=== PATIENT | male | born 1960 | race Caucasian/White ===

== ENCOUNTER 2016-03-15 11:20 | Emergency (ER) | payer SELFPAY ==
[2016-03-15 11:55] VITALS: RESP 18
[2016-03-15] MEDS ORDERED: ORPHENADRINE 30 MG/ML 2 ML VIAL IM STA (12:04)
[2016-03-15] MEDS ORDERED: KETOROLAC 60 MG/2 ML VIAL IM STA (12:04)
--- NOTE | 2016-03-15 12:06 | ED ---
Back Pain HPI - General Chief Complaint: Back Pain/Injury Stated Complaint: back pain Time Seen by Provider: 03/15/16 11:57 Source: patient, RN notes reviewed Limitations: no limitations - History of Present Illness Initial Comments: 55-year-old male presents to the emergency Department chief complaint of right- sided back pain. Patient had this pain for a few months now. Patient states the rash on the right side and down his right leg. Patient states that he goes to stand up or bending causes increased pain. Patient states the chiropractor who did not seem to help much. Patient states he should Nar[place] he tried Aleve and he said the lesion seems to help him the most. 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 Patient states he hasn't had any other symptoms of this. Patient denies any nausea or vomiting. Patient admits to history kidney stones but states that this feels different. Patient states she was concerned due to the pain. Called his doctor and they were unable to determine today so is here. Patient denies any recent fever, chills, shortness of breath, chest pain, abdominal pain, nausea vomiting, numbness or tingling, dysuria or hematuria, constipation or diarrhea, headaches or visual changes, or any other current symptoms. - Related Data Home Medications Medication Instructions Recorded Confirmed Naproxen Sodium [Aleve] 440 mg PO Q6H PRN 03/15/16 03/15/16 amLODIPine BESYLATE [Norvasc] 10 mg PO BID 03/15/16 03/15/16 Previous Rx's Medication Instructions Recorded Ibuprofen [Motrin] 600 mg PO Q6HR PRN #20 tab 03/15/16 Orphenadrine [Norflex] 100 mg PO Q12H #10 tablet.er 03/15/16 predniSONE 50 mg PO DAILY #5 tab 03/15/16 Allergies Allergy/AdvReac Type Severity Reaction Status Date / Time No Known Allergies Allergy Verified 03/15/16 12:14 Review of Systems ROS Statement: Those systems with pertinent positive or pertinent negative responses have been documented in the HPI. ROS Other: All systems not noted in ROS Statement are negative. Past Medical History Past Medical History: Hypertension History of Any Multi-Drug Resistant Organisms: None Reported Past Surgical History: No Surgical Hx Reported Past Anesthesia/Blood Transfusion Reactions: No Reported Reaction Additional Past Anesthesia/Blood Transfusion Reaction / Comment(s): Pt has never had a blood transfusion. Past Psychological History: No Psychological Hx Reported Smoking Status: Current every day smoker Past Alcohol Use History: Daily Past Drug Use History: None Reported - Past Family History Mother Additional Family Medical History / Comment(s): Cardiac Father Additional Family Medical History / Comment(s): Cardiac General Exam - General Exam Comments Initial Comments: General: The patient is awake and alert, in no distress, and does not appear acutely ill. Eye: Pupils are equal, round and reactive to light, extra-ocular movements are intact; there is normal conjunctiva bilaterally. No signs of icterus. Ears, nose, mouth and throat: There are moist mucous membranes and no oral lesions. Neck: The neck is supple, there is no tenderness. Cardiovascular: There is a regular rate and rhythm. No murmur, rub or gallop is appreciated. Respiratory: Lungs are clear to auscultation, respirations are non-labored, breath sounds are equal. No wheezes, stridor, rales, or rhonchi. Gastrointestinal: Soft, non-distended, non-tender abdomen without masses or organomegaly noted. There is no rebound or guarding present. No CVA tenderness. Bowel sounds are unremarkable. Back: There is no tenderness to palpation in the midline. Tenderness over the right paraspinal region There is no obvious deformity. No rashes noted. Positive straight leg raise on the right Musculoskeletal: Normal ROM, no tenderness, There is no pedal edema. There is no calf tenderness or swelling. Sensation intact. Pulses equal bilaterally 2+. Neurological: CN II-XII intact, There are no obvious motor or sensory deficits. Coordination appears grossly intact. Speech is normal. Skin: Skin is warm and dry and no rashes or lesions are noted. Psychiatric: Cooperative, appropriate mood & affect, normal judgment. Limitations: no limitations Course Vital Signs 03/15/16 11:51 Temperature 98.5 F Pulse Rate 85 Respiratory 18 Rate Blood Pressure 173/92 O2 Sat by Pulse 97 Oximetry Medical Decision Making - Medical Decision Making 55-year-old male presents to emergency room chief complaint of low back pain. This patient x-rays reviewed as well as a urine. Urine is clear. We did send for culture. This Is a 22 process. This time we discussed patient's mostly several lumbar strain. We will put him anti-inflammatory steroids and muscle relaxers. We discussed her driving on the muscle relaxers. We discussed follow -up will given information for Dr. Camarillo's office and return parameters. Patient stated that he understood and all his questions have been answered. This time the patient will be discharged home. - Lab Data Lab Results 03/15/16 Range/Units 12:32 Urine Color Yellow Urine Appearance Clear (Clear) Urine pH 6.5 (5.0-8.0) Ur Specific [place] 1.014 (1.001-1.035) Urine Protein Negative (Negative) Urine Glucose (UA) Negative (Negative) Urine Ketones Negative (Negative) Urine Blood Negative (Negative) Urine Nitrate Negative (Negative) Urine Bilirubin Negative (Negative) Urine Urobilinogen <2.0 (<2.0) mg/dL Ur Leukocyte Esterase Negative (Negative) - Radiology Data Radiology results: report reviewed, image reviewed Disposition Clinical Impression: Lumbar strain Disposition: HOME SELF-CARE Condition: Stable Instructions: Low Back Strain (ED), Lower Back Exercises (ED) Additional Instructions: Please use medication as discussed. Please follow up with family doctor if symptoms have not improved over the next two days. Please return to the emergency room if your symptoms increase or worsen or for any other concerns. Prescriptions: Ibuprofen [Motrin] 600 mg PO Q6HR PRN #20 tab PRN Reason: Pain Orphenadrine [Norflex] 100 mg PO Q12H #10 tablet.er predniSONE 50 mg PO DAILY #5 tab Referrals: Ben Pulido MD [Primary Care Provider] - 1-2 days Heather Brannon DO [Doctor of Osteopathic Medicine] - 1-2 days Time of Disposition: 13:16
[2016-03-15 12:55] LABS: Appearance,Urine Clear (Clear); Bilirubin,Urine Negative (Negative); Glucose,Urine (UA) Negative (Negative); Ketones,Urine Negative (Negative); Leukocyte Esterase,Urine Negative (Negative); Nitrite,Urine Negative (Negative); PH, Urine 6.5 (5.0-8.0); Protein,Urine Negative (Negative); Specific Gravity,Urine 1.014 (1.001-1.035); UA Billing (MACRO vs. MICRO) CHEM; Urobilinogen,Urine <2.0 mg/dL (<2.0)
--- NOTE | 2016-03-15 12:57 | XR ---
EXAMINATION TYPE: XR lumbar spine 2 or 3V DATE OF EXAM: 03/15/2016 12:50 PM CLINICAL HISTORY: pain TECHNIQUE: Three views of the lumbar spine are submitted. COMPARISON: None. FINDINGS: There are 5 lumbar type vertebral bodies identified. The lumbar spine shows satisfactory alignment w ithout evidence of acute fracture or dislocation. Vertebral body heights are within normal limits. Disc spaces are within normal limits. The overlying soft tissue appears unremarkable. IMPRESSION: No acute fracture or dislocation is seen in the lumbar spine. ICD 10 NO FRACTURE, INITIAL EVALUATION
[2016-03-15 13:29] VITALS: BP 140/91; PULSE 80; TEMP 98.4
== END 2016-03-15 13:44 | disposition home or self-care (01) ==
LOC: EC 11:20
DX: S39.012A Strain of muscle, fascia and tendon of lower back, initial encounter (principal); X58.XXXA Exposure to other specified factors, initial encounter; I10 Essential (primary) hypertension; Z79.899 Other long term (current) drug therapy; Z87.442 Personal history of urinary calculi; F17.200 Nicotine dependence, unspecified, uncomplicated
CPT/HCPCS: 81003; 72100; 99283; 96372; J2360; J1885

== ENCOUNTER 2016-03-25 15:26 | Observation (INO) | payer OTHER ==
[2016-03-25] MEDS ORDERED: SODIUM CHLORIDE 0.9% 1,000 ML IV STA (15:56)
[2016-03-25] MEDS ORDERED: RX INFO: IV CONTRAST WAS GIVEN 1 EACH MISC MISCELLANE PRN (15:56)
[2016-03-25] MEDS ORDERED: ONDANSETRON 4 MG/2 ML VIAL IVP STA (15:56)
[2016-03-25] MEDS ORDERED: HYDROmorphone 1 MG/ML 1 ML SYRINGE IVP STA (15:56)
[2016-03-25] MEDS ORDERED: PANTOPRAZOLE 40 MG/10 ML VIAL IVP STA (15:56)
[2016-03-25 16:43] LABS: Basophils # (A) 0.1 k/uL (0-0.2); Basophils % (A) 0 %; CH 31.5; CHCM 34.3; Eosinophils # (A) 0.2 k/uL (0-0.7); Eosinophils % (A) 2 %; HCT 50.5 % (39.0-53.0); HDW 2.42; HGB 16.9 gm/dL (13.0-17.5); Luc # (Auto) 0.23; Luc % (Auto) 1; Lymphocytes # (A) 3.4 k/uL (1.0-4.8); Lymphocytes % (A) 21 %; MCH 30.9 pg (25.0-35.0); MCHC 33.5 g/dL (31.0-37.0); MCV 92.2 fL (80.0-100.0); Mean Platelet Volume 6.8; Monocytes # (A) 0.8 k/uL (0-1.0); Monocytes % (A) 5 %; Neutrophils # (A) 11.5 k/uL (1.3-7.7); Neutrophils % (A) 71 %; RBC 5.48 m/uL (4.30-5.90); RDW 13.1 % (11.5-15.5); WBC 16.2 k/uL (3.8-10.6); WBC (Perox) 16.64
--- NOTE | 2016-03-25 16:44 | ED ---
General Adult HPI - General Chief complaint: Abdominal Pain Stated complaint: Sent By PCP-Internal Bleeding Time Seen by Provider: 03/25/16 15:45 Source: patient, RN notes reviewed Mode of arrival: ambulatory Limitations: no limitations - History of Present Illness Initial comments: Patient 55-year-old male who presents emergency room today with chief complaint of rectal bleeding. Patient does admit that he's been expressing some right flank pain over the last 2 weeks. He states he was seen here in the emergency room. He states pain has increased and now located lower abdomen. He states yesterday had a bright red bowel movement. Patient does admit to a second one that earlier this morning. Patient states he did see his PCP recommended coming here to the emergency room for further evaluation. Patient denies any other complaints or associated symptoms. Patient denies any history of rectal bleeding. Denies previous colonoscopy. Patient denies any recent fever, chills , shortness of breath, chest pain, numbness or tingling, dysuria or hematuria, constipation or diarrhea, headaches or visual changes, or any other complaints. - Related Data Home Medications Medication Instructions Recorded Confirmed amLODIPine BESYLATE [Norvasc] 10 mg PO BID 03/15/16 03/25/16 Previous Rx's Medication Instructions Recorded Ibuprofen [Motrin] 600 mg PO Q6HR PRN #20 tab 03/15/16 Orphenadrine [Norflex] 100 mg PO Q12H #10 tablet.er 03/15/16 Allergies Allergy/AdvReac Type Severity Reaction Status Date / Time No Known Allergies Allergy Verified 03/25/16 16:08 Review of Systems ROS Statement: Those systems with pertinent positive or pertinent negative responses have been documented in the HPI. ROS Other: All systems not noted in ROS Statement are negative. Past Medical History Past Medical History: Hypertension History of Any Multi-Drug Resistant Organisms: None Reported Past Surgical History: No Surgical Hx Reported, Heart Catheterization Past Anesthesia/Blood Transfusion Reactions: No Reported Reaction Additional Past Anesthesia/Blood Transfusion Reaction / Comment(s): Pt has never had a blood transfusion. Past Psychological History: No Psychological Hx Reported Smoking Status: Current every day smoker Past Alcohol Use History: Daily Past Drug Use History: None Reported - Past Family History Mother Additional Family Medical History / Comment(s): Cardiac Father Additional Family Medical History / Comment(s): Cardiac General Exam - General Exam Comments Initial Comments: General: The patient is awake and alert, in no distress, and does not appear acutely ill. Eye: Pupils are equal, round and reactive to light, extra-ocular movements are intact. No nystagmus. There is normal conjunctiva bilaterally. No signs of icterus. Ears, nose, mouth and throat: There are moist mucous membranes and no oral lesions. Neck: The neck is supple, there is no tenderness or JVD. Cardiovascular: There is a regular rate and rhythm. No murmur, rub or gallop is appreciated. Respiratory: Lungs are clear to auscultation, respirations are non-labored, breath sounds are equal. No wheezes, stridor, rales, or rhonchi. Gastrointestinal: Normal appearance. Normal bowel sounds. Abdomen soft on palpation. Patient does have tenderness across the lower abdomen. There is right lower quadrant. No rebound tenderness. No guarding. Musculoskeletal: Normal ROM, no tenderness. Strength 5/5. Sensation intact. Pulses equal bilaterally 2+. Neurological: A&O x 3. CN II-XII intact, There are no obvious motor or sensory deficits. Coordination appears grossly intact. Speech is normal. Skin: Skin is warm and dry and no rashes or lesions are noted. Psychiatric: Cooperative, appropriate mood & affect, normal judgment. : Normal rectal tone. No bright red blood per rectum. Limitations: no limitations Course Vital Signs 03/25/16 03/25/16 03/25/16 15:33 17:48 17:56 Temperature 97.7 F 97 F L 98.4 F Pulse Rate 87 76 73 Respiratory 18 18 14 Rate Blood Pressure 146/89 131/76 139/82 O2 Sat by Pulse 98 98 93 L Oximetry 03/25/16 18:52 Temperature 98.0 F Pulse Rate 79 Respiratory 15 Rate Blood Pressure 142/83 O2 Sat by Pulse 94 L Oximetry Medical Decision Making - Medical Decision Making Patient's labs reviewed does show 16,000 white count. Guaiac positive. Patient 's CAT scan reveals a diverticulitis. Case discussed with the physician Dr. Espinosa who discussed with Dr. Buenrostro who will admit the patient with consult to GI. - Lab Data Result diagrams: 03/25/16 16:25 03/25/16 16:25 Lab Results 03/25/16 03/25/16 03/25/16 Range/Units 16:25 16:25 16:25 WBC 16.2 H (3.8-10.6) k/uL RBC 5.48 (4.30-5.90) m/uL Hgb 16.9 (13.0-17.5) gm/dL Hct 50.5 (39.0-53.0) % MCV 92.2 (80.0-100.0) fL MCH 30.9 (25.0-35.0) pg MCHC 33.5 (31.0-37.0) g/dL RDW 13.1 (11.5-15.5) % Plt Count 252 (150-450) k/uL Neutrophils % 71 % Lymphocytes % 21 % Monocytes % 5 % Eosinophils % 2 % Basophils % 0 % Neutrophils # 11.5 H (1.3-7.7) k/uL Lymphocytes # 3.4 (1.0-4.8) k/uL Monocytes # 0.8 (0-1.0) k/uL Eosinophils # 0.2 (0-0.7) k/uL Basophils # 0.1 (0-0.2) k/uL PT (9.0-12.0) sec INR (<1.1) APTT (22.0-30.0) sec Sodium 139 (137-145) mmol/L Potassium 4.5 (3.5-5.1) mmol/L Chloride 104 (98-107) mmol/L Carbon Dioxide 24 (22-30) mmol/L Anion Gap 11 mmol/L BUN 17 (9-20) mg/dL Creatinine 0.93 (0.66-1.25) mg/dL Est GFR (MDRD) Af Amer >60 (>60 ml/min/1.73 sqM) Est GFR (MDRD) Non-Af >60 (>60 ml/min/1.73 sqM) Glucose 94 (74-99) mg/dL Calcium 9.7 (8.4-10.2) mg/dL Total Bilirubin 0.7 (0.2-1.3) mg/dL AST 19 (17-59) U/L ALT 39 (21-72) U/L Alkaline Phosphatase 106 (38-126) U/L Total Protein 7.7 (6.3-8.2) g/dL Albumin 4.4 (3.5-5.0) g/dL Urine Color Urine Appearance (Clear) Urine pH (5.0-8.0) Ur Specific [place] (1.001-1.035) Urine Protein (Negative) Urine Glucose (UA) (Negative) Urine Ketones (Negative) Urine Blood (Negative) Urine Nitrate (Negative) Urine Bilirubin (Negative) Urine Urobilinogen (<2.0) mg/dL Ur Leukocyte Esterase (Negative) Stool Occult Blood Positive (Negative) 03/25/16 03/25/16 Range/Units 16:25 16:45 WBC (3.8-10.6) k/uL RBC (4.30-5.90) m/uL Hgb (13.0-17.5) gm/dL Hct (39.0-53.0) % MCV (80.0-100.0) fL MCH (25.0-35.0) pg MCHC (31.0-37.0) g/dL RDW (11.5-15.5) % Plt Count (150-450) k/uL Neutrophils % % Lymphocytes % % Monocytes % % Eosinophils % % Basophils % % Neutrophils # (1.3-7.7) k/uL Lymphocytes # (1.0-4.8) k/uL Monocytes # (0-1.0) k/uL Eosinophils # (0-0.7) k/uL Basophils # (0-0.2) k/uL PT 11.0 (9.0-12.0) sec INR 1.1 (<1.1) APTT 22.5 (22.0-30.0) sec Sodium (137-145) mmol/L Potassium (3.5-5.1) mmol/L Chloride (98-107) mmol/L Carbon Dioxide (22-30) mmol/L Anion Gap mmol/L BUN (9-20) mg/dL Creatinine (0.66-1.25) mg/dL Est GFR (MDRD) Af Amer (>60 ml/min/1.73 sqM) Est GFR (MDRD) Non-Af (>60 ml/min/1.73 sqM) Glucose (74-99) mg/dL Calcium (8.4-10.2) mg/dL Total Bilirubin (0.2-1.3) mg/dL AST (17-59) U/L ALT (21-72) U/L Alkaline Phosphatase (38-126) U/L Total Protein (6.3-8.2) g/dL Albumin (3.5-5.0) g/dL Urine Color Yellow Urine Appearance Clear (Clear) Urine pH 5.0 (5.0-8.0) Ur Specific [place] 1.023 (1.001-1.035) Urine Protein Trace H (Negative) Urine Glucose (UA) Negative (Negative) Urine Ketones Negative (Negative) Urine Blood Negative (Negative) Urine Nitrate Negative (Negative) Urine Bilirubin Negative (Negative) Urine Urobilinogen <2.0 (<2.0) mg/dL Ur Leukocyte Esterase Negative (Negative) Stool Occult Blood (Negative) Disposition Clinical Impression: Acute diverticulitis Disposition: ADMITTED IP TO THIS [facility] Condition: Good Time of Disposition: 18:59
[2016-03-25 16:48] LABS: ALT 39 U/L (21-72); AST 19 U/L (17-59); Alkaline Phosphatase 106 U/L (38-126); Anion Gap 11 mmol/L; Blood Urea Nitrogen 17 mg/dL (9-20); Calcium 9.7 mg/dL (8.4-10.2); Carbon Dioxide 24 mmol/L (22-30); Chloride 104 mmol/L (98-107); Glucose 94 mg/dL (74-99); Non-African American GFR(MDRD) >60 (>60 ml/min/1.73 sqM); Potassium 4.5 mmol/L (3.5-5.1); Sodium 139 mmol/L (137-145); Total Bilirubin 0.7 mg/dL (0.2-1.3); Total Protein 7.7 g/dL (6.3-8.2)
--- NOTE | 2016-03-25 16:58 | XR ---
EXAMINATION TYPE: XR KUB DATE OF EXAM ORDERED: 03/25/2016 4:49 PM HISTORY: Abdominal pain. COMPARISON: None. FINDINGS: The abdominal gas pattern is normal. There is no evidence of obstruction or free air. No u nusual calcifications are seen. IMPRESSION: NO ACUTE INTRA-ABDOMINAL ABNORMALITY.
[2016-03-25 17:03] LABS: INR 1.1 (<1.1); Partial Thromboplastin Time 22.5 sec (22.0-30.0)
[2016-03-25 17:12] LABS: Appearance,Urine Clear (Clear); Bilirubin,Urine Negative (Negative); Glucose,Urine (UA) Negative (Negative); Ketones,Urine Negative (Negative); Leukocyte Esterase,Urine Negative (Negative); Nitrite,Urine Negative (Negative); Protein,Urine Trace (Negative); Specific Gravity,Urine 1.023 (1.001-1.035); UA Billing (MACRO vs. MICRO) CHEM; Urobilinogen,Urine <2.0 mg/dL (<2.0)
--- NOTE | 2016-03-25 18:25 | CT ---
EXAMINATION TYPE: CT abdomen pelvis w con DATE OF EXAM: 03/25/2016 5:44 PM COMPARISON: NONE HISTORY: abdominal pain and blood in stool CT DLP: 1230.3 mGycm. Automated exposure control for dose reduction was used. TECHNIQUE: Helical acquisition of images was performed from the lung bases through the pelvis. CONTRAST: Performed without Oral Contrast and with IV Contrast, patient injected with 100 mL of Omnip aque 300. FINDINGS: LUNG BASES: No significant abnormality is appreciated. LIVER/GB: No significant abnormality is appreciated. PANCREAS: No significant abnormality is seen. SPLEEN: No significant abnormality is seen. ADRENALS: No significant abnormality is seen. KIDNEYS: No significant abnormality is seen. RETROPERITONEAL ADENOPATHY: None visualized REPRODUCTIVE ORGANS: No significant abnormality is seen URINARY BLADDER: No significant abnormality is seen. PELVIC ADENOPATHY: None visualized. OSSEOUS STRUCTURES: No significant abnormality is seen. BOWEL: The oral contrast opacifies the ascending colon and the proximal and mid transverse colon. There is very subtle reticulation of the pericolonic adipose in the left mid descending colon, sugge sting mild diverticulitis. There are no abnormal fluid or gas collections. No bowel obstruction. There is non-distension of the cecum with the oral contrast - this appears to be due to stool rather than pathology. In any case, eventual follow-up colonoscopy is recommended unless obtained recently. IMPRESSION: 1. SUBTLE DESCENDING COLON FINDING LIKELY REPRESENTING MINIMAL DIVERTICULITIS, DISCUSSED. 2. NONSPECIFIC CECUM FINDING, LIKELY BENIGN.
[2016-03-25] MEDS ORDERED: metroNIDAZOLE-NS PMX 500 MG in SALINE 1 100ML.BAG IVPB STA (18:56)
[2016-03-25] MEDS ORDERED: LEVOFLOXACIN 500MG-D5W PMX 500 MG in DEXTROSE/WATER 1 100ML.BAG IVPB STA (18:56)
[2016-03-25] MEDS ORDERED: HYDROmorphone 1 MG/ML 1 ML SYRINGE IV PRN (18:59)
[2016-03-25] MEDS ORDERED: ONDANSETRON 4 MG/2 ML VIAL IVP PRN (18:59)
[2016-03-25] MEDS ORDERED: NALOXONE 0.4 MG/ML 1 ML VIAL IV PRN (18:59)
[2016-03-25] MEDS: SODIUM CHLORIDE 0.9% 1,000 ML IV SCH (22:29)
[2016-03-26] MEDS: metroNIDAZOLE-NS PMX 500 MG in SALINE 1 100ML.BAG IVPB SCH ×3 (00:42→16:48)
[2016-03-26] MEDS: LORazepam 2 MG/ML SYRINGE IV PRN ×2 (00:54→14:18)
[2016-03-26] MEDS: SODIUM CHLORIDE 0.9% 1,000 ML IV SCH ×2 (06:06→16:48)
--- NOTE | 2016-03-26 07:34 | P.PN ---
Progress Note - Text Patient seen and evaluated. Please see dictated report. Abdominal pain is improved this morning. No previous colonoscopy. Recommend nothing by mouth status. Continue with IV fluid hydration.
[2016-03-26 09:32] LABS: Basophils % (A) 0 %; CH 31.2; CHCM 33.3; Eosinophils # (A) 0.1 k/uL (0-0.7); Eosinophils % (A) 1 %; HCT 44.5 % (39.0-53.0); HDW 2.41; HGB 14.5 gm/dL (13.0-17.5); Luc # (Auto) 0.16; Luc % (Auto) 1; Lymphocytes # (A) 2.5 k/uL (1.0-4.8); Lymphocytes % (A) 22 %; MCH 30.7 pg (25.0-35.0); MCHC 32.6 g/dL (31.0-37.0); Mean Platelet Volume 6.9; Monocytes # (A) 0.7 k/uL (0-1.0); Monocytes % (A) 6 %; Neutrophils # (A) 7.9 k/uL (1.3-7.7); Neutrophils % (A) 69 %; RBC 4.74 m/uL (4.30-5.90); RDW 13.1 % (11.5-15.5); WBC 11.4 k/uL (3.8-10.6)
[2016-03-26 09:55] LABS: ALT 38 U/L (21-72); AST 14 U/L (17-59); Alkaline Phosphatase 80 U/L (38-126); Anion Gap 8 mmol/L; Blood Urea Nitrogen 14 mg/dL (9-20); Calcium 8.8 mg/dL (8.4-10.2); Carbon Dioxide 25 mmol/L (22-30); Chloride 108 mmol/L (98-107); Glucose 88 mg/dL (74-99); Non-African American GFR(MDRD) >60 (>60 ml/min/1.73 sqM); Potassium 4.7 mmol/L (3.5-5.1); Sodium 141 mmol/L (137-145); Total Bilirubin 0.7 mg/dL (0.2-1.3); Total Protein 5.9 g/dL (6.3-8.2)
[2016-03-26] MEDS: PANTOPRAZOLE 40 MG/10 ML VIAL IV SCH (10:28)
[2016-03-26] MEDS: IPRATROPIUM-ALBUTEROL 3 ML NEB INHALATION SCH ×3 (12:22→20:56)
[2016-03-26] MEDS: amLODIPine 10 MG TAB PO SCH ×2 (12:26→20:09)
[2016-03-26] MEDS: NICOTINE 21MG/24HR PATCH TRANSDERM SCH (12:27)
--- NOTE | 2016-03-26 13:43 | HP ---
DATE OF ADMISSION: 03/25/2016 PRESENTING COMPLAINT: Abdominal pain. HISTORY OF PRESENTING COMPLAINT: This is a 55-year-old patient of Dr. Pulido. Patient has chronic low back pain, hypertension, presents with increasing abdominal pain for the last 3 or 4 days, cramping sensation and developed blood clots. Patient's and mother at the bedside. Abdomen is somewhat bloated. No nausea or vomiting. Denies any fever. REVIEW OF SYSTEMS: CONSTITUTIONAL: Tired. HEENT: None. RESPIRATORY: Occasional wheezing. CARDIOVASCULAR: None. GASTROINTESTINAL: As above. GENITOURINARY: None. MUSCULOSKELETAL: Chronic low back pain. DERMATOLOGICAL: None. HEMATOLOGIC: None. LYMPHATICS: None. PSYCHIATRY: None. NEUROLOGICAL: None. PAST MEDICAL HISTORY: Hypertension, low back pain. PAST SURGICAL HISTORY: Cardiac catheterization showing normal coronaries. SOCIAL HISTORY: The patient is a residential real estate assistant, smokes a pack and a half for 40 years. Drinks about 10 beers a week. . FAMILY HISTORY: Reviewed, noncontributory to the presentation. HOME MEDICATIONS: 1. Norvasc 10 mg b.i.d. 2. Norflex 100 mg p.o. q.12. 3. Motrin 600 mg q.6 p.r.n. ALLERGIES: None. On examination, temperature 98.6, pulse 77, respiration 20, blood pressure 126/79, pulse ox 88% on room air. GENERAL APPEARANCE: Well built, BMI of 30.7, lying in bed, tired appearing. EYES: Pupils equal. Conjunctivae normal. HEENT: External appearance of nose and ears normal. Oral cavity normal. NECK: JVD not raised. Mass not palpable. RESPIRATORY: Effort normal. LUNGS: Diminished breath sounds. CARDIOVASCULAR: First and second sounds normal. No edema. ABDOMEN: Distended. Lower abdominal tenderness. No guarding or rigidity. Liver and spleen not palpable. Bowel sounds present. LYMPHATIC: No lymph nodes palpable in neck or axillae. PSYCHIATRY: Alert and oriented x3. Mood and affect normal. NEUROLOGICAL: Pupils equal. Cranial nerves grossly intact. Power and sensation grossly intact. INVESTIGATIONS: White count 6.2, hemoglobin 16.9. Potassium 4.5. CT scan of the abdomen and pelvis some suggestion of diverticulitis. ASSESSMENT: 1. Acute diverticulitis versus acute colitis. 2. Essential hypertension. 3. Acute gastrointestinal bleed from above. 4. Chronic low back pain, probably osteoarthritis. 5. Clinically patient does seem to have emphysema. 6. Chronic nicotine dependence. Patient is a smoker. PLAN: Patient is being made n.p.o., put on Levaquin and Flagyl. Will get a lumbosacral spine x-ray to assess for arthritis. Patient also will be put on breathing treatments and given a nicotine patch. Care was discussed in detail with the patient and family at the bedside. ( ) were answered.
--- NOTE | 2016-03-26 14:08 | XR ---
EXAMINATION TYPE: XR lumbar spine 2 or 3V DATE OF EXAM: 03/26/2016 1:58 PM CLINICAL HISTORY: Low back pain into both legs for 2 months TECHNIQUE: Frontal and lateral images of the lumbar spine are obtained. COMPARISON: CT abdomen and pelvis from yesterday. FINDINGS: There are 5 lumbar type vertebral bodies identified. The lumbar spine shows dextroconvex scoliotic curvature centered at L3 level without evidence of acute fracture or dislocation. There is moderate to advanced disc space narrowing with vacuum disc phenomenon at L5-S1 level otherwise verte bral body heights and disk space heights are within normal limits. The overlying soft tissue appear s unremarkable. IMPRESSION: Degenerative disc space narrowing lumbosacral junction redemonstrated.
[2016-03-26] MEDS: ACETAMINOPHEN TAB 325 MG TAB PO PRN (14:36)
--- NOTE | 2016-03-26 20:32 | P.PN ---
Subjective Principal diagnosis: Diverticulitis Patient seen and evaluated this evening. His abdominal pain moderately improved. He reports hunger. Objective - Vital Signs Vital signs: Vital Signs Temp 97.2 F L 03/26/16 15:00 Pulse 77 03/26/16 15:00 Resp 20 03/26/16 15:00 BP 116/85 03/26/16 15:00 Pulse Ox 92 L 03/26/16 15:00 Intake & Output 03/26/16 03/26/16 03/27/16 06:59 18:59 06:59 Intake Total 1000 Output Total 1000 Balance 0 Intake: IV 100 Levofloxacin 500Mg-D5w 100 Pmx 500 mg In Dextrose/ Water 1 100ml.bag @ 100 mls/hr IVPB ONCE STA Rx#: [id number] Intake, IV Titration 900 Amount Sodium Chloride 0.9% 1, 800 000 ml @ 100 mls/hr IV . Q10H DESTINY Rx#:[id number] metroNIDAZOLE-NS PMX 500 100 mg In Saline 1 100ml.bag @ 100 mls/hr IVPB Q8HR DESTINY Rx#:[id number] Output: Urine 1000 Other: Voiding Method Toilet Toilet Toilet # Voids 1 2 # Bowel Movements 0 0 - Exam GENERAL: Well developed and in no acute distress. Pleasant. HEENT: No sclera icterus. Extraocular movements grossly intact. Moist buccal mucosa. Head is atraumatic, normocephalic. Hears conversational speech. No nasal drainage. NECK: Supple without lymphadenopathy. No JV distention. CHEST: Non-labored respirations and equal bilateral excursions. CARDIOVASCULAR: Regular rate and rhythm. Palpable 2+ radial pulses. ABDOMEN: Soft, minimal tenderness bilateral lower abdomen. No peritoneal signs. MUSCULOSKELETAL: No clubbing, cyanosis or edema. NEUROLOGIC: No focal or lateralizing signs. PSYCH: Appropriate affect. Alert and oriented to person, place and time. - Labs CBC & Chem 7: 03/26/16 08:42 03/26/16 08:42 Labs: Abnormal Lab Results - Last 24 Hours (Table) 03/26/16 03/26/16 Range/Units 08:42 08:42 WBC 11.4 H (3.8-10.6) k/uL Neutrophils # 7.9 H (1.3-7.7) k/uL Chloride 108 H (98-107) mmol/L AST 14 L (17-59) U/L Total Protein 5.9 L (6.3-8.2) g/dL Albumin 3.3 L (3.5-5.0) g/dL Assessment and Plan (1) Acute diverticulitis Status: Acute (2) Obesity (BMI 30.0-34.9) Status: Chronic (3) Bilateral lower abdominal discomfort Status: Acute (4) Tobacco abuse Status: Chronic Plan: 1. His abdominal pain has improved. May start clear liquid diet. 2. Continue antibiotics. We'll need home antibiotics for at least 5 days. 3. Follow-up in the office as outpatient. 4. May advance diet in the morning.
[2016-03-26] MEDS ORDERED: LEVOFLOXACIN 500MG-D5W PMX 500 MG in DEXTROSE/WATER 1 100ML.BAG IVPB SCH (21:00)
[2016-03-26 23:07] VITALS: RESP 18
[2016-03-27] MEDS: metroNIDAZOLE-NS PMX 500 MG in SALINE 1 100ML.BAG IVPB SCH ×2 (00:08→08:34)
[2016-03-27] MEDS: SODIUM CHLORIDE 0.9% 1,000 ML IV SCH ×2 (04:20→11:09)
--- NOTE | 2016-03-27 07:49 | XR ---
EXAMINATION TYPE: XR chest 2V DATE OF EXAM: 03/27/2016 6:58 AM COMPARISON: Chest x-ray October 08, 2014. HISTORY: COPD per order. TECHNIQUE: Frontal and lateral views of the chest are obtained. FINDINGS: There is chronic emphysematous change with patchy right basilar opacity may reflect develo ping atelectasis and/or infiltrate on frontal view less well appreciated on lateral view. Left lung i s clear. No pleural effusion or pneumothorax is seen bilaterally. The cardiac silhouette size is upp er limits of normal. The osseous structures are intact. IMPRESSION: Chronic emphysematous change with perhaps developing right basilar atelectasis and/or in filtrate. Consider progress study.
[2016-03-27 07:54] VITALS: BP 136/83; PULSE 83; TEMP 98.3
--- NOTE | 2016-03-27 08:26 | P.GSCN ---
History of Present Illness Consult date: 03/26/16 Reason for Consult: Diverticulitis. Requesting physician: Brad Buenrostro History of present illness: The patient is a 55-year-old gentleman who reports acute onset bilateral lower abdominal pain. He denies any previous episodes. He denies any previous history of colonoscopy. He denies any family history of colitis or colon cancer. He had a CT of the abdomen and pelvis demonstrating diverticulitis changes. Additionally he presented with elevated white blood cell count. As a result of his diverticulitis, Gen. surgery is consulted. Review of Systems CONSTITUTIONAL: Denies any fever or chills. Denies recent weight loss. HEENT: Denies any trouble with vision, hearing or nosebleeds. No difficulty swallowing. LYMPHATIC: The patient denies any lumps and bumps around the neck. ENDOCRINE: Denies any thyroid disorders. Denies any blood sugar glucose intolerance. RESPIRATORY: Denies pneumonia. Denies any troubles with breathing or dyspnea on exertion. CARDIOVASCULAR: Denies any chest pain. Has history of heart catheterization. GASTROINTESTINAL: Has heart burn, constipation. No bright red blood per rectum. GENITOURINARY: Denies any blood in urine or increased urinary frequency. MUSCULOSKELETAL: Has back pain, stiffness, joint arthritis. NEUROLOGIC: Denies any numbness or tingling along the distal extremities. No seizure disorders or headaches. PSYCHIATRIC: Denies depression or suidical ideation. HEMATOLOGIC: Denies any abnormal bleeding or bruising. BREASTS: Denies any breast lumps, pain or nipple discharge. Past Medical History Past Medical History: Hypertension History of Any Multi-Drug Resistant Organisms: None Reported Past Surgical History: Heart Catheterization Past Anesthesia/Blood Transfusion Reactions: No Reported Reaction Additional Past Anesthesia/Blood Transfusion Reaction / Comm: Pt has never had a blood transfusion. Past Psychological History: No Psychological Hx Reported Smoking Status: Current every day smoker Past Alcohol Use History: Daily Past Drug Use History: None Reported - Past Family History Mother Additional Family Medical History / Comment(s): Cardiac Father Additional Family Medical History / Comment(s): Cardiac Medications and Allergies Home Medications Medication Instructions Recorded Confirmed Type amLODIPine BESYLATE [Norvasc] 10 mg PO BID 03/15/16 03/25/16 History Allergies Allergy/AdvReac Type Severity Reaction Status Date / Time No Known Allergies Allergy Verified 02/16/17 16:08 Surgical - Exam Vital Signs Temp Pulse Resp BP Pulse Ox 97.7 F 87 18 146/89 98 03/25/16 15:33 03/25/16 15:33 03/25/16 15:33 03/25/16 15:33 03/25/16 15:33 GENERAL: Well developed and in no acute distress. Pleasant. HEENT: No sclera icterus. Extraocular movements grossly intact. Moist buccal mucosa. Head is atraumatic, normocephalic. Hears conversational speech. No nasal drainage. NECK: Supple without lymphadenopathy. No JV distention. CHEST: Non-labored respirations and equal bilateral excursions. CARDIOVASCULAR: Regular rate and rhythm. Palpable 2+ radial pulses. ABDOMEN: Soft, tender along bilateral lower abdomen. Mild distention. No peritonitis. MUSCULOSKELETAL: No clubbing, cyanosis or edema. NEUROLOGIC: No focal or lateralizing signs. Cranial nerves II-12 grossly intact. PSYCH: Appropriate affect. Alert and oriented to person, place and time. Results - Labs 03/26/16 08:42 03/26/16 08:42 - Imaging CT scan - abdomen: report reviewed, image reviewed CT scan - pelvis: report reviewed, image reviewed (No colonic perforation free air or obstruction) Assessment and Plan (1) Acute diverticulitis Status: Acute (2) Bilateral lower abdominal discomfort Status: Acute (3) Obesity (BMI 30.0-34.9) Status: Chronic (4) Tobacco abuse Status: Chronic (5) Lumbar strain Status: Acute Plan: 1. As he has abdominal pain, recommend nothing by mouth status. 2. I reviewed him need for colonoscopy in 6 to 8 weeks after his present abdominal pain is resolved. 3. Recommend dietitian consult for diverticulitis diet. 4. I also reviewed with him the risks of perforation with history of diverticulitis, which is low at this time. Fortunately, his current attack is improving. 5. No need for surgical intervention at this time. 6. Will reevaluate this evening. Thank you for this kind consultation.
[2016-03-27] MEDS: amLODIPine 10 MG TAB PO SCH (08:34)
[2016-03-27] MEDS: NICOTINE 21MG/24HR PATCH TRANSDERM SCH ×2 (08:34→08:42)
[2016-03-27] MEDS: PANTOPRAZOLE 40 MG/10 ML VIAL IV SCH (08:34)
[2016-03-27] MEDS: ACETAMINOPHEN TAB 325 MG TAB PO PRN (08:37)
[2016-03-27] MEDS: IPRATROPIUM-ALBUTEROL 3 ML NEB INHALATION SCH ×2 (08:56→11:58)
--- NOTE | 2016-03-27 11:35 | P.PN ---
Subjective Principal diagnosis: Diverticulitis Abdominal pain is resolved. He reports hunger. He is ambulating and urinating. Objective - Vital Signs Vital signs: Vital Signs Temp 98.3 F 03/27/16 07:00 Pulse 83 03/27/16 07:00 Resp 18 03/27/16 07:00 BP 136/83 03/27/16 07:00 Pulse Ox 90 L 03/27/16 07:00 Intake & Output 03/26/16 03/27/16 03/27/16 18:59 06:59 18:59 Output Total 1400 Balance -1400 Output: Urine 1400 Other: Voiding Method Toilet Toilet # Voids 2 2 # Bowel Movements 0 - Exam GENERAL: Well developed and in no acute distress. Pleasant. HEENT: No sclera icterus. Extraocular movements grossly intact. Moist buccal mucosa. Head is atraumatic, normocephalic. Hears conversational speech. No nasal drainage. NECK: Supple without lymphadenopathy. No JV distention. CHEST: Non-labored respirations and equal bilateral excursions. CARDIOVASCULAR: Regular rate and rhythm. Palpable 2+ radial pulses. ABDOMEN: Soft, nontender. Nondistended. MUSCULOSKELETAL: No clubbing, cyanosis or edema. NEUROLOGIC: No focal or lateralizing signs. PSYCH: Appropriate affect. Alert and oriented to person, place and time. - Labs CBC & Chem 7: 03/26/16 08:42 03/26/16 08:42 Assessment and Plan (1) Acute diverticulitis Status: Acute (2) Bilateral lower abdominal discomfort Status: Acute (3) Obesity (BMI 30.0-34.9) Status: Chronic (4) Tobacco abuse Status: Chronic (5) Lumbar strain Status: Acute Plan: 1. Start soft diet. 2. May discharge home with antibiotics after tolerating diet. 3. Follow-up in the office for colonoscopy as outpatient.
[2016-03-27 11:45] VITALS: BMI 30.7
--- NOTE | 2016-03-29 23:48 | DS ---
DATE OF ADMISSION: 03/25/2016 DATE OF DISCHARGE: 03/27/2016 FINAL DIAGNOSES: 1. Acute colitis or acute diverticulitis, present on admission. 2. Essential hypertension. 3. Chronic low back pain, probably osteoarthritis. 4. Emphysema. 5. Chronic nicotine dependence. Patient is a smoker. HOSPITAL COURSE: This patient presented with abdominal pain, some blood. CT scan suggested some diverticulitis. The patient may have colitis. Responded well to antibiotics. Doing better at the time of discharge. Patient was seen by Dr. Edwards. Very keen to go home. I did ask him to stay an extra day, but ( ) Dr. Edwards. On examination, abdomen soft. Minimal tenderness. Bowel sounds are present. Patient was afebrile. White count was coming down nicely. DISCHARGE MEDICATIONS: 1. Motrin 600 mg q.6 p.r.n. 2. Norflex 100 mg p.o. q.12. 3. Norvasc 10 mg b.i.d. 4. Cipro 500 mg p.o. b.i.d. for 14 days. 5. Nicotine 20 mg patch. 6. Flagyl 500 mg p.o. q.8 for 7 days. Follow up with Dr. Edwards on 03/30/16. Follow up with Dr. Pulido in one week. Diet soft, bland patient. Patient to have a repeat CBC, BMP done in 3 days.
== END 2016-03-27 15:12 | disposition home or self-care (01) ==
LOC: EC 15:26 → 4MS4W 18:49
PROVIDERS: ADMIT Hospitalist; ATTEND Hospitalist
DX: K57.92 Diverticulitis of intestine, part unspecified, without perforation or abscess without bleeding (principal); E66.9 Obesity, unspecified; Z68.30 Body mass index [BMI] 30.0-30.9, adult; F17.200 Nicotine dependence, unspecified, uncomplicated; G89.29 Other chronic pain; I10 Essential (primary) hypertension; J43.9 Emphysema, unspecified; S39.012A Strain of muscle, fascia and tendon of lower back, initial encounter; Z79.899 Other long term (current) drug therapy
CPT/HCPCS: 51798; 36415; 80053 ×2; 85025 ×2; 85610; 85730; 82272; 81003; 71020; 72100; 74000; 74177; 99285; 96375; 96361; G0378 ×3; J2060; J2405; J1956 ×2; J1170 ×2; Q9967; C9113 ×3; 96366; 96367; 96376

== ENCOUNTER 2021-07-24 03:21 | Emergency (ER) | payer OTHER ==
[2021-07-24 03:26] VITALS: TEMP 98.4
[2021-07-24 04:33] LABS: Basophils # (A) 0.2 k/uL (0-0.2); Basophils % (A) 1 %; Eosinophils # (A) 0.3 k/uL (0-0.7); Eosinophils % (A) 2 %; HGB 15.4 gm/dL (13.0-17.5); Lymphocytes # (A) 2.4 k/uL (1.0-4.8); Lymphocytes % (A) 18 %; MCH 29.4 pg (25.0-35.0); MCHC 30.9 g/dL (31.0-37.0); MCV 95.2 fL (80.0-100.0); Mean Platelet Volume 8.4; Monocytes # (A) 0.7 k/uL (0-1.0); Monocytes % (A) 5 %; Neutrophils # (A) 9.8 k/uL (1.3-7.7); Neutrophils % (A) 73 %; Platelet Count 217 k/uL (150-450); RBC 5.26 m/uL (4.30-5.90); RDW 13.2 % (11.5-15.5); WBC 13.5 k/uL (3.8-10.6)
[2021-07-24 04:44] LABS: Lactic Acid, Venous 1.7 mmol/L (0.7-2.0)
[2021-07-24 04:45] LABS: ALT 42 U/L (4-49); AST 26 U/L (17-59); African American GFR (CKD) >90 (>60 ml/min/1.73 sqM); Alkaline Phosphatase 114 U/L (38-126); Amylase 36 U/L (30-110); Anion Gap 7 mmol/L; Blood Urea Nitrogen 13 mg/dL (9-20); Calcium 8.8 mg/dL (8.4-10.2); Carbon Dioxide 27 mmol/L (22-30); Chloride 104 mmol/L (98-107); Glucose 160 mg/dL (74-99); Lipase 73 U/L (23-300); Non-African American GFR(CKD) >90 (>60 ml/min/1.73 sqM); Potassium 4.2 mmol/L (3.5-5.1); Sodium 138 mmol/L (137-145); Total Bilirubin 0.5 mg/dL (0.2-1.3); Total Protein 6.8 g/dL (6.3-8.2)
[2021-07-24 04:47] LABS: Appearance,Urine Clear (Clear); Bilirubin,Urine Negative (Negative); Blood,Urine Moderate (Negative); Color,Urine Yellow; Glucose,Urine (UA) Negative (Negative); Ketones,Urine Negative (Negative); Leukocyte Esterase,Urine Negative (Negative); Mucus,Urine Few /hpf; Nitrite,Urine Negative (Negative); PH, Urine 5.5 (5.0-8.0); Protein,Urine Negative (Negative); RBC,Urine 41 /hpf (0-5); Specific Gravity,Urine 1.018 (1.001-1.035); Squamous Epithelial Cell,Urine <1 /hpf (0-4); Urobilinogen,Urine <2.0 mg/dL (<2.0); WBC,Urine <1 /hpf (0-5)
[2021-07-24] MEDS ORDERED: HYDROmorphone 0.5 MG/0.5 ML SYRINGE IVP STA (05:36)
[2021-07-24] MEDS ORDERED: ONDANSETRON 4 MG/2 ML VIAL IVP STA (05:36)
--- NOTE | 2021-07-24 06:09 | CT ---
EXAM: CT Abdomen and Pelvis Without Intravenous Contrast CLINICAL HISTORY: L flank pain TECHNIQUE: Axial computed tomography images of the abdomen and pelvis without intravenous contrast. CTDI is 24.3 mGy and DLP is 1365 mGy-cm. This CT exam was performed using one or more of the following dose reduction techniques: automated exposure control, adjustment of the mA and/or kV according to patient size, and/or use of iterative reconstruction technique. COMPARISON: 03/25/2016. FINDINGS: Lung bases: Unremarkable. No mass. No consolidation. ABDOMEN: Liver: Hepatomegaly with steatosis, measuring up to 18.6 cm in greatest craniocaudad dimension, interval worsening. Gallbladder and bile ducts: Unremarkable. No calcified stones. No ductal dilation. Pancreas: Unremarkable. No ductal dilation. Spleen: Unremarkable. No splenomegaly. Adrenals: Unremarkable. No mass. Kidneys and ureters: A 3-4 mm stone is seen in the proximal left ureter resulting in mild left-sided hydronephrosis. Stomach and bowel: Colonic diverticulosis. No obstruction. PELVIS: Appendix: No findings to suggest acute appendicitis. Bladder: Unremarkable. No stones. Reproductive: Prostatomegaly, measuring up to 5.5 cm in greatest transverse dimension, interval worsening. ABDOMEN and PELVIS: Intraperitoneal space: Unremarkable. No free air. No significant fluid collection. Bones/joints: Moderate narrowing of the L5-S1 intervertebral disc space. No acute fracture. No dislocation. Soft tissues: Small fat-containing left inguinal hernia. Small fat- containing umbilical hernia. Vasculature: Mild vascular calcifications involving the intra- abdominal aorta. No abdominal aortic aneurysm. Lymph nodes: Mild bilateral groin lymphadenopathy, of unknown significance. IMPRESSION: 1. A 3-4 mm stone in the proximal left ureter resulting in mild left- sided hydronephrosis. 2. Hepatomegaly with steatosis, interval worsening. 3. Prostatomegaly, interval worsening. Correlate with PSA. 4. Colonic diverticulosis.
[2021-07-24] MEDS ORDERED: TAMSULOSIN 0.4 MG CAP.ER.24H PO STA (06:20)
--- NOTE | 2021-07-24 06:39 | ED ---
Abdominal Pain HPI - General Chief Complaint: Abdominal Pain Stated Complaint: SOB, abd pain Time Seen by Provider: 07/24/21 03:56 Source: patient, family Mode of arrival: wheelchair Limitations: no limitations - History of Present Illness Initial Comments: This patient is a 60-year-old man who complains of left flank pain that is been going on for number of hours now. The patient states that he was at rest when it began and he did not have any trauma that started. The pain is been aching. He has not noticed worsening or relieving factors. MD Complaint: flank pain -: hour(s) Location: L flank Radiation: none Migration to: no migration Severity: moderate Quality: aching Consistency: constant Improves With: nothing Worsens With: nothing - Related Data Home Medications Medication Instructions Recorded Confirmed amLODIPine BESYLATE [Norvasc] 10 mg PO BID 03/15/16 01/15/17 HYDROcodone/APAP 7.5-325MG [[place] 1 tab PO BID 01/15/17 01/15/17 7.5-325] Previous Rx's Medication Instructions Recorded Amoxicillin/Potassium Clav 1 tab PO Q12HR #20 tab 01/18/17 [Augmentin 875-125 Tablet] Lactobacillus Acidoph & Bulgar 1 packet PO TID #30 packet 01/18/17 [Lactinex] Nicotine 21Mg/24Hr Patch [Habitrol] 1 patch TRANSDERM DAILY #28 patch 01/18/17 HYDROcodone/APAP 5-325MG [[place] 1 tab PO Q4HR PRN 3 Days #18 tab 07/24/21 5-325] Tamsulosin [Flomax] 0.4 mg PO DAILY #14 cap 07/24/21 Allergies Allergy/AdvReac Type Severity Reaction Status Date / Time No Known Allergies Allergy Verified 07/24/21 03:22 Review of Systems ROS Statement: Those systems with pertinent positive or pertinent negative responses have been documented in the HPI. ROS Other: All systems not noted in ROS Statement are negative. Constitutional: Denies: fever, chills Respiratory: Denies: cough, dyspnea Cardiovascular: Denies: chest pain, palpitations, edema Gastrointestinal: Reports: abdominal pain. Denies: vomiting, diarrhea, c onstipation, melena, hematochezia Genitourinary: Denies: dysuria, frequency, hematuria, testicular pain Musculoskeletal: Denies: back pain Skin: Denies: rash Neurological: Denies: headache, weakness, numbness Past Medical History Past Medical History: Hypertension Additional Past Medical History / Comment(s): diverticulitis History of Any Multi-Drug Resistant Organisms: None Reported Past Surgical History: Heart Catheterization Past Anesthesia/Blood Transfusion Reactions: No Reported Reaction Additional Past Anesthesia/Blood Transfusion Reaction / Comment(s): Pt has never had a blood transfusion. Past Psychological History: No Psychological Hx Reported Smoking Status: Current every day smoker Past Alcohol Use History: Occasional Past Drug Use History: None Reported - Past Family History Mother Additional Family Medical History / Comment(s): Cardiac Father Additional Family Medical History / Comment(s): Cardiac General Exam Limitations: no limitations General appearance: alert, in no apparent distress Head exam: Present: atraumatic, normocephalic Eye exam: Present: normal appearance. Absent: scleral icterus, conjunctival injection Neck exam: Present: normal inspection Respiratory exam: Present: normal lung sounds bilaterally. Absent: respiratory distress, wheezes, rales, rhonchi, stridor Cardiovascular Exam: Present: regular rate, normal rhythm, normal heart sounds. Absent: systolic murmur, diastolic murmur, rubs, gallop GI/Abdominal exam: Present: soft. Absent: distended, tenderness, guarding, rebound, rigid, mass, pulsatile mass, hernia Extremities exam: Present: normal inspection, normal capillary refill. Absent: pedal edema, calf tenderness Back exam: Present: normal inspection, CVA tenderness (L). Absent: CVA tenderness (R) Neurological exam: Present: alert Skin exam: Present: warm, dry, intact, normal color. Absent: rash Course Vital Signs 07/24/21 07/24/21 03:22 07:04 Temperature 98.4 F Pulse Rate 85 78 Respiratory 16 18 Rate Blood Pressure 157/95 140/83 O2 Sat by Pulse 95 97 Oximetry Medical Decision Making - Lab Data Result diagrams: 07/24/21 03:57 07/24/21 03:57 Lab Results 07/24/21 07/24/21 07/24/21 Range/Units 03:57 03:57 03:57 WBC 13.5 H (3.8-10.6) k/uL RBC 5.26 (4.30-5.90) m/uL Hgb 15.4 (13.0-17.5) gm/dL Hct 50.0 (39.0-53.0) % MCV 95.2 (80.0-100.0) fL MCH 29.4 (25.0-35.0) pg MCHC 30.9 L (31.0-37.0) g/dL RDW 13.2 (11.5-15.5) % Plt Count 217 (150-450) k/uL MPV 8.4 Neutrophils % 73 % Lymphocytes % 18 % Monocytes % 5 % Eosinophils % 2 % Basophils % 1 % Neutrophils # 9.8 H (1.3-7.7) k/uL Lymphocytes # 2.4 (1.0-4.8) k/uL Monocytes # 0.7 (0-1.0) k/uL Eosinophils # 0.3 (0-0.7) k/uL Basophils # 0.2 (0-0.2) k/uL Sodium 138 (137-145) mmol/L Potassium 4.2 (3.5-5.1) mmol/L Chloride 104 (98-107) mmol/L Carbon Dioxide 27 (22-30) mmol/L Anion Gap 7 mmol/L BUN 13 (9-20) mg/dL Creatinine 0.89 (0.66-1.25) mg/dL Est GFR (CKD-EPI)AfAm >90 (>60 ml/min/1.73 sqM) Est GFR (CKD-EPI)NonAf >90 (>60 ml/min/1.73 sqM) Glucose 160 H (74-99) mg/dL Plasma Lactic Acid [place] 1.7 (0.7-2.0) mmol/L Calcium 8.8 (8.4-10.2) mg/dL Total Bilirubin 0.5 (0.2-1.3) mg/dL AST 26 (17-59) U/L ALT 42 (4-49) U/L Alkaline Phosphatase 114 (38-126) U/L Ammonia 21 (<30) umol/L Total Protein 6.8 (6.3-8.2) g/dL Albumin 4.0 (3.5-5.0) g/dL Amylase 36 (30-110) U/L Lipase 73 (23-300) U/L Urine Color Urine Appearance (Clear) Urine pH (5.0-8.0) Ur Specific [place] (1.001-1.035) Urine Protein (Negative) Urine Glucose (UA) (Negative) Urine Ketones (Negative) Urine Blood (Negative) Urine Nitrite (Negative) Urine Bilirubin (Negative) Urine Urobilinogen (<2.0) mg/dL Ur Leukocyte Esterase (Negative) Urine RBC (0-5) /hpf Urine WBC (0-5) /hpf Ur Squamous Epith Cells (0-4) /hpf Urine Mucus (None) /hpf 07/24/21 Range/Units 04:06 WBC (3.8-10.6) k/uL RBC (4.30-5.90) m/uL Hgb (13.0-17.5) gm/dL Hct (39.0-53.0) % MCV (80.0-100.0) fL MCH (25.0-35.0) pg MCHC (31.0-37.0) g/dL RDW (11.5-15.5) % Plt Count (150-450) k/uL MPV Neutrophils % % Lymphocytes % % Monocytes % % Eosinophils % % Basophils % % Neutrophils # (1.3-7.7) k/uL Lymphocytes # (1.0-4.8) k/uL Monocytes # (0-1.0) k/uL Eosinophils # (0-0.7) k/uL Basophils # (0-0.2) k/uL Sodium (137-145) mmol/L Potassium (3.5-5.1) mmol/L Chloride (98-107) mmol/L Carbon Dioxide (22-30) mmol/L Anion Gap mmol/L BUN (9-20) mg/dL Creatinine (0.66-1.25) mg/dL Est GFR (CKD-EPI)AfAm (>60 ml/min/1.73 sqM) Est GFR (CKD-EPI)NonAf (>60 ml/min/1.73 sqM) Glucose (74-99) mg/dL Plasma Lactic Acid [place] (0.7-2.0) mmol/L Calcium (8.4-10.2) mg/dL Total Bilirubin (0.2-1.3) mg/dL AST (17-59) U/L ALT (4-49) U/L Alkaline Phosphatase (38-126) U/L Ammonia (<30) umol/L Total Protein (6.3-8.2) g/dL Albumin (3.5-5.0) g/dL Amylase (30-110) U/L Lipase (23-300) U/L Urine Color Yellow Urine Appearance Clear (Clear) Urine pH 5.5 (5.0-8.0) Ur Specific [place] 1.018 (1.001-1.035) Urine Protein Negative (Negative) Urine Glucose (UA) Negative (Negative) Urine Ketones Negative (Negative) Urine Blood Moderate H (Negative) Urine Nitrite Negative (Negative) Urine Bilirubin Negative (Negative) Urine Urobilinogen <2.0 (<2.0) mg/dL Ur Leukocyte Esterase Negative (Negative) Urine RBC 41 H (0-5) /hpf Urine WBC <1 (0-5) /hpf Ur Squamous Epith Cells <1 (0-4) /hpf Urine Mucus Few H (None) /hpf Disposition Clinical Impression: Kidney stone on left side Disposition: HOME SELF-CARE Condition: Good Instructions (If sedation given, give patient instructions): Kidney Stones (ED) Prescriptions: Tamsulosin [Flomax] 0.4 mg PO DAILY #14 cap HYDROcodone/APAP 5-325MG [[place] 5-325] 1 tab PO Q4HR PRN 3 Days #18 tab PRN Reason: Pain Is patient prescribed a controlled substance at d/c from ED?: No Referrals: Rashard Gama MD [STAFF PHYSICIAN] - 1-2 days Bailee Daniel MD [Primary Care Provider] - 1-2 days Char Anaya MD [STAFF PHYSICIAN] - 1-2 days
[2021-07-24 07:05] VITALS: BP 140/83; PULSE 78; RESP 18
== END 2021-07-24 07:04 | disposition home or self-care (01) ==
LOC: EC 03:21
DX: N13.2 Hydronephrosis with renal and ureteral calculous obstruction (principal); F17.200 Nicotine dependence, unspecified, uncomplicated
CPT/HCPCS: 36415; 80053; 82140; 82150; 83605; 83690; 85025; 81001; 74176; 99284; 96374; 96375; J2405; J1170

== ENCOUNTER 2023-02-08 16:20 | Emergency (ER) | payer BC ==
--- NOTE | 2023-02-08 16:36 | ED ---
General Adult HPI - General Source: patient, RN notes reviewed Mode of arrival: ambulatory Limitations: no limitations <Olga Obregon - Last Filed: 02/08/23 16:35> <Zacarias Kiser - Last Filed: 02/08/23 21:51> - General Chief complaint: GI Bleed Stated complaint: Abd pain, Low Oxygen- sent from [facility] Time Seen by Provider: 02/08/23 16:35 - History of Present Illness Initial comments: 62-year-old male presents the emergency department with a chief complaint of shortness of breath and rectal bleeding. Denies anticoagulant use. (Olga Obregon) Dictation was produced using [employer] dictation software. please excuse any grammatical, word or spelling errors. Chief Complaint: 62-year-old male with past medical history of diverticulitis and hypertension presents to the ER for abdominal pain, shortness of breath and GI bleed History of Present Illness: 62-year-old male presents with effort mention symptoms. is at the bedside aiding in history of present illness. Patient for the last several months has been dealing with chronic abdominal pain, GI bleed shortness of breath. Patient states that today his belly was more distended. He did not have any upper or lower endoscopy. He did speak with his primary care doctor and told that he should probably come to the ER to be evaluated. He has been having bloody stools for the last several weeks. He has no history of hemorrhoids. Denies any rectal pain. Does complain of diffuse abdominal pain and abdominal distention. The ROS documented in this emergency department record has been reviewed and confirmed by me. Those systems with pertinent positive or negative responses h ave been documented in the HPI. All other systems are other negative and/or noncontributory. (Zacarias iKser) - Related Data Home Medications Medication Instructions Recorded Confirmed amLODIPine BESYLATE [Norvasc] 10 mg PO BID 03/15/16 01/15/17 Allergies Allergy/AdvReac Type Severity Reaction Status Date / Time No Known Allergies Allergy Verified 02/08/23 21:46 Review of Systems ROS Other: All systems not noted in ROS Statement are negative. <Olga Obergon - Last Filed: 02/08/23 16:35> ROS Other: All systems not noted in ROS Statement are negative. <Zacarias Kiser - Last Filed: 02/08/23 21:51> ROS Statement: Those systems with pertinent positive or pertinent negative responses have been documented in the HPI. Past Medical History Past Medical History: Hypertension Additional Past Medical History / Comment(s): diverticulitis History of Any Multi-Drug Resistant Organisms: None Reported Past Surgical History: Heart Catheterization Past Anesthesia/Blood Transfusion Reactions: No Reported Reaction Additional Past Anesthesia/Blood Transfusion Reaction / Comment(s): Pt has never had a blood transfusion. Past Psychological History: No Psychological Hx Reported Smoking Status: Current every day smoker Past Alcohol Use History: Occasional Past Drug Use History: None Reported - Past Family History Mother Additional Family Medical History / Comment(s): Cardiac Father Additional Family Medical History / Comment(s): Cardiac <Olga Obregon - Last Filed: 02/08/23 16:35> General Exam Limitations: no limitations <Olga Obregon - Last Filed: 02/08/23 16:35> <Zacarias Kiser - Last Filed: 02/08/23 21:51> - General Exam Comments Initial Comments: PHYSICAL EXAM: General Impression: Alert and oriented x3, not in acute distress HEENT: Normocephalic atraumatic, extra-ocular movements intact, pupils equal and reactive to light bilaterally, mucous membranes moist. Cardiovascular: Heart regular rate and rhythm Chest: Able to complete full sentences, no retractions, no tachypnea Abdomen: abdomen soft, nontender, minimal palpatory tenderness, no organomegaly Musculoskeletal: Pulses present and equal in all extremities, no peripheral edema Motor: no focal deficits noted Neurological: CN II-XII grossly intact, no focal motor or sensory deficits noted Skin: Intact with no visualized rashes Psych: Normal affect and mood Rectal exam: Bright blood per rectum, no hemorrhoid (Zacarias Kiser) Course Vital Signs 02/08/23 02/08/23 02/08/23 16:31 19:58 21:08 Temperature 98.9 F Pulse Rate 80 82 72 Respiratory 18 18 18 Rate Blood Pressure 169/102 151/102 140/92 O2 Sat by Pulse 92 L 93 L 90 L Oximetry 02/08/23 21:11 Temperature Pulse Rate Respiratory Rate Blood Pressure O2 Sat by Pulse 95 Oximetry Medical Decision Making - Lab Data Result diagrams: 02/08/23 16:46 02/08/23 16:46 <Noam Kisersse D - Last Filed: 02/08/23 21:51> - Medical Decision Making Was pt. sent in by a medical professional or institution (, [facility], [facility], urgent care, hospital, or [facility]...) When possible be specific @ -No Did you speak to anyone other than the patient for history (EMS, parent, family, police, friend...)? What history was obtained from this source @ -No Did you review nursing and triage notes (agree or disagree)? Why? @ -I reviewed and agree with nursing and triage notes Were old charts reviewed (outside hosp., previous admission, EMS record, old EKG, old radiological studies, urgent care reports/EKG's, [facility] records)? Report findings @ -No old charts were reviewed Differential Diagnosis (chest pain, altered mental status, abdominal pain women, abdominal pain men, vaginal bleeding, musculoskeletal, weakness, fever, dyspnea , syncope, headache, dizziness, GI bleed, back pain, seizure, CVA, palpatations, mental health)? @ -Differential Abdominal Pain Men: Appendicitis, cholecystitis, diverticulosis, ischemic bowel, pancreatitis, hepatitis, UTI, gastroenteritis, AAA, incarcerated hernia, bowel obstruction, constipation, inflammatory bowel, hepatitis, peptic ulcer disease, splenic infarction, perforated viscus, testicular torsion, this is not meant to be an all-inclusive list EKG interpreted by me (3pts min.). @ -None done X-rays interpreted by me (1pt min.). @ -Chest x-ray shows no acute processes CT interpreted by me (1pt min.). @ -Computed tomography scan of the abdomen and pelvis shows no acute processes. U/S interpreted by me (1pt. min.). @ -None done What testing was considered but not performed or refused? (CT, X-rays, U/S, labs)? Why? @ -None What meds were considered but not given or refused? Why? @ -None Did you discuss the management of the patient with other professionals (professionals i.e. , [facility], [facility], lab, RT, psych nurse, social media content manager, industrial designer, teacher, senior major gifts officer, director case management)? Give summary @ -No Was smoking cessation discussed for >3mins.? @ -No Was critical care preformed (if so, how long)? @ -No Were there social determinants of health that impacted care today? How? (Homelessness, low income, unemployed, alcoholism, drug addiction, transportation, low edu. Level, literacy, decrease access to med. care, fpc, rehab)? @ -No Was there de-escalation of care discussed even if they declined (Discuss DNR or withdrawal of care, Hospice)? DNR status @ -No What co-morbidities impacted this encounter? (DM, HTN, Smoking, COPD, CAD, Cancer, CVA, ARF, Chemo, Hep., AIDS, mental health diagnosis, sleep apnea, morbid obesity)? @ -None Was patient admitted / discharged? Hospital course, mention meds given and route, prescriptions, significant lab abnormalities, going to OR and other pert inent info. @ -62-year-old male with multiple complaints. His complaints include shortness of breath, bright red blood per rectum and abdominal pain. Vital signs upon arrival are within acceptable limits. Patient's well. The bedside he is eating chips with no accommodations. Laboratory evaluation is unremarkable. D-dimer is negative. BNP is negative. Troponins negative. So occult blood is negative. Viral testing is negative. Computed tomography scan of the head and pelvis shows no acute processes. Chest x-rays negative. Patient and at the bedside are adamant that patient needs to have upper and lower endoscopy emergently. Discussed with them that this is not so he is not high risk and had extensive workup with no acute findings. Patient is agreeable for discharge. He is given outpatient referral to GI. Undiagnosed new problem with uncertain prognosis? @ -No Drug Therapy requiring intensive monitoring for toxicity (Heparin, Nitro, Insulin, Cardizem)? @ -No Were any procedures done? @ -No Diagnosis/symptom? Acute, or Chronic, or Acute on Chronic? Uncomplicated (without systemic symptoms) or Complicated (systemic symptoms)? @ -Abdominal pain, bright blood per rectum, dyspnea Side effects of treatment? @ -No Exacerbation, Progression, or Severe Exacerbation? @ -No Poses a threat to life or bodily function? How? (Chest pain, [place], VA, pneumonia, PE, COPD, DKA, ARF, appy, cholecystitis, CVA, Diverticulitis, Homicidal, Suicidal, threat to staff... and all critical care pts) @ -No (Zacarias Kiser) - Lab Data Lab Results 02/08/23 02/08/23 02/08/23 Range/Units 16:46 16:46 16:46 WBC 14.9 H (3.8-10.6) k/uL RBC 5.45 (4.30-5.90) m/uL Hgb 17.0 (13.0-17.5) gm/dL Hct 50.2 (39.0-53.0) % MCV 92.1 (80.0-100.0) fL MCH 31.2 (25.0-35.0) pg MCHC 33.9 (31.0-37.0) g/dL RDW 13.9 (11.5-15.5) % Plt Count 186 (150-450) k/uL MPV 8.6 Neutrophils % 72 % Lymphocytes % 18 % Monocytes % 5 % Eosinophils % 2 % Basophils % 1 % Neutrophils # 10.7 H (1.3-7.7) k/uL Lymphocytes # 2.8 (1.0-4.8) k/uL Monocytes # 0.8 (0-1.0) k/uL Eosinophils # 0.4 (0-0.7) k/uL Basophils # 0.1 (0-0.2) k/uL PT 12.6 H (10.0-12.5) sec INR 1.2 H (<1.2) APTT 25.5 (22.0-30.0) sec D-Dimer (<0.60) mg/L FEU Sodium 141 (137-145) mmol/L Potassium 4.4 (3.5-5.1) mmol/L Chloride 104 (98-107) mmol/L Carbon Dioxide 27 (22-30) mmol/L Anion Gap 10 mmol/L BUN 13 (9-20) mg/dL Creatinine 0.73 (0.66-1.25) mg/dL Est GFR (CKD-EPI)AfAm >90 (>60 ml/min/1.73 sqM) Est GFR (CKD-EPI)NonAf >90 (>60 ml/min/1.73 sqM) Glucose 112 H (74-99) mg/dL Plasma Lactic Acid Heriberto (0.7-2.0) mmol/L Calcium 9.4 (8.4-10.2) mg/dL Total Bilirubin 0.5 (0.2-1.3) mg/dL AST 29 (17-59) U/L ALT 33 (4-49) U/L Alkaline Phosphatase 101 (38-126) U/L Troponin I (0.000-0.034) ng/mL NT-Pro-B Natriuret Pep pg/mL Total Protein 7.1 (6.3-8.2) g/dL Albumin 4.1 (3.5-5.0) g/dL Stool Occult Blood (Negative) Influenza Type A (PCR) (Not Detectd) Influenza Type B (PCR) (Not Detectd) RSV (PCR) (Not Detectd) SARS-CoV-2 (PCR) (Not Detectd) Blood Type Blood Type Confirm Blood Type Recheck Bld Type Recheck Status Antibody Screen Spec Expiration Date 02/08/23 02/08/23 02/08/23 Range/Units 16:46 16:46 19:55 WBC (3.8-10.6) k/uL RBC (4.30-5.90) m/uL Hgb (13.0-17.5) gm/dL Hct (39.0-53.0) % MCV (80.0-100.0) fL MCH (25.0-35.0) pg MCHC (31.0-37.0) g/dL RDW (11.5-15.5) % Plt Count (150-450) k/uL MPV Neutrophils % % Lymphocytes % % Monocytes % % Eosinophils % % Basophils % % Neutrophils # (1.3-7.7) k/uL Lymphocytes # (1.0-4.8) k/uL Monocytes # (0-1.0) k/uL Eosinophils # (0-0.7) k/uL Basophils # (0-0.2) k/uL PT (10.0-12.5) sec INR (<1.2) APTT (22.0-30.0) sec D-Dimer (<0.60) mg/L FEU Sodium (137-145) mmol/L Potassium (3.5-5.1) mmol/L Chloride (98-107) mmol/L Carbon Dioxide (22-30) mmol/L Anion Gap mmol/L BUN (9-20) mg/dL Creatinine (0.66-1.25) mg/dL Est GFR (CKD-EPI)AfAm (>60 ml/min/1.73 sqM) Est GFR (CKD-EPI)NonAf (>60 ml/min/1.73 sqM) Glucose (74-99) mg/dL Plasma Lactic Acid Heriberto 1.4 (0.7-2.0) mmol/L Calcium (8.4-10.2) mg/dL Total Bilirubin (0.2-1.3) mg/dL AST (17-59) U/L ALT (4-49) U/L Alkaline Phosphatase (38-126) U/L Troponin I (0.000-0.034) ng/mL NT-Pro-B Natriuret Pep pg/mL Total Protein (6.3-8.2) g/dL Albumin (3.5-5.0) g/dL Stool Occult Blood (Negative) Influenza Type A (PCR) Not Detected (Not Detectd) Influenza Type B (PCR) Not Detected (Not Detectd) RSV (PCR) Not Detected (Not Detectd) SARS-CoV-2 (PCR) Not Detected (Not Detectd) Blood Type A Positive Blood Type Confirm Blood Type Recheck No Previous Record Bld Type Recheck Status CABO Indicated Antibody Screen NEGATIVE Spec Expiration Date 02/11/2023235402/08/23 02/08/23 02/08/23 Range/Units 20:01 20:07 20:14 WBC (3.8-10.6) k/uL RBC (4.30-5.90) m/uL Hgb (13.0-17.5) gm/dL Hct (39.0-53.0) % MCV (80.0-100.0) fL MCH (25.0-35.0) pg MCHC (31.0-37.0) g/dL RDW (11.5-15.5) % Plt Count (150-450) k/uL MPV Neutrophils % % Lymphocytes % % Monocytes % % Eosinophils % % Basophils % % Neutrophils # (1.3-7.7) k/uL Lymphocytes # (1.0-4.8) k/uL Monocytes # (0-1.0) k/uL Eosinophils # (0-0.7) k/uL Basophils # (0-0.2) k/uL PT (10.0-12.5) sec INR (<1.2) APTT (22.0-30.0) sec D-Dimer (<0.60) mg/L FEU Sodium (137-145) mmol/L Potassium (3.5-5.1) mmol/L Chloride (98-107) mmol/L Carbon Dioxide (22-30) mmol/L Anion Gap mmol/L BUN (9-20) mg/dL Creatinine (0.66-1.25) mg/dL Est GFR (CKD-EPI)AfAm (>60 ml/min/1.73 sqM) Est GFR (CKD-EPI)NonAf (>60 ml/min/1.73 sqM) Glucose (74-99) mg/dL Plasma Lactic Acid Heriberto (0.7-2.0) mmol/L Calcium (8.4-10.2) mg/dL Total Bilirubin (0.2-1.3) mg/dL AST (17-59) U/L ALT (4-49) U/L Alkaline Phosphatase (38-126) U/L Troponin I <0.012 (0.000-0.034) ng/mL NT-Pro-B Natriuret Pep pg/mL Total Protein (6.3-8.2) g/dL Albumin (3.5-5.0) g/dL Stool Occult Blood Negative (Negative) Influenza Type A (PCR) (Not Detectd) Influenza Type B (PCR) (Not Detectd) RSV (PCR) (Not Detectd) SARS-CoV-2 (PCR) (Not Detectd) Blood Type Blood Type Confirm A Positive Blood Type Recheck Bld Type Recheck Status Antibody Screen Spec Expiration Date 02/08/23 02/08/23 Range/Units 20:14 20:14 WBC (3.8-10.6) k/uL RBC (4.30-5.90) m/uL Hgb (13.0-17.5) gm/dL Hct (39.0-53.0) % MCV (80.0-100.0) fL MCH (25.0-35.0) pg MCHC (31.0-37.0) g/dL RDW (11.5-15.5) % Plt Count (150-450) k/uL MPV Neutrophils % % Lymphocytes % % Monocytes % % Eosinophils % % Basophils % % Neutrophils # (1.3-7.7) k/uL Lymphocytes # (1.0-4.8) k/uL Monocytes # (0-1.0) k/uL Eosinophils # (0-0.7) k/uL Basophils # (0-0.2) k/uL PT (10.0-12.5) sec INR (<1.2) APTT (22.0-30.0) sec D-Dimer 0.43 (<0.60) mg/L FEU Sodium (137-145) mmol/L Potassium (3.5-5.1) mmol/L Chloride (98-107) mmol/L Carbon Dioxide (22-30) mmol/L Anion Gap mmol/L BUN (9-20) mg/dL Creatinine (0.66-1.25) mg/dL Est GFR (CKD-EPI)AfAm (>60 ml/min/1.73 sqM) Est GFR (CKD-EPI)NonAf (>60 ml/min/1.73 sqM) Glucose (74-99) mg/dL Plasma Lactic Acid Heriberto (0.7-2.0) mmol/L Calcium (8.4-10.2) mg/dL Total Bilirubin (0.2-1.3) mg/dL AST (17-59) U/L ALT (4-49) U/L Alkaline Phosphatase (38-126) U/L Troponin I (0.000-0.034) ng/mL NT-Pro-B Natriuret Pep 93 pg/mL Total Protein (6.3-8.2) g/dL Albumin (3.5-5.0) g/dL Stool Occult Blood (Negative) Influenza Type A (PCR) (Not Detectd) Influenza Type B (PCR) (Not Detectd) RSV (PCR) (Not Detectd) SARS-CoV-2 (PCR) (Not Detectd) Blood Type Blood Type Confirm Blood Type Recheck Bld Type Recheck Status Antibody Screen Spec Expiration Date Disposition <Olga Obregon - Last Filed: 02/08/23 16:35> Is patient prescribed a controlled substance at d/c from ED?: No Time of Disposition: 21:48 <Zacarias Kiser - Last Filed: 02/08/23 21:51> Clinical Impression: Bright red blood per rectum Disposition: HOME SELF-CARE Condition: Fair Instructions (If sedation given, give patient instructions): Gastrointestinal Bleeding (ED) Referrals: Bailee Daniel MD [Primary Care Provider] - 1-2 days Char Anaya MD [STAFF PHYSICIAN] - 1-2 days
[2023-02-08 16:45] VITALS: RESP 18; TEMP 98.9
[2023-02-08 17:09] LABS: Basophils # (A) 0.1 k/uL (0-0.2); Basophils % (A) 1 %; Eosinophils # (A) 0.4 k/uL (0-0.7); Eosinophils % (A) 2 %; HCT 50.2 % (39.0-53.0); Lymphocytes # (A) 2.8 k/uL (1.0-4.8); Lymphocytes % (A) 18 %; MCH 31.2 pg (25.0-35.0); MCHC 33.9 g/dL (31.0-37.0); MCV 92.1 fL (80.0-100.0); Mean Platelet Volume 8.6; Monocytes # (A) 0.8 k/uL (0-1.0); Monocytes % (A) 5 %; Neutrophils # (A) 10.7 k/uL (1.3-7.7); Neutrophils % (A) 72 %; Platelet Count 186 k/uL (150-450); RBC 5.45 m/uL (4.30-5.90); RDW 13.9 % (11.5-15.5); WBC 14.9 k/uL (3.8-10.6)
[2023-02-08 17:27] LABS: INR 1.2 (<1.2); Partial Thromboplastin Time 25.5 sec (22.0-30.0); Prothrombin Time 12.6 sec (10.0-12.5)
[2023-02-08 17:49] LABS: ALT 33 U/L (4-49); AST 29 U/L (17-59); African American GFR (CKD) >90 (>60 ml/min/1.73 sqM); Albumin 4.1 g/dL (3.5-5.0); Alkaline Phosphatase 101 U/L (38-126); Anion Gap 10 mmol/L; Blood Urea Nitrogen 13 mg/dL (9-20); Calcium 9.4 mg/dL (8.4-10.2); Carbon Dioxide 27 mmol/L (22-30); Chloride 104 mmol/L (98-107); Glucose 112 mg/dL (74-99); Non-African American GFR(CKD) >90 (>60 ml/min/1.73 sqM); Potassium 4.4 mmol/L (3.5-5.1); Sodium 141 mmol/L (137-145); Total Bilirubin 0.5 mg/dL (0.2-1.3); Total Protein 7.1 g/dL (6.3-8.2)
--- NOTE | 2023-02-08 20:09 | XR ---
EXAMINATION TYPE: XR chest 2V DATE OF EXAM: 02/08/2023 COMPARISON: 03/27/2016 INDICATION: Short of breath TECHNIQUE: Frontal and lateral views of the chest are obtained. FINDINGS: The heart size is normal. The pulmonary vasculature is normal. Nipple shadow or summation density may be present at the left base. Follow-up can be performed when t he patient is stable.. IMPRESSION: 1. No acute pulmonary process. 2. Possible nodule versus summation density at the left base. Nipple shadow could be considered. Foll ow-up recommended.
--- NOTE | 2023-02-08 20:35 | CT ---
EXAMINATION TYPE: CT abdomen pelvis w con CT DLP: 1981.8 mGycm, Automated exposure control for dose reduction was used. DATE OF EXAM: 02/08/2023 7:29 PM COMPARISON: 07/24/2021. CLINICAL INDICATION:Male, 62 years old with history of abdominal pain; Hx of diverticulitis. Abdomina l burning and discomfort. Recent weight gain of 20lbs. Pt states he is not able to eat much and think s it is water weight. PCP suspects a GI bleed. Dark stools. TECHNIQUE: Axial CT abdomen pelvis w con;Sagittal and coronal reformats were created on a separate w orkstation. Contrast used:100 ml mL of Isovue 300 with IV Contrast, (none if empty) Oral contrast used: without Oral Contrast (none if empty) FINDINGS: LOWER CHEST: Unremarkable ABDOMEN LIVER: Diffuse low-attenuation. GALLBLADDER AND BILE DUCTS: Nondistended gallbladder. PANCREAS: Unremarkable. SPLEEN: Unremarkable. ADRENAL GLANDS: Unremarkable. KIDNEYS AND URETERS: No evidence of hydronephrosis or renal calculus. The ureters are unremarkable. PELVIS BLADDER: Unremarkable REPRODUCTIVE: Prostate is enlarged in size measuring 5.2 cm in transverse dimension. ABDOMEN & PELVIS STOMACH AND BOWEL: No evidence of bowel obstruction. The appendix is normal. Scattered colonic divert icula. No evidence for gastrointestinal hemorrhage on this non-GI bleed protocol exam.. PERITONEUM/RETROPERITONEUM: No evidence of pneumoperitoneum or free fluid. VASCULATURE: Mild atherosclerotic calcifications are present throughout the abdominal aorta and its b ranches. No evidence of aortic aneurysm. MUSCULOSKELETAL: No acute osseous abnormalities LYMPH NODES: No gross evidence for lymphadenopathy. SOFT TISSUE/ABDOMINAL WALL: Fatty changes to left inguinal canal. IMPRESSION: 1. No evidence for acute abdominal process. 2. Colonic diverticulosis. 3. Hepatic steatosis. 4. Prostatomegaly, correlate serum PSA.
[2023-02-08 22:08] VITALS: BP 140/90; PULSE 79
[2023-02-09 02:52] LABS: % Iron Saturation 15.26 (15.00-50.00)
== END 2023-02-08 21:56 | disposition home or self-care (01) ==
LOC: EC 16:20
DX: K62.5 Hemorrhage of anus and rectum (principal); K57.30 Diverticulosis of large intestine without perforation or abscess without bleeding; K76.0 Fatty (change of) liver, not elsewhere classified; I10 Essential (primary) hypertension; F17.200 Nicotine dependence, unspecified, uncomplicated; Z79.899 Other long term (current) drug therapy; Z20.822 Contact with and (suspected) exposure to COVID-19
CPT/HCPCS: 36415; 86900; 86901; 85379; 83880; 80053; 83540; 83550; 83605; 84484; 85025; 85610; 85730; 86850; 82272; 87636; 71046; 74177; 99285; Q9967

== ENCOUNTER 2023-08-01 15:32 | Emergency (ER) | payer BC ==
[2023-08-01 15:42] VITALS: RESP 18
--- NOTE | 2023-08-01 16:00 | ED ---
Wound/Laceration HPI - General Chief Complaint: Wound/Laceration Stated Complaint: arm lac Time Seen by Provider: 08/01/23 15:59 Source: patient, EMS, RN notes reviewed Mode of arrival: EMS Limitations: no limitations - History of Present Illness Initial Comments: 62-year-old male presented to the ER via EMS with a chief complaint of a laceration. Patient states he was working with a circular saw and accidentally lost control of it and it accidentally sliced his left forearm. He states he immediately wrapped it with a shirt and duct tape to control the bleeding. He denies any paresthesias of the left upper extremity. Denies any limited range of motion. Tetanus status unknown. Patient reports he received fentanyl by EMS for pain control. Denies any other injuries or complaints. - Related Data Home Medications Medication Instructions Recorded Confirmed amLODIPine BESYLATE [Norvasc] 10 mg PO BID 03/15/16 02/08/23 Allergies Allergy/AdvReac Type Severity Reaction Status Date / Time No Known Allergies Allergy Verified 08/01/23 15:42 Review of Systems ROS Statement: Those systems with pertinent positive or pertinent negative responses have been documented in the HPI. ROS Other: All systems not noted in ROS Statement are negative. Past Medical History Past Medical History: Hypertension Additional Past Medical History / Comment(s): diverticulitis History of Any Multi-Drug Resistant Organisms: None Reported Past Surgical History: Heart Catheterization Past Anesthesia/Blood Transfusion Reactions: No Reported Reaction Additional Past Anesthesia/Blood Transfusion Reaction / Comment(s): Pt has never had a blood transfusion. Past Psychological History: No Psychological Hx Reported Smoking Status: Current every day smoker Past Alcohol Use History: Occasional Past Drug Use History: None Reported - Past Family History Mother Additional Family Medical History / Comment(s): Cardiac Father Additional Family Medical History / Comment(s): Cardiac General Exam Limitations: no limitations General appearance: alert, in no apparent distress Respiratory exam: Present: normal lung sounds bilaterally. Absent: respiratory distress, wheezes, rales, rhonchi, stridor Cardiovascular Exam: Present: regular rate, normal rhythm, normal heart sounds. Absent: systolic murmur, diastolic murmur, rubs, gallop, clicks Extremities exam: Present: normal inspection, full ROM, normal capillary refill, other (6 cm horizontal laceration to left forearm. Moderate active bleeding. Deep structures intact. 2+ left radial pulse. Sensation intact. Patient has full active range of motion of elbow, wrist and digits.). Absent: tenderness, pedal edema, joint swelling, calf tenderness Skin exam: Present: warm, dry, intact, normal color. Absent: rash Course Vital Signs 08/01/23 15:38 Temperature 98.2 F Pulse Rate 87 Respiratory 18 Rate Blood Pressure 131/74 O2 Sat by Pulse 94 L Oximetry Procedures - Laceration Laceration #1 Consent Obtained: verbal consent Indication: laceration Site: upper extremity Size (cm): 6 Description: linear Depth: simple, single layer Anesthetic Used: lidocaine 1% Anesthesia Technique: local infiltration Amount (mls): 8 Pre-repair: wound explored, irrigated extensively, deep structures intact Type of Sutures: nylon Size of Sutures: 4-0 Number of Sutures: 8 Technique: simple, interrupted Patient Tolerated Procedure: well, no complications Medical Decision Making - Medical Decision Making Was pt. sent in by a medical professional or institution (, PA, [employer], urgent care, hospital, or [facility]...) When possible be specific @ -No Did you speak to anyone other than the patient for history (EMS, parent, family, police, friend...)? What history was obtained from this source @ -No Did you review nursing and triage notes (agree or disagree)? Why? @ -I reviewed and agree with nursing and triage notes Were old charts reviewed (outside hosp., previous admission, EMS record, old EKG, old radiological studies, urgent care reports/EKG's, [facility] records)? Report findings @ -No old charts were reviewed Differential Diagnosis (chest pain, altered mental status, abdominal pain women, abdominal pain men, vaginal bleeding, weakness, fever, dyspnea, syncope, headache, dizziness, GI bleed, back pain, seizure, CVA, palpatations, mental health, musculoskeletal)? @ -Laceration, abrasion, contusion, avulsion, foreign body this list is not meant to be all-inclusive EKG interpreted by me (3pts min.). @ -None X-rays interpreted by me (1pt min.). @ -Left forearm x-ray interpreted me negative for acute radiopaque foreign body or osseous process. CT interpreted by me (1pt min.). @ -None done U/S interpreted by me (1pt. min.). @ -None done What testing was considered but not performed or refused? (CT, X-rays, U/S, labs)? Why? @ -None What meds were considered but not given or refused? Why? @ -None Did you discuss the management of the patient with other professionals (professionals i.e. , PA, [employer], lab, RT, psych nurse, social work manager, operation shift supervisor, teacher, electronic intelligence officer, correctional casework specialist)? Give summary @ -No Was smoking cessation discussed for >3mins.? @ -No Was critical care preformed (if so, how long)? @ -No Were there social determinants of health that impacted care today? How? (Homelessness, low income, unemployed, alcoholism, drug addiction, transportation, low edu. Level, literacy, decrease access to med. care, detention, rehab)? @ -No Was there de-escalation of care discussed even if they declined (Discuss DNR or withdrawal of care, Hospice)? DNR status @ -No What co-morbidities impacted this encounter? (DM, HTN, Smoking, COPD, CAD, Cancer, CVA, ARF, Chemo, Hep., AIDS, mental health diagnosis, sleep apnea, morbid obesity)? @ -None Was patient admitted / discharged? Hospital course, mention meds given and route, prescriptions, significant lab abnormalities, going to OR and other pertinent info. @ -Discharge. 62-year-old male presented to the ER via EMS with a chief complaint of a laceration. History and physical exam completed. Vitals stable. There is a 6 cm actively bleeding laceration to left forearm. Deep structures intact. Patient has full active range of motion of wrist and digits. Left upper extremity neurovascular intact. X-ray obtained to rule out foreign body. Tetanus updated. Left forearm x-ray negative for acute radiopaque foreign body or osseous process. Patient received IV Dilaudid for pain control in the ER. Laceration closed using 8 simple interrupted sutures. Bleeding controlled post procedure. I advised suture removal in 7 to 10 days. Patient stable for discharge at this time. Suture care and return parameters discussed. Patient discharged stable condition with follow-up to PCP. Patient verbal expressed understanding and agreement with care plan. Case discussed with ED attending, Dr. Freeman. Undiagnosed new problem with uncertain prognosis? @ -No Drug Therapy requiring intensive monitoring for toxicity (Heparin, Nitro, Insulin, Cardizem)? @ -No Were any procedures done? @ -Yes Diagnosis/symptom? @ -Laceration Acute, or Chronic, or Acute on Chronic? @ -Acute Uncomplicated (without systemic symptoms) or Complicated (systemic symptoms)? @ -Uncomplicated Side effects of treatment? @ -No Exacerbation, Progression, or Severe Exacerbation? @ -No Poses a threat to life or bodily function? How? (Chest pain, [place], [place], pneumonia, PE, COPD, DKA, ARF, appy, cholecystitis, CVA, Diverticulitis, Homicidal, Suicidal, threat to staff... and all critical care pts) @ -No - Radiology Data Radiology results: report reviewed, image reviewed Disposition Clinical Impression: Laceration Disposition: HOME SELF-CARE Condition: Stable Instructions (If sedation given, give patient instructions): Care For Your Stitches (DC), Laceration (DC) Additional Instructions: Have suture removed in 7 to 10 days. Keep area clean and dry you may wash with warm soapy water. Return to the ER for any new or worsening concerns. Is patient prescribed a controlled substance at d/c from ED?: No Referrals: Bailee Daniel MD [Primary Care Provider] - 1-2 days Time of Disposition: 17:38
[2023-08-01] MEDS: HYDROmorphone 0.5 MG/0.5 ML SYRINGE IVP STA (16:05)
[2023-08-01] MEDS: LIDOCAINE 1% INJ 10MG/ML (20 ML MDV) SQ ONE (16:09)
[2023-08-01] MEDS: DIPH,PERTUS(ACELL)TETVAC-LF 0.5 ML VIAL IM ONE (16:09)
--- NOTE | 2023-08-01 16:52 | XR ---
EXAMINATION TYPE: XR forearm LT DATE OF EXAM: 08/01/2023 4:33 PM CLINICAL INDICATION:Male, 62 years old with history of wound; [facility] COMPARISON: None TECHNIQUE: XR forearm LT; forearm was examined in AP and lateral projections. FINDINGS: No acute osseous pathology, soft tissue swelling or joint dislocations are seen. No radiop aque foreign body. No subcutaneous lucencies to suggest gas. IMPRESSION: 1. No evidence of acute fracture. 2. No radiopaque foreign body.
[2023-08-01 18:11] VITALS: BP 158/76; PULSE 86; TEMP 98.1
== END 2023-08-01 18:11 | disposition home or self-care (01) ==
LOC: EC 15:32
DX: S41.112A Laceration without foreign body of left upper arm, initial encounter (principal); F17.200 Nicotine dependence, unspecified, uncomplicated; W31.2XXA Contact with powered woodworking and forming machines, initial encounter
CPT/HCPCS: 73090; 90715; 99283; 90471; 96374; 12002; J2001; J1170

== ENCOUNTER 2023-08-08 09:18 | Emergency (ER) | payer BC ==
[2023-08-08 09:27] VITALS: RESP 22; TEMP 97.8
--- NOTE | 2023-08-08 09:43 | ED ---
General Adult HPI - General Chief complaint: Recheck/Abnormal Lab/Rx Stated complaint: L Arm Infection Time Seen by Provider: 08/08/23 09:21 Source: patient, RN notes reviewed Mode of arrival: ambulatory Limitations: no limitations - History of Present Illness Initial comments: 62-year-old male presents emergency department complaint of left arm and right finger infection. Patient states he had sutures placed several days ago after laceration from gear grinder. Patient states that he noticed some drainage he states he has been keeping them covered. Patient denies any fevers or chills. Patient denies any paresthesias. Patient states that he has had no fever, chills no other associated symptoms his tetanus is up-to-date. - Related Data Home Medications Medication Instructions Recorded Confirmed amLODIPine BESYLATE [Norvasc] 10 mg PO BID 03/15/16 02/08/23 Previous Rx's Medication Instructions Recorded Cephalexin [Keflex] 500 mg PO Q6HR #40 cap 08/08/23 Allergies Allergy/AdvReac Type Severity Reaction Status Date / Time No Known Allergies Allergy Verified 08/08/23 09:27 Review of Systems ROS Statement: Those systems with pertinent positive or pertinent negative responses have been documented in the HPI. ROS Other: All systems not noted in ROS Statement are negative. Past Medical History Past Medical History: Hypertension Additional Past Medical History / Comment(s): diverticulitis History of Any Multi-Drug Resistant Organisms: None Reported Past Surgical History: Heart Catheterization Past Anesthesia/Blood Transfusion Reactions: No Reported Reaction Additional Past Anesthesia/Blood Transfusion Reaction / Comment(s): Pt has never had a blood transfusion. Past Psychological History: No Psychological Hx Reported Smoking Status: Current every day smoker Past Alcohol Use History: Occasional Past Drug Use History: None Reported - Past Family History Mother Additional Family Medical History / Comment(s): Cardiac Father Additional Family Medical History / Comment(s): Cardiac General Exam Limitations: no limitations General appearance: alert, in no apparent distress Head exam: Present: atraumatic, normocephalic, normal inspection Respiratory exam: Present: normal lung sounds bilaterally. Absent: respiratory distress, wheezes, rales, rhonchi, stridor Cardiovascular Exam: Present: regular rate, normal rhythm, normal heart sounds. Absent: systolic murmur, diastolic murmur, rubs, gallop, clicks Extremities exam: Present: other (Left forearm sutures in place, there is surrounding erythema, there is some purulent drainage noted, right hand finger there is an open wound with some drainage noted) Course Vital Signs 08/08/23 09:24 Temperature 97.8 F Pulse Rate 85 Respiratory 22 Rate Blood Pressure 156/101 O2 Sat by Pulse 94 L Oximetry Medical Decision Making - Medical Decision Making Was pt. sent in by a medical professional or institution (, [facility], ENDS [employer], urgent care, hospital, or group home...) When possible be specific @ -No Did you speak to anyone other than the patient for history (EMS, parent, family, police, friend...)? What history was obtained from this source @ -No Did you review nursing and triage notes (agree or disagree)? Why? @ -I reviewed and agree with nursing and triage notes Were old charts reviewed (outside hosp., previous admission, EMS record, old EKG, old radiological studies, urgent care reports/EKG's, group home records)? Report findings @ -Reviewed sutures procedure Differential Diagnosis (chest pain, altered mental status, abdominal pain women, abdominal pain men, vaginal bleeding, weakness, fever, dyspnea, syncope, headache, dizziness, GI bleed, back pain, seizure, CVA, palpatations, mental health, musculoskeletal)? @ -Wound infection, cellulitis EKG interpreted by me (3pts min.). @ -None X-rays interpreted by me (1pt min.). @ -None done CT interpreted by me (1pt min.). @ -None done U/S interpreted by me (1pt. min.). @ -None done What testing was considered but not performed or refused? (CT, X-rays, U/S, labs)? Why? @ -None What meds were considered but not given or refused? Why? @ -None Did you discuss the management of the patient with other professionals (professionals i.e. ISIDORO Ferraro, ENDS DOWN CHECKER, lab, RT, psych nurse, social work manager, numerologist, teacher, light armored vehicle officer, rifle case repairer)? Give summary @ -No Was smoking cessation discussed for >3mins.? @ -No Was critical care preformed (if so, how long)? @ -No Were there social determinants of health that impacted care today? How? (Homelessness, low income, unemployed, alcoholism, drug addiction, tr ansportation, low edu. Level, literacy, decrease access to med. care, snf, rehab)? @ -No Was there de-escalation of care discussed even if they declined (Discuss DNR or withdrawal of care, Hospice)? DNR status @ -No What co-morbidities impacted this encounter? (DM, HTN, Smoking, COPD, CAD, Cancer, CVA, ARF, Chemo, Hep., AIDS, mental health diagnosis, sleep apnea, morbid obesity)? @ -None Was patient admitted / discharged? Hospital course, mention meds given and route, prescriptions, significant lab abnormalities, going to OR and other pertinent info. @ -Discharge patient does have some erythema, drainage from wounds was placed on Keflex after receiving Ancef in the emergency department. Patient is discharged in stable condition. Undiagnosed new problem with uncertain prognosis? @ -No Drug Therapy requiring intensive monitoring for toxicity (Heparin, Nitro, Insulin, Cardizem)? @ -No Were any procedures done? @ -No Diagnosis/symptom? @ -Wound infection, cellulitis Acute, or Chronic, or Acute on Chronic? @ -Acute Uncomplicated (without systemic symptoms) or Complicated (systemic symptoms)? @ -Uncomplicated Side effects of treatment? @ -No Exacerbation, Progression, or Severe Exacerbation? @ -No Poses a threat to life or bodily function? How? (Chest pain, [place], [place], pneumonia, PE, COPD, DKA, ARF, appy, cholecystitis, CVA, Diverticulitis, Homicidal, Suicidal, threat to staff... and all critical care pts) @ -No Disposition Clinical Impression: Wound infection, Cellulitis Disposition: HOME SELF-CARE Condition: Stable Instructions (If sedation given, give patient instructions): Wound Infection (ED) Additional Instructions: Please return to the Emergency Department if symptoms worsen or any other concerns. Prescriptions: Cephalexin [Keflex] 500 mg PO Q6HR #40 cap Is patient prescribed a controlled substance at d/c from ED?: No Referrals: Bailee Daniel MD [Primary Care Provider] - 1-2 days Time of Disposition: 09:42
[2023-08-08 10:15] VITALS: BP 142/92; PULSE 86
[2023-08-08] MEDS: ceFAZolin 1,000 MG VIAL (IM USE) IM STA (10:16)
== END 2023-08-08 10:29 | disposition home or self-care (01) ==
LOC: EC 09:18
DX: L08.9 Local infection of the skin and subcutaneous tissue, unspecified (principal); L03.114 Cellulitis of left upper limb; L03.011 Cellulitis of right finger; F17.200 Nicotine dependence, unspecified, uncomplicated
CPT/HCPCS: 99284; 96372; J0690

== ENCOUNTER → 2024-04-25 | Outpatient (CLI) | payer BC ==
--- NOTE | 2024-04-25 20:46 | CT ---
EXAMINATION TYPE: CT abdomen pelvis w con DATE OF EXAM: 04/25/2024 5:11 PM COMPARISON: Previous CT abdomen/pelvis study 02/08/2023. CLINICAL INDICATION: Male, 63 years old with history of R10.9 UNSPECIFIED ABDOMINAL PAIN; Abdominal p ain and distention at mid abdomen x years. TECHNIQUE: Axial CT abdomen pelvis w con;Sagittal and coronal reformats were created on a separate w orkstation. Contrast used:100ml mL of Isovue 300 with IV Contrast, Oral contrast used: with Oral Contrast CT DLP: 2105.1 mGycm, Automated exposure control for dose reduction was used. FINDINGS: LOWER CHEST: Unremarkable ABDOMEN LIVER: Diffusely hypoattenuating parenchyma. GALLBLADDER AND BILE DUCTS: Unremarkable. PANCREAS: Unremarkable. SPLEEN: Unremarkable. ADRENAL GLANDS: Stable nodularity of the bilateral adrenal glands. KIDNEYS AND URETERS: No evidence of hydronephrosis or renal calculus. The ureters are unremarkable. PELVIS BLADDER: No evidence for wall thickening or mass given limitations of exam. REPRODUCTIVE: Unremarkable. ABDOMEN & PELVIS STOMACH AND BOWEL: Stomach and duodenum are unremarkable. Scattered diverticula are noted throughout the colon. No evidence of bowel obstruction. PERITONEUM/RETROPERITONEUM: No evidence of pneumoperitoneum or free fluid. VASCULATURE: No evidence of aortic aneurysm. MUSCULOSKELETAL: No acute osseous abnormalities LYMPH NODES: No gross evidence for lymphadenopathy. SOFT TISSUE/ABDOMINAL WALL: Unremarkable IMPRESSION: 1. No acute abnormality in the abdomen/pelvis or CT findings to explain reported symptoms. 2. Colonic diverticulosis. 3. Hepatic steatosis. [facility], , 04/25/2024 8:44 PM
== END | disposition home or self-care (01) ==
LOC: RADCTMAIN 14:06
PROVIDERS: ATTEND Internal Medicine
DX: K57.30 Diverticulosis of large intestine without perforation or abscess without bleeding (principal); K76.0 Fatty (change of) liver, not elsewhere classified
CPT/HCPCS: 74177; Q9967

== ENCOUNTER 2024-05-08 10:48 | Inpatient (IN) | payer BC ==
[2024-05-08 12:19] LABS: ALT 28 U/L (4-49); AST 23 U/L (17-59); African American GFR (CKD) >90 (>60 ml/min/1.73 sqM); Albumin 4.3 g/dL (3.5-5.0); Alkaline Phosphatase 107 U/L (38-126); Anion Gap 9 mmol/L; Blood Urea Nitrogen 13 mg/dL (9-20); Calcium 9.3 mg/dL (8.4-10.2); Carbon Dioxide 29 mmol/L (22-30); Chloride 100 mmol/L (98-107); Glucose 114 mg/dL (74-99); Non-African American GFR(CKD) >90 (>60 ml/min/1.73 sqM); Potassium 4.6 mmol/L (3.5-5.1); Sodium 138 mmol/L (137-145); Total Bilirubin 0.9 mg/dL (0.2-1.3); Total Protein 7.4 g/dL (6.3-8.2)
[2024-05-08 12:32] LABS: INR 1.3 (<1.2); Partial Thromboplastin Time 24.4 sec (22.0-30.0); Prothrombin Time 13.5 sec (10.0-12.5)
[2024-05-08 12:47] LABS: Basophils # (A) 0.1 k/uL (0-0.2); Basophils % (A) 1 %; Eosinophils # (A) 0.1 k/uL (0-0.7); Eosinophils % (A) 1 %; Hypochromasia Slight; Lymphocytes # (A) 1.3 k/uL (1.0-4.8); Lymphocytes % (A) 11 %; MCH 30.4 pg (25.0-35.0); MCHC 32.5 g/dL (31.0-37.0); MCV 93.5 fL (80.0-100.0); Mean Platelet Volume 8.7; Monocytes # (A) 0.6 k/uL (0-1.0); Monocytes % (A) 6 %; Neutrophils # (A) 9.3 k/uL (1.3-7.7); Neutrophils % (A) 82 %; Platelet Count 138 k/uL (150-450); RBC 6.47 m/uL (4.30-5.90); RDW 14.1 % (11.5-15.5); WBC 11.5 k/uL (3.8-10.6)
[2024-05-08 12:50] LABS: HCT 60.5 % (39.0-53.0); HGB 19.7 gm/dL (13.0-17.5)
--- NOTE | 2024-05-08 13:47 | CT ---
EXAMINATION TYPE: CT abdomen pelvis w con DATE OF EXAM: 05/08/2024 COMPARISON: 04/25/2024 CLINICAL INDICATION: Male, 63 years old with history of abd pain; [facility], ABDOMINAL PAIN, POSS BLEEDING ULCER TECHNIQUE: Performed without Oral Contrast and with IV Contrast, patient injected with 100ml mL of Isovue 300. CT DLP: 1978.[address] CTDI: mGy Automated exposure control for dose reduction was used. The lung bases are clear. The gallbladder is normal without distention, wall thickening, pericholecystic fluid or gallstones. T here is no biliary ductal dilatation. There is no focal mass or organomegaly involving the liver, pancreas, spleen or adrenal glands. There is no solid renal mass or hydronephrosis and there is homogeneous contrast enhancement of the r enal parenchyma. The caliber the abdominal aorta is normal is no retroperitoneal adenopathy or hemorr gwendolyn. The bowel loops are normal in caliber and there is no evidence of dilatation or obstruction. No infla mmatory changes are identified in the bowel wall or mesentery. Mild diverticulosis but no CT evidence of acute diverticulitis. There is no free intraperitoneal air or fluid. No pelvic mass, free fluid, abscess or adenopathy. The osseous structures and soft tissues are intact. IMPRESSION: No significant abnormality seen. No acute changes within the abdomen or pelvis. No significant interv al change. [facility], , 05/08/2024 1:44 PM
--- NOTE | 2024-05-08 14:06 | ED ---
General Adult HPI - General Chief complaint: GI Bleed Stated complaint: abd pain Time Seen by Provider: 05/08/24 11:00 Source: patient, RN notes reviewed Mode of arrival: ambulatory Limitations: no limitations - History of Present Illness Initial comments: 63-year-old male presents emergency department with chief complaint of epigastric discomfort. He states has been having intermittent issues states occasionally has some dark tarry stools. Patient states that he has been told that he is having either hernia or peptic ulcer disease. Patient was sent in by his surgeon Dr. franco. Patient denies any dysuria or hematuria. Patient states that the pain causes him to be short breath at times. He denies any headache or dizziness denies any history of anemia. Denies any blood thinners. - Related Data Home Medications Medication Instructions Recorded Confirmed amLODIPine BESYLATE [Norvasc] 10 mg PO BID 03/15/16 05/08/24 Budesonide/Formoterol Fumarate 2 puff INHALATION RT-BID 05/08/24 05/08/24 [Symbicort 160-4.5 Mcg Inhaler] Meloxicam [Mobic] 15 mg PO DAILY 05/08/24 05/08/24 Allergies Allergy/AdvReac Type Severity Reaction Status Date / Time No Known Allergies Allergy Verified 05/08/24 12:31 Review of Systems ROS Statement: Those systems with pertinent positive or pertinent negative responses have been documented in the HPI. ROS Other: All systems not noted in ROS Statement are negative. Past Medical History Past Medical History: Hypertension Additional Past Medical History / Comment(s): diverticulitis History of Any Multi-Drug Resistant Organisms: None Reported Past Surgical History: Heart Catheterization Past Anesthesia/Blood Transfusion Reactions: No Reported Reaction Additional Past Anesthesia/Blood Transfusion Reaction / Comment(s): Pt has never had a blood transfusion. Past Psychological History: No Psychological Hx Reported Smoking Status: Current every day smoker Past Alcohol Use History: Occasional Past Drug Use History: None Reported - Past Family History Mother Additional Family Medical History / Comment(s): Cardiac Father Additional Family Medical History / Comment(s): Cardiac General Exam Limitations: no limitations General appearance: alert, in no apparent distress Head exam: Present: atraumatic, normocephalic, normal inspection Eye exam: Present: normal appearance, PERRL, EOMI. Absent: scleral icterus, conjunctival injection, periorbital swelling ENT exam: Present: normal exam, normal oropharynx, mucous membranes moist Neck exam: Present: normal inspection, full ROM. Absent: tenderness, meningismus, lymphadenopathy Respiratory exam: Present: normal lung sounds bilaterally. Absent: respiratory distress, wheezes, rales, rhonchi, stridor Cardiovascular Exam: Present: regular rate, normal rhythm, normal heart sounds. Absent: systolic murmur, diastolic murmur, rubs, gallop, clicks GI/Abdominal exam: Present: soft, tenderness, normal bowel sounds. Absent: distended, guarding, rebound, rigid Course Vital Signs 05/08/24 05/08/24 05/08/24 10:53 12:00 14:00 Temperature 97.5 F L Pulse Rate 90 76 75 Respiratory 20 18 18 Rate Blood Pressure 154/92 136/85 142/85 O2 Sat by Pulse 90 L 91 L 93 L Oximetry EKG Findings - EKG Comments: EKG Findings:: EKG performed at 11: 27 sinus rhythm with a rate of 79 AK 159 QRS 84 QT/QTc 392/427 - EKG Results: EKG: interpreted by TINO Medical Decision Making - Medical Decision Making Was pt. sent in by a medical professional or institution (, PA, INKER, urgent care, hospital, or long-term...) When possible be specific @ -Surgeon Did you speak to anyone other than the patient for history (EMS, parent, family, police, friend...)? What history was obtained from this source @ -No Did you review nursing and triage notes (agree or disagree)? Why? @ -I reviewed and agree with nursing and triage notes Were old charts reviewed (outside hosp., previous admission, EMS record, old EKG, old radiological studies, urgent care reports/EKG's, long-term records)? Report findings @ -No old charts were reviewed Differential Diagnosis (chest pain, altered mental status, abdominal pain women, abdominal pain men, vaginal bleeding, weakness, fever, dyspnea, syncope, headache, dizziness, GI bleed, back pain, seizure, CVA, palpatations, mental health, musculoskeletal)? @ -Differential Abdominal Pain Men: Appendicitis, cholecystitis, diverticulosis, ischemic bowel, pancreatitis, hepatitis, UTI, gastroenteritis, AAA, incarcerated hernia, bowel obstruction, constipation, inflammatory bowel, hepatitis, peptic ulcer disease, splenic infarction, perforated viscus, testicular torsion, this is not meant to be an all-inclusive list EKG interpreted by me (3pts min.). @ -As above X-rays interpreted by me (1pt min.). @ -None done CT interpreted by me (1pt min.). @ -CT showing no acute intra-abdominal process U/S interpreted by me (1pt. min.). @ -None done What testing was considered but not performed or refused? (CT, X-rays, U/S, labs)? Why? @ -None What meds were considered but not given or refused? Why? @ -None Did you discuss the management of the patient with other professionals (professionals i.e. DrKleber, PA, INKER, lab, RT, psych nurse, licensed social worker, habilitation specialist, teacher, [employer] officer, oil field caser)? Give summary @ -[EMH for admission with consult to surgery Was smoking cessation discussed for >3mins.? @ -No Was critical care preformed (if so, how long)? @ -No Were there social determinants of health that impacted care today? How? (Homelessness, low income, unemployed, alcoholism, drug addiction, transportation, low edu. Level, literacy, decrease access to med. care, intermediate, rehab)? @ -No Was there de-escalation of care discussed even if they declined (Discuss DNR or withdrawal of care, Hospice)? DNR status @ -No What co-morbidities impacted this encounter? (DM, HTN, Smoking, COPD, CAD, Cancer, CVA, ARF, Chemo, Hep., AIDS, mental health diagnosis, sleep apnea, morbid obesity)? @ -None Was patient admitted / discharged? Hospital course, mention meds given and route, prescriptions, significant lab abnormalities, going to OR and other pertinent info. @ -[Mated patient sent in for admission for EGD patient's been having ongoing epigastric pain and melanotic stools hemoglobin is elevated at this time. Patient has no acute process patient discharged in stable condition. Undiagnosed new problem with uncertain prognosis? @ -No Drug Therapy requiring intensive monitoring for toxicity (Heparin, Nitro, Insulin, Cardizem)? @ -No Were any procedures done? @ -No Diagnosis/symptom? @ -Epigastric pain, melanotic stools Acute, or Chronic, or Acute on Chronic? @ -Acute Uncomplicated (without systemic symptoms) or Complicated (systemic symptoms)? @ -Complicated Side effects of treatment? @ -No Exacerbation, Progression, or Severe Exacerbation? @ -No Poses a threat to life or bodily function? How? (Chest pain, [place], [place], pneumonia, PE, COPD, DKA, ARF, appy, cholecystitis, CVA, Diverticulitis, Homicidal, Suicidal, threat to staff... and all critical care pts) @ -No - Lab Data Result diagrams: 05/08/24 11:59 05/08/24 11:59 Lab Results 05/08/24 05/08/24 05/08/24 Range/Units 11:55 11:59 11:59 WBC 11.5 H (3.8-10.6) k/uL RBC 6.47 H (4.30-5.90) m/uL Hgb 19.7 H* (13.0-17.5) gm/dL Hct 60.5 H* (39.0-53.0) % MCV 93.5 (80.0-100.0) fL MCH 30.4 (25.0-35.0) pg MCHC 32.5 (31.0-37.0) g/dL RDW 14.1 (11.5-15.5) % Plt Count 138 L (150-450) k/uL MPV 8.7 Neutrophils % 82 % Lymphocytes % 11 % Monocytes % 6 % Eosinophils % 1 % Basophils % 1 % Neutrophils # 9.3 H (1.3-7.7) k/uL Lymphocytes # 1.3 (1.0-4.8) k/uL Monocytes # 0.6 (0-1.0) k/uL Eosinophils # 0.1 (0-0.7) k/uL Basophils # 0.1 (0-0.2) k/uL Hypochromasia Slight PT 13.5 H (10.0-12.5) sec INR 1.3 H (<1.2) APTT 24.4 (22.0-30.0) sec Sodium (137-145) mmol/L Potassium (3.5-5.1) mmol/L Chloride (98-107) mmol/L Carbon Dioxide (22-30) mmol/L Anion Gap mmol/L BUN (9-20) mg/dL Creatinine (0.66-1.25) mg/dL Est GFR (CKD-EPI)AfAm (>60 ml/min/1.73 sqM) Est GFR (CKD-EPI)NonAf (>60 ml/min/1.73 sqM) Glucose (74-99) mg/dL Plasma Lactic Acid Heriberto (0.7-2.0) mmol/L Calcium (8.4-10.2) mg/dL Total Bilirubin (0.2-1.3) mg/dL AST (17-59) U/L ALT (4-49) U/L Alkaline Phosphatase (38-126) U/L Total Protein (6.3-8.2) g/dL Albumin (3.5-5.0) g/dL Blood Type A Positive Blood Type Recheck A Pos Bld Type Recheck Status No Antibody Screen NEGATIVE Spec Expiration Date 05/11/2024 - 230205/08/24 05/08/24 Range/Units 11:59 11:59 WBC (3.8-10.6) k/uL RBC (4.30-5.90) m/uL Hgb (13.0-17.5) gm/dL Hct (39.0-53.0) % MCV (80.0-100.0) fL MCH (25.0-35.0) pg MCHC (31.0-37.0) g/dL RDW (11.5-15.5) % Plt Count (150-450) k/uL MPV Neutrophils % % Lymphocytes % % Monocytes % % Eosinophils % % Basophils % % Neutrophils # (1.3-7.7) k/uL Lymphocytes # (1.0-4.8) k/uL Monocytes # (0-1.0) k/uL Eosinophils # (0-0.7) k/uL Basophils # (0-0.2) k/uL Hypochromasia PT (10.0-12.5) sec INR (<1.2) APTT (22.0-30.0) sec Sodium 138 (137-145) mmol/L Potassium 4.6 (3.5-5.1) mmol/L Chloride 100 (98-107) mmol/L Carbon Dioxide 29 (22-30) mmol/L Anion Gap 9 mmol/L BUN 13 (9-20) mg/dL Creatinine 0.65 L (0.66-1.25) mg/dL Est GFR (CKD-EPI)AfAm >90 (>60 ml/min/1.73 sqM) Est GFR (CKD-EPI)NonAf >90 (>60 ml/min/1.73 sqM) Glucose 114 H (74-99) mg/dL Plasma Lactic Acid Heriberto 1.4 (0.7-2.0) mmol/L Calcium 9.3 (8.4-10.2) mg/dL Total Bilirubin 0.9 (0.2-1.3) mg/dL AST 23 (17-59) U/L ALT 28 (4-49) U/L Alkaline Phosphatase 107 (38-126) U/L Total Protein 7.4 (6.3-8.2) g/dL Albumin 4.3 (3.5-5.0) g/dL Blood Type Blood Type Recheck Bld Type Recheck Status Antibody Screen Spec Expiration Date Disposition Clinical Impression: Abdominal pain, Melena Disposition: ADMITTED IP TO THIS [facility] Condition: Fair Is patient prescribed a controlled substance at d/c from ED?: No Referrals: Bailee Daniel MD [Primary Care Provider] - 1-2 days Time of Disposition: 14:38
[2024-05-08] MEDS ORDERED: NALOXONE 0.4 MG/ML 1 ML VIAL IV PRN (14:39)
[2024-05-08] MEDS: SODIUM CHLORIDE 0.9% 1,000 ML IV SCH ×2 (14:41→16:28)
[2024-05-08] MEDS: PANTOPRAZOLE 40 MG/10 ML VIAL IVP SCH (14:59)
--- NOTE | 2024-05-08 15:12 | P.HPIM ---
History of Present Illness H&P Date: 05/08/24 History of present illness: 63-year-old male patient with past medical history significant for hypertension, COPD who presented to ER with a complaint of epigastric pain. Patient reported that he has epi gastric pain for a long time, gets worse with eating. Patient denied taking any blood thinners or NSAIDs. Patient also reported having dark tarry stools. Patient had colonoscopy in 2017. Patient reported that he has been told that he was either having hernia or peptic ulcer disease, was sent in by his surgeon For evaluation with EGD. Patient denied any fever, chills, sore throat, productive cough, shortness of breath, chest pain, palpitations, diarrhea, constipation, dysuria urgency frequency weakness or numbness to extremities. Patient is afebrile, heart rate 75, respiratory rate 18, blood pressure 142/85, saturating 93% on 2 L. WBCs 11.5, hemoglobin 19.7, platelet 138. INR 1.3. CMP unremarkable. Assessment and plan: Epigastric pain: Suspect peptic ulcer disease: Presented with epigastric discomfort, dark tarry stools. Was seen by his surgeon Dr. Andrews, was recommended come to the ED. Hemoglobin stable. CT abdomen pelvis negative for acute process. Avoid NSAIDs IV Protonix Monitor H&H, transfuse for hemoglobin less than 7 Monitor vital CLD now, N.p.o. after midnight General Surgery consult Hypertension: COPD: Resume home meds DVT prophylaxis SCD Monitor vital signs and labs Labs and medication were reviewed. Continue same treatment. Further recommendations as per clinical course of the patient PHYSICAL EXAMINATION: GENERAL: The patient is A&O x3, NAD HEENT: EOMI, Sclerae anicteric, Moist Mucous membranes Neck: Supple, Non tender, No JVD PULMONARY: Equal breath souds B/L, No wheezing, No crackles. CARDIOVASCULAR: S1, S2 present. No murmurs, rubs, or gallops. ABDOMEN: Soft, epigastric tender, nondistended, normoactive bowel sounds. No guarding or rebound tenderness. MUSCULOSKELETAL: No edema, No cyanosis. No clubbing. Normal ROM. Intact peripheral pulses. NEUROLOGICAL: CN 2-12 grossly intact. No FND REVIEW OF SYSTEMS: CONSTITUTIONAL: No fever, no malaise, no fatigue. HEENT: No recent visual problems or hearing problems. Denied any sore throat. CARDIOVASCULAR: No chest pain, orthopnea, PND, no palpitations, no syncope. PULMONARY: No shortness of breath, no cough, no hemoptysis. GASTROINTESTINAL: Complains of abdominal pain. No diarrhea or constipation. NEUROLOGICAL: No headaches, no weakness, no numbness. HEMATOLOGICAL: Denies any bleeding or petechiae. GENITOURINARY: Denies any burning micturition, frequency, or urgency. MUSCULOSKELETAL/RHEUMATOLOGICAL: Denies any joint pain, swelling, or any muscle pain. ENDOCRINE: Denies any polyuria or polydipsia. The rest of the 14-point review of systems is negative. Dictation was produced using fanat[employer] software. please excuse any grammatical, word or spelling errors. Past Medical History Past Medical History: Hypertension Additional Past Medical History / Comment(s): diverticulitis History of Any Multi-Drug Resistant Organisms: None Reported Past Surgical History: Heart Catheterization Past Anesthesia/Blood Transfusion Reactions: No Reported Reaction Additional Past Anesthesia/Blood Transfusion Reaction / Comment(s): Pt has never had a blood transfusion. Past Psychological History: No Psychological Hx Reported Smoking Status: Current every day smoker Past Alcohol Use History: Occasional Past Drug Use History: None Reported - Past Family History Mother Additional Family Medical History / Comment(s): Cardiac Father Additional Family Medical History / Comment(s): Cardiac Medications and Allergies Home Medications Medication Instructions Recorded Confirmed Type amLODIPine BESYLATE [Norvasc] 10 mg PO BID 03/15/16 05/08/24 History Budesonide/Formoterol Fumarate 2 puff INHALATION RT-BID 05/08/24 05/08/24 History [Symbicort 160-4.5 Mcg Inhaler] Meloxicam [Mobic] 15 mg PO DAILY 05/08/24 05/08/24 History Allergies Allergy/AdvReac Type Severity Reaction Status Date / Time No Known Allergies Allergy Verified 05/08/24 12:31 Physical Exam Vitals: Vital Signs Temp Pulse Resp BP Pulse Ox 05/08/24 14:00 75 18 142/85 93 L 05/08/24 12:00 76 18 136/85 91 L 05/08/24 10:53 97.5 F L 90 20 154/92 90 L Intake and Output 05/08/24 05/08/24 05/08/24 06:59 14:59 22:59 Other: Weight 113.398 kg Results CBC & Chem 7: 05/08/24 11:59 05/08/24 11:59 Labs: Abnormal Lab Results - Last 24 Hours (Table) 05/08/24 05/08/24 05/08/24 Range/Units 11:59 11:59 11:59 WBC 11.5 H (3.8-10.6) k/uL RBC 6.47 H (4.30-5.90) m/uL Hgb 19.7 H* (13.0-17.5) gm/dL Hct 60.5 H* (39.0-53.0) % Plt Count 138 L (150-450) k/uL Neutrophils # 9.3 H (1.3-7.7) k/uL PT 13.5 H (10.0-12.5) sec INR 1.3 H (<1.2) Creatinine 0.65 L (0.66-1.25) mg/dL Glucose 114 H (74-99) mg/dL
[2024-05-08] MEDS ORDERED: ACETAMINOPHEN TAB 500 MG TAB PO PRN (15:26)
[2024-05-08] MEDS ORDERED: ALBUTEROL NEBULIZED 2.5 MG/3 ML INHALATION PRN (15:31)
[2024-05-08] MEDS: SYMBICORT 160-4.5 MCG INHALER INHALATION SCH (18:16)
--- NOTE | 2024-05-08 18:36 | P.CON ---
Consult Note - . Consult date: 05/08/24 Assessment/Plan:: 63-year-old male presents emergency department with chief complaint of epigastric discomfort. He states has been occasionally having some dark tarry stools. He was seen in my office today for concern for possible hernia. On examination, no hernia was appreciated. He does appear to have a diastasis recti. His symptoms however are concerning for a gastric ulcer. He has associated lightheadedness and shortness of breath. Patient denies any dysuria or hematuria. Denies any blood thinners. Review of Systems ROS Statement: Those systems with pertinent positive or pertinent negative responses have been documented in the HPI. ROS Other: All systems not noted in ROS Statement are negative. Past Medical History Past Medical History: Hypertension Additional Past Medical History / Comment(s): diverticulitis History of Any Multi-Drug Resistant Organisms: None Reported Past Surgical History: Heart Catheterization Past Anesthesia/Blood Transfusion Reactions: No Reported Reaction Additional Past Anesthesia/Blood Transfusion Reaction / Comment(s): Pt has never had a blood transfusion. Past Psychological History: No Psychological Hx Reported Smoking Status: Current every day smoker Past Alcohol Use History: Occasional Past Drug Use History: None Reported - Past Family History Mother Additional Family Medical History / Comment(s): Cardiac Father Additional Family Medical History / Comment(s): Cardiac General Exam Limitations: no limitations General appearance: alert, in no apparent distress Head exam: Present: atraumatic, normocephalic, normal inspection Eye exam: Present: normal appearance, PERRL, EOMI. Absent: scleral icterus, conjunctival injection, periorbital swelling ENT exam: Present: normal exam, normal oropharynx, mucous membranes moist Neck exam: Present: normal inspection, full ROM. Absent: tenderness, meningismus, lymphadenopathy Respiratory exam: Present: normal lung sounds bilaterally. Absent: respiratory distress, wheezes, rales, rhonchi, stridor Cardiovascular Exam: Present: regular rate, normal rhythm, normal heart sounds. Absent: systolic murmur, diastolic murmur, rubs, gallop, clicks GI/Abdominal exam: Present: soft, tenderness, normal bowel sounds. Absent: distended, guarding, rebound, rigid 63 year old male with epigastric pain and melena concerning for bleeding gastric ulcer. -Will plan for EGD tomorrow -NPO/midnight -PPI/Carafate -IV fluids -Pain and Nausea Control -Monitor Hemoglobin Alex Andrews DO [facility] [phone]
[2024-05-08] MEDS: amLODIPine 10 MG TAB PO SCH (20:29)
[2024-05-08 21:08] LABS: HGB 17.1 gm/dL (13.0-17.5); Hypochromasia Moderate; MCH 29.5 pg (25.0-35.0); MCHC 30.7 g/dL (31.0-37.0); Platelet Count 145 k/uL (150-450); RBC 5.81 m/uL (4.30-5.90); WBC 11.9 k/uL (3.8-10.6)
[2024-05-08 21:15] LABS: HCT 55.8 % (39.0-53.0)
[2024-05-09] MEDS: MORPHINE SULFATE 2 MG/ML SYRINGE IVP PRN (01:24)
[2024-05-09] MEDS: SUCRALFATE 1 GM TAB PO SCH (06:19)
--- NOTE | 2024-05-09 09:19 | XR ---
EXAMINATION TYPE: XR chest 2V DATE OF EXAM: 05/09/2024 8:41 AM COMPARISON: Chest radiographs from 02/08/2023 CLINICAL INDICATION: Male, 63 years old with history of shortness of breath; TECHNIQUE: XR chest 2V Frontal and lateral views of the chest. FINDINGS: Lungs/Pleura: Airspace opacities projecting the spine lateral view. There is no evidence of pleural e ffusion, focal consolidation, or pneumothorax. Pulmonary vascularity: Unremarkable. Heart/mediastinum: Cardiomediastinal silhouette is unremarkable. Musculoskeletal: No acute osseous pathology. IMPRESSION: Airspace opacities projecting over the spine correlate for pneumonia. [facility], , 05/09/2024 9:17 AM
[2024-05-09 09:30] LABS: ALT 24 U/L (4-49); AST 18 U/L (17-59); African American GFR (CKD) >90 (>60 ml/min/1.73 sqM); Albumin 3.5 g/dL (3.5-5.0); Alkaline Phosphatase 103 U/L (38-126); Anion Gap 3 mmol/L; Blood Urea Nitrogen 10 mg/dL (9-20); Calcium 8.4 mg/dL (8.4-10.2); Carbon Dioxide 34 mmol/L (22-30); Chloride 101 mmol/L (98-107); Glucose 111 mg/dL (74-99); Lipase 54 U/L (23-300); Non-African American GFR(CKD) >90 (>60 ml/min/1.73 sqM); Potassium 4.6 mmol/L (3.5-5.1); Sodium 138 mmol/L (137-145); Total Bilirubin 0.8 mg/dL (0.2-1.3); Total Protein 6.3 g/dL (6.3-8.2)
[2024-05-09 09:32] LABS: Basophils % (A) 0 %; Eosinophils # (A) 0.1 k/uL (0-0.7); Eosinophils % (A) 1 %; HGB 17.4 gm/dL (13.0-17.5); Hypochromasia Slight; Lymphocytes # (A) 0.9 k/uL (1.0-4.8); Lymphocytes % (A) 8 %; MCH 30.5 pg (25.0-35.0); MCHC 31.3 g/dL (31.0-37.0); MCV 97.6 fL (80.0-100.0); Mean Platelet Volume 8.7; Monocytes # (A) 0.6 k/uL (0-1.0); Monocytes % (A) 5 %; Neutrophils # (A) 9.8 k/uL (1.3-7.7); Neutrophils % (A) 85 %; Platelet Count 131 k/uL (150-450); RBC 5.69 m/uL (4.30-5.90); RDW 14.3 % (11.5-15.5); WBC 11.5 k/uL (3.8-10.6)
[2024-05-09 11:24] LABS: HCT 55.6 % (39.0-53.0)
--- NOTE | 2024-05-09 13:52 | P.PN ---
Subjective Progress Note Date: 05/09/24 Interval History: 63-year-old male patient with past medical history significant for hypertension, COPD who presented to ER with a complaint of epigastric pain. Patient reported that he has epi gastric pain for a long time, gets worse with eating. Patient denied taking any blood thinners or NSAIDs. Patient also reported having dark tarry stools. Patient had colonoscopy in 2017. Patient reported that he has been told that he was either having hernia or peptic ulcer disease, was sent in by his surgeon For evaluation with EGD. Patient denied any fever, chills, sore throat, productive cough, shortness of breath, chest pain, palpitations, diarrhea, constipation, dysuria urgency frequency weakness or numbness to extremities. Patient is afebrile, heart rate 75, respiratory rate 18, blood pressure 142/85, saturating 93% on 2 L. WBCs 11.5, hemoglobin 19.7, platelet 138. INR 1.3. CMP unremarkable. 05/09--patient was seen and examined today. Continues complain of nausea and epigastric pain. Also was hypoxic overnight, snoring loudly, required supplemental oxygen. Continue complain of shortness of breath. Currently on inhaler steroid bronchodilator protocol, pulmonary consulted, stat CT chest ordered. Started on antibiotics Unasyn and doxycycline. Chest x-ray showed airspace opacities concerning for pneumonia. Assessment and plan: Acute hypoxic respiratory failure: Pneumonia: Probable obstructive sleep apnea: COPD: Patient complaining of shortness of breath, hypoxic overnight, requiring supplemental oxygen Chest x-ray showed airspace opacities concerning for pneumonia Antibiotics: Unasyn and doxycycline Inhaler/bronchodilator protocolalbuterol, Symbicort Pulmonary consulted--stat CT chest ordered. Outpatient sleep study. Epigastric pain: Suspect peptic ulcer disease: Presented with epigastric discomfort, dark tarry stools. Was seen by his surgeon Dr. Andrews, was recommended come to the ED. Hemoglobin stable. CT abdomen pelvis negative for acute process. Avoid NSAIDs IV Protonix, Carafate Monitor H&H, transfuse for hemoglobin less than 7 Monitor vital General Surgery consulted--plan for EGD Hypertension: Resume home meds Cardiac catheterization 2014 showed normal coronary arteries. DVT prophylaxis SCD Monitor vital signs and labs Labs and medication were reviewed. Continue same treatment. Further recommendations as per clinical course of the patient PHYSICAL EXAMINATION: GENERAL: The patient is A&O x3, NAD HEENT: EOMI, Sclerae anicteric, Moist Mucous membranes Neck: Supple, Non tender, No JVD PULMONARY: Equal breath souds B/L, No wheezing, No crackles. CARDIOVASCULAR: S1, S2 present. No murmurs, rubs, or gallops. ABDOMEN: Soft, nontender, nondistended, normoactive bowel sounds. No guarding or rebound tenderness. MUSCULOSKELETAL: No edema, No cyanosis. No clubbing. Normal ROM. Intact peripheral pulses. NEUROLOGICAL: CN 2-12 grossly intact. No FND Skin: No Rash REVIEW OF SYSTEMS: CONSTITUTIONAL: No fever or chills. CARDIOVASCULAR: No chest pain, palpitations or syncope. PULMONARY: Complains of shortness of breath. GASTROINTESTINAL: Complaining of nausea, epigastric pain. : No Dysuria, urgency, frequency. Extremities: No edema. NEUROLOGICAL: No headaches, no weakness, or numbness Dictation was produced using [employer]ana dictation software. please excuse any grammatical, word or spelling errors. Objective - Vital Signs Vital signs: Vital Signs Temp 99.3 F 05/09/24 07:00 Pulse 78 05/09/24 07:00 Resp 18 05/09/24 07:00 BP 164/91 05/09/24 07:00 Pulse Ox 89 L 05/09/24 07:00 FiO2 Intake & Output 05/08/24 05/09/24 05/09/24 18:59 06:59 18:59 Output Total 350 Balance -350 Weight 113.398 kg Output: Urine 350 Other: # Voids 1 - Labs CBC & Chem 7: 05/09/24 08:59 05/09/24 08:59 Labs: Abnormal Lab Results - Last 24 Hours (Table) 05/08/24 05/09/24 05/09/24 Range/Units 20:51 08:59 08:59 WBC 11.9 H 11.5 H (3.8-10.6) k/uL Hct 55.8 H 55.6 H (39.0-53.0) % MCHC 30.7 L (31.0-37.0) g/dL Plt Count 145 L 131 L (150-450) k/uL Neutrophils # 9.8 H (1.3-7.7) k/uL Lymphocytes # 0.9 L (1.0-4.8) k/uL Carbon Dioxide 34 H (22-30) mmol/L Creatinine 0.58 L (0.66-1.25) mg/dL Glucose 111 H (74-99) mg/dL
--- NOTE | 2024-05-09 14:01 | P.CNPUL ---
History of Present Illness Consult date: 05/09/24 Reason for consult: dyspnea, hypoxemia History of present illness: 63-year-old male patient was hospitalized for abdominal pain has been going on for the past 6 months. I was involved in the case as the patient was found to be hypoxic and there was a concern of his ability to handle an EGD and based on that a pulmonary consultation was requested. The patient has chronic history of smoking/COPD and he has obvious features of obstructive sleep apnea. The patient used to smoke up to 2 pack of cigarettes a day and currently is down to 1 pack of cigarettes a day. Maintained on Symbicort on outpatient basis. Does not utilize home O2. No home CPAP machine. He has chronic exertional dyspnea. No chest pain. No pleurisy. No hemoptysis. No previous history of DVT or pulmonary embolism. His blood work at the time of admission showed a hemoglobin of 19.7 and the patient has chronic erythrocytosis, seen by hematology in the past. Suspect chronic hypoxemic respiratory failure. Electrolytes all within normal limits. Serum bicarb is at 29 and a sodium levels at 138 with a potassium level of 4.6. LFTs are normal. Amylase and lipase and LFTs are also within normal limits. Normal coagulation profile. Chest x-ray done today shows some limited infiltration of the lung bases more so on the right. Nevertheless, the CAT scan of the abdomen that was done on 05/08/2024 showed no significant abnormalities involving the lung bases and the lung bases are essentially clear. No acute changes within the abdomen. The patient's abdominal pain has been investigated in the past. The patient was given an EGD and colonoscopy through [facility]. The patient was also seen by cardiology and he was told to have a normal echocardiogram and a cardiac stress test. At this point, the patient is on 5 L of oxygen by nasal ca nnula with a pulse ox of 89 to 90%. He is afebrile. Hemodynamically stable. His EKG at the time of admission showed normal sinus rhythm with some nonspecific T wave abnormalities. He is abdominal pain is epigastric. No hematemesis. No melena. No bright blood per rectum. Review of Systems Constitutional: Reports daytime sleepiness, Reports fatigue, Reports weakness, Reports weight gain Eyes: denies as per HPI, denies blurred vision, denies bulging eye, denies decreased vision, denies diplopia, denies discharge, denies dry eye, denies irritation, denies itching, denies pain, denies photophobia, denies loss of peripheral vision, denies loss of vision, denies tunnel vision/blind spots Ears: deny: decreased hearing, ear discharge, earache, tinnitus Ears, nose, mouth and throat: Reports as per HPI Breasts: absent: as per HPI, gynecomastia Cardiovascular: Reports decreased exercise tolerance, Reports dyspnea on exertion Respiratory: Reports cough, Reports dyspnea, Reports snoring, Reports wheezing Gastrointestinal: Reports as per HPI, Reports abdominal pain Genitourinary: Reports as per HPI Musculoskeletal: Reports as per HPI Musculoskeletal: absent: ankle pain, ankle stiffness, ankle swelling, as per HPI, elbow pain, elbow stiffness, elbow swelling, foot pain, foot stiffness, foot swelling, hand pain, hand stiffness, hand swelling, hip pain, hip stiffness, hip swelling, knee pain, knee stiffness, knee swelling, shoulder pain, shoulder stiffness, shoulder swelling, wrist pain, wrist stiffness, wrist swelling Integumentary: Reports as per HPI Neurological: Reports as per HPI Psychiatric: Reports as per HPI, Reports hypersomnia, Reports sleep disturbances Endocrine: Reports as per HPI, Reports fatigue Hematologic/Lymphatic: Reports as per HPI Allergic/Immunologic: Reports as per HPI Past Medical History Past Medical History: COPD, Hypertension Additional Past Medical History / Comment(s): diverticulitis History of Any Multi-Drug Resistant Organisms: None Reported Past Surgical History: Heart Catheterization Past Anesthesia/Blood Transfusion Reactions: No Reported Reaction Additional Past Anesthesia/Blood Transfusion Reaction / Comment(s): Pt has never had a blood transfusion. Past Psychological History: No Psychological Hx Reported Smoking Status: Current every day smoker Past Alcohol Use History: Occasional Past Drug Use History: None Reported - Past Family History Mother Additional Family Medical History / Comment(s): Cardiac Father Additional Family Medical History / Comment(s): Cardiac Medications and Allergies Home Medications Medication Instructions Recorded Confirmed Type amLODIPine BESYLATE [Norvasc] 10 mg PO BID 03/15/16 05/08/24 History Budesonide/Formoterol Fumarate 2 puff INHALATION RT-BID 05/08/24 05/08/24 History [Symbicort 160-4.5 Mcg Inhaler] Meloxicam [Mobic] 15 mg PO DAILY 05/08/24 05/08/24 History Allergies Allergy/AdvReac Type Severity Reaction Status Date / Time No Known Allergies Allergy Verified 05/08/24 12:31 Physical Exam Vitals: Vital Signs Temp Pulse Pulse Resp BP BP Pulse Ox 05/09/24 07:00 99.3 F 78 18 164/91 89 L 05/09/24 02:42 89 L 05/09/24 01:41 97.7 F 78 19 148/81 87 L 05/08/24 20:00 78 19 90 L 05/08/24 19:18 97.9 F 75 19 139/87 84 L 05/08/24 16:44 98.2 F 72 18 144/80 92 L 05/08/24 16:00 73 18 139/78 90 L 05/08/24 14:00 75 18 142/85 93 L Intake and Output 05/08/24 05/09/24 05/09/24 22:59 06:59 14:59 Output Total 350 Balance -350 Output: Urine 350 Other: # Voids 1 Weight 113.398 kg The patient appeared well nourished and normally developed. Vital signs as documented. Patient is currently on 5 L of oxygen by nasal cannula. Pulse ox in the order of 89 to 90%. He is obese with a BMI of 34.9. Head exam is unremarkable. No scleral icterus or corneal arcus noted. Neck is without jugular venous distension, thyromegaly, or carotid bruits. Carotid upstrokes are brisk bilaterally. Lungs are diminished bilaterally along with scattered expiratory wheezes throughout the lung valadez. Cardiac exam reveals the PMI to be normally sized and situated. Rhythm is regular. First and second heart sounds normal. No murmurs, rubs or gallops. Abdominal exam reveals normal bowel sounds, no masses, no organomegaly and no aortic enlargement. Extremities are nonedematous and both femoral and pedal pulses are normal. Examination of the skin revealed no evidence of significant rashes, suspicious appearing nevi or other concerning lesions. Neurologically, the patient is awake and alert and the patient does not have any focal neurological deficit. Cranial nerves are essentially intact. Results - Laboratory Findings CBC and BMP: 05/09/24 08:59 05/09/24 08:59 PT/INR, D-dimer PT 13.5 sec (10.0-12.5) H 05/08/24 11:59 INR 1.3 (<1.2) H 05/08/24 11:59 Abnormal lab findings: Abnormal Labs 05/08/24 05/08/24 05/08/24 11:59 11:59 11:59 WBC 11.5 H RBC 6.47 H Hgb 19.7 H* Hct 60.5 H* MCHC Plt Count 138 L Neutrophils # 9.3 H Lymphocytes # PT 13.5 H INR 1.3 H Carbon Dioxide Creatinine 0.65 L Glucose 114 H 05/08/24 05/09/24 05/09/24 20:51 08:59 08:59 WBC 11.9 H 11.5 H RBC Hgb Hct 55.8 H 55.6 H MCHC 30.7 L Plt Count 145 L 131 L Neutrophils # 9.8 H Lymphocytes # 0.9 L PT INR Carbon Dioxide 34 H Creatinine 0.58 L Glucose 111 H - Diagnostic Findings Chest x-ray: image reviewed Assessment and Plan Plan: Acute on chronic hypoxic respiratory failure, currently on 5 L of O2 nasal cannula. COPD maintained on Symbicort on outpatient basis Acute on chronic dyspnea, under investigation chest x-ray showed with infiltration of the lung bases and the patient was started on IV Unasyn as an empiric antibiotic coverage Chronic abdominal pain/epigastric. CAT scan of the abdomen at the time of admission showed no acute intra-abdominal abnormalities. Chronic erythrocytosis, likely secondary to chronic hypoxemia Obesity with typical features of obstructive sleep apnea. BMI 34.9. The patient is a Mallampati class IV along with chronic snoring, sleep fragmentation and excessive hypersomnia and sleepiness Hypertension Diverticulosis Chronic smoker Plan Albuterol nebulizer treatments 4 times a day [id number], scheduled Titrate oxygen flow to maintain saturation above 90% Obtain a CTA of the chest to investigate his acute on top of chronic hypoxemic respiratory failure and shortness of breath Obtain copies from cardiology regarding his previous cardiac workup Continue Unasyn for now Hold off EGD till respiratory status is further investigated Continue IV Protonix Continue Carafate General surgery is on the case Will continue to follow Time with Patient: Greater than 30
[2024-05-09] MEDS: AMPICILLIN-SULBACTAM 3 GM in SODIUM CHLORIDE 0.9% 100 ML IVPB SCH (14:09)
--- NOTE | 2024-05-09 14:37 | CT ---
EXAMINATION TYPE: CT angio chest DATE OF EXAM: 05/09/2024 COMPARISON: CLINICAL INDICATION: Male, 63 years old with history of SOB; PHH, SOB TECHNIQUE: CTA scan of the thorax is performed with IV Contrast, patient injected with 81ml mL of Isovue 370, pu lmonary embolism protocol. MIP images are created and reviewed. CT DLP: 810.[address] CTDI: mGy Automated exposure control for dose reduction was used. FINDINGS: None of focal partially consolidative opacity in the right lung base consistent with pneumonia. There are moderate emphysematous changes. There is no suspicious lung mass or nodule. There is no pleural effusion or pneumothorax. No mediastinal, hilar or axillary adenopathy. There are no filling defects within the pulmonary arterial circulation to suggest pulmonary embolism. Limited scanning through the upper abdomen reveals a small 4 mm nonobstructing left renal calcificati on. IMPRESSION: 1.No evidence of pulmonary embolism. 2. Right lower lobe infiltrate likely pneumonic. Short-term follow-up to resolution is recommended. 3. 4 mm nonobstructing left renal calcification. [facility], , 05/09/2024 2:35 PM
--- NOTE | 2024-05-09 14:39 | P.PN ---
Subjective Progress Note Date: 05/09/24 SURGICAL PROGRESS NOTE CHIEF COMPLAINT: Epigastric pain HISTORY OF PRESENT ILLNESS: Surgical service following regards to patient's epigastric pain and black stools. Patient reports no further melanotic stools through the night. He has had increasing oxygen maintenance. He is on 5 L satting 89%. He does report being a COPD year with 25% lung function and still smoking a pack a day. He does report having some phlegm. He is short of breath. chest x-ray reported airspace opacities projecting over the spine correlate for pneumonia. Patient seen by pulmonary service and they have ordered a CTA of the chest. Hemoglobin stable at 17.4 PHYSICAL EXAM: VITAL SIGNS: Reviewed. GENERAL: Well-developed in no acute distress. HEENT: No sclera icterus. Extraocular movements grossly intact. Moist buccal mucosa. Head is atraumatic, normocephalic. ABDOMEN: Soft. Rotund abdomen. Tenderness palpation epigastric area. NEUROLOGIC: Alert and oriented. Cranial nerves II through XII grossly intact. ASSESSMENT: 1. Epigastric abdominal pain with melena PLAN: -Patient with shortness of breath and increased oxygen demands with PE concern. Seen by pulmonary service and undergoing PE workup -EGD canceled for today -Will continue to follow and plan for endoscopy if needed Physician Vice President Tax note has been reviewed by physician. Signing provider agrees with the documented findings, assessment, and plan of care. Attestation Patient seen and examined at bedside. Patient with epigastric pain and dark stool. Currently, hemoglobin appears to be stable at 17.4. Initially, plan today for endoscopy, however patient seen by pulmonology service and undergoing PE workup. With increasing oxygen demands and PE concern, we will hold off on endoscopy today and continue to follow and make recommendations based on patient's clinical progress. Cristian Whatley DO Objective - Vital Signs Vital signs: Vital Signs Temp 99.3 F 05/09/24 07:00 Pulse 78 05/09/24 07:00 Resp 18 05/09/24 07:00 BP 164/91 05/09/24 07:00 Pulse Ox 89 L 05/09/24 07:00 FiO2 Intake & Output 05/08/24 05/09/24 05/09/24 18:59 06:59 18:59 Intake Total 900 Output Total 350 Balance -350 900 Weight 113.398 kg Intake: Intake, IV Titration 900 Amount Sodium Chloride 0.9% 1, 900 000 ml @ 75 mls/hr IV . [id number] [facility] Rx#:[id number] Output: Urine 350 Other: # Voids 1 3 # Bowel Movements 0 - Labs CBC & Chem 7: 05/09/24 08:59 05/09/24 08:59 Labs: Abnormal Lab Results - Last 24 Hours (Table) 05/08/24 05/09/24 05/09/24 Range/Units 20:51 08:59 08:59 WBC 11.9 H 11.5 H (3.8-10.6) k/uL Hct 55.8 H 55.6 H (39.0-53.0) % MCHC 30.7 L (31.0-37.0) g/dL Plt Count 145 L 131 L (150-450) k/uL Neutrophils # 9.8 H (1.3-7.7) k/uL Lymphocytes # 0.9 L (1.0-4.8) k/uL Carbon Dioxide 34 H (22-30) mmol/L Creatinine 0.58 L (0.66-1.25) mg/dL Glucose 111 H (74-99) mg/dL
[2024-05-09 15:24] LABS: Influenza A Not Detected (Not Detectd); Influenza B Not Detected (Not Detectd); RSV Not Detected (Not Detectd)
[2024-05-09] MEDS: DOXYCYCLINE 100 MG in SODIUM CHLORIDE 0.9% 100 ML IVPB SCH (15:54)
[2024-05-09] MEDS: ALBUTEROL NEBULIZED 2.5 MG/3 ML INHALATION SCH (16:36)
[2024-05-09 17:09] LABS: ABG Oxygen Saturation 99.2 % (94-97); ABG PO2 172 mmHg (83-108); Allen Test Performed? Yes
[2024-05-09] MEDS: methylPREDNISolone SOD SUCCI 125 MG/2 ML VIAL IV SCH (17:10)
[2024-05-09] MEDS: FUROSEMIDE 10 MG/ML 4 ML VIAL IV STA (17:10)
[2024-05-09 17:13] LABS: ABG PH 7.12 (7.35-7.45)
[2024-05-09 17:14] LABS: ABG PCO2 >98 mmHg (35-45)
[2024-05-09 20:34] LABS: Glucose,Whole Blood 141 mg/dL (70-110)
[2024-05-09] MEDS: IPRATROPIUM-ALBUTEROL 3 ML NEB INHALATION SCH (21:37)
[2024-05-10 05:59] LABS: Glucose,Whole Blood 144 mg/dL (70-110)
[2024-05-10 06:58] LABS: Basophils % (A) 0 %; Eosinophils % (A) 0 %; HGB 17.9 gm/dL (13.0-17.5); Hypochromasia Marked; Lymphocytes # (A) 0.4 k/uL (1.0-4.8); Lymphocytes % (A) 4 %; MCH 29.9 pg (25.0-35.0); MCV 96.3 fL (80.0-100.0); Mean Platelet Volume 8.6; Monocytes # (A) 0.2 k/uL (0-1.0); Monocytes % (A) 2 %; Neutrophils # (A) 9.3 k/uL (1.3-7.7); Neutrophils % (A) 94 %; Platelet Count 141 k/uL (150-450); RBC 5.99 m/uL (4.30-5.90); RDW 13.8 % (11.5-15.5)
[2024-05-10 07:12] LABS: ALT 23 U/L (4-49); AST 19 U/L (17-59); African American GFR (CKD) >90 (>60 ml/min/1.73 sqM); Albumin 3.9 g/dL (3.5-5.0); Alkaline Phosphatase 101 U/L (38-126); Anion Gap 6 mmol/L; Blood Urea Nitrogen 19 mg/dL (9-20); Calcium 9.1 mg/dL (8.4-10.2); Carbon Dioxide 32 mmol/L (22-30); Chloride 100 mmol/L (98-107); Glucose 149 mg/dL (74-99); Non-African American GFR(CKD) >90 (>60 ml/min/1.73 sqM); Potassium 5.1 mmol/L (3.5-5.1); Sodium 138 mmol/L (137-145); Total Bilirubin 0.9 mg/dL (0.2-1.3); Total Protein 6.9 g/dL (6.3-8.2)
[2024-05-10 07:19] LABS: HCT 57.7 % (39.0-53.0)
[2024-05-10 11:21] LABS: Glucose,Whole Blood 140 mg/dL (70-110)
[2024-05-10] MEDS: FUROSEMIDE 10 MG/ML 4 ML VIAL IV STA (11:54)
--- NOTE | 2024-05-10 14:14 | P.PN ---
Subjective Progress Note Date: 05/10/24 SURGICAL PROGRESS NOTE CHIEF COMPLAINT: Epigastric pain HISTORY OF PRESENT ILLNESS: Surgical service following regards to patient's epigastric pain and black stools. Patient reports no bowel movements and no further melanotic stools. EGD canceled yesterday due to respiratory status. CTA was negative for PE but did report possible pneumonia. Patient remains on BiPAP. Denies any abdominal pain. Denies any nausea or vomiting. Reports feeling thirsty. Hemoglobin stable at 17. Patient receiving IV Lasix. PHYSICAL EXAM: VITAL SIGNS: Reviewed. GENERAL: Well-developed in no acute distress. ABDOMEN: Soft. Rotund abdomen. Nontender NEUROLOGIC: Alert and oriented. Cranial nerves II through XII grossly intact. ASSESSMENT: 1. Epigastric abdominal pain with melena resolved PLAN: -Hemoglobin stable. No active bleeding. Recommend outpatient EGD -Continue Carafate and PPI -Shortness of breath and pneumonia managed by pulmonary and medicine service Physician Behavioral Health Care Manager note has been reviewed by physician. Signing provider agrees with the documented findings, assessment, and plan of care. Objective - Vital Signs Vital signs: Vital Signs Temp 98.5 F 05/10/24 11:52 Pulse 76 05/10/24 11:52 Resp 24 05/10/24 11:52 BP 131/63 05/10/24 11:52 Pulse Ox 97 05/10/24 11:52 FiO2 40 05/10/24 11:21 Intake & Output 05/09/24 05/10/24 05/10/24 18:59 06:59 18:59 Intake Total 900 120 Output Total 600 Balance 900 -600 120 Weight 112.9 kg Intake: Intake, IV Titration 900 Amount Sodium Chloride 0.9% 1, 900 000 ml @ 10 mls/hr IV . Q24H [facility] Rx#:[id number] Oral 120 Output: Urine 600 Other: # Voids 3 1 # Bowel Movements 0 - Labs CBC & Chem 7: 05/10/24 06:30 05/10/24 06:30 Labs: Abnormal Lab Results - Last 24 Hours (Table) 05/09/24 05/09/24 05/10/24 Range/Units 17:04 20:32 05:57 RBC (4.30-5.90) m/uL Hgb (13.0-17.5) gm/dL Hct (39.0-53.0) % Plt Count (150-450) k/uL Neutrophils # (1.3-7.7) k/uL Lymphocytes # (1.0-4.8) k/uL ABG pH 7.12 L* (7.35-7.45) ABG pCO2 >98 H* (35-45) mmHg ABG pO2 172 H (83-108) mmHg ABG O2 Saturation 99.2 H (94-97) % Hemoglobin 17.6 H (13.0-17.5) gm/dL Carbon Dioxide (22-30) mmol/L Creatinine (0.66-1.25) mg/dL Glucose (74-99) mg/dL POC Glucose (mg/dL) 141 H 144 H (70-110) mg/dL 05/10/24 05/10/24 05/10/24 Range/Units 06:30 06:30 11:18 RBC 5.99 H (4.30-5.90) m/uL Hgb 17.9 H (13.0-17.5) gm/dL Hct 57.7 H* (39.0-53.0) % Plt Count 141 L (150-450) k/uL Neutrophils # 9.3 H (1.3-7.7) k/uL Lymphocytes # 0.4 L (1.0-4.8) k/uL ABG pH (7.35-7.45) ABG pCO2 (35-45) mmHg ABG pO2 (83-108) mmHg ABG O2 Saturation (94-97) % Hemoglobin (13.0-17.5) gm/dL Carbon Dioxide 32 H (22-30) mmol/L Creatinine 0.57 L (0.66-1.25) mg/dL Glucose 149 H (74-99) mg/dL POC Glucose (mg/dL) 140 H (70-110) mg/dL
[2024-05-10] MEDS: methylPREDNISolone SOD SUCCI 125 MG/2 ML VIAL IV SCH (14:44)
--- NOTE | 2024-05-10 14:46 | P.PN ---
Subjective Interval History: 63-year-old male patient with past medical history significant for hypertension, COPD who presented to ER with a complaint of epigastric pain. Patient reported that he has epi gastric pain for a long time, gets worse with eating. Patient denied taking any blood thinners or NSAIDs. Patient also reported having dark tarry stools. Patient had colonoscopy in 2017. Patient reported that he has been told that he was either having hernia or peptic ulcer disease, was sent in by his surgeon For evaluation with EGD. Patient denied any fever, chills, sore throat, productive cough, shortness of breath, chest pain, palpitations, diarrhea, constipation, dysuria urgency frequency weakness or numbness to extremities. Patient is afebrile, heart rate 75, respiratory rate 18, blood pressure 142/85, saturating 93% on 2 L. WBCs 11.5, hemoglobin 19.7, platelet 138. INR 1.3. CMP unremarkable. 05/09--patient was seen and examined today. Continues complain of nausea and epigastric pain. Also was hypoxic overnight, snoring loudly, required supplemental oxygen. Continue complain of shortness of breath. Currently on inhaler steroid bronchodilator protocol, pulmonary consulted, stat CT chest ordered. Started on antibiotics Unasyn and doxycycline. Chest x-ray showed airspace opacities concerning for pneumonia. 05/10--patient was seen and examined today. Continues complain of shortness of breath, on supplemental oxygen. On inhalers/bronchodilator protocol, Solu- Medrol, CT chest yesterday showed right lower lobe infiltrate, no PE. Patient on Unasyn for pneumonia. General surgery planning for EGD once respiratory status better. Assessment and plan: Acute hypoxic respiratory failure: Pneumonia: Probable obstructive sleep apnea: Acute COPD exacerbation: Chronic erythrocytosis: Morbid obesity: BMI 34.9 Chronic smoker: Patient complaining of shortness of breath, hypoxic overnight, requiring supplemental oxygen Chest x-ray showed airspace opacities concerning for pneumonia CT chest negative for PE, showed right lower lobe infiltrate, 4 mm nonobstructing left renal calcification. Antibiotics: Unasyn Inhaler/bronchodilator protocolalbuterol, Symbicort Pulmonary consulted--recommended to continue inhalers, Solu-Medrol, Unasyn. Outpatient sleep study. Epigastric pain: Suspect peptic ulcer disease: Presented with epigastric discomfort, dark tarry stools. Was seen by his surgeon Dr. Andrews, was recommended come to the ED. Hemoglobin stable. CT abdomen pelvis negative for acute process. Avoid NSAIDs IV Protonix, Carafate Monitor H&H, transfuse for hemoglobin less than 7 Monitor vital General Surgery consulted--plan for EGD once respiratory status better. Hypertension: Resume home meds Cardiac catheterization 2014 showed normal coronary arteries. Repeat echocardiogram. DVT prophylaxis SCD Monitor vital signs and labs Labs and medication were reviewed. Continue same treatment. Further recommendations as per clinical course of the patient PHYSICAL EXAMINATION: GENERAL: The patient is A&O x3, NAD HEENT: EOMI, Sclerae anicteric, Moist Mucous membranes Neck: Supple, Non tender, No JVD PULMONARY: Decreased breath souds B/L, No wheezing, + crackles. CARDIOVASCULAR: S1, S2 present. No murmurs, rubs, or gallops. ABDOMEN: Soft, nontender, nondistended, normoactive bowel sounds. No guarding or rebound tenderness. MUSCULOSKELETAL: Trace edema, No cyanosis. No clubbing. Normal ROM. Intact peripheral pulses. NEUROLOGICAL: CN 2-12 grossly intact. No FND Skin: No Rash REVIEW OF SYSTEMS: CONSTITUTIONAL: No fever or chills. CARDIOVASCULAR: No chest pain, palpitations or syncope. PULMONARY: Complains of shortness of breath. GASTROINTESTINAL: Complaining of nausea, epigastric pain. : No Dysuria, urgency, frequency. Extremities: No edema. NEUROLOGICAL: No headaches, no weakness, or numbness Dictation was produced using [employer] dictation software. please excuse any grammatical, word or spelling errors. Objective - Vital Signs Vital signs: Vital Signs Temp 98.5 F 05/10/24 11:52 Pulse 76 05/10/24 11:52 Resp 24 05/10/24 11:52 BP 131/63 05/10/24 11:52 Pulse Ox 97 05/10/24 11:52 FiO2 40 05/10/24 11:21 Intake & Output 05/09/24 05/10/24 05/10/24 18:59 06:59 18:59 Intake Total 900 120 Output Total 600 Balance 900 -600 120 Weight 112.9 kg Intake: Intake, IV Titration 900 Amount Sodium Chloride 0.9% 1, 900 000 ml @ 10 mls/hr IV . Q24H [facility] Rx#:[id number] Oral 120 Output: Urine 600 Other: # Voids 3 1 # Bowel Movements 0 - Labs CBC & Chem 7: 05/10/24 06:30 05/10/24 06:30 Labs: Abnormal Lab Results - Last 24 Hours (Table) 05/09/24 05/09/24 05/10/24 Range/Units 17:04 20:32 05:57 RBC (4.30-5.90) m/uL Hgb (13.0-17.5) gm/dL Hct (39.0-53.0) % Plt Count (150-450) k/uL Neutrophils # (1.3-7.7) k/uL Lymphocytes # (1.0-4.8) k/uL ABG pH 7.12 L* (7.35-7.45) ABG pCO2 >98 H* (35-45) mmHg ABG pO2 172 H (83-108) mmHg ABG O2 Saturation 99.2 H (94-97) % Hemoglobin 17.6 H (13.0-17.5) gm/dL Carbon Dioxide (22-30) mmol/L Creatinine (0.66-1.25) mg/dL Glucose (74-99) mg/dL POC Glucose (mg/dL) 141 H 144 H (70-110) mg/dL 05/10/24 05/10/24 05/10/24 Range/Units 06:30 06:30 11:18 RBC 5.99 H (4.30-5.90) m/uL Hgb 17.9 H (13.0-17.5) gm/dL Hct 57.7 H* (39.0-53.0) % Plt Count 141 L (150-450) k/uL Neutrophils # 9.3 H (1.3-7.7) k/uL Lymphocytes # 0.4 L (1.0-4.8) k/uL ABG pH (7.35-7.45) ABG pCO2 (35-45) mmHg ABG pO2 (83-108) mmHg ABG O2 Saturation (94-97) % Hemoglobin (13.0-17.5) gm/dL Carbon Dioxide 32 H (22-30) mmol/L Creatinine 0.57 L (0.66-1.25) mg/dL Glucose 149 H (74-99) mg/dL POC Glucose (mg/dL) 140 H (70-110) mg/dL
--- NOTE | 2024-05-10 17:05 | CA ---
Transthoracic Echo Report Name: Jose Herrera Age: 63 Gender: M : 1960 Exam Date: 05/10/2024 11:56 Exam Location: [facility] Ht (in): 71 Wt (lb): 248 Ordering Physician: Cristian Wadsworth MD Attending/Referring Phys: Hand Wrapper Operator Nikki Echavarria RDCS Procedure CPT: Indications: ISIAH, Dyspnea, suspect Pulmonay HTN Cardiac Hx: Technical Quality: Very technically difficult study Contrast 1: Definity Total Dose (mL): 2 Contrast 2: Total Dose (mL): MEASUREMENTS (Male / Female) Normal Values 2D ECHO LV Diastolic Diameter PLAX 5.5 cm 4.2 - 5.9 / 3.9 - 5.3 cm LV Systolic Diameter PLAX 3.7 cm IVS Diastolic Thickness 1.8 cm 0.6 - 1.0 / 0.6 - 0.9 cm LVPW Diastolic Thickness 1.6 cm 0.6 - 1.0 / 0.6 - 0.9 cm LV Relative Wall Thickness 0.6 RV Internal Dim ED PLAX 3.4 cm LA Systolic Diameter LX 4.3 cm 3.0 - 4.0 / 2.7 - 3.8 cm LV Diastolic Volume MOD BP 70.9 cm??? 67 - 155 / 56 - 104 cm??? LV Systolic Volume MOD BP 23.8 cm??? 22 - 58 / 19 - 49 cm??? LV Ejection Fraction MOD BP 66.4 % >= 55 % LV Cardiac Index MOD BP 1504.5 cm???/min???m??? LV Diastolic Volume MOD 4C 69.0 cm??? LV Systolic Volume MOD 4C 23.7 cm??? LV Ejection Fraction MOD 4C 65.6 % LV Cardiac Index MOD 4C 1445.2 cm???/min???m??? LV Diastolic Length 4C 8.9 cm LV Systolic Length 4C 7.7 cm LV Diastolic Volume MOD 2C 72.5 cm??? LV Systolic Volume MOD 2C 24.1 cm??? LV Ejection Fraction MOD 2C 66.8 % LV Cardiac Index MOD 2C 1545.7 cm???/min???m??? LV Diastolic Length 2C 9.2 cm LV Systolic Length 2C 7.8 cm LA Volume 60.9 cm??? 18 - 58 / 22 - 52 cm??? LA Volume Index 25.3 cm???/m??? 16 - 28 cm???/m??? DOPPLER AV Peak Velocity 145.6 cm/s AV Peak Gradient 8.5 mmHg MV Area PHT 3.4 cm??? Mitral E Point Velocity 89.0 cm/s Mitral A Point Velocity 76.3 cm/s Mitral E to A Ratio 1.2 MV Deceleration Time 225.1 ms FINDINGS Left Ventricle Left ventricular ejection fraction is estimated at 55-60 %. Left ventricular cavity size normal. Severely increased septal wall thickness. No obvious regional wall motion abnormalities. Right Ventricle Mild right ventricular dilatation. Unable to estimate the right ventricular systolic pressure. Right Atrium Right atrium not well visualized. Left Atrium Mildly increased left atrial diameter. Mildly increased left atrial volume. Mildly increased left atrial area. No left atrial thrombus or mass present. Mitral Valve Structurally normal mitral valve. No mitral stenosis, regurgitation or prolapse. Aortic Valve Aortic valve not well visualized. No aortic valve stenosis or regurgitation. Tricuspid Valve Tricuspid valve not well visualized. No tricuspid stenosis, regurgitation or prolapse. Pulmonic Valve Pulmonic valve not well visualized. Pericardium No pericardial effusion. Aorta Normal size aortic root and proximal ascending aorta. CONCLUSIONS Indication shortness of breath, pulmonary hypertension LVH with preserved systolic function Mildly enlarged right ventricle Left atrial enlargement No identifiable tricuspid regurgitation to assess RVSP Previewed by: Dr. Sotero Dawkins MD (Electronically Signed) Final Date: 10 May 2024 17:04
--- NOTE | 2024-05-10 21:57 | P.PN ---
Subjective Progress Note Date: 05/10/24 63-year-old male patient was hospitalized for abdominal pain has been going on for the past 6 months. I was involved in the case as the patient was found to be hypoxic and there was a concern of his ability to handle an EGD and based on that a pulmonary consultation was requested. The patient has chronic history of smoking/COPD and he has obvious features of obstructive sleep apnea. The patient used to smoke up to 2 pack of cigarettes a day and currently is down to 1 pack of cigarettes a day. Maintained on Symbicort on outpatient basis. Does not utilize home O2. No home CPAP machine. He has chronic exertional dyspnea. No chest pain. No pleurisy. No hemoptysis. No previous history of DVT or pulmonary embolism. His blood work at the time of admission showed a hemoglobin of 19.7 and the patient has chronic erythrocytosis, seen by hematology in the past. Suspect chronic hypoxemic respiratory failure. Electrolytes all within normal limits. Serum bicarb is at 29 and a sodium levels at 138 with a potassium level of 4.6. LFTs are normal. Amylase and lipase and LFTs are also within normal limits. Normal coagulation profile. Chest x-ray done today shows some limited infiltration of the lung bases more so on the right. Nevertheless, the CAT scan of the abdomen that was done on 05/08/2024 showed no significant abnormalities involving the lung bases and the lung bases are essentially clear. No acute changes within the abdomen. The patient's abdominal pain has been investigated in the past. The patient was given an EGD and colonoscopy through [facility]. The patient was also seen by cardiology and he was told to have a normal echocardiogram and a cardiac stress test. At this point, the patient is on 5 L of oxygen by nasal cannula with a pulse ox of 89 to 90%. He is afebrile. Hemodynamically stable. His EKG at the time of admission showed normal sinus rhythm with some nonspecific T wave abnormalities. He is abdominal pain is epigastric. No hematemesis. No melena. No bright blood per rectum. 05/10/2024, patient is being seen for a follow-up. The patient is free of any abdominal pain. No nausea or emesis. Seems to be less short of breath compared to yesterday. Noted the patient got transferred to telemetry unit as the patient was in severe respiratory acidosis due to COPD exacerbation. The patient was started on a combination of bronchodilators and steroids. The patient is feeling better. Earlier this morning, he was still on a BiPAP at a pressure of 14 over 5 cm of water and FiO2 40%. Generating better volumes on the BiPAP machine. Less tachypneic compared to yesterday. Awake and alert and communicating. Denies having any chest pain. The white cell count is at 10 with a hemoglobin of 17.9 and platelet count of 141. He is 90 with a creatinine of 0.5 and sodium levels at 138 and a potassium level is at 5.1. Currently on Unasyn for a right lower lobe pneumonia. He is also on DuoNeb updrafts and Symbicort as maintenance and IV Solu-Medrol 60 mg every 6 hours. IV fluids are currently at KVO. The patient was briefly taken off the BiPAP and he was able to tolerate his diet. No major edema lower extremities bilaterally. Objective - Vital Signs Vital signs: Vital Signs Temp 98.0 F 05/10/24 08:00 Pulse 77 05/10/24 08:00 Resp 28 H 05/10/24 08:00 BP 126/67 05/10/24 08:00 Pulse Ox 95 05/10/24 08:00 FiO2 40 05/10/24 08:00 Intake & Output 05/09/24 05/10/24 05/10/24 18:59 06:59 18:59 Intake Total 900 Output Total 600 Balance 900 -600 Weight 112.9 kg Intake: Intake, IV Titration 900 Amount Sodium Chloride 0.9% 1, 900 000 ml @ 10 mls/hr IV . Q24H [facility] Rx#:[id number] Output: Urine 600 Other: # Voids 3 1 # Bowel Movements 0 - Exam The patient appeared well nourished and normally developed. Vital signs as documented. Patient is currently on BiPAP 14/5 with an FiO2 of 40%. He is obese with a BMI of 34.9. Breathing is less labored compared to yesterday Head exam is unremarkable. No scleral icterus or corneal arcus noted. Neck is without jugular venous distension, thyromegaly, or carotid bruits. Carotid upstrokes are brisk bilaterally. Lungs are diminished bilaterally along with scattered expiratory wheezes throughout the lung valadez. Cardiac exam reveals the PMI to be normally sized and situated. Rhythm is regular. First and second heart sounds normal. No murmurs, rubs or gallops. Abdominal exam reveals normal bowel sounds, no masses, no organomegaly and no aortic enlargement. Extremities are nonedematous and both femoral and pedal pulses are normal. Examination of the skin revealed no evidence of significant rashes, suspicious appearing nevi or other concerning lesions. Neurologically, the patient is awake and alert and the patient does not have any focal neurological deficit. Cranial nerves are essentially intact. - Labs CBC & Chem 7: 05/10/24 06:30 05/10/24 06:30 Labs: Abnormal Lab Results - Last 24 Hours (Table) 05/09/24 05/09/24 05/09/24 Range/Units 08:59 17:04 20:32 WBC 11.5 H (3.8-10.6) k/uL RBC (4.30-5.90) m/uL Hgb (13.0-17.5) gm/dL Hct 55.6 H (39.0-53.0) % Plt Count 131 L (150-450) k/uL Neutrophils # 9.8 H (1.3-7.7) k/uL Lymphocytes # 0.9 L (1.0-4.8) k/uL ABG pH 7.12 L* (7.35-7.45) ABG pCO2 >98 H* (35-45) mmHg ABG pO2 172 H (83-108) mmHg ABG O2 Saturation 99.2 H (94-97) % Hemoglobin 17.6 H (13.0-17.5) gm/dL Carbon Dioxide (22-30) mmol/L Creatinine (0.66-1.25) mg/dL Glucose (74-99) mg/dL POC Glucose (mg/dL) 141 H (70-110) mg/dL 05/10/24 05/10/24 05/10/24 Range/Units 05:57 06:30 06:30 WBC (3.8-10.6) k/uL RBC 5.99 H (4.30-5.90) m/uL Hgb 17.9 H (13.0-17.5) gm/dL Hct 57.7 H* (39.0-53.0) % Plt Count 141 L (150-450) k/uL Neutrophils # 9.3 H (1.3-7.7) k/uL Lymphocytes # 0.4 L (1.0-4.8) k/uL ABG pH (7.35-7.45) ABG pCO2 (35-45) mmHg ABG pO2 (83-108) mmHg ABG O2 Saturation (94-97) % Hemoglobin (13.0-17.5) gm/dL Carbon Dioxide 32 H (22-30) mmol/L Creatinine 0.57 L (0.66-1.25) mg/dL Glucose 149 H (74-99) mg/dL POC Glucose (mg/dL) 144 H (70-110) mg/dL Assessment and Plan Plan: Acute on chronic hypoxic respiratory failure, currently on BiPAP pressure of 14/5 and FiO2 40%, awake and alert. No signs of any CO2 narcosis. Less bronch ospastic and wheezy and improved air entry bilaterally on today's examination. Currently on Symbicort maintenance, DuoNeb updrafts [id number] and IV Solu-Medrol. CT of the chest was completed and there is no evidence of new pulmonary embolism. There is right lower lobe pulmonary filtrates consistent with pneumonia Right lower lobe pneumonia, consider aspiration, currently on IV Unasyn COPD maintained on Symbicort on outpatient basis Acute on chronic dyspnea, under investigation chest x-ray showed with infiltration of the lung bases and the patient was started on IV Unasyn as an empiric antibiotic coverage Chronic abdominal pain/epigastric. CAT scan of the abdomen at the time of admission showed no acute intra-abdominal abnormalities. This morning, the patient is free of any abdominal pain. Chronic erythrocytosis, likely secondary to chronic hypoxemia Obesity with typical features of obstructive sleep apnea. BMI 34.9. The patient is a Mallampati class IV along with chronic snoring, sleep fragmentation and excessive hypersomnia and sleepiness Hypertension Diverticulosis Chronic smoker Plan Albuterol nebulizer treatments 4 times a day [id number], scheduled Titrate oxygen flow to maintain saturation above 90% O CT of the chest consistent with right lower lobe pneumonia. No evidence of any pulmonary malaise him Continue Unasyn for now and discontinue doxycycline Hold off EGD till respiratory status is further optimized Continue IV Protonix Continue Carafate General surgery is on the case Will continue to follow Time with Patient: Greater than 30
[2024-05-11 06:59] LABS: ALT 28 U/L (4-49); African American GFR (CKD) >90 (>60 ml/min/1.73 sqM); Albumin 4.2 g/dL (3.5-5.0); Anion Gap 8 mmol/L; Blood Urea Nitrogen 41 mg/dL (9-20); Calcium 9.3 mg/dL (8.4-10.2); Carbon Dioxide 33 mmol/L (22-30); Chloride 96 mmol/L (98-107); Glucose 167 mg/dL (74-99); Non-African American GFR(CKD) >90 (>60 ml/min/1.73 sqM); Sodium 137 mmol/L (137-145); Total Bilirubin 0.7 mg/dL (0.2-1.3); Total Protein 7.4 g/dL (6.3-8.2)
[2024-05-11 07:03] LABS: AST 25 U/L (17-59); Alkaline Phosphatase 77 U/L (38-126); Potassium 5.4 mmol/L (3.5-5.1)
[2024-05-11 08:49] LABS: Basophils % (A) 0 %; Eosinophils # (A) 0.1 k/uL (0-0.7); Eosinophils % (A) 1 %; HGB 18.5 gm/dL (13.0-17.5); Hypochromasia Marked; Lymphocytes # (A) 0.4 k/uL (1.0-4.8); Lymphocytes % (A) 3 %; MCH 30.8 pg (25.0-35.0); MCHC 31.8 g/dL (31.0-37.0); MCV 96.7 fL (80.0-100.0); Mean Platelet Volume 8.6; Monocytes # (A) 0.5 k/uL (0-1.0); Monocytes % (A) 3 %; Neutrophils # (A) 16.5 k/uL (1.3-7.7); Neutrophils % (A) 94 %; Platelet Count 145 k/uL (150-450); RBC 6.01 m/uL (4.30-5.90); RDW 13.7 % (11.5-15.5); WBC 17.6 k/uL (3.8-10.6)
[2024-05-11 08:55] LABS: HCT 58.2 % (39.0-53.0)
--- NOTE | 2024-05-11 13:01 | P.PN ---
Subjective Progress Note Date: 05/11/24 SURGICAL PROGRESS NOTE CHIEF COMPLAINT: Epigastric pain HISTORY OF PRESENT ILLNESS: Surgical service following regards to patient's epigastric pain and black stools. Patient reports no bowel movements and no further melanotic stools. EGD canceled due to respiratory status. CTA was negative for PE but did report possible pneumonia. Patient is currently off of BiPAP. He is on 4 L nasal cannula. Patient followed by pulmonary service. Heart BP stable Hgb stable 18 5 WBC up at 17.6 patient is on IV steroids for his lungs PHYSICAL EXAM: VITAL SIGNS: Reviewed. GENERAL: Well-developed in no acute distress. ABDOMEN: Soft. Rotund abdomen. Mild epigastric tenderness NEUROLOGIC: Alert and oriented. Cranial nerves II through XII grossly intact. ASSESSMENT: 1. Epigastric abdominal pain with melena resolved PLAN: -Hemoglobin stable. No active bleeding. Recommend outpatient EGD -Continue Carafate and PPI after discharge -Surgical service will sign off. Please call with any questions or concerns Physician Chief Deputy Court Clerk note has been reviewed by physician. Signing provider agrees with the documented findings, assessment, and plan of care. Attestation Patient seen and examined at bedside. Presented with chief complaint of epigastric pain and black stool. He has been followed closely by the pulmonary service secondary to poor respiratory status. He is off of BiPAP today. No a ctive bleeding noted and hemoglobin is stable. At this point, recommending continued pulmonary treatment with plan for outpatient EGD when patient has better pulmonary status. Continue Carafate and PPI. Discussed no finding of hernia on physical exam with the patient. Please call surgery service for any reevaluation should his clinical progress change. Cristian Whatley, Objective - Vital Signs Vital signs: Vital Signs Temp 98.2 F 05/11/24 08:09 Pulse 74 05/11/24 12:19 Resp 16 05/11/24 11:05 BP 139/66 05/11/24 11:05 Pulse Ox 96 05/11/24 11:05 FiO2 40 05/11/24 04:00 Intake & Output 05/10/24 05/11/24 05/11/24 18:59 06:59 18:59 Intake Total 240 1080 240 Output Total 2600 600 Balance -2360 1080 -360 Weight 112 kg Intake: Oral 240 1080 240 Output: Urine 2600 600 Other: Voiding Method Urinal - Labs CBC & Chem 7: 05/11/24 08:17 05/11/24 06:06 Labs: Abnormal Lab Results - Last 24 Hours (Table) 05/11/24 05/11/24 Range/Units 06:06 08:17 WBC 17.6 H (3.8-10.6) k/uL RBC 6.01 H (4.30-5.90) m/uL Hgb 18.5 H (13.0-17.5) gm/dL Hct 58.2 H* (39.0-53.0) % Plt Count 145 L (150-450) k/uL Neutrophils # 16.5 H (1.3-7.7) k/uL Lymphocytes # 0.4 L (1.0-4.8) k/uL Potassium 5.4 H (3.5-5.1) mmol/L Chloride 96 L (98-107) mmol/L Carbon Dioxide 33 H (22-30) mmol/L BUN 41 H (9-20) mg/dL Glucose 167 H (74-99) mg/dL
--- NOTE | 2024-05-11 14:42 | P.PN ---
Subjective Interval History: 63-year-old male patient with past medical history significant for hypertension, COPD who presented to ER with a complaint of epigastric pain. Patient reported that he has epi gastric pain for a long time, gets worse with eating. Patient denied taking any blood thinners or NSAIDs. Patient also reported having dark tarry stools. Patient had colonoscopy in 2017. Patient reported that he has been told that he was either having hernia or peptic ulcer disease, was sent in by his surgeon For evaluation with EGD. Patient denied any fever, chills, sore throat, productive cough, shortness of breath, chest pain, palpitations, diarrhea, constipation, dysuria urgency frequency weakness or numbness to extremities. Patient is afebrile, heart rate 75, respiratory rate 18, blood pressure 142/85, saturating 93% on 2 L. WBCs 11.5, hemoglobin 19.7, platelet 138. INR 1.3. CMP unremarkable. 05/09--patient was seen and examined today. Continues complain of nausea and epigastric pain. Also was hypoxic overnight, snoring loudly, required supplemental oxygen. Continue complain of shortness of breath. Currently on inhaler steroid bronchodilator protocol, pulmonary consulted, stat CT chest ordered. Started on antibiotics Unasyn and doxycycline. Chest x-ray showed airspace opacities concerning for pneumonia. 05/10--patient was seen and examined today. Continues complain of shortness of breath, on supplemental oxygen. On inhalers/bronchodilator protocol, Solu- Medrol, CT chest yesterday showed right lower lobe infiltrate, no PE. Patient on Unasyn for pneumonia. General surgery planning for EGD once respiratory status better. 05/11--patient was seen and examined today. Patient afebrile, heart rate 74, respiratory rate 16, blood pressure 139/66. Was on BiPAP overnight with 40% FiO2, currently 96% on 6 L of oxygen. WBC 17.6, hemoglobin 18.5, platelet 145. Sodium 137 potassium 5.4, chloride 96 CO2 33 BUN 41 creatinine 0.71. Liver profile unremarkable. Echocardiogram showed normal EF, left ventricular hypertrophy. Currently on Unasyn for pneumonia. On inhalers/bronchodilator protocol and IV Solu-Medrol. Pulmonary following. General surgery planning for EGD as outpatient. Assessment and plan: Acute hypoxic respiratory failure: Pneumonia: Probable obstructive sleep apnea: Acute COPD exacerbation: Chronic erythrocytosis: Morbid obesity: BMI 34.9 Chronic smoker: Patient complaining of shortness of breath, hypoxic overnight, requiring supplemental oxygen Chest x-ray showed airspace opacities concerning for pneumonia CT chest negative for PE, showed right lower lobe infiltrate, 4 mm nonobstructing left renal calcification. Antibiotics: Unasyn Inhaler/bronchodilator protocolalbuterol, Symbicort Pulmonary consulted--recommended to continue inhalers, Solu-Medrol, Unasyn. Outpatient sleep study. Counseling to quit smoking. Epigastric pain: Suspect peptic ulcer disease: Presented with epigastric discomfort, dark tarry stools. Was seen by his surgeon Dr. Andrews, was recommended come to the ED. Hemoglobin stable. CT abdomen pelvis negative for acute process. Avoid NSAIDs Protonix, Carafate Monitor H&H, transfuse for hemoglobin less than 7 Monitor vitals General Surgery consulted--plan for EGD as outpatient Hypertension: Resume home meds Cardiac catheterization 2014 showed normal coronary arteries. Repeat echocardiogram--- unremarkable with normal EF, LVH. DVT prophylaxis Subcutaneous heparin Monitor vital signs and labs Labs and medication were reviewed. Continue same treatment. Further recommendations as per clinical course of the patient PHYSICAL EXAMINATION: GENERAL: The patient is A&O x3, NAD HEENT: EOMI, Sclerae anicteric, Moist Mucous membranes Neck: Supple, Non tender, No JVD PULMONARY: Decreased breath souds B/L, No wheezing, No crackles. CARDIOVASCULAR: S1, S2 present. No murmurs, rubs, or gallops. ABDOMEN: Soft, nontender, nondistended, normoactive bowel sounds. No guarding or rebound tenderness. MUSCULOSKELETAL: Trace edema, No cyanosis. No clubbing. Normal ROM. Intact peripheral pulses. NEUROLOGICAL: CN 2-12 grossly intact. No FND Skin: No Rash REVIEW OF SYSTEMS: CONSTITUTIONAL: No fever or chills. CARDIOVASCULAR: No chest pain, palpitations or syncope. PULMONARY: Complains of shortness of breath. GASTROINTESTINAL: Complaining of nausea, epigastric pain. : No Dysuria, urgency, frequency. Extremities: No edema. NEUROLOGICAL: No headaches, no weakness, or numbness Dictation was produced using [employer] dictation software. please excuse any grammatical, word or spelling errors. Objective - Vital Signs Vital signs: Vital Signs Temp 98.2 F 05/11/24 08:09 Pulse 74 05/11/24 12:19 Resp 16 05/11/24 11:05 BP 139/66 05/11/24 11:05 Pulse Ox 96 05/11/24 11:05 FiO2 40 05/11/24 04:00 Intake & Output 05/10/24 05/11/24 05/11/24 18:59 06:59 18:59 Intake Total 240 1080 360 Output Total 2600 600 Balance -2360 1080 -240 Weight 112 kg Intake: Oral 240 1080 360 Output: Urine 2600 600 Other: Voiding Method Urinal - Labs CBC & Chem 7: 05/11/24 08:17 05/11/24 06:06 Labs: Abnormal Lab Results - Last 24 Hours (Table) 05/11/24 05/11/24 Range/Units 06:06 08:17 WBC 17.6 H (3.8-10.6) k/uL RBC 6.01 H (4.30-5.90) m/uL Hgb 18.5 H (13.0-17.5) gm/dL Hct 58.2 H* (39.0-53.0) % Plt Count 145 L (150-450) k/uL Neutrophils # 16.5 H (1.3-7.7) k/uL Lymphocytes # 0.4 L (1.0-4.8) k/uL Potassium 5.4 H (3.5-5.1) mmol/L Chloride 96 L (98-107) mmol/L Carbon Dioxide 33 H (22-30) mmol/L BUN 41 H (9-20) mg/dL Glucose 167 H (74-99) mg/dL
--- NOTE | 2024-05-11 15:52 | P.PN ---
Subjective Progress Note Date: 05/11/24 63-year-old male patient was hospitalized for abdominal pain has been going on for the past 6 months. I was involved in the case as the patient was found to be hypoxic and there was a concern of his ability to handle an EGD and based on that a pulmonary consultation was requested. The patient has chronic history of smoking/COPD and he has obvious features of obstructive sleep apnea. The patient used to smoke up to 2 pack of cigarettes a day and currently is down to 1 pack of cigarettes a day. Maintained on Symbicort on outpatient basis. Does not utilize home O2. No home CPAP machine. He has chronic exertional dyspnea. No chest pain. No pleurisy. No hemoptysis. No previous history of DVT or pulmonary embolism. His blood work at the time of admission showed a hemoglobin of 19.7 and the patient has chronic erythrocytosis, seen by hematology in the past. Suspect chronic hypoxemic respiratory failure. Electrolytes all within normal limits. Serum bicarb is at 29 and a sodium levels at 138 with a potassium level of 4.6. LFTs are normal. Amylase and lipase and LFTs are also within normal limits. Normal coagulation profile. Chest x-ray done today shows some limited infiltration of the lung bases more so on the right. Nevertheless, the CAT scan of the abdomen that was done on 05/08/2024 showed no significant abnormalities involving the lung bases and the lung bases are essentially clear. No acute changes within the abdomen. The patient's abdominal pain has been investigated in the past. The patient was given an EGD and colonoscopy through [facility]. The patient was also seen by cardiology and he was told to have a normal echocardiogram and a cardiac stress test. At this point, the patient is on 5 L of oxygen by nasal cannula with a pulse ox of 89 to 90%. He is afebrile. Hemodynamically stable. His EKG at the time of admission showed normal sinus rhythm with some nonspecific T wave abnormalities. He is abdominal pain is epigastric. No hematemesis. No melena. No bright blood per rectum. 05/10/2024, patient is being seen for a follow-up. The patient is free of any abdominal pain. No nausea or emesis. Seems to be less short of breath compared to yesterday. Noted the patient got transferred to telemetry unit as the patient was in severe respiratory acidosis due to COPD exacerbation. The patient was started on a combination of bronchodilators and steroids. The patient is feeling better. Earlier this morning, he was still on a BiPAP at a pressure of 14 over 5 cm of water and FiO2 40%. Generating better volumes on the BiPAP machine. Less tachypneic compared to yesterday. Awake and alert and communicating. Denies having any chest pain. The white cell count is at 10 with a hemoglobin of 17.9 and platelet count of 141. He is 90 with a creatinine of 0.5 and sodium levels at 138 and a potassium level is at 5.1. Currently on Unasyn for a right lower lobe pneumonia. He is also on DuoNeb updrafts and Symbicort as maintenance and IV Solu-Medrol 60 mg every 6 hours. IV fluids are currently at KVO. The patient was briefly taken off the BiPAP and he was able to tolerate his diet. No major edema lower extremities bilaterally. On 05/11/2024, the patient is feeling better. The patient is currently off the BiPAP the patient has been placed on oxygen at 4 L/min nasal cannula. Current pulse ox is 94%. Less bronchospastic and wheezy. No chest pain. No altered mentation. No significant nausea vomiting or abdominal pain. Remains on IV Unasyn for a right lower lobe pneumonia. The white cell count of 17.6, hemoglobin 18 and a platelet count of 145. BUN is 41 with a creatinine of 0.7. Sodium levels at 137 and a potassium level is at 5.4. Chloride is 96 with a bicarb level of 33. Her LFTs are within normal limits. He is on DuoNeb of chest. He is on Symbicort 2 puffs twice a day, IV Solu-Medrol 60 mg every 6 hours and is also on IV Unasyn. IV fluids are currently at KVO. Objective - Vital Signs Vital signs: Vital Signs Temp 98.2 F 05/11/24 08:09 Pulse 70 05/11/24 08:31 Resp 16 05/11/24 08:09 BP 135/67 05/11/24 08:09 Pulse Ox 97 05/11/24 08:20 FiO2 40 05/11/24 04:00 Intake & Output 05/10/24 05/11/24 05/11/24 18:59 06:59 18:59 Intake Total 240 1080 240 Output Total 2600 600 Balance -2360 1080 -360 Weight 112 kg Intake: Oral 240 1080 240 Output: Urine 2600 600 Other: Voiding Method Urinal - Exam The patient appeared well nourished and normally developed. Vital signs as documented. Patient is off BiPAP on 4 L of O2 nasal cannula. He is obese with a BMI of 34.9. Breathing is less labored compared to yesterday Head exam is unremarkable. No scleral icterus or corneal arcus noted. Neck is without jugular venous distension, thyromegaly, or carotid bruits. Carotid upstrokes are brisk bilaterally. Lungs are diminished bilaterally along with scattered expiratory wheezes throughout the lung valadez. Improved air entry bilaterally and the patient seems to be less bronchospastic and wheezy Cardiac exam reveals the PMI to be normally sized and situated. Rhythm is regular. First and second heart sounds normal. No murmurs, rubs or gallops. Abdominal exam reveals normal bowel sounds, no masses, no organomegaly and no aortic enlargement. Extremities are nonedematous and both femoral and pedal pulses are normal. Examination of the skin revealed no evidence of significant rashes, suspicious appearing nevi or other concerning lesions. Neurologically, the patient is awake and alert and the patient does not have any focal neurological deficit. Cranial nerves are essentially intact. - Labs CBC & Chem 7: 05/11/24 08:17 05/11/24 06:06 Labs: Abnormal Lab Results - Last 24 Hours (Table) 05/10/24 05/11/24 05/11/24 Range/Units 11:18 06:06 08:17 WBC 17.6 H (3.8-10.6) k/uL RBC 6.01 H (4.30-5.90) m/uL Hgb 18.5 H (13.0-17.5) gm/dL Hct 58.2 H* (39.0-53.0) % Plt Count 145 L (150-450) k/uL Neutrophils # 16.5 H (1.3-7.7) k/uL Lymphocytes # 0.4 L (1.0-4.8) k/uL Potassium 5.4 H (3.5-5.1) mmol/L Chloride 96 L (98-107) mmol/L Carbon Dioxide 33 H (22-30) mmol/L BUN 41 H (9-20) mg/dL Glucose 167 H (74-99) mg/dL POC Glucose (mg/dL) 140 H (70-110) mg/dL Assessment and Plan Plan: Acute on chronic hypoxic respiratory failure, treated with bronchodilators, steroids and BiPAP therapy. Clinically improved and the patient has been weaned down to 4 L of O2 nasal cannula.. Less bronchospastic and wheezy and improved air entry bilaterally on today's examination. Currently on Symbicort maintenance, DuoNeb updrafts [id number] and IV Solu-Medrol. CT of the chest was completed and there is no evidence of new pulmonary embolism. There is right lower lobe pulmonary filtrates consistent with pneumonia Right lower lobe pneumonia, consider aspiration, currently on IV Unasyn COPD maintained on Symbicort on outpatient basis Acute on chronic dyspnea, under investigation chest x-ray showed with infiltration of the lung bases and the patient was started on IV Unasyn as an empiric antibiotic coverage Chronic abdominal pain/epigastric. CAT scan of the abdomen at the time of admission showed no acute intra-abdominal abnormalities. This morning, the patient is free of any abdominal pain. Chronic erythrocytosis, likely secondary to chronic hypoxemia Obesity with typical features of obstructive sleep apnea. BMI 34.9. The patient is a Mallampati class IV along with chronic snoring, sleep fragmentation and excessive hypersomnia and sleepiness Hypertension Diverticulosis Chronic smoker Plan Albuterol nebulizer treatments 4 times a day [id number], scheduled Titrate oxygen flow to maintain saturation above 90%, currently on 4 L of O2 nasal cannula CT of the chest consistent with right lower lobe pneumonia. No evidence of any pulmonary malaise him Continue Unasyn for now and discontinue doxycycline Hold off EGD till respiratory status is further optimized Continue IV Protonix Continue Carafate General surgery is on the case Will continue to follow
[2024-05-11] MEDS: HEPARIN SODIUM,PORCINE 5,000 UNIT/ML 1 ML VIAL SQ SCH (19:33)
[2024-05-12 07:28] LABS: African American GFR (CKD) >90 (>60 ml/min/1.73 sqM); Anion Gap 7 mmol/L; Blood Urea Nitrogen 45 mg/dL (9-20); Calcium 9.5 mg/dL (8.4-10.2); Carbon Dioxide 36 mmol/L (22-30); Chloride 95 mmol/L (98-107); Glucose 270 mg/dL (74-99); Non-African American GFR(CKD) 88 (>60 ml/min/1.73 sqM); Potassium 5.2 mmol/L (3.5-5.1); Sodium 138 mmol/L (137-145)
[2024-05-12 07:41] LABS: Basophils % (A) 0 %; Eosinophils % (A) 0 %; HGB 17.8 gm/dL (13.0-17.5); Hypochromasia Marked; Lymphocytes # (A) 0.3 k/uL (1.0-4.8); Lymphocytes % (A) 2 %; MCH 30.3 pg (25.0-35.0); MCHC 31.2 g/dL (31.0-37.0); MCV 97.1 fL (80.0-100.0); Mean Platelet Volume 9.1; Monocytes # (A) 0.5 k/uL (0-1.0); Monocytes % (A) 3 %; Neutrophils # (A) 15.8 k/uL (1.3-7.7); Neutrophils % (A) 95 %; Platelet Count 161 k/uL (150-450); RBC 5.85 m/uL (4.30-5.90); RDW 13.7 % (11.5-15.5); WBC 16.7 k/uL (3.8-10.6)
[2024-05-12 07:46] LABS: HCT 56.9 % (39.0-53.0)
--- NOTE | 2024-05-12 13:43 | P.PN ---
Subjective Progress Note Date: 05/12/24 63-year-old male patient was hospitalized for abdominal pain has been going on for the past 6 months. I was involved in the case as the patient was found to be hypoxic and there was a concern of his ability to handle an EGD and based on that a pulmonary consultation was requested. The patient has chronic history of smoking/COPD and he has obvious features of obstructive sleep apnea. The patient used to smoke up to 2 pack of cigarettes a day and currently is down to 1 pack of cigarettes a day. Maintained on Symbicort on outpatient basis. Does not utilize home O2. No home CPAP machine. He has chronic exertional dyspnea. No chest pain. No pleurisy. No hemoptysis. No previous history of DVT or pulmonary embolism. His blood work at the time of admission showed a hemoglobin of 19.7 and the patient has chronic erythrocytosis, seen by hematology in the past. Suspect chronic hypoxemic respiratory failure. Electrolytes all within normal limits. Serum bicarb is at 29 and a sodium levels at 138 with a potassium level of 4.6. LFTs are normal. Amylase and lipase and LFTs are also within normal limits. Normal coagulation profile. Chest x-ray done today shows some limited infiltration of the lung bases more so on the right. Nevertheless, the CAT scan of the abdomen that was done on 05/08/2024 showed no significant abnormalities involving the lung bases and the lung bases are essentially clear. No acute changes within the abdomen. The patient's abdominal pain has been investigated in the past. The patient was given an EGD and colonoscopy through [facility]. The patient was also seen by cardiology and he was told to have a normal echocardiogram and a cardiac stress test. At this point, the patient is on 5 L of oxygen by nasal cannula with a pulse ox of 89 to 90%. He is afebrile. Hemodynamically stable. His EKG at the time of admission showed normal sinus rhythm with some nonspecific T wave abnormalities. He is abdominal pain is epigastric. No hematemesis. No melena. No bright blood per rectum. 05/10/2024, patient is being seen for a follow-up. The patient is free of any abdominal pain. No nausea or emesis. Seems to be less short of breath compared to yesterday. Noted the patient got transferred to telemetry unit as the patient was in severe respiratory acidosis due to COPD exacerbation. The patient was started on a combination of bronchodilators and steroids. The patient is feeling better. Earlier this morning, he was still on a BiPAP at a pressure of 14 over 5 cm of water and FiO2 40%. Generating better volumes on the BiPAP machine. Less tachypneic compared to yesterday. Awake and alert and communicating. Denies having any chest pain. The white cell count is at 10 with a hemoglobin of 17.9 and platelet count of 141. He is 90 with a creatinine of 0.5 and sodium levels at 138 and a potassium level is at 5.1. Currently on Unasyn for a right lower lobe pneumonia. He is also on DuoNeb updrafts and Symbicort as maintenance and IV Solu-Medrol 60 mg every 6 hours. IV fluids are currently at KVO. The patient was briefly taken off the BiPAP and he was able to tolerate his diet. No major edema lower extremities bilaterally. On 05/11/2024, the patient is feeling better. The patient is currently off the BiPAP the patient has been placed on oxygen at 4 L/min nasal cannula. Current pulse ox is 94%. Less bronchospastic and wheezy. No chest pain. No altered mentation. No significant nausea vomiting or abdominal pain. Remains on IV Unasyn for a right lower lobe pneumonia. The white cell count of 17.6, hemoglobin 18 and a platelet count of 145. BUN is 41 with a creatinine of 0.7. Sodium levels at 137 and a potassium level is at 5.4. Chloride is 96 with a bicarb level of 33. Her LFTs are within normal limits. He is on DuoNeb of chest. He is on Symbicort 2 puffs twice a day, IV Solu-Medrol 60 mg every 6 hours and is also on IV Unasyn. IV fluids are currently at KVO. 05/12/2024, the patient is sitting up in a chair. He states that his abdominal pain recurs whenever he lays down flat in bed. However, while in the chair, he feels better and is free of any pain. Oxygenation is improved and the patient is currently on 2 L of oxygen nasal cannula with a pulse ox of 95%. Remains on DuoNeb updrafts. Remains on Symbicort. Remains on IV Solu-Medrol. Remains on IV Unasyn. No evidence of any GI bleeding. The white cell count of 16 with a hemoglobin 17.8 and a platelet count of 161. Potassium is at 5.2. BUN is 45 creatinine 0.9 and sodium levels at 138. Denies having any other new complaints. Objective - Vital Signs Vital signs: Vital Signs Temp 97.8 F 05/12/24 08:01 Pulse 72 05/12/24 09:02 Resp 18 05/12/24 08:01 BP 144/67 05/12/24 08:01 Pulse Ox 95 05/12/24 09:02 FiO2 40 05/11/24 04:00 Intake & Output 05/11/24 05/12/24 05/12/24 18:59 06:59 18:59 Intake Total 800 540 118 Output Total 1000 700 Balance -200 -160 118 Weight 112.1 kg Intake: Intake, IV Titration 320 Amount Ampicillin-Sulbactam 3 gm 200 In Sodium Chloride 0.9% 100 ml @ 200 mls/hr IVPB Q6H DESTINY Rx#:[id number] Sodium Chloride 0.9% 1, 120 000 ml @ 10 mls/hr IV . Q24H DESTINY Rx#:[id number] Oral 480 540 118 Output: Urine 1000 700 Other: Voiding Method Urinal Urinal # Voids 3 - Exam The patient appeared well nourished and normally developed. Vital signs as documented. Currently on 2 L of O2 nasal cannula. He is obese with a BMI of 34.9. Breathing is less labored compared to yesterday Head exam is unremarkable. No scleral icterus or corneal arcus noted. Neck is without jugular venous distension, thyromegaly, or carotid bruits. Carotid upstrokes are brisk bilaterally. Lungs are diminished bilaterally along with scattered expiratory wheezes throughout the lung valadez. Improved air entry bilaterally and the patient seems to be less bronchospastic and wheezy Cardiac exam reveals the PMI to be normally sized and situated. Rhythm is regular. First and second heart sounds normal. No murmurs, rubs or gallops. Abdominal exam reveals normal bowel sounds, no masses, no organomegaly and no aortic enlargement. Extremities are nonedematous and both femoral and pedal pulses are normal. Examination of the skin revealed no evidence of significant rashes, suspicious appearing nevi or other concerning lesions. Neurologically, the patient is awake and alert and the patient does not have any focal neurological deficit. Cranial nerves are essentially intact. - Labs CBC & Chem 7: 05/12/24 06:48 05/12/24 06:48 Labs: Abnormal Lab Results - Last 24 Hours (Table) 05/12/24 05/12/24 Range/Units 06:48 06:48 WBC 16.7 H (3.8-10.6) k/uL Hgb 17.8 H (13.0-17.5) gm/dL Hct 56.9 H (39.0-53.0) % Neutrophils # 15.8 H (1.3-7.7) k/uL Lymphocytes # 0.3 L (1.0-4.8) k/uL Potassium 5.2 H (3.5-5.1) mmol/L Chloride 95 L (98-107) mmol/L Carbon Dioxide 36 H (22-30) mmol/L BUN 45 H (9-20) mg/dL Glucose 270 H (74-99) mg/dL Assessment and Plan Plan: Acute on chronic hypoxic respiratory failure, treated with bronchodilators, steroids and BiPAP therapy. Clinically improved and the patient has been weaned down to 4 L of O2 nasal cannula.. Less bronchospastic and wheezy and improved air entry bilaterally on today's examination. Currently on Symbicort maintenance, DuoNeb updrafts [id number] and IV Solu-Medrol. CT of the chest was completed and there is no evidence of new pulmonary embolism. There is right lower lobe pulmonary filtrates consistent with pneumonia, clinically improving and the patient has been weaned down to 2 L of O2 nasal cannula. Right lower lobe pneumonia, consider aspiration, currently on IV Unasyn COPD maintained on Symbicort on outpatient basis Acute on chronic dyspnea, under investigation chest x-ray showed with infiltration of the lung bases and the patient was started on IV Unasyn as an empiric antibiotic coverage Chronic abdominal pain/epigastric. CAT scan of the abdomen at the time of a dmission showed no acute intra-abdominal abnormalities. This morning, the patient is free of any abdominal pain. Chronic erythrocytosis, likely secondary to chronic hypoxemia Obesity with typical features of obstructive sleep apnea. BMI 34.9. The patient is a Mallampati class IV along with chronic snoring, sleep fragmentation and excessive hypersomnia and sleepiness Hypertension Diverticulosis Chronic smoker Plan Albuterol nebulizer treatments 4 times a day [id number], scheduled Titrate oxygen flow to maintain saturation above 90%, currently on 2 L of O2 nasal cannula CT of the chest consistent with right lower lobe pneumonia. No evidence of any pulmonary malaise him Continue Unasyn for now and discontinue doxycycline Hold off EGD till respiratory status is further optimized, hoping to undergo the EGD safely by Tuesday. Continue IV Protonix Continue Carafate General surgery is on the case Will continue to follow Time with Patient: Greater than 30
--- NOTE | 2024-05-12 14:36 | P.PN ---
Subjective Progress Note Date: 05/12/24 63-year-old male patient with past medical history significant for hypertension, COPD who presented to ER with a complaint of epigastric pain. Patient reported that he has epi gastric pain for a long time, gets worse with eating. Patient denied taking any blood thinners or NSAIDs. Patient also reported having dark tarry stools. Patient had colonoscopy in 2017. Patient reported that he has been told that he was either having hernia or peptic ulcer disease, was sent in by his surgeon For evaluation with EGD. Patient denied any fever, chills, sore throat, productive cough, shortness of breath, chest pain, palpitations, diarrhea, constipation, dysuria urgency frequency weakness or numbness to extremities. Patient is afebrile, heart rate 75, respiratory rate 18, blood pressure 142/85, saturating 93% on 2 L. WBCs 11.5, hemoglobin 19.7, platelet 138. INR 1.3. CMP unremarkable. 05/09--patient was seen and examined today. Continues complain of nausea and epigastric pain. Also was hypoxic overnight, snoring loudly, required supplemental oxygen. Continue complain of shortness of breath. Currently on inhaler steroid bronchodilator protocol, pulmonary consulted, stat CT chest ordered. Started on antibiotics Unasyn and doxycycline. Chest x-ray showed airspace opacities concerning for pneumonia. 05/10--patient was seen and examined today. Continues complain of shortness of breath, on supplemental oxygen. On inhalers/bronchodilator protocol, Solu- Medrol, CT chest yesterday showed right lower lobe infiltrate, no PE. Patient on Unasyn for pneumonia. General surgery planning for EGD once respiratory status better. 05/11--patient was seen and examined today. Patient afebrile, heart rate 74, respiratory rate 16, blood pressure 139/66. Was on BiPAP overnight with 40% Fi O2, currently 96% on 6 L of oxygen. WBC 17.6, hemoglobin 18.5, platelet 145. Sodium 137 potassium 5.4, chloride 96 CO2 33 BUN 41 creatinine 0.71. Liver profile unremarkable. Echocardiogram showed normal EF, left ventricular hypertrophy. Currently on Unasyn for pneumonia. On inhalers/bronchodilator protocol and IV Solu-Medrol. Pulmonary following. General surgery planning for EGD as outpatient. 05/12. Patient seen and examined. Blood work done this morning showed WBC 16.7, hemoglobin 17.8, platelet count 161, sodium 130, potassium 5.2, BUN 45, creatinine 0.90. Vitals temperature 97.8, heart rate 79, blood pressure 144/67, continue 2 L of ox. Stated breathing is improved, sitting upright in the chair. Denies any chest pain REVIEW OF SYSTEMS: CONSTITUTIONAL: No fever, no malaise,. CARDIOVASCULAR: No chest pain, no palpitations, no syncope. PULMONARY: As mentioned above GASTROINTESTINAL: No diarrhea, no nausea, no vomiting, no abdominal pain. NEUROLOGICAL: No headaches, no weakness, PHYSICAL EXAMINATION: GENERAL: The patient is alert and oriented x3, not in any acute distress HEENT: Pupils are round and equally reacting to light. EOMI. No scleral icterus. No conjunctival pallor. Normocephalic, atraumatic. No pharyngeal erythema. No thyromegaly. CARDIOVASCULAR: S1 and S2 present. No murmurs, rubs, or gallops. PULMONARY: Good air entry bilaterally, no wheezing or crackles. ABDOMEN: Soft, nontender, nondistended, normoactive bowel sounds. No palpable organomegaly. MUSCULOSKELETAL: No joint swelling or deformity. EXTREMITIES: No cyanosis, clubbing, or pedal edema. NEUROLOGICAL: Gross neurological examination did not reveal any focal deficits. SKIN: No rashes. Assessment and plan Acute hypoxic respiratory failure: Pneumonia: Probable obstructive sleep apnea: Acute COPD exacerbation: Chronic erythrocytosis: Morbid obesity: BMI 34.9 Chronic smoker: Patient complaining of shortness of breath, hypoxic overnight, requiring supp lemental oxygen Chest x-ray showed airspace opacities concerning for pneumonia CT chest negative for PE, showed right lower lobe infiltrate, 4 mm nonobstructing left renal calcification. Antibiotics: Unasyn Inhaler/bronchodilator protocolalbuterol, Symbicort Pulmonary consulted--recommended to continue inhalers, Solu-Medrol, Unasyn. Outpatient sleep study. Counseling to quit smoking. Epigastric pain: Suspect peptic ulcer disease: Presented with epigastric discomfort, dark tarry stools. Was seen by his surgeon Dr. Andrews, was recommended come to the ED. Hemoglobin stable. CT abdomen pelvis negative for acute process. Avoid NSAIDs Protonix, Carafate General Surgery consulted--plan for EGD on Tuesday Hypertension: Resume home meds Cardiac catheterization 2014 showed normal coronary arteries. Repeat echocardiogram--- unremarkable with normal EF, LVH. DVT prophylaxis Subcutaneous heparin Labs and medication were reviewed.. Continue same treatment. Continue with symptomatic treatment. Resume home medication. Monitor labs and vitals. DVT and GI prophylaxis. Further recommendations as per clinical course of the patient Dictation was produced using [employer] dictation software. please excuse any grammatical, word or spelling errors. Objective - Vital Signs Vital signs: Vital Signs Temp 97.8 F 05/12/24 08:01 Pulse 74 05/12/24 09:22 Resp 18 05/12/24 08:01 BP 144/67 05/12/24 08:01 Pulse Ox 95 05/12/24 09:02 FiO2 40 05/11/24 04:00 Intake & Output 05/11/24 05/12/24 05/12/24 18:59 06:59 18:59 Intake Total 800 540 118 Output Total 1000 700 Balance -200 -160 118 Weight 112.1 kg Intake: Intake, IV Titration 320 Amount Ampicillin-Sulbactam 3 gm 200 In Sodium Chloride 0.9% 100 ml @ 200 mls/hr IVPB Q6H [facility] Rx#:[id number] Sodium Chloride 0.9% 1, 120 000 ml @ 10 mls/hr IV . Q24H [facility] Rx#:[id number] Oral 480 540 118 Output: Urine 1000 700 Other: Voiding Method Urinal Urinal # Voids 3 - Labs CBC & Chem 7: 05/12/24 06:48 05/12/24 06:48 Labs: Abnormal Lab Results - Last 24 Hours (Table) 05/12/24 05/12/24 Range/Units 06:48 06:48 WBC 16.7 H (3.8-10.6) k/uL Hgb 17.8 H (13.0-17.5) gm/dL Hct 56.9 H (39.0-53.0) % Neutrophils # 15.8 H (1.3-7.7) k/uL Lymphocytes # 0.3 L (1.0-4.8) k/uL Potassium 5.2 H (3.5-5.1) mmol/L Chloride 95 L (98-107) mmol/L Carbon Dioxide 36 H (22-30) mmol/L BUN 45 H (9-20) mg/dL Glucose 270 H (74-99) mg/dL
[2024-05-13 02:57] LABS: Glucose,Whole Blood 241 mg/dL (70-110)
[2024-05-13] MEDS ORDERED: NITROGLYCERIN SL TABS 0.4 MG TAB SUBLINGUAL PRN (03:03)
--- NOTE | 2024-05-13 03:45 | XR ---
EXAM: XR Chest, 1 View CLINICAL HISTORY: ITS.REASON XR Reason: Resp distress TECHNIQUE: Frontal view of the chest. COMPARISON: Chest radiograph on 05/09/2024 FINDINGS: Hardware: None. Lungs/pleura: Bibasilar opacities. No other focal consolidation. No pleural effusion or pneumothorax. Heart/mediastinum: Borderline size of the cardiac silhouette. Soft tissues: Unremarkable. Bones: No acute fracture. Upper abdomen: Normal. IMPRESSION: Bibasilar opacities likely represent atelectasis. No other focal consolidation.
[2024-05-13] MEDS: DILTIAZEM DRIP BOLUS FROM BAG 1 MG SOLN IV ONE (03:57)
[2024-05-13] MEDS: DILTIAZEM 125 MG in SODIUM CHLORIDE 0.9% 100 ML IV SCH (03:57)
[2024-05-13 05:26] LABS: Prothrombin Time 11.4 sec (10.0-12.5)
[2024-05-13 06:07] LABS: Partial Thromboplastin Time 17.1 sec (22.0-30.0)
[2024-05-13] MEDS: METOPROLOL TARTRATE 25 MG TAB PO SCH (08:19)
[2024-05-13] MEDS ORDERED: HEPARIN SODIUM 1,000 UN/ML (10ML VL) IV PRN (08:48)
[2024-05-13 09:20] LABS: INR 1.3 (<1.2); Partial Thromboplastin Time 22.5 sec (22.0-30.0); Prothrombin Time 13.6 sec (10.0-12.5)
[2024-05-13 09:23] LABS: Basophils % (A) 0 %; Eosinophils # (A) 0.1 k/uL (0-0.7); Eosinophils % (A) 1 %; HGB 18.6 gm/dL (13.0-17.5); Hypochromasia Slight; Lymphocytes # (A) 0.2 k/uL (1.0-4.8); Lymphocytes % (A) 2 %; MCH 30.3 pg (25.0-35.0); MCHC 31.1 g/dL (31.0-37.0); MCV 97.3 fL (80.0-100.0); Mean Platelet Volume 9.3; Monocytes # (A) 0.7 k/uL (0-1.0); Monocytes % (A) 6 %; Neutrophils # (A) 11.5 k/uL (1.3-7.7); Neutrophils % (A) 91 %; Platelet Count 163 k/uL (150-450); RBC 6.14 m/uL (4.30-5.90); RDW 14.1 % (11.5-15.5); WBC 12.6 k/uL (3.8-10.6)
[2024-05-13 09:26] LABS: HCT 59.8 % (39.0-53.0)
[2024-05-13] MEDS: HEPARIN SOD,PORK IN 0.45% NACL 25,000 UNIT in 0.45% NACL 1 250ML.BAG IV SCH ×2 (09:53→16:09)
[2024-05-13] MEDS: FUROSEMIDE 10 MG/ML 4 ML VIAL IV SCH (09:54)
[2024-05-13 10:33] LABS: ALT 112 U/L (4-49); AST 64 U/L (17-59); African American GFR (CKD) >90 (>60 ml/min/1.73 sqM); Albumin 4.2 g/dL (3.5-5.0); Alkaline Phosphatase 89 U/L (38-126); Anion Gap 7 mmol/L; Blood Urea Nitrogen 40 mg/dL (9-20); Calcium 9.4 mg/dL (8.4-10.2); Carbon Dioxide 33 mmol/L (22-30); Chloride 97 mmol/L (98-107); Glucose 240 mg/dL (74-99); Magnesium 2.5 mg/dL (1.6-2.3); Non-African American GFR(CKD) >90 (>60 ml/min/1.73 sqM); Potassium 5.5 mmol/L (3.5-5.1); Sodium 137 mmol/L (137-145); Total Bilirubin 0.7 mg/dL (0.2-1.3)
--- NOTE | 2024-05-13 11:02 | P.PN ---
Subjective Progress Note Date: 05/13/24 63-year-old male patient was hospitalized for abdominal pain has been going on for the past 6 months. I was involved in the case as the patient was found to be hypoxic and there was a concern of his ability to handle an EGD and based on that a pulmonary consultation was requested. The patient has chronic history of smoking/COPD and he has obvious features of obstructive sleep apnea. The patient used to smoke up to 2 pack of cigarettes a day and currently is down to 1 pack of cigarettes a day. Maintained on Symbicort on outpatient basis. Does not utilize home O2. No home CPAP machine. He has chronic exertional dyspnea. No chest pain. No pleurisy. No hemoptysis. No previous history of DVT or pulmonary embolism. His blood work at the time of admission showed a hemoglobin of 19.7 and the patient has chronic erythrocytosis, seen by hematology in the past. Suspect chronic hypoxemic respiratory failure. Electrolytes all within normal limits. Serum bicarb is at 29 and a sodium levels at 138 with a potassium level of 4.6. LFTs are normal. Amylase and lipase and LFTs are also within normal limits. Normal coagulation profile. Chest x-ray done today shows some limited infiltration of the lung bases more so on the right. Nevertheless, the CAT scan of the abdomen that was done on 05/08/2024 showed no significant abnormalities involving the lung bases and the lung bases are essentially clear. No acute changes within the abdomen. The patient's abdominal pain has been investigated in the past. The patient was given an EGD and colonoscopy through [facility]. The patient was also seen by cardiology and he was told to have a normal echocardiogram and a cardiac stress test. At this point, the patient is on 5 L of oxygen by nasal cannula with a pulse ox of 89 to 90%. He is afebrile. Hemodynamically stable. His EKG at the time of admission showed normal sinus rhythm with some nonspecific T wave abnormalities. He is abdominal pain is epigastric. No hematemesis. No melena. No bright blood per rectum. 05/10/2024, patient is being seen for a follow-up. The patient is free of any abdominal pain. No nausea or emesis. Seems to be less short of breath compared to yesterday. Noted the patient got transferred to telemetry unit as the patient was in severe respiratory acidosis due to COPD exacerbation. The patient was started on a combination of bronchodilators and steroids. The patient is feeling better. Earlier this morning, he was still on a BiPAP at a pressure of 14 over 5 cm of water and FiO2 40%. Generating better volumes on the BiPAP machine. Less tachypneic compared to yesterday. Awake and alert and communicating. Denies having any chest pain. The white cell count is at 10 with a hemoglobin of 17.9 and platelet count of 141. He is 90 with a creatinine of 0.5 and sodium levels at 138 and a potassium level is at 5.1. Currently on Unasyn for a right lower lobe pneumonia. He is also on DuoNeb updrafts and Symbicort as maintenance and IV Solu-Medrol 60 mg every 6 hours. IV fluids are currently at KVO. The patient was briefly taken off the BiPAP and he was able to tolerate his diet. No major edema lower extremities bilaterally. On 05/11/2024, the patient is feeling better. The patient is currently off the BiPAP the patient has been placed on oxygen at 4 L/min nasal cannula. Current pulse ox is 94%. Less bronchospastic and wheezy. No chest pain. No altered mentation. No significant nausea vomiting or abdominal pain. Remains on IV Unasyn for a right lower lobe pneumonia. The white cell count of 17.6, hemoglobin 18 and a platelet count of 145. BUN is 41 with a creatinine of 0.7. Sodium levels at 137 and a potassium level is at 5.4. Chloride is 96 with a bicarb level of 33. Her LFTs are within normal limits. He is on DuoNeb of chest. He is on Symbicort 2 puffs twice a day, IV Solu-Medrol 60 mg every 6 hours and is also on IV Unasyn. IV fluids are currently at KVO. 05/12/2024, the patient is sitting up in a chair. He states that his abdominal pain recurs whenever he lays down flat in bed. However, while in the chair, he feels better and is free of any pain. Oxygenation is improved and the patient is currently on 2 L of oxygen nasal cannula with a pulse ox of 95%. Remains on DuoNeb updrafts. Remains on Symbicort. Remains on IV Solu-Medrol. Remains on IV Unasyn. No evidence of any GI bleeding. The white cell count of 16 with a hemoglobin 17.8 and a platelet count of 161. Potassium is at 5.2. BUN is 45 creatinine 0.9 and sodium levels at 138. Denies having any other new complaints. On 05/13/2024, the patient is being seen for a follow-up. The patient's cardiac condition is decompensated and overnight, the patient went into atrial fibrillation with antibiotic response. Over the past 24 hours, the patient also developed significant edema in the lower extremities bilaterally. This morning, the patient remains in atrial fibrillation. He remains tachycardic. Already on metoprolol 25 mg p.o. twice daily and Cardizem drip at 15 mg an hour. He was also taking Norvasc and based on his increased lower extremity edema, the patient was taken off Norvasc. The patient is currently on 2 L of oxygen by nasal cannula. During the episode of A-fib, he was placed on 6 L and he was weaned down to 2 L nasal cannula. The white cell count of 12.6, hemoglobin of 18 and platelet count of 163. Sodium is at 137, BUN is 40 and the creatinine is at 0.2. Potassium level is 5.5. He has echocardiogram showed a preserved LV function with mild pulmonary hypertension. Awake alert and communicating. Denies having any significant headache. No focal neurological deficit at this point. Family is at the bedside. Sitting up in a chair. No significant nausea or emesis or abdominal pain. Not ready for EGD/colonoscopy at this point. Objective - Vital Signs Vital signs: Vital Signs Temp 97.8 F 05/13/24 08:07 Pulse 98 05/13/24 09:31 Resp 18 05/13/24 08:07 BP 140/68 05/13/24 08:07 Pulse Ox 96 05/13/24 08:51 FiO2 40 05/11/24 04:00 Intake & Output 05/12/24 05/13/24 05/13/24 18:59 06:59 18:59 Intake Total 476 23.833 240 Balance 476 23.833 240 Intake: Intake, IV Titration 23.833 Amount Diltiazem 125 mg In 23.833 Sodium Chloride 0.9% 100 ml @ 10 MG/HR 10 mls/hr IV .[id number] [facility] Rx#: [id number] Oral 476 240 Other: Voiding Method Urinal Urinal Urinal - Exam The patient appeared well nourished and normally developed. Vital signs as documented. Currently on 2 L of O2 nasal cannula. He is obese with a BMI of 34.9. Breathing is less labored compared to yesterday Head exam is unremarkable. No scleral icterus or corneal arcus noted. Neck is without jugular venous distension, thyromegaly, or carotid bruits. Carotid upstrokes are brisk bilaterally. Lungs are diminished bilaterally along with scattered expiratory wheezes throughout the lung valadez. Improved air entry bilaterally and the patient seems to be less bronchospastic and wheezy Cardiac exam reveals the PMI to be normally sized and situated. Irregular and tachycardic consistent with atrial fibrillation.. First and second heart sounds normal. No murmurs, rubs or gallops. Abdominal exam reveals normal bowel sounds, no masses, no organomegaly and no aortic enlargement. Extremities are edematous and both femoral and pedal pulses are normal. Examination of the skin revealed no evidence of significant rashes, suspicious appearing nevi or other concerning lesions. Neurologically, the patient is awake and alert and the patient does not have any focal neurological deficit. Cranial nerves are essentially intact. - Labs CBC & Chem 7: 05/13/24 08:52 05/13/24 08:52 Labs: Abnormal Lab Results - Last 24 Hours (Table) 05/13/24 05/13/24 05/13/24 Range/Units 02:51 04:32 08:52 WBC 12.6 H (3.8-10.6) k/uL RBC 6.14 H (4.30-5.90) m/uL Hgb 18.6 H (13.0-17.5) gm/dL Hct 59.8 H* (39.0-53.0) % Neutrophils # 11.5 H (1.3-7.7) k/uL Lymphocytes # 0.2 L (1.0-4.8) k/uL PT (10.0-12.5) sec INR (<1.2) APTT 17.1 L (22.0-30.0) sec Potassium (3.5-5.1) mmol/L Chloride (98-107) mmol/L Carbon Dioxide (22-30) mmol/L BUN (9-20) mg/dL Glucose (74-99) mg/dL POC Glucose (mg/dL) 241 H (70-110) mg/dL Magnesium (1.6-2.3) mg/dL AST (17-59) U/L ALT (4-49) U/L 05/13/24 05/13/24 Range/Units 08:52 08:52 WBC (3.8-10.6) k/uL RBC (4.30-5.90) m/uL Hgb (13.0-17.5) gm/dL Hct (39.0-53.0) % Neutrophils # (1.3-7.7) k/uL Lymphocytes # (1.0-4.8) k/uL PT 13.6 H (10.0-12.5) sec INR 1.3 H (<1.2) APTT (22.0-30.0) sec Potassium 5.5 H (3.5-5.1) mmol/L Chloride 97 L (98-107) mmol/L Carbon Dioxide 33 H (22-30) mmol/L BUN 40 H (9-20) mg/dL Glucose 240 H (74-99) mg/dL POC Glucose (mg/dL) (70-110) mg/dL Magnesium 2.5 H (1.6-2.3) mg/dL AST 64 H (17-59) U/L ALT 112 H (4-49) U/L Assessment and Plan Plan: Acute on chronic hypoxic respiratory failure, treated with bronchodilators, steroids and BiPAP therapy. Clinically improved and the patient has been weaned down to 2 L of O2 nasal cannula.. Less bronchospastic and wheezy and improved air entry bilaterally on today's examination. Currently on Symbicort ma intenance, DuoNeb updrafts [id number] and IV Solu-Medrol. CT of the chest was completed and there is no evidence of new pulmonary embolism. There is right lower lobe pulmonary filtrates consistent with pneumonia, clinically improving and the patient has been weaned down to 2 L of O2 nasal cannula. Right lower lobe pneumonia, consider aspiration, currently on IV Unasyn COPD maintained on Symbicort on outpatient basis Acute on chronic dyspnea, under investigation chest x-ray showed with infiltration of the lung bases and the patient was started on IV Unasyn as an empiric antibiotic coverage New onset atrial fibrillation with rapid medical response. Increased lower extremity edema bilaterally. Chronic abdominal pain/epigastric. CAT scan of the abdomen at the time of admission showed no acute intra-abdominal abnormalities. This morning, the patient is free of any abdominal pain. Chronic erythrocytosis, likely secondary to chronic hypoxemia Obesity with typical features of obstructive sleep apnea. BMI 34.9. The patient is a Mallampati class IV along with chronic snoring, sleep fragmentation and excessive hypersomnia and sleepiness Hypertension Diverticulosis Chronic smoker Plan Albuterol nebulizer treatments 4 times a day [id number], scheduled Titrate oxygen flow to maintain saturation above 90%, currently on 2 L of O2 nasal cannula CT of the chest consistent with right lower lobe pneumonia. No evidence of any pulmonary malaise him Continue Cardizem drip at 15 mg an hour Metoprolol 25 mg p.o. twice a day Start the patient IV heparin Avoid long-term anticoagulation as the patient is going to have an EGD at a later stage Cardiology to follow-up on atrial fibrillation Continue diuresis the patient was placed on IV Lasix 40 mg every 12 hours Hold off EGD till respiratory status is further optimized, hoping to undergo the EGD safely by Tuesday. Continue IV Protonix Continue Carafate General surgery is on the case Will continue to follow Time with Patient: Greater than 30
--- NOTE | 2024-05-13 13:02 | P.PN ---
Subjective Progress Note Date: 05/13/24 63-year-old male patient with past medical history significant for hypertension, COPD who presented to ER with a complaint of epigastric pain. Patient reported that he has epi gastric pain for a long time, gets worse with eating. Patient denied taking any blood thinners or NSAIDs. Patient also reported having dark tarry stools. Patient had colonoscopy in 2017. Patient reported that he has been told that he was either having hernia or peptic ulcer disease, was sent in by his surgeon For evaluation with EGD. Patient denied any fever, chills, sore throat, productive cough, shortness of breath, chest pain, palpitations, diarrhea, constipation, dysuria urgency frequency weakness or numbness to extremities. Patient is afebrile, heart rate 75, respiratory rate 18, blood pressure 142/85, saturating 93% on 2 L. WBCs 11.5, hemoglobin 19.7, platelet 138. INR 1.3. CMP unremarkable. 05/09--patient was seen and examined today. Continues complain of nausea and epigastric pain. Also was hypoxic overnight, snoring loudly, required supplemental oxygen. Continue complain of shortness of breath. Currently on inhaler steroid bronchodilator protocol, pulmonary consulted, stat CT chest ordered. Started on antibiotics Unasyn and doxycycline. Chest x-ray showed airspace opacities concerning for pneumonia. 05/10--patient was seen and examined today. Continues complain of shortness of breath, on supplemental oxygen. On inhalers/bronchodilator protocol, Solu- Medrol, CT chest yesterday showed right lower lobe infiltrate, no PE. Patient on Unasyn for pneumonia. General surgery planning for EGD once respiratory status better. 05/11--patient was seen and examined today. Patient afebrile, heart rate 74, respiratory rate 16, blood pressure 139/66. Was on BiPAP overnight with 40% Fi O2, currently 96% on 6 L of oxygen. WBC 17.6, hemoglobin 18.5, platelet 145. Sodium 137 potassium 5.4, chloride 96 CO2 33 BUN 41 creatinine 0.71. Liver profile unremarkable. Echocardiogram showed normal EF, left ventricular hypertrophy. Currently on Unasyn for pneumonia. On inhalers/bronchodilator protocol and IV Solu-Medrol. Pulmonary following. General surgery planning for EGD as outpatient. 05/12. Patient seen and examined. Blood work done this morning showed WBC 16.7, hemoglobin 17.8, platelet count 161, sodium 130, potassium 5.2, BUN 45, creatinine 0.90. Vitals temperature 97.8, heart rate 79, blood pressure 144/67, continue 2 L of ox. Stated breathing is improved, sitting upright in the chair. Denies any chest pain 4/6. Patient seen and examined. D-dimer this morning was 0.41. Patient was complaining of chest pressure this morning, EKG done at time showed patient to b e in A-fib with RVR, patient started on Cardizem and heparin drip. REVIEW OF SYSTEMS: CONSTITUTIONAL: No fever, no malaise,. CARDIOVASCULAR: As mentioned. PULMONARY: As mentioned above GASTROINTESTINAL: No diarrhea, no nausea, no vomiting, no abdominal pain. NEUROLOGICAL: No headaches, no weakness, PHYSICAL EXAMINATION: GENERAL: The patient is alert and oriented x3, not in any acute distress HEENT: Pupils are round and equally reacting to light. EOMI. No scleral icterus. No conjunctival pallor. Normocephalic, atraumatic. No pharyngeal erythema. No thyromegaly. CARDIOVASCULAR: S1 and S2 present. No murmurs, rubs, or gallops. PULMONARY: Good air entry bilaterally, no wheezing or crackles. ABDOMEN: Soft, nontender, nondistended, normoactive bowel sounds. No palpable organomegaly. MUSCULOSKELETAL: No joint swelling or deformity. EXTREMITIES: No cyanosis, 2+ pitting edema of lower extremities but bilaterally NEUROLOGICAL: Gross neurological examination did not reveal any focal deficits. SKIN: No rashes. Assessment and plan Acute hypoxic respiratory failure: Pneumonia: Probable obstructive sleep apnea: Acute COPD exacerbation: Chronic erythrocytosis: Morbid obesity: BMI 34.9 Chronic smoker: Patient complaining of shortness of breath, hypoxic overnight, requiring supplemental oxygen Chest x-ray showed airspace opacities concerning for pneumonia CT chest negative for PE, showed right lower lobe infiltrate, 4 mm nonobstructing left renal calcification. Antibiotics: Unasyn Inhaler/bronchodilator protocolalbuterol, Symbicort Pulmonary consulted--recommended to continue inhalers, Solu-Medrol, Unasyn. Outpatient sleep study. Counseling to quit smoking. Chest pain A-fib with RVR Telemetry monitoring Ordered pharmacy to dose heparin Ordered Cardizem drip Cardiology following, appreciate their recommendation Epigastric pain: Suspect peptic ulcer disease: Presented with epigastric discomfort, dark tarry stools. Was seen by his surgeon Dr. Andrews, was recommended come to the ED. Hemoglobin stable. CT abdomen pelvis negative for acute process. Avoid NSAIDs Protonix, Carafate General Surgery consulted--plan for EGD on Tuesday Hypertension: Cardiac catheterization 2014 showed normal coronary arteries. Repeat echocardiogram--- unremarkable with normal EF, LVH. DVT prophylaxis Heparin drip Labs and medication were reviewed.. Continue same treatment. Continue with symptomatic treatment. Resume home medication. Monitor labs and vitals. DVT and GI prophylaxis. Further recommendations as per clinical course of the patient Dictation was produced using [employer] dictation software. please excuse any grammatical, word or spelling errors. Objective - Vital Signs Vital signs: Vital Signs Temp 97.8 F 05/13/24 08:07 Pulse 125 H 05/13/24 08:07 Resp 18 05/13/24 08:07 BP 140/68 05/13/24 08:07 Pulse Ox 96 05/13/24 08:51 FiO2 40 05/11/24 04:00 Intake & Output 05/12/24 05/13/24 05/13/24 18:59 06:59 18:59 Intake Total 476 23.833 Balance 476 23.833 Intake: Intake, IV Titration 23.833 Amount Diltiazem 125 mg In 23.833 Sodium Chloride 0.9% 100 ml @ 10 MG/HR 10 mls/hr IV .[id number] [facility] Rx#: [id number] Oral 476 Other: Voiding Method Urinal Urinal Urinal - Labs CBC & Chem 7: 05/13/24 08:52 05/13/24 08:52 Labs: Abnormal Lab Results - Last 24 Hours (Table) 05/13/24 05/13/24 Range/Units 02:51 04:32 APTT 17.1 L (22.0-30.0) sec POC Glucose (mg/dL) 241 H (70-110) mg/dL
--- NOTE | 2024-05-13 15:52 | P.CRDCN ---
History of Present Illness Consult date: 05/13/24 History of present illness: HISTORY OF PRESENTING ILLNESS: 63-year-old with past med history of hypertension, COPD presented to the hospital because of epigastric pain. On admission he did report some concerns of black tarry stools for this GI team was consulted who were initially thinking for EGD however patient's melena and abdominal discomfort resolved with medical therapy therefore they did not plan to do endoscopy at this time. During his hospital stay he was also noticed to have acute on chronic hypoxic respiratory failure with mild right lower lobe pneumonia and mild COPD exacerbation. On 05/12/2024 he was noticed to have atrial fibrillation with RVR for which cardiology was consulted. At the time of bedside evaluation telemetry showed A-fib with RVR with heart rate around 110 bpm Labs from today shows Hb 18.6, BUN 41, creatinine 0.8, potassium 5.5 CTA chest did not show any evidence of PE, emphysema with right lower lobe infiltrate suggestive of pneumonia. Prior cardiac testing: Echo from this hospitalization shows EF 55%, septal hypertrophy, mild biatrial dilatation REVIEW OF SYSTEMS: 14 point review of system is negative except what is mentioned above in HPI. PHYSICAL EXAMINATION: Neck: Brisk carotid upstroke, no jugular venous distention. Lungs: Clear to auscultation. Heart: Regular rate and rhythm, S1-S2, , no murmur or rub. Abdomen: Soft nontender, positive bowel sounds. Extremities: No edema, intact distal pulses. Neuro: Alert, oritented, no focal deficits. Detailed neuro exam was not performed. ASSESSMENT: # Atrial fibrillation with RVR, fast diagnosed 05/2024 # Mild HFrEF exacerbation # Acute on chronic hypoxic respiratory failure, multifactorial # Right lower lobe pneumonia # Mild COPD exacerbation # Polycythemia, likely secondary # Chronic tobacco smoker # Essential hypertension # Obesity with suspected ISIAH PLAN: Obtain NT-proBNP lipids HbA1c and TSH levels Discontinue heparin drip and start Eliquis 5 mg twice daily Continue IV Cardizem drip Continue metoprolol 50 mg twice daily. IV Lasix 40 mg twice daily Continue to monitor telemetry, if no response to IV Cardizem, consider amiodarone versus MED cardioversion. Recommend outpatient ischemic evaluation if not done already. Obtain records from clinic Davide Lombardi MD, FACC, RPVI Thank you for allowing [facility] to participate in this patient's care. Feel free to reach out in case of any followup questions. Past Medical History Past Medical History: COPD, Hypertension Additional Past Medical History / Comment(s): diverticulitis History of Any Multi-Drug Resistant Organisms: None Reported Past Surgical History: Heart Catheterization Past Anesthesia/Blood Transfusion Reactions: No Reported Reaction Additional Past Anesthesia/Blood Transfusion Reaction / Comment(s): Pt has never had a blood transfusion. Past Psychological History: No Psychological Hx Reported Smoking Status: Current every day smoker Past Alcohol Use History: Occasional Past Drug Use History: None Reported - Past Family History Mother Additional Family Medical History / Comment(s): Cardiac Father Additional Family Medical History / Comment(s): Cardiac Medications and Allergies Home Medications Medication Instructions Recorded Confirmed Type amLODIPine BESYLATE [Norvasc] 10 mg PO BID 03/15/16 05/08/24 History Budesonide/Formoterol Fumarate 2 puff INHALATION RT-BID 05/08/24 05/08/24 History [Symbicort 160-4.5 Mcg Inhaler] Meloxicam [Mobic] 15 mg PO DAILY 05/08/24 05/08/24 History Allergies Allergy/AdvReac Type Severity Reaction Status Date / Time No Known Allergies Allergy Verified 05/08/24 12:31 Physical Exam Vitals: Vital Signs Temp Pulse Pulse Resp BP Pulse Ox 05/13/24 12:57 94 05/13/24 12:41 96 05/13/24 11:04 98.0 F 112 H 20 136/75 93 L 05/13/24 09:31 98 05/13/24 09:16 98 05/13/24 08:51 96 05/13/24 08:07 97.8 F 125 H 18 140/68 97 05/13/24 04:00 158 H 24 156/76 95 05/13/24 00:00 102 H 16 133/71 95 05/12/24 20:45 73 18 05/12/24 20:38 71 18 05/12/24 20:00 98.2 F 93 16 136/64 93 L 05/12/24 16:39 72 05/12/24 16:20 74 Intake and Output 05/13/24 05/13/24 05/13/24 06:59 14:59 22:59 Intake Total 23.833 315.75 Balance 23.833 315.75 Intake: Intake, IV Titration 23.833 75.75 Amount Diltiazem 125 mg In 75.75 Sodium Chloride 0.9% 100 ml @ 10 MG/HR 10 mls/hr IV .[id number] [facility] Rx#: [id number] Oral 240 Other: Voiding Method Urinal Urinal Results 05/13/24 08:52 05/13/24 08:52 Cardiac Enzymes 05/13/24 05/13/24 Range/Units 03:33 08:52 AST 64 H (17-59) U/L Troponin I <0.012 (0.000-0.034) ng/mL Coagulation 05/13/24 05/13/24 Range/Units 04:32 08:52 PT 11.4 13.6 H (10.0-12.5) sec APTT 17.1 L 22.5 (22.0-30.0) sec CBC 05/13/24 Range/Units 08:52 WBC 12.6 H (3.8-10.6) k/uL RBC 6.14 H (4.30-5.90) m/uL Hgb 18.6 H (13.0-17.5) gm/dL Hct 59.8 H* (39.0-53.0) % Plt Count 163 (150-450) k/uL Comprehensive Metabolic Panel 05/13/24 Range/Units 08:52 Sodium 137 (137-145) mmol/L Potassium 5.5 H (3.5-5.1) mmol/L Chloride 97 L (98-107) mmol/L Carbon Dioxide 33 H (22-30) mmol/L BUN 40 H (9-20) mg/dL Creatinine 0.82 (0.66-1.25) mg/dL Glucose 240 H (74-99) mg/dL Calcium 9.4 (8.4-10.2) mg/dL AST 64 H (17-59) U/L ALT 112 H (4-49) U/L Alkaline Phosphatase 89 (38-126) U/L Total Protein 7.0 (6.3-8.2) g/dL Albumin 4.2 (3.5-5.0) g/dL Current Medications Generic Name Dose Route Start Last Admin Trade Name Freq PRN Reason Stop Dose Admin Acetaminophen 500 mg 05/08/24 15:26 Acetaminophen Tab 500 Mg Tab PO Q6HR PRN Fever and/ or Mild Pain Albuterol/Ipratropium 3 ml 05/09/24 20:00 05/13/24 12:41 Ipratropium-Albuterol 3 Ml Neb INHALATION 3 ml RT-QID [facility] Administration Budesonide/Formoterol Fumarate 2 puff 05/08/24 20:00 05/13/24 09:15 Symbicort 160-4.5 Mcg Inhaler INHALATION 2 puff RT-BID [facility] Administration Furosemide 40 mg 05/13/24 09:00 05/13/24 09:54 Furosemide 10 Mg/Ml 4 Ml Vial IV 40 mg Q12HR [facility] Administration Heparin Sodium (Porcine) 0 unit 05/13/24 08:48 Heparin Sodium 1,000 Un/Ml (10ml Vl) IV PER PROTOCOL PRN Low PTT Protocol Sodium Chloride 1,000 mls @ 10 mls/hr 05/08/24 14:45 05/12/24 21:29 Saline 0.9% IV Not Given .Q24H [facility] Ampicillin Sodium/Sulbactam 100 mls @ 200 mls/hr 05/09/24 14:00 05/13/24 08:18 Sodium 3 gm/ Sodium Chloride IVPB 200 mls/hr Q6H [facility] Administration Protocol Diltiazem HCl 125 mg/ Sodium 125 mls @ 10 mls/hr 05/13/24 04:00 05/13/24 11 :23 Chloride IV 15 mg/hr .[id number] [facility] 15 mls/hr Administration 10 MG/HR Heparin Sodium/Sodium Chloride 250 mls @ 10.089 mls/hr 05/13/24 09:00 05/13/24 09:53 25,000 unit/ Sodium Chloride IV 9 units/kg/hr .Q24H [facility] 10.089 mls/hr Administration Protocol 9 UNITS/KG/HR Methylprednisolone Sodium Succinate 60 mg 05/10/24 14:00 05/13/24 08:18 Methylprednisolone Sod Succi 125 Mg/2 Ml Vial IV 60 mg Q6H [facility] Administration Metoprolol Tartrate 50 mg 05/13/24 21:00 Metoprolol Tartrate 25 Mg Tab PO BID [facility] Morphine Sulfate 2 mg 05/08/24 15:26 05/13/24 02:52 Morphine Sulfate 2 Mg/Ml Syringe IVP 2 mg Q6HR PRN Administration Moderate to Severe Pain (4-10) Naloxone HCl 0.2 mg 05/08/24 14:39 Naloxone 0.4 Mg/Ml 1 Ml Vial IV Q2M PRN Opioid Reversal Nitroglycerin 0.4 mg 05/13/24 03:03 Nitroglycerin Sl Tabs 0.4 Mg Tab SUBLINGUAL 06/03/24 03:02 Q5M PRN Chest Pain Pantoprazole Sodium 40 mg 05/08/24 14:30 05/13/24 08:17 Pantoprazole 40 Mg/10 Ml Vial IVP 40 mg BID [facility] Administration Sucralfate 1 gm 05/09/24 07:30 05/13/24 11:27 Sucralfate 1 Gm Tab PO 1 gm AC-TID [facility] Administration Intake and Output 05/13/24 05/13/24 05/13/24 06:59 14:59 22:59 Intake Total 23.833 315.75 Balance 23.833 315.75 Intake: Intake, IV Titration 23.833 75.75 Amount Diltiazem 125 mg In 23.833 75.75 Sodium Chloride 0.9% 100 ml @ 10 MG/HR 10 mls/hr IV .[id number] [facility] Rx#: [id number] Oral 240 Other: Voiding Method Urinal Urinal 05/13/24 08:52 05/13/24 08:52
[2024-05-13 16:50] LABS: NT-Pro-B-Type Natriuretic Pept 1530 pg/mL
[2024-05-13] MEDS: HEPARIN SODIUM 1,000 UN/ML (10ML VL) IV PRN (17:35)
[2024-05-13] MEDS: METOPROLOL TARTRATE 50 MG TAB PO SCH (20:10)
[2024-05-13] MEDS ORDERED: APIXABAN 5 MG TAB PO SCH (21:00)
[2024-05-14 06:28] LABS: Chol/HDL Ratio 4.18 Ratio; LDL Cholesterol,Calculated 69.1 mg/dL (0.0-131.0)
[2024-05-14 10:46] LABS: Basophils % (A) 0 %; Eosinophils # (A) 0.1 k/uL (0-0.7); Eosinophils % (A) 0 %; HGB 17.8 gm/dL (13.0-17.5); Hypochromasia Slight; Lymphocytes # (A) 0.3 k/uL (1.0-4.8); Lymphocytes % (A) 2 %; MCH 30.1 pg (25.0-35.0); MCHC 31.8 g/dL (31.0-37.0); MCV 94.8 fL (80.0-100.0); Mean Platelet Volume 9.1; Monocytes # (A) 0.6 k/uL (0-1.0); Monocytes % (A) 5 %; Neutrophils # (A) 11.4 k/uL (1.3-7.7); Neutrophils % (A) 92 %; Platelet Count 150 k/uL (150-450); RBC 5.92 m/uL (4.30-5.90); RDW 13.9 % (11.5-15.5); WBC 12.4 k/uL (3.8-10.6)
[2024-05-14 10:54] LABS: HCT 56.2 % (39.0-53.0)
[2024-05-14 11:22] LABS: ALT 139 U/L (4-49); AST 46 U/L (17-59); African American GFR (CKD) >90 (>60 ml/min/1.73 sqM); Albumin 3.8 g/dL (3.5-5.0); Alkaline Phosphatase 79 U/L (38-126); Anion Gap 6 mmol/L; Blood Urea Nitrogen 42 mg/dL (9-20); Calcium 8.8 mg/dL (8.4-10.2); Carbon Dioxide 35 mmol/L (22-30); Chloride 95 mmol/L (98-107); Glucose 194 mg/dL (74-99); Non-African American GFR(CKD) >90 (>60 ml/min/1.73 sqM); Potassium 4.7 mmol/L (3.5-5.1); Sodium 136 mmol/L (137-145); Total Bilirubin 0.9 mg/dL (0.2-1.3); Total Protein 6.4 g/dL (6.3-8.2)
--- NOTE | 2024-05-14 12:33 | P.PN ---
Subjective Progress Note Date: 05/14/24 SURGICAL PROGRESS NOTE CHIEF COMPLAINT: Epigastric pain HISTORY OF PRESENT ILLNESS: Surgical service following regards to patient's epigastric pain and black stools. Patient has had no further melanotic stools. Hemoglobin has remained stable at 18. He continues to have epigastric abdominal pain. Does report the pain is better since admission. Patient has been cleared to proceed with EGD by both pulmonary and cardiology service. Afebrile. Mildly tachycardia improved on 2 L of oxygen. WBCs 12.4 Hgb 17.8 PHYSICAL EXAM: VITAL SIGNS: Reviewed. GENERAL: Well-developed in no acute distress. ABDOMEN: Soft. Mild epigastric tenderness NEUROLOGIC: Alert and oriented. Cranial nerves II through XII grossly intact. ASSESSMENT: 1. Epigastric abdominal pain with melena resolved PLAN: -Patient scheduled for EGD tomorrow with Dr. Leone -Case discussed with both cardiology and pulmonary service. They have cleared patient to proceed with procedure -Hold IV heparin starting at 7 AM tomorrow -Continue Carafate and PPI -N.p.o. after midnight Physician Android Software Engineer note has been reviewed by physician. Signing provider agrees with the documented findings, assessment, and plan of care. Attestation Patient requesting EGD to be performed. He has been cleared by both cardiology and pulmonary service. Plan for EGD tomorrow. Cristian Whatley DO Objective - Vital Signs Vital signs: Vital Signs Temp 97.5 F L 05/14/24 09:11 Pulse 81 05/14/24 11:18 Resp 17 05/14/24 11:18 BP 116/78 05/14/24 11:18 Pulse Ox 92 L 05/14/24 11:18 FiO2 40 05/11/24 04:00 Intake & Output 05/13/24 05/14/24 05/14/24 18:59 06:59 18:59 Intake Total 767.417 369.564 Output Total 550 1100 415 Balance 217.417 -730.436 -415 Weight 119 kg 122 kg Intake: Intake, IV Titration 409.417 369.564 Amount Ampicillin-Sulbactam 3 gm 200 In Sodium Chloride 0.9% 100 ml @ 200 mls/hr IVPB Q6H [facility] Rx#:[id number] Diltiazem 125 mg In 75.75 250 Sodium Chloride 0.9% 100 ml @ 10 MG/HR 10 mls/hr IV .[id number] [facility] Rx#: [id number] Heparin Sod,Pork in 0.45% 13.667 119.564 NaCl 25,000 unit In 0.45 % NaCl 1 250ml.bag @ 8. 921 UNITS/KG/HR 10 mls/hr IV .Q24H [facility] Rx#: [id number] Sodium Chloride 0.9% 1, 120 000 ml @ 10 mls/hr IV . Q24H [facility] Rx#:[id number] Oral 358 Output: Urine 550 1100 300 Post Void Residual 115 Other: Voiding Method Urinal Urinal Urinal # Voids 1 1 # Bowel Movements 2 - Labs CBC & Chem 7: 05/16/24 05:22 05/16/24 05:22 Labs: Abnormal Lab Results - Last 24 Hours (Table) 05/13/24 05/13/24 05/13/24 Range/Units 16:00 16:00 16:52 WBC (3.8-10.6) k/uL RBC (4.30-5.90) m/uL Hgb (13.0-17.5) gm/dL Hct (39.0-53.0) % Neutrophils # (1.3-7.7) k/uL Lymphocytes # (1.0-4.8) k/uL APTT 31.3 H (22.0-30.0) sec Sodium (137-145) mmol/L Chloride (98-107) mmol/L Carbon Dioxide (22-30) mmol/L BUN (9-20) mg/dL Glucose (74-99) mg/dL Hemoglobin A1c 6.2 H (<=6.0) % ALT (4-49) U/L Triglycerides 267.00 H (0.00-149.00) mg/dL VLDL Cholesterol, Calc 53.40 H (5.00-40.00) mg/dL HDL Cholesterol 38.50 L (40.00-60.00) mg/dL 05/14/24 05/14/24 05/14/24 Range/Units 02:41 10:06 10:06 WBC 12.4 H (3.8-10.6) k/uL RBC 5.92 H (4.30-5.90) m/uL Hgb 17.8 H (13.0-17.5) gm/dL Hct 56.2 H (39.0-53.0) % Neutrophils # 11.4 H (1.3-7.7) k/uL Lymphocytes # 0.3 L (1.0-4.8) k/uL APTT 46.3 H (22.0-30.0) sec Sodium 136 L (137-145) mmol/L Chloride 95 L (98-107) mmol/L Carbon Dioxide 35 H (22-30) mmol/L BUN 42 H (9-20) mg/dL Glucose 194 H (74-99) mg/dL Hemoglobin A1c (<=6.0) % ALT 139 H (4-49) U/L Triglycerides (0.00-149.00) mg/dL VLDL Cholesterol, Calc (5.00-40.00) mg/dL HDL Cholesterol (40.00-60.00) mg/dL
--- NOTE | 2024-05-14 12:51 | P.PN ---
Subjective Progress Note Date: 05/14/24 63-year-old male patient with past medical history significant for hypertension, COPD who presented to ER with a complaint of epigastric pain. Patient reported that he has epi gastric pain for a long time, gets worse with eating. Patient denied taking any blood thinners or NSAIDs. Patient also reported having dark tarry stools. Patient had colonoscopy in 2017. Patient reported that he has been told that he was either having hernia or peptic ulcer disease, was sent in by his surgeon For evaluation with EGD. Patient denied any fever, chills, sore throat, productive cough, shortness of breath, chest pain, palpitations, diarrhea, constipation, dysuria urgency frequency weakness or numbness to extremities. Patient is afebrile, heart rate 75, respiratory rate 18, blood pressure 142/85, saturating 93% on 2 L. WBCs 11.5, hemoglobin 19.7, platelet 138. INR 1.3. CMP unremarkable. 05/09--patient was seen and examined today. Continues complain of nausea and epigastric pain. Also was hypoxic overnight, snoring loudly, required supplemental oxygen. Continue complain of shortness of breath. Currently on inhaler steroid bronchodilator protocol, pulmonary consulted, stat CT chest ordered. Started on antibiotics Unasyn and doxycycline. Chest x-ray showed airspace opacities concerning for pneumonia. 05/10--patient was seen and examined today. Continues complain of shortness of breath, on supplemental oxygen. On inhalers/bronchodilator protocol, Solu- Medrol, CT chest yesterday showed right lower lobe infiltrate, no PE. Patient on Unasyn for pneumonia. General surgery planning for EGD once respiratory status better. 05/11--patient was seen and examined today. Patient afebrile, heart rate 74, respiratory rate 16, blood pressure 139/66. Was on BiPAP overnight with 40% Fi O2, currently 96% on 6 L of oxygen. WBC 17.6, hemoglobin 18.5, platelet 145. Sodium 137 potassium 5.4, chloride 96 CO2 33 BUN 41 creatinine 0.71. Liver profile unremarkable. Echocardiogram showed normal EF, left ventricular hypertrophy. Currently on Unasyn for pneumonia. On inhalers/bronchodilator protocol and IV Solu-Medrol. Pulmonary following. General surgery planning for EGD as outpatient. 05/12. Patient seen and examined. Blood work done this morning showed WBC 16.7, hemoglobin 17.8, platelet count 161, sodium 130, potassium 5.2, BUN 45, creatinine 0.90. Vitals temperature 97.8, heart rate 79, blood pressure 144/67, continue 2 L of ox. Stated breathing is improved, sitting upright in the chair. Denies any chest pain 05/13. Patient seen and examined. D-dimer this morning was 0.41. Patient was complaining of chest pressure this morning, EKG done at time showed patient to b e in A-fib with RVR, patient started on Cardizem and heparin drip. 05/14. Patient seen and examined. Currently in A-fib. States breathing has improved. Complaining of swelling of lower extremities REVIEW OF SYSTEMS: CONSTITUTIONAL: No fever, no malaise,. CARDIOVASCULAR: As mentioned. PULMONARY: As mentioned above GASTROINTESTINAL: No diarrhea, no nausea, no vomiting, no abdominal pain. NEUROLOGICAL: No headaches, no weakness, PHYSICAL EXAMINATION: GENERAL: The patient is alert and oriented x3, not in any acute distress HEENT: Pupils are round and equally reacting to light. EOMI. No scleral icterus. No conjunctival pallor. Normocephalic, atraumatic. No pharyngeal erythema. No thyromegaly. CARDIOVASCULAR: S1 and S2 present. No murmurs, rubs, or gallops. PULMONARY: Good air entry bilaterally, no wheezing or crackles. ABDOMEN: Soft, nontender, nondistended, normoactive bowel sounds. No palpable organomegaly. MUSCULOSKELETAL: No joint swelling or deformity. EXTREMITIES: No cyanosis, 2+ pitting edema of lower extremities but bilaterally NEUROLOGICAL: Gross neurological examination did not reveal any focal deficits. SKIN: No rashes. Assessment and plan Acute hypoxic respiratory failure: Pneumonia: Probable obstructive sleep apnea: Acute COPD exacerbation: Chronic erythrocytosis: Morbid obesity: BMI 34.9 Chronic smoker: Patient complaining of shortness of breath, hypoxic overnight, requiring supplemental oxygen Chest x-ray showed airspace opacities concerning for pneumonia CT chest negative for PE, showed right lower lobe infiltrate, 4 mm n onobstructing left renal calcification. Antibiotics: Unasyn Strict I's and O's, daily weights, currently on IV Lasix 40 mg twice daily Inhaler/bronchodilator protocolalbuterol, Symbicort Pulmonary consulted--recommended to continue inhalers, Solu-Medrol, Unasyn. Outpatient sleep study. Counseling to quit smoking. Chest pain A-fib with RVR Telemetry monitoring Continue heparin drip Continue Cardizem drip Cardiology following, appreciate their recommendation Epigastric pain: Suspect peptic ulcer disease: Presented with epigastric discomfort, dark tarry stools. Was seen by his surgeon Dr. Andrews, was recommended come to the ED. Hemoglobin stable. CT abdomen pelvis negative for acute process. Avoid NSAIDs Protonix, Carafate General Surgery consulted--planning EGD Hypertension: Cardiac catheterization 2014 showed normal coronary arteries. Repeat echocardiogram--- unremarkable with normal EF, LVH. DVT prophylaxis Heparin drip Labs and medication were reviewed.. Continue same treatment. Continue with symptomatic treatment. Resume home medication. Monitor labs and vitals. DVT and GI prophylaxis. Further recommendations as per clinical course of the patient Dictation was produced using [employer] dictation software. please excuse any grammatical, word or spelling errors. Objective - Vital Signs Vital signs: Vital Signs Temp 97.5 F L 05/14/24 09:11 Pulse 118 H 05/14/24 09:11 Resp 18 05/14/24 09:11 BP 114/46 05/14/24 09:11 Pulse Ox 93 L 05/14/24 09:11 FiO2 40 05/11/24 04:00 Intake & Output 05/13/24 05/14/24 05/14/24 18:59 06:59 18:59 Intake Total 767.417 369.564 Output Total 550 1100 Balance 217.417 -730.436 Weight 119 kg Intake: Intake, IV Titration 409.417 369.564 Amount Ampicillin-Sulbactam 3 gm 200 In Sodium Chloride 0.9% 100 ml @ 200 mls/hr IVPB Q6H [facility] Rx#:[id number] Diltiazem 125 mg In 75.75 250 Sodium Chloride 0.9% 100 ml @ 10 MG/HR 10 mls/hr IV .[id number] [facility] Rx#: [id number] Heparin Sod,Pork in 0.45% 13.667 119.564 NaCl 25,000 unit In 0.45 % NaCl 1 250ml.bag @ 8. 921 UNITS/KG/HR 10 mls/hr IV .Q24H [facility] Rx#: [id number] Sodium Chloride 0.9% 1, 120 000 ml @ 10 mls/hr IV . Q24H [facility] Rx#:[id number] Oral 358 Output: Urine 550 1100 Other: Voiding Method Urinal Urinal Urinal # Voids 1 # Bowel Movements 2 - Labs CBC & Chem 7: 05/14/24 10:06 05/14/24 10:06 Labs: Abnormal Lab Results - Last 24 Hours (Table) 05/13/24 05/13/24 05/13/24 Range/Units 08:52 16:00 16:00 APTT (22.0-30.0) sec Potassium 5.5 H (3.5-5.1) mmol/L Chloride 97 L (98-107) mmol/L Carbon Dioxide 33 H (22-30) mmol/L BUN 40 H (9-20) mg/dL Glucose 240 H (74-99) mg/dL Hemoglobin A1c 6.2 H (<=6.0) % Magnesium 2.5 H (1.6-2.3) mg/dL AST 64 H (17-59) U/L ALT 112 H (4-49) U/L Triglycerides 267.00 H (0.00-149.00) mg/dL VLDL Cholesterol, Calc 53.40 H (5.00-40.00) mg/dL HDL Cholesterol 38.50 L (40.00-60.00) mg/dL 05/13/24 05/14/24 Range/Units 16:52 02:41 APTT 31.3 H 46.3 H (22.0-30.0) sec Potassium (3.5-5.1) mmol/L Chloride (98-107) mmol/L Carbon Dioxide (22-30) mmol/L BUN (9-20) mg/dL Glucose (74-99) mg/dL Hemoglobin A1c (<=6.0) % Magnesium (1.6-2.3) mg/dL AST (17-59) U/L ALT (4-49) U/L Triglycerides (0.00-149.00) mg/dL VLDL Cholesterol, Calc (5.00-40.00) mg/dL HDL Cholesterol (40.00-60.00) mg/dL
--- NOTE | 2024-05-14 13:35 | P.PN ---
Subjective Progress Note Date: 05/14/24 HISTORY OF PRESENTING ILLNESS: 63-year-old with past med history of hypertension, COPD presented to the [facility] because of epigastric pain. On admission he did report some concerns of black tarry stools for this GI team was consulted who were initially thinking for EGD however patient's melena and abdominal discomfort resolved with medical therapy therefore they did not plan to do endoscopy at this time. During his hospital stay he was also noticed to have acute on chronic hypoxic respiratory failure with mild right lower lobe pneumonia and mild COPD exacerbation. On 05/12/2024 he was noticed to have atrial fibrillation with RVR for which cardiology was consulted. At the time of bedside evaluation telemetry showed A-fib with RVR with heart rate around 110 bpm Labs from today shows Hb 18.6, BUN 41, creatinine 0.8, potassium 5.5 CTA chest did not show any evidence of PE, emphysema with right lower lobe infiltrate suggestive of pneumonia. Prior cardiac testing: Echo from this hospitalization shows EF 55%, septal hypertrophy, mild biatrial dilatation 05/14 Patient seen and examined. Patient denies palpitations. He is scheduled for EGD today. He remains in atrial fibrillation with controlled heart rate. He denies any nausea. He continues to have lower extremity edema. Blood pressure 116/78, heart rate 81, pulse ox 92% on 2 L nasal cannula. WBC 12.4, hemoglobin 17.8, BUN 42 creatinine 0.8, potassium 4.7. Triglycerides 267, cholesterol 161, LDL 69. TSH 1.39. A1c 6.2. proBNP 1530. PHYSICAL EXAMINATION: Neck: Brisk carotid upstroke, no jugular venous distention. Lungs: Clear to auscultation. Heart: Irregular rate and rhythm, S1-S2, no murmur or rub. Abdomen: Soft nontender, positive bowel sounds. Extremities: 1+ bilateral lower extremity edema, intact distal pulses. Neuro: Alert, oritented, no focal deficits. Detailed neuro exam was not performed. ASSESSMENT: Atrial fibrillation with RVR, fast diagnosed 05/2024 Mild HFrEF exacerbation Acute on chronic hypoxic respiratory failure, multifactorial Right lower lobe pneumonia Epigastric abdominal pain with melena scheduled for EGD on 05/14 Mild COPD exacerbation Polycythemia, likely secondary Chronic tobacco smoker Essential hypertension Obesity with suspected ISIAH PLAN: Continue patient on heparin drip Continue Cardizem drip Patient is cleared by cardiology for EGD Continue metoprolol 50 mg twice daily. IV Lasix 40 mg twice daily Continue telemetry monitoring Continue heart rate control, consider cardioversion after patient's EGD Patient had Lexiscan Cardiolite stress test performed in the office on 03/14/2023 revealing negative stress test by EKG criteria and normal myocardial perfusion and function. Nurse practitioner note has been reviewed, I agree with documented findings and plan of care. Patient was seen and examined. Objective - Vital Signs Vital signs: Vital Signs Temp 97.8 F 05/14/24 03:26 Pulse 96 05/14/24 08:47 Resp 20 05/14/24 03:26 BP 134/77 05/14/24 03:26 Pulse Ox 97 05/14/24 08:34 FiO2 40 05/11/24 04:00 Intake & Output 05/13/24 05/14/24 05/14/24 18:59 06:59 18:59 Intake Total 767.417 369.564 Output Total 550 1100 Balance 217.417 -730.436 Weight 119 kg Intake: Intake, IV Titration 409.417 369.564 Amount Ampicillin-Sulbactam 3 gm 200 In Sodium Chloride 0.9% 100 ml @ 200 mls/hr IVPB Q6H [facility] Rx#:[id number] Diltiazem 125 mg In 75.75 250 Sodium Chloride 0.9% 100 ml @ 10 MG/HR 10 mls/hr IV .[id number] [facility] Rx#: [id number] Heparin Sod,Pork in 0.45% 13.667 119.564 NaCl 25,000 unit In 0.45 % NaCl 1 250ml.bag @ 8. 921 UNITS/KG/HR 10 mls/hr IV .Q24H [facility] Rx#: [id number] Sodium Chloride 0.9% 1, 120 000 ml @ 10 mls/hr IV . Q24H [facility] Rx#:[id number] Oral 358 Output: Urine 550 1100 Other: Voiding Method Urinal Urinal # Voids 1 # Bowel Movements 2 - Labs CBC & Chem 7: 05/14/24 10:06 05/14/24 10:06 Labs: Abnormal Lab Results - Last 24 Hours (Table) 05/13/24 05/13/24 05/13/24 Range/Units 08:52 08:52 08:52 WBC 12.6 H (3.8-10.6) k/uL RBC 6.14 H (4.30-5.90) m/uL Hgb 18.6 H (13.0-17.5) gm/dL Hct 59.8 H* (39.0-53.0) % Neutrophils # 11.5 H (1.3-7.7) k/uL Lymphocytes # 0.2 L (1.0-4.8) k/uL PT 13.6 H (10.0-12.5) sec INR 1.3 H (<1.2) APTT (22.0-30.0) sec Potassium 5.5 H (3.5-5.1) mmol/L Chloride 97 L (98-107) mmol/L Carbon Dioxide 33 H (22-30) mmol/L BUN 40 H (9-20) mg/dL Glucose 240 H (74-99) mg/dL Hemoglobin A1c (<=6.0) % Magnesium 2.5 H (1.6-2.3) mg/dL AST 64 H (17-59) U/L ALT 112 H (4-49) U/L Triglycerides (0.00-149.00) mg/dL VLDL Cholesterol, Calc (5.00-40.00) mg/dL HDL Cholesterol (40.00-60.00) mg/dL 05/13/24 05/13/24 05/13/24 Range/Units 16:00 16:00 16:52 WBC (3.8-10.6) k/uL RBC (4.30-5.90) m/uL Hgb (13.0-17.5) gm/dL Hct (39.0-53.0) % Neutrophils # (1.3-7.7) k/uL Lymphocytes # (1.0-4.8) k/uL PT (10.0-12.5) sec INR (<1.2) APTT 31.3 H (22.0-30.0) sec Potassium (3.5-5.1) mmol/L Chloride (98-107) mmol/L Carbon Dioxide (22-30) mmol/L BUN (9-20) mg/dL Glucose (74-99) mg/dL Hemoglobin A1c 6.2 H (<=6.0) % Magnesium (1.6-2.3) mg/dL AST (17-59) U/L ALT (4-49) U/L Triglycerides 267.00 H (0.00-149.00) mg/dL VLDL Cholesterol, Calc 53.40 H (5.00-40.00) mg/dL HDL Cholesterol 38.50 L (40.00-60.00) mg/dL 05/14/24 Range/Units 02:41 WBC (3.8-10.6) k/uL RBC (4.30-5.90) m/uL Hgb (13.0-17.5) gm/dL Hct (39.0-53.0) % Neutrophils # (1.3-7.7) k/uL Lymphocytes # (1.0-4.8) k/uL PT (10.0-12.5) sec INR (<1.2) APTT 46.3 H (22.0-30.0) sec Potassium (3.5-5.1) mmol/L Chloride (98-107) mmol/L Carbon Dioxide (22-30) mmol/L BUN (9-20) mg/dL Glucose (74-99) mg/dL Hemoglobin A1c (<=6.0) % Magnesium (1.6-2.3) mg/dL AST (17-59) U/L ALT (4-49) U/L Triglycerides (0.00-149.00) mg/dL VLDL Cholesterol, Calc (5.00-40.00) mg/dL HDL Cholesterol (40.00-60.00) mg/dL
[2024-05-14] MEDS: OXYMETAZOLINE 0.05% NASL SPRAY 1 SPRAY BOTTLE NASAL PRN (15:43)
--- NOTE | 2024-05-14 17:20 | P.PN ---
Subjective Progress Note Date: 05/14/24 Principal diagnosis: Acute on chronic hypoxic respiratory failure with acute right lower lobe pneumonia and COPD exacerbation 63-year-old male patient was hospitalized for abdominal pain has been going on for the past 6 months. I was involved in the case as the patient was found to be hypoxic and there was a concern of his ability to handle an EGD and based on that a pulmonary consultation was requested. The patient has chronic history of smoking/COPD and he has obvious features of obstructive sleep apnea. The patient used to smoke up to 2 pack of cigarettes a day and currently is down to 1 pack of cigarettes a day. Maintained on Symbicort on outpatient basis. Does not utilize home O2. No home CPAP machine. He has chronic exertional dyspnea. No chest pain. No pleurisy. No hemoptysis. No previous history of DVT or pulmonary embolism. His blood work at the time of admission showed a hemoglobin of 19.7 and the patient has chronic erythrocytosis, seen by hematology in the past. Suspect chronic hypoxemic respiratory failure. Electrolytes all within normal limits. Serum bicarb is at 29 and a sodium levels at 138 with a potassium level of 4.6. LFTs are normal. Amylase and lipase and LFTs are also within normal limits. Normal coagulation profile. Chest x-ray done today shows some limited infiltration of the lung bases more so on the right. Nevertheless, the CAT scan of the abdomen that was done on 05/08/2024 showed no significant abnormalities involving the lung bases and the lung bases are essentially clear. No acute changes within the abdomen. The patient's abdominal pain has been investigated in the past. The patient was given an EGD and colonoscopy through [facility]. The patient was also seen by cardiology and he was told to have a normal echocardiogram and a cardiac stress test. At this point, the patient is on 5 L of oxygen by nasal cannula with a pulse ox of 89 to 90%. He is afebrile. Hemodynamically stable. His EKG at the time of admission showed normal sinus rhythm with some nonspecific T wave abnormalities. He is abdominal pain is epigastric. No hematemesis. No melena. No bright blood per rectum. 05/10/2024, patient is being seen for a follow-up. The patient is free of any abdominal pain. No nausea or emesis. Seems to be less short of breath compared to yesterday. Noted the patient got transferred to telemetry unit as the patient was in severe respiratory acidosis due to COPD exacerbation. The patient was started on a combination of bronchodilators and steroids. The patient is feeling better. Earlier this morning, he was still on a BiPAP at a pressure of 14 over 5 cm of water and FiO2 40%. Generating better volumes on the BiPAP machine. Less tachypneic compared to yesterday. Awake and alert and communicating. Denies having any chest pain. The white cell count is at 10 with a hemoglobin of 17.9 and platelet count of 141. He is 90 with a creatinine of 0.5 and sodium levels at 138 and a potassium level is at 5.1. Currently on Unasyn for a right lower lobe pneumonia. He is also on DuoNeb updrafts and Symbicort as maintenance and IV Solu-Medrol 60 mg every 6 hours. IV fluids are currently at KVO. The patient was briefly taken off the BiPAP and he was able to tolerate his diet. No major edema lower extremities bilaterally. On 05/11/2024, the patient is feeling better. The patient is currently off the BiPAP the patient has been placed on oxygen at 4 L/min nasal cannula. Current pulse ox is 94%. Less bronchospastic and wheezy. No chest pain. No altered mentation. No significant nausea vomiting or abdominal pain. Remains on IV Unasyn for a right lower lobe pneumonia. The white cell count of 17.6, hemoglobin 18 and a platelet count of 145. BUN is 41 with a creatinine of 0.7. Sodium levels at 137 and a potassium level is at 5.4. Chloride is 96 with a bicarb level of 33. Her LFTs are within normal limits. He is on DuoNeb of chest. He is on Symbicort 2 puffs twice a day, IV Solu-Medrol 60 mg every 6 hours and is also on IV Unasyn. IV fluids are currently at KVO. 05/12/2024, the patient is sitting up in a chair. He states that his abdominal pain recurs whenever he lays down flat in bed. However, while in the chair, he feels better and is free of any pain. Oxygenation is improved and the patient is currently on 2 L of oxygen nasal cannula with a pulse ox of 95%. Remains on DuoNeb updrafts. Remains on Symbicort. Remains on IV Solu-Medrol. Remains on IV Unasyn. No evidence of any GI bleeding. The white cell count of 16 with a hemoglobin 17.8 and a platelet count of 161. Potassium is at 5.2. BUN is 45 creatinine 0.9 and sodium levels at 138. Denies having any other new complaints. On 05/13/2024, the patient is being seen for a follow-up. The patient's cardiac condition is decompensated and overnight, the patient went into atrial fibrillation with antibiotic response. Over the past 24 hours, the patient also developed significant edema in the lower extremities bilaterally. This morning, the patient remains in atrial fibrillation. He remains tachycardic. Already on metoprolol 25 mg p.o. twice daily and Cardizem drip at 15 mg an hour. He was also taking Norvasc and based on his increased lower extremity edema, the patient was taken off Norvasc. The patient is currently on 2 L of oxygen by nasal cannula. During the episode of A-fib, he was placed on 6 L and he was weaned down to 2 L nasal cannula. The white cell count of 12.6, hemoglobin of 18 and platelet count of 163. Sodium is at 137, BUN is 40 and the creatinine is at 0.2. Potassium level is 5.5. He has echocardiogram showed a preserved LV function with mild pulmonary hypertension. Awake alert and communicating. Denies having any significant headache. No focal neurological deficit at this point. Family is at the bedside. Sitting up in a chair. No significant nausea or emesis or abdominal pain. Not ready for EGD/colonoscopy at this point. Seen today on 05/14/2024, patient is feeling better from the pulmonary perspective breathing easier, he is normally on home O2 at 2 L, patient is now being considered for EGD as he continues to have symptoms of epigastric discomfort and possibly GERD. Needs to be cleared by cardiology for EGD. WBC count is 12.4 hemoglobin 17.8 electrolytes are normal renal profile is normal bicarb is 35. Patient remains on multiple meds for his atrial fibrillation including metoprolol, Cardizem, off Norvasc because of fluid retention and bipedal edema echocardiogram showed preserved LV function he does have evidence of mild pulmonary hypertension. Objective - Vital Signs Vital signs: Vital Signs Temp 97.5 F L 05/14/24 09:11 Pulse 72 05/14/24 16:14 Resp 15 05/14/24 15:44 BP 127/77 05/14/24 15:44 Pulse Ox 93 L 05/14/24 15:44 FiO2 40 05/11/24 04:00 Intake & Output 05/13/24 05/14/24 05/14/24 18:59 06:59 18:59 Intake Total 767.417 369.564 0 Output Total 550 1100 815 Balance 217.417 -730.436 -815 Weight 119 kg 122 kg Intake: Intake, IV Titration 409.417 369.564 Amount Ampicillin-Sulbactam 3 gm 200 In Sodium Chloride 0.9% 100 ml @ 200 mls/hr IVPB Q6H [facility] Rx#:[id number] Diltiazem 125 mg In 75.75 250 Sodium Chloride 0.9% 100 ml @ 10 MG/HR 10 mls/hr IV .[id number] [facility] Rx#: [id number] Heparin Sod,Pork in 0.45% 13.667 119.564 NaCl 25,000 unit In 0.45 % NaCl 1 250ml.bag @ 8. 921 UNITS/KG/HR 10 mls/hr IV .Q24H [facility] Rx#: [id number] Sodium Chloride 0.9% 1, 120 000 ml @ 10 mls/hr IV . Q24H [facility] Rx#:[id number] Oral 358 0 Output: Urine 550 1100 700 Post Void Residual 115 Other: Voiding Method Urinal Urinal Urinal # Voids 1 1 # Bowel Movements 2 - Exam PHYSICAL EXAMINATION: Revealed a 63-year-old white male pleasant in no distress Head: Atraumatic normocephalic Neck: Supple no neck masses no JVD no stridor Lungs: Symmetrical chest expansion clear throughout no crackles rhonchi or wheezes Heart: Irregular rate and rhythm, S1-S2, no murmur or rub. Abdomen: Soft nontender, positive bowel sounds. Extremities: 1+ bilateral lower extremity edema, intact distal pulses. Neuro: Alert, oritented, no focal deficits. Detailed neuro exam was not performed. Psychiatric: Normal mood affect and no mental status examination Skin: No rashes - Labs CBC & Chem 7: 05/14/24 10:06 05/14/24 10:06 Labs: Abnormal Lab Results - Last 24 Hours (Table) 05/13/24 05/13/24 05/13/24 Range/Units 16:00 16:00 16:52 WBC (3.8-10.6) k/uL RBC (4.30-5.90) m/uL Hgb (13.0-17.5) gm/dL Hct (39.0-53.0) % Neutrophils # (1.3-7.7) k/uL Lymphocytes # (1.0-4.8) k/uL APTT 31.3 H (22.0-30.0) sec Sodium (137-145) mmol/L Chloride (98-107) mmol/L Carbon Dioxide (22-30) mmol/L BUN (9-20) mg/dL Glucose (74-99) mg/dL Hemoglobin A1c 6.2 H (<=6.0) % ALT (4-49) U/L Triglycerides 267.00 H (0.00-149.00) mg/dL VLDL Cholesterol, Calc 53.40 H (5.00-40.00) mg/dL HDL Cholesterol 38.50 L (40.00-60.00) mg/dL 05/14/24 05/14/24 05/14/24 Range/Units 02:41 10:06 10:06 WBC 12.4 H (3.8-10.6) k/uL RBC 5.92 H (4.30-5.90) m/uL Hgb 17.8 H (13.0-17.5) gm/dL Hct 56.2 H (39.0-53.0) % Neutrophils # 11.4 H (1.3-7.7) k/uL Lymphocytes # 0.3 L (1.0-4.8) k/uL APTT 46.3 H (22.0-30.0) sec Sodium 136 L (137-145) mmol/L Chloride 95 L (98-107) mmol/L Carbon Dioxide 35 H (22-30) mmol/L BUN 42 H (9-20) mg/dL Glucose 194 H (74-99) mg/dL Hemoglobin A1c (<=6.0) % ALT 139 H (4-49) U/L Triglycerides (0.00-149.00) mg/dL VLDL Cholesterol, Calc (5.00-40.00) mg/dL HDL Cholesterol (40.00-60.00) mg/dL Assessment and Plan Assessment: Impression: Acute on chronic hypoxic respiratory failure, multifactorial, patient does have right lower lobe pneumonia and he does have COPD as well as obstructive sleep apnea syndrome Right lower lobe pneumonia, consider aspiration, currently on IV Unasyn COPD maintained on Symbicort on outpatient basis Acute on chronic dyspnea, under investigation chest x-ray showed with infiltration of the lung bases and the patient was started on IV Unasyn as an empiric antibiotic coverage New onset atrial fibrillation with rapid medical response. Increased lower extremity edema bilaterally. Chronic abdominal pain/epigastric. CAT scan of the abdomen at the time of admission showed no acute intra-abdominal abnormalities. Patient is being considered for EGD Chronic erythrocytosis, likely secondary to chronic hypoxemia Obesity with typical features of obstructive sleep apnea. BMI 34.9. The patient is a Mallampati class IV along with chronic snoring, sleep fragmentation and excessive hypersomnia and sleepiness Hypertension Diverticulosis Chronic smoker Recommendation: Continue oxygen and titrate accordingly Continue updrafts and bronchodilators Continue metoprolol and Cardizem Continue IV heparin Patient to be cleared by cardiology if to go for EGD Continue diuretics Continue Carafate and Protonix Not ready for discharge, has multiple comorbidities as noted above Will continue to follow Time with Patient: Less than 30
[2024-05-15 07:39] LABS: Basophils # (A) 0.04 10*3/uL (0.00-0.10); Basophils % (A) 0.3 %; HCT 54.5 % (39.6-50.0); HGB 17.6 g/dL (13.0-17.0); Lymphocytes # (A) 0.27 10*3/uL (0.90-5.00); Lymphocytes % (A) 2.2 %; MCH 30.4 pg (27.0-32.0); MCHC 32.3 g/dL (32.0-37.0); MCV 94.3 fL (80.0-97.0); Monocytes # (A) 0.78 10*3/uL (0.20-1.00); Monocytes % (A) 6.4 %; Neutrophils % (A) 88.6 %; Platelet Count 146 10*3/uL (140-440); RBC 5.78 10*6/uL (4.40-5.60); RDW 13.9 % (11.5-14.5); WBC 12.19 10*3/uL (4.50-10.00)
[2024-05-15 07:52] LABS: ALT 179 U/L (4-49); AST 68 U/L (17-59); African American GFR (CKD) >90 (>60 ml/min/1.73 sqM); Albumin 3.3 g/dL (3.5-5.0); Alkaline Phosphatase 77 U/L (38-126); Anion Gap 6 mmol/L; Blood Urea Nitrogen 40 mg/dL (9-20); Calcium 8.7 mg/dL (8.4-10.2); Carbon Dioxide 37 mmol/L (22-30); Chloride 95 mmol/L (98-107); Glucose 208 mg/dL (74-99); Non-African American GFR(CKD) >90 (>60 ml/min/1.73 sqM); Potassium 4.6 mmol/L (3.5-5.1); Sodium 138 mmol/L (137-145); Total Bilirubin 0.7 mg/dL (0.2-1.3); Total Protein 5.9 g/dL (6.3-8.2)
--- NOTE | 2024-05-15 12:15 | P.PN ---
Subjective 63-year-old male patient with past medical history significant for hypertension, COPD who presented to ER with a complaint of epigastric pain. Patient reported that he has epi gastric pain for a long time, gets worse with eating. Patient denied taking any blood thinners or NSAIDs. Patient also reported having dark tarry stools. Patient had colonoscopy in 2017. Patient reported that he has been told that he was either having hernia or peptic ulcer disease, was sent in by his surgeon For evaluation with EGD. Patient denied any fever, chills, sore throat, productive cough, shortness of breath, chest pain, palpitations, diarrhea, constipation, dysuria urgency frequency weakness or numbness to extremities. Patient is afebrile, heart rate 75, respiratory rate 18, blood pressure 142/85, saturating 93% on 2 L. WBCs 11.5, hemoglobin 19.7, platelet 138. INR 1.3. CMP unremarkable. 05/09--patient was seen and examined today. Continues complain of nausea and epigastric pain. Also was hypoxic overnight, snoring loudly, required [place] pplemental oxygen. Continue complain of shortness of breath. Currently on inhaler steroid bronchodilator protocol, pulmonary consulted, stat CT chest ordered. Started on antibiotics Unasyn and doxycycline. Chest x-ray showed airspace opacities concerning for pneumonia. 05/10--patient was seen and examined today. Continues complain of shortness of breath, on supplemental oxygen. On inhalers/bronchodilator protocol, Solu- Medrol, CT chest yesterday showed right lower lobe infiltrate, no PE. Patient on Unasyn for pneumonia. General surgery planning for EGD once respiratory status better. 05/11--patient was seen and examined today. Patient afebrile, heart rate 74, respiratory rate 16, blood pressure 139/66. Was on BiPAP overnight with 40% FiO2, currently 96% on 6 L of oxygen. WBC 17.6, hemoglobin 18.5, platelet 145. Sodium 137 potassium 5.4, chloride 96 CO2 33 BUN 41 creatinine 0.71. Liver profile unremarkable. Echocardiogram showed normal EF, left ventricular hypertrophy. Currently on Unasyn for pneumonia. On inhalers/bronchodilator protocol and IV Solu-Medrol. Pulmonary following. General surgery planning for EGD as outpatient. 05/12. Patient seen and examined. Blood work done this morning showed WBC 16.7, hemoglobin 17.8, platelet count 161, sodium 130, potassium 5.2, BUN 45, creatinine 0.90. Vitals temperature 97.8, heart rate 79, blood pressure 144/67, continue 2 L of ox. Stated breathing is improved, sitting upright in the chair. Denies any chest pain 05/13. Patient seen and examined. D-dimer this morning was 0.41. Patient was complaining of chest pressure this morning, EKG done at time showed patient to be in A-fib with RVR, patient started on Cardizem and heparin drip. 05/14. Patient seen and examined. Currently in A-fib. States breathing has improved. Complaining of swelling of lower extremities 05/15 Patient breathing is good No chest pain no abdominal pain He does not have black stool anymore His main concern is leg swelling on both sides He does have mild epigastric abdominal pain and tenderness which is worse with lying down that is why he is sitting in the chair however on examination looks better and patient reports improvement No more blood per rectum he never had fresh blood per rectum as he states. He is going for EGD this morning No anticoagulation or NSAIDs. Patient kept on Unasyn IV Solu-Medrol and Cardizem drip. Is also on Protonix and Carafate Also on heparin drip per chaser apprentice Family members at bedside and all questions answered to their satisfaction Review of systems CONSTITUTIONAL: No fever, no malaise, no fatigue. NEUROLOGICAL: No headaches, no weakness, no numbness. HEMATOLOGICAL: Denies any bleeding or petechiae. GENITOURINARY: Denies any burning micturition, frequency, or urgency. MUSCULOSKELETAL/RHEUMATOLOGICAL: Denies any joint pain, swelling, or any muscle pain. ENDOCRINE: Denies any polyuria or polydipsia. Active Medications Generic Name Dose Route Start Last Admin Trade Name Freq PRN Reason Stop Dose Admin Acetaminophen 500 mg 05/08/24 15:26 Acetaminophen Tab 500 Mg Tab PO Q6HR PRN Fever and/ or Mild Pain Albuterol/Ipratropium 3 ml 05/09/24 20:00 05/15/24 11:41 Ipratropium-Albuterol 3 Ml Neb INHALATION 3 ml RT-QID DESTINY Administration Budesonide/Formoterol Fumarate 2 puff 05/08/24 20:00 05/15/24 08:23 Symbicort 160-4.5 Mcg Inhaler INHALATION Not Given RT-BID DESTINY Furosemide 40 mg 05/13/24 09:00 05/15/24 08:37 Furosemide 10 Mg/Ml 4 Ml Vial IV 40 mg Q12HR DESTINY Administration Heparin Sodium (Porcine) 0 unit 05/13/24 15:59 05/13/24 17:35 Heparin Sodium 1,000 Un/Ml (10ml Vl) IV 4,000 unit PER PROTOCOL PRN Administration Low PTT Protocol Sodium Chloride 1,000 mls @ 10 mls/hr 05/08/24 14:45 05/14/24 20:18 Saline 0.9% IV Not Given .Q24H DESTINY Ampicillin Sodium/Sulbactam 100 mls @ 200 mls/hr 05/09/24 14:00 05/15/24 08:37 Sodium 3 gm/ Sodium Chloride IVPB 200 mls/hr Q6H DESTINY Administration Protocol Diltiazem HCl 125 mg/ Sodium 125 mls @ 10 mls/hr 05/13/24 04:00 05/15/24 05:40 Chloride IV 15 mg/hr .[id number] DESTINY 15 mls/hr Administration 10 MG/HR Heparin Sodium/Sodium Chloride 250 mls @ 10 mls/hr 05/13/24 16:00 05/15/24 07:05 25,000 unit/ Sodium Chloride IV 0 units/kg/hr .Q24H DESTINY 0 mls/hr Titration Protocol 8.921 UNITS/KG/HR Methylprednisolone Sodium Succinate 60 mg 05/10/24 14:00 05/15/24 08:37 Methylprednisolone Sod Succi 125 Mg/2 Ml Vial IV 60 mg Q6H DESTINY Administration Metoprolol Tartrate 50 mg 05/13/24 21:00 05/15/24 08:37 Metoprolol Tartrate 50 Mg Tab PO 50 mg BID DESTINY Administration Morphine Sulfate 2 mg 05/08/24 15:26 05/13/24 02:52 Morphine Sulfate 2 Mg/Ml Syringe IVP 2 mg Q6HR PRN Administration Moderate to Severe Pain (4-10) Naloxone HCl 0.2 mg 05/08/24 14:39 Naloxone 0.4 Mg/Ml 1 Ml Vial IV Q2M PRN Opioid Reversal Nitroglycerin 0.4 mg 05/13/24 03:03 Nitroglycerin Sl Tabs 0.4 Mg Tab SUBLINGUAL 06/03/24 03:02 Q5M PRN Chest Pain Oxymetazoline HCl 2 spray 05/14/24 11:23 05/14/24 15:43 Oxymetazoline 0.05% Nasl [place] 1 [place] Bottle NASAL 2 spray BID PRN Administration Nasal Congestion Pantoprazole Sodium 40 mg 05/08/24 14:30 05/15/24 08:37 Pantoprazole 40 Mg/10 Ml Vial IVP 40 mg BID DESTINY Administration Sucralfate 1 gm 05/09/24 07:30 05/15/24 11:41 Sucralfate 1 Gm Tab PO 1 gm AC-TID DESTINY Administration Objective - Vital Signs Vital signs: Vital Signs Temp 98.1 F 05/15/24 11:30 Pulse 74 05/15/24 11:51 Resp 18 05/15/24 11:30 BP 122/83 05/15/24 11:30 Pulse Ox 93 L 05/15/24 11:30 FiO2 40 05/11/24 04:00 Intake & Output 05/14/24 05/15/24 05/15/24 18:59 06:59 18:59 Intake Total 569 332.91 132.418 Output Total 815 1425 Balance -246 -1092.09 132.418 Weight 122 kg 122.4 kg Intake: Intake, IV Titration 125 332.91 132.418 Amount Diltiazem 125 mg In 125 125 Sodium Chloride 0.9% 100 ml @ 10 MG/HR 10 mls/hr IV .[id number] DESTINY Rx#: [id number] Heparin Sod,Pork in 0.45% 207.91 132.418 NaCl 25,000 unit In 0.45 % NaCl 1 250ml.bag @ 8. 921 UNITS/KG/HR 10 mls/hr IV .Q24H DESTINY Rx#: [id number] Oral 444 Output: Urine 700 1425 Post Void Residual 115 Other: Voiding Method Urinal Urinal Urinal # Voids 1 1 - Exam -GENERAL: The patient is alert and oriented x3, not in any acute distress. Well developed, well nourished. Obese HEENT: Pupils are round and equally reacting to light. EOMI. No scleral icterus. No conjunctival pallor. Normocephalic, atraumatic. No pharyngeal erythema. No thyromegaly. CARDIOVASCULAR: S1 and S2 present. No murmurs, rubs, or gallops. PULMONARY: Chest is clear to auscultation, no wheezing , no crackles. -ABDOMEN: Soft, n mild epigastric tenderness, no guarding or rebound tenderness, nondistended, normoactive bowel sounds. No palpable organomegaly. MUSCULOSKELETAL: No joint swelling or deformity. EXTREMITIES: No cyanosis, clubbing,. Bilateral leg edema. NEUROLOGICAL: Gross neurological examination did not reveal any focal deficits. SKIN: No rashes. no petechiae. - Labs CBC & Chem 7: 05/15/24 06:28 05/15/24 06:28 Labs: Abnormal Lab Results - Last 24 Hours (Table) 05/15/24 05/15/24 05/15/24 Range/Units 06:28 06:28 06:28 WBC 12.19 H (4.50-10.00) 10*3/uL RBC 5.78 H (4.40-5.60) 10*6/uL Hgb 17.6 H (13.0-17.0) g/dL Hct 54.5 H (39.6-50.0) % Immature Gran # 0.30 H (0.00-0.04) 10*3/uL Neutrophils # 10.80 H (1.80-7.70) 10*3/uL Lymphocytes # 0.27 L (0.90-5.00) 10*3/uL Eosinophils # 0.00 L (0.04-0.35) 10*3/uL APTT 40.3 H (22.0-30.0) sec Chloride 95 L (98-107) mmol/L Carbon Dioxide 37 H (22-30) mmol/L BUN 40 H (9-20) mg/dL Glucose 208 H (74-99) mg/dL AST 68 H (17-59) U/L ALT 179 H (4-49) U/L Total Protein 5.9 L (6.3-8.2) g/dL Albumin 3.3 L (3.5-5.0) g/dL Assessment and Plan Assessment: Melena, with epigastric pain rule out acute GI bleed A-fib and RVR present on admission Mild acute CHF exacerbation Acute on chronic hypoxic respiratory failure Right lower lobe pneumonia Acute COPD exacerbation Obstructive sleep apnea Hypertension Obesity with BMI of 37.6 Plan: Plan for EGD on 05/15 General Surgery following closely On Unasyn and IV Solu-Medrol for pneumonia and COPD Pulmonary thornton he is doing well and pulmonary might clear him for discharge Cardiology following and remains on Cardizem drip and heparin drip, management per chaser apprentice Also on Protonix and Carafate Keep monitoring hemoglobin. Labs and medication were reviewed.. Continue same treatment. Continue with symptomatic treatment. Resume home medication. Monitor labs and vitals. DVT and GI prophylaxis. Further recommendations as per clinical course of the patient DVT prophylaxis: heparin GI Prophylaxis: Protonix PT/OT: Pending Prognosis is guarded
[2024-05-15] MEDS ORDERED: PROPOFOL 10 MG/ML 20 ML VIAL IV ONE (13:34)
[2024-05-15] MEDS ORDERED: LIDOCAINE 1% INJ 10MG/ML (20 ML MDV) ONE (13:34)
[2024-05-15] MEDS: IV FLUID CONTINUATION 900 ML IV ONE (13:49)
[2024-05-15 13:53] VITALS: BMI 37.6
--- NOTE | 2024-05-15 15:11 | P.PN ---
Subjective Progress Note Date: 05/15/24 Principal diagnosis: Acute on chronic hypoxic respiratory failure with acute right lower lobe pneumonia and COPD exacerbation 63-year-old male patient was hospitalized for abdominal pain has been going on for the past 6 months. I was involved in the case as the patient was found to be hypoxic and there was a concern of his ability to handle an EGD and based on that a pulmonary consultation was requested. The patient has chronic history of smoking/COPD and he has obvious features of obstructive sleep apnea. The patient used to smoke up to 2 pack of cigarettes a day and currently is down to 1 pack of cigarettes a day. Maintained on Symbicort on outpatient basis. Does not utilize home O2. No home CPAP machine. He has chronic exertional dyspnea. No chest pain. No pleurisy. No hemoptysis. No previous history of DVT or pulmonary embolism. His blood work at the time of admission showed a hemoglobin of 19.7 and the patient has chronic erythrocytosis, seen by hematology in the past. Suspect chronic hypoxemic respiratory failure. Electrolytes all within normal limits. Serum bicarb is at 29 and a sodium levels at 138 with a potassium level of 4.6. LFTs are normal. Amylase and lipase and LFTs are also within normal limits. Normal coagulation profile. Chest x-ray done today shows some limited infiltration of the lung bases more so on the right. Nevertheless, the CAT scan of the abdomen that was done on 05/08/2024 showed no significant abnormalities involving the lung bases and the lung bases are essentially clear. No acute changes within the abdomen. The patient's abdominal pain has been investigated in the past. The patient was given an EGD and colonoscopy through [facility]. The patient was also seen by cardiology and he was told to have a normal echocardiogram and a cardiac stress test. At this point, the patient is on 5 L of oxygen by nasal cannula with a pulse ox of 89 to 90%. He is afebrile. Hemodynamically stable. His EKG at the time of admission showed normal sinus rhythm with some nonspecific T wave abnormalities. He is abdominal pain is epigastric. No hematemesis. No melena. No bright blood per rectum. 05/10/2024, patient is being seen for a follow-up. The patient is free of any abdominal pain. No nausea or emesis. Seems to be less short of breath compared to yesterday. Noted the patient got transferred to telemetry unit as the patient was in severe respiratory acidosis due to COPD exacerbation. The patient was started on a combination of bronchodilators and steroids. The patient is feeling better. Earlier this morning, he was still on a BiPAP at a pressure of 14 over 5 cm of water and FiO2 40%. Generating better volumes on the BiPAP machine. Less tachypneic compared to yesterday. Awake and alert and communicating. Denies having any chest pain. The white cell count is at 10 with a hemoglobin of 17.9 and platelet count of 141. He is 90 with a creatinine of 0.5 and sodium levels at 138 and a potassium level is at 5.1. Currently on Unasyn for a right lower lobe pneumonia. He is also on DuoNeb updrafts and Symbicort as maintenance and IV Solu-Medrol 60 mg every 6 hours. IV fluids are currently at KVO. The patient was briefly taken off the BiPAP and he was able to tolerate his diet. No major edema lower extremities bilaterally. On 05/11/2024, the patient is feeling better. The patient is currently off the BiPAP the patient has been placed on oxygen at 4 L/min nasal cannula. Current pulse ox is 94%. Less bronchospastic and wheezy. No chest pain. No altered mentation. No significant nausea vomiting or abdominal pain. Remains on IV Unasyn for a right lower lobe pneumonia. The white cell count of 17.6, hemoglobin 18 and a platelet count of 145. BUN is 41 with a creatinine of 0.7. Sodium levels at 137 and a potassium level is at 5.4. Chloride is 96 with a bicarb level of 33. Her LFTs are within normal limits. He is on DuoNeb of chest. He is on Symbicort 2 puffs twice a day, IV Solu-Medrol 60 mg every 6 hours and is also on IV Unasyn. IV fluids are currently at KVO. 05/12/2024, the patient is sitting up in a chair. He states that his abdominal pain recurs whenever he lays down flat in bed. However, while in the chair, he feels better and is free of any pain. Oxygenation is improved and the patient is currently on 2 L of oxygen nasal cannula with a pulse ox of 95%. Remains on DuoNeb updrafts. Remains on Symbicort. Remains on IV Solu-Medrol. Remains on IV Unasyn. No evidence of any GI bleeding. The white cell count of 16 with a hemoglobin 17.8 and a platelet count of 161. Potassium is at 5.2. BUN is 45 creatinine 0.9 and sodium levels at 138. Denies having any other new complaints. On 05/13/2024, the patient is being seen for a follow-up. The patient's cardiac condition is decompensated and overnight, the patient went into atrial fibrillation with antibiotic response. Over the past 24 hours, the patient also developed significant edema in the lower extremities bilaterally. This morning, the patient remains in atrial fibrillation. He remains tachycardic. Already on metoprolol 25 mg p.o. twice daily and Cardizem drip at 15 mg an hour. He was also taking Norvasc and based on his increased lower extremity edema, the patient was taken off Norvasc. The patient is currently on 2 L of oxygen by nasal cannula. During the episode of A-fib, he was placed on 6 L and he was weaned down to 2 L nasal cannula. The white cell count of 12.6, hemoglobin of 18 and platelet count of 163. Sodium is at 137, BUN is 40 and the creatinine is at 0.2. Potassium level is 5.5. He has echocardiogram showed a preserved LV function with mild pulmonary hypertension. Awake alert and communicating. Denies having any significant headache. No focal neurological deficit at this point. Family is at the bedside. Sitting up in a chair. No significant nausea or emesis or abdominal pain. Not ready for EGD/colonoscopy at this point. Seen today on 05/14/2024, patient is feeling better from the pulmonary perspective breathing easier, he is normally on home O2 at 2 L, patient is now being considered for EGD as he continues to have symptoms of epigastric discomfort and possibly GERD. Needs to be cleared by cardiology for EGD. WBC count is 12.4 hemoglobin 17.8 electrolytes are normal renal profile is normal bicarb is 35. Patient remains on multiple meds for his atrial fibrillation including metoprolol, Cardizem, off Norvasc because of fluid retention and bipedal edema echocardiogram showed preserved LV function he does have evidence of mild pulmonary hypertension. Patient was seen today on 05/15/2024, pulmonary thornton the patient is doing fairly well, continues to have symptoms of epigastric discomfort scheduled for EGD today, patient is being followed by many consultants including pulmonary, internal medicine, surgery, and cardiology. Overall patient is noticing slight improvement, but not back to baseline. WBC count is 12.19 hemoglobin 17.6 electrolytes are normal PTT is 40 BUN is 40 creatinine 0.82 chest x-ray from 2 days ago showed mostly bibasilar atelectasis otherwise unremarkable. Patient remains on Unasyn, Cardizem drip, he is also on IV Solu-Medrol for his underlying COPD. Heparin today is presently on hold. Objective - Vital Signs Vital signs: Vital Signs Temp 98.1 F 05/15/24 11:30 Pulse 83 05/15/24 14:05 Resp 18 05/15/24 14:05 BP 135/94 05/15/24 14:05 Pulse Ox 89 L 05/15/24 14:42 FiO2 40 05/11/24 04:00 Intake & Output 05/14/24 05/15/24 05/15/24 18:59 06:59 18:59 Intake Total 569 332.91 232.418 Output Total 815 1425 Balance -246 -1092.09 232.418 Weight 122 kg 122.4 kg 122.4 kg Intake: IV 100 Intake, IV Titration 125 332.91 132.418 Amount Diltiazem 125 mg In 125 125 Sodium Chloride 0.9% 100 ml @ 10 MG/HR 10 mls/hr IV .[id number] DESTINY Rx#: [id number] Heparin Sod,Pork in 0.45% 207.91 132.418 NaCl 25,000 unit In 0.45 % NaCl 1 250ml.bag @ 8. 921 UNITS/KG/HR 10 mls/hr IV .Q24H DESTINY Rx#: [id number] Oral 444 Output: Urine 700 1425 Post Void Residual 115 Other: Voiding Method Urinal Urinal Urinal # Voids 1 1 2 - Exam PHYSICAL EXAMINATION: Revealed a 63-year-old white male pleasant in no distress Head: Atraumatic normocephalic Neck: Supple no neck masses no JVD no stridor Lungs: Symmetrical chest expansion clear throughout no crackles rhonchi or wheezes Heart: Irregular rate and rhythm, S1-S2, no murmur or rub. Abdomen: Soft nontender, positive bowel sounds. Extremities: 1+ bilateral lower extremity edema, intact distal pulses. Neuro: Alert, oritented, no focal deficits. Detailed neuro exam was not performed. Psychiatric: Normal mood affect and no mental status examination Skin: No rashes - Labs CBC & Chem 7: 05/15/24 06:28 05/15/24 06:28 Labs: Abnormal Lab Results - Last 24 Hours (Table) 05/15/24 05/15/24 05/15/24 Range/Units 06:28 06:28 06:28 WBC 12.19 H (4.50-10.00) 10*3/uL RBC 5.78 H (4.40-5.60) 10*6/uL Hgb 17.6 H (13.0-17.0) g/dL Hct 54.5 H (39.6-50.0) % Immature Gran # 0.30 H (0.00-0.04) 10*3/uL Neutrophils # 10.80 H (1.80-7.70) 10*3/uL Lymphocytes # 0.27 L (0.90-5.00) 10*3/uL Eosinophils # 0.00 L (0.04-0.35) 10*3/uL APTT 40.3 H (22.0-30.0) sec Chloride 95 L (98-107) mmol/L Carbon Dioxide 37 H (22-30) mmol/L BUN 40 H (9-20) mg/dL Glucose 208 H (74-99) mg/dL AST 68 H (17-59) U/L ALT 179 H (4-49) U/L Total Protein 5.9 L (6.3-8.2) g/dL Albumin 3.3 L (3.5-5.0) g/dL Assessment and Plan Assessment: Impression: Acute on chronic hypoxic respiratory failure, multifactorial, patient does have right lower lobe pneumonia and he does have COPD as well as obstructive sleep apnea syndrome Right lower lobe pneumonia, consider aspiration, currently on IV Unasyn COPD maintained on Symbicort on outpatient basis Acute on chronic dyspnea, under investigation chest x-ray showed with infiltration of the lung bases and the patient was started on IV Unasyn as an empiric antibiotic coverage New onset atrial fibrillation with rapid medical response. Increased lower extremity edema bilaterally. Chronic abdominal pain/epigastric. CAT scan of the abdomen at the time of admission showed no acute intra-abdominal abnormalities. Patient is being considered for EGD Chronic erythrocytosis, likely secondary to chronic hypoxemia Obesity with typical features of obstructive sleep apnea. BMI 34.9. The patient is a Mallampati class IV along with chronic snoring, sleep fragmentation and excessive hypersomnia and sleepiness Hypertension Diverticulosis Chronic smoker Melena with epigastric pain being addressed by surgery and the patient is supposed to undergo EGD today. Recommendation: Proceed with EGD as scheduled today by surgery Continue Unasyn, IV Solu-Medrol and continue bronchodilators Continue Cardizem and heparin after EGD as per cardiology Continue Protonix and Carafate Continue to monitor hemoglobin Continue diuretics Continue GI prophylaxis Will continue to follow Time with Patient: Less than 30
[2024-05-15] MEDS: DILTIAZEM ORAL 60 MG TAB PO SCH (15:19)
--- NOTE | 2024-05-15 17:21 | P.PN ---
Subjective Progress Note Date: 05/15/24 HISTORY OF PRESENTING ILLNESS: 63-year-old with past med history of hypertension, COPD presented to the [facility] because of epigastric pain. On admission he did report some concerns of black tarry stools for this GI team was consulted who were initially thinking for EGD however patient's melena and abdominal discomfort resolved with medical therapy therefore they did not plan to do endoscopy at this time. During his hospital stay he was also noticed to have acute on chronic hypoxic respiratory failure with mild right lower lobe pneumonia and mild COPD exacerbation. On 05/12/2024 he was noticed to have atrial fibrillation with RVR for which cardiology was consulted. At the time of bedside evaluation telemetry showed A-fib with RVR with heart rate around 110 bpm Labs from today shows Hb 18.6, BUN 41, creatinine 0.8, potassium 5.5 CTA chest did not show any evidence of PE, emphysema with right lower lobe infiltrate suggestive of pneumonia. Prior cardiac testing: Echo from this hospitalization shows EF 55%, septal hypertrophy, mild biatrial dilatation 05/14 Patient seen and examined. Patient denies palpitations. He is scheduled for EGD today. He remains in atrial fibrillation with controlled heart rate. He denies any nausea. He continues to have lower extremity edema. Blood pressure 116/78, heart rate 81, pulse ox 92% on 2 L nasal cannula. WBC 12.4, hemoglobin 17.8, BUN 42 creatinine 0.8, potassium 4.7. Triglycerides 267, cholesterol 161, LDL 69. TSH 1.39. A1c 6.2. proBNP 1530. 05/15 Patient seen and examined. Patient remains in atrial fibrillation with controlled ventricular rate. Lower extremity edema is about the same. He has been maintained on Lasix 40 mg IV every 12 hours. BP 124/72. Patient is also maintained on cardizem drip and IV heparin. Patient is complaining of pressure and inability to urinate. He states his breathing is better. PHYSICAL EXAMINATION: Neck: Brisk carotid upstroke, no jugular venous distention. Lungs: Clear to auscultation. Heart: Irregular rate and rhythm, S1-S2, no murmur or rub. Abdomen: Soft nontender, positive bowel sounds. Extremities: 1+ bilateral lower extremity edema, intact distal pulses. Neuro: Alert, oritented, no focal deficits. Detailed neuro exam was not performed. ASSESSMENT: Atrial fibrillation with RVR, fast diagnosed 05/2024 Mild HFrEF exacerbation Acute on chronic hypoxic respiratory failure, multifactorial Right lower lobe pneumonia Epigastric abdominal pain with melena scheduled for EGD on 05/15 Mild COPD exacerbation Polycythemia, likely secondary Chronic tobacco smoker Essential hypertension Obesity with suspected ISIAH PLAN: Continue patient on heparin drip Discontinue Cardizem drip and start PO cardizem 60 mg TID Patient is cleared by cardiology for EGD which is scheduled for today Continue metoprolol 50 mg twice daily. Continue IV Lasix 40 mg twice daily Continue telemetry monitoring Continue heart rate control, consider cardioversion Patient had Lexiscan Cardiolite stress test performed in the office on 03/14/2023 revealing negative stress test by EKG criteria and normal myocardial perfusion and function. Nurse practitioner note has been reviewed, I agree with documented findings and plan of care. Patient was seen and examined. Objective - Vital Signs Vital signs: Vital Signs Temp 97.1 F L 05/15/24 08:37 Pulse 94 05/15/24 08:37 Resp 18 05/15/24 08:37 BP 124/72 05/15/24 08:37 Pulse Ox 99 05/15/24 03:19 FiO2 40 05/11/24 04:00 Intake & Output 05/14/24 05/15/24 05/15/24 18:59 06:59 18:59 Intake Total 569 332.91 132.418 Output Total 815 1425 Balance -246 -1092.09 132.418 Weight 122 kg 122.4 kg Intake: Intake, IV Titration 125 332.91 132.418 Amount Diltiazem 125 mg In 125 125 Sodium Chloride 0.9% 100 ml @ 10 MG/HR 10 mls/hr IV .[id number] DESTINY Rx#: [id number] Heparin Sod,Pork in 0.45% 207.91 132.418 NaCl 25,000 unit In 0.45 % NaCl 1 250ml.bag @ 8. 921 UNITS/KG/HR 10 mls/hr IV .Q24H DESTINY Rx#: [id number] Oral 444 Output: Urine 700 1425 Post Void Residual 115 Other: Voiding Method Urinal Urinal Urinal # Voids 1 1 - Labs CBC & Chem 7: 05/15/24 06:28 05/15/24 06:28 Labs: Abnormal Lab Results - Last 24 Hours (Table) 05/14/24 05/14/24 05/15/24 Range/Units 10:06 10:06 06:28 WBC 12.4 H 12.19 H (3.8-10.6) k/uL RBC 5.92 H 5.78 H (4.30-5.90) m/uL Hgb 17.8 H 17.6 H (13.0-17.5) gm/dL Hct 56.2 H 54.5 H (39.0-53.0) % Immature Gran # 0.30 H (0.00-0.04) 10*3/uL Neutrophils # 11.4 H 10.80 H (1.3-7.7) k/uL Lymphocytes # 0.3 L 0.27 L (1.0-4.8) k/uL Eosinophils # 0.00 L (0.04-0.35) 10*3/uL APTT (22.0-30.0) sec Sodium 136 L (137-145) mmol/L Chloride 95 L (98-107) mmol/L Carbon Dioxide 35 H (22-30) mmol/L BUN 42 H (9-20) mg/dL Glucose 194 H (74-99) mg/dL AST (17-59) U/L ALT 139 H (4-49) U/L Total Protein (6.3-8.2) g/dL Albumin (3.5-5.0) g/dL 05/15/24 05/15/24 Range/Units 06:28 06:28 WBC (3.8-10.6) k/uL RBC (4.30-5.90) m/uL Hgb (13.0-17.5) gm/dL Hct (39.0-53.0) % Immature Gran # (0.00-0.04) 10*3/uL Neutrophils # (1.3-7.7) k/uL Lymphocytes # (1.0-4.8) k/uL Eosinophils # (0.04-0.35) 10*3/uL APTT 40.3 H (22.0-30.0) sec Sodium (137-145) mmol/L Chloride 95 L (98-107) mmol/L Carbon Dioxide 37 H (22-30) mmol/L BUN 40 H (9-20) mg/dL Glucose 208 H (74-99) mg/dL AST 68 H (17-59) U/L ALT 179 H (4-49) U/L Total Protein 5.9 L (6.3-8.2) g/dL Albumin 3.3 L (3.5-5.0) g/dL
[2024-05-15] MEDS: APIXABAN 5 MG TAB PO SCH (21:31)
--- NOTE | 2024-05-15 22:14 | P.OP ---
Date of Procedure: 05/15/24 Preoperative Diagnosis: GI bleed Postoperative Diagnosis: GI bleed Procedure(s) Performed: EGD with biopsy Anesthesia: ALBERTO Surgeon: Waldo Leone Pathology: other (Antrum mucosa) Condition: stable Disposition: PACU Indications for Procedure: GI bleed Operative Findings: See operative note Description of Procedure: Patient was brought to the endoscopy suite where timeout was performed and everyone agreed with the information recited Adult size Olympus scope was then used to traverse the mouth esophagus stomach to the second portion of the duodenum. The scope was slowly retracted and there were a large amount of linear ulcers in the antrum and pylorus of the stomach none of which had recent stigmata of bleeding. The scope was then retroflexed and the GE junction was observed and no hiatal hernia was observed. The scope was slowly retracted further inspecting the Z-line and there was no signs of metaplasia or recent bleeding the scope was then used to take a biopsy of the antrum this was passed off for pathology and the scope was retracted out of the patient's mouth intact the patient tolerated the procedure well and was then transported to PACU in stable condition
--- NOTE | 2024-05-15 22:15 | P.PN ---
Progress Note - Text Findings were consistent with multiple linear ulcers in the antrum of the stomach. Recommend the patient be on Protonix 40 mg twice daily with Maalox. He is okay to start anticoagulation and a regular diet.
[2024-05-16 06:35] LABS: Basophils # (A) 0.05 10*3/uL (0.00-0.10); Basophils % (A) 0.3 %; HCT 52.8 % (39.6-50.0); HGB 17.2 g/dL (13.0-17.0); Lymphocytes # (A) 0.26 10*3/uL (0.90-5.00); Lymphocytes % (A) 1.7 %; MCH 30.4 pg (27.0-32.0); MCHC 32.6 g/dL (32.0-37.0); MCV 93.3 fL (80.0-97.0); Mean Platelet Volume 11.2 fL (9.5-12.2); Monocytes # (A) 0.94 10*3/uL (0.20-1.00); Monocytes % (A) 6.1 %; Neutrophils # (A) 13.56 10*3/uL (1.80-7.70); Neutrophils % (A) 88.6 %; Platelet Count 153 10*3/uL (140-440); RBC 5.66 10*6/uL (4.40-5.60); RDW 13.9 % (11.5-14.5); WBC 15.31 10*3/uL (4.50-10.00)
[2024-05-16 06:51] LABS: African American GFR (CKD) >90 (>60 ml/min/1.73 sqM); Anion Gap 6 mmol/L; Blood Urea Nitrogen 38 mg/dL (9-20); Calcium 8.6 mg/dL (8.4-10.2); Carbon Dioxide 39 mmol/L (22-30); Chloride 92 mmol/L (98-107); Glucose 238 mg/dL (74-99); Non-African American GFR(CKD) >90 (>60 ml/min/1.73 sqM); Sodium 137 mmol/L (137-145)
[2024-05-16] MEDS: MAG HYDROX/AL HYDROX/SIMETH 30 ML CUP PO SCH (08:28)
--- NOTE | 2024-05-16 10:17 | P.PN ---
Subjective 63-year-old male patient with past medical history significant for hypertension, COPD who presented to ER with a complaint of epigastric pain. Patient reported that he has epi gastric pain for a long time, gets worse with eating. Patient denied taking any blood thinners or NSAIDs. Patient also reported having dark tarry stools. Patient had colonoscopy in 2017. Patient reported that he has been told that he was either having hernia or peptic ulcer disease, was sent in by his surgeon For evaluation with EGD. Patient denied any fever, chills, sore throat, productive cough, shortness of breath, chest pain, palpitations, diarrhea, constipation, dysuria urgency frequency weakness or numbness to extremities. Patient is afebrile, heart rate 75, respiratory rate 18, blood pressure 142/85, saturating 93% on 2 L. WBCs 11.5, hemoglobin 19.7, platelet 138. INR 1.3. CMP unremarkable. 05/09--patient was seen and examined today. Continues complain of nausea and epigastric pain. Also was hypoxic overnight, snoring loudly, required [place] pplemental oxygen. Continue complain of shortness of breath. Currently on inhaler steroid bronchodilator protocol, pulmonary consulted, stat CT chest ordered. Started on antibiotics Unasyn and doxycycline. Chest x-ray showed airspace opacities concerning for pneumonia. 05/10--patient was seen and examined today. Continues complain of shortness of breath, on supplemental oxygen. On inhalers/bronchodilator protocol, Solu- Medrol, CT chest yesterday showed right lower lobe infiltrate, no PE. Patient on Unasyn for pneumonia. General surgery planning for EGD once respiratory status better. 05/11--patient was seen and examined today. Patient afebrile, heart rate 74, respiratory rate 16, blood pressure 139/66. Was on BiPAP overnight with 40% FiO2, currently 96% on 6 L of oxygen. WBC 17.6, hemoglobin 18.5, platelet 145. Sodium 137 potassium 5.4, chloride 96 CO2 33 BUN 41 creatinine 0.71. Liver profile unremarkable. Echocardiogram showed normal EF, left ventricular hypertrophy. Currently on Unasyn for pneumonia. On inhalers/bronchodilator protocol and IV Solu-Medrol. Pulmonary following. General surgery planning for EGD as outpatient. 05/12. Patient seen and examined. Blood work done this morning showed WBC 16.7, hemoglobin 17.8, platelet count 161, sodium 130, potassium 5.2, BUN 45, creatinine 0.90. Vitals temperature 97.8, heart rate 79, blood pressure 144/67, continue 2 L of ox. Stated breathing is improved, sitting upright in the chair. Denies any chest pain 05/13. Patient seen and examined. D-dimer this morning was 0.41. Patient was complaining of chest pressure this morning, EKG done at time showed patient to be in A-fib with RVR, patient started on Cardizem and heparin drip. 05/14. Patient seen and examined. Currently in A-fib. States breathing has improved. Complaining of swelling of lower extremities 05/15 Patient breathing is good No chest pain no abdominal pain He does not have black stool anymore His main concern is leg swelling on both sides He does have mild epigastric abdominal pain and tenderness which is worse with lying down that is why he is sitting in the chair however on examination looks better and patient reports improvement No more blood per rectum he never had fresh blood per rectum as he states. He is going for EGD this morning No anticoagulation or NSAIDs. Patient kept on Unasyn IV Solu-Medrol and Cardizem drip. Is also on Protonix and Carafate Also on heparin drip per team assembler Family members at bedside and all questions answered to their satisfaction Hemoglobin stable at 17.2. WBC is slightly elevated 15.3 while patient on steroids Review of systems CONSTITUTIONAL: No fever, no malaise, no fatigue. NEUROLOGICAL: No headaches, no weakness, no numbness. HEMATOLOGICAL: Denies any bleeding or petechiae. GENITOURINARY: Denies any burning micturition, frequency, or urgency. MUSCULOSKELETAL/RHEUMATOLOGICAL: Denies any joint pain, swelling, or any muscle pain. ENDOCRINE: Denies any polyuria or polydipsia. Active Medications Generic Name Dose Route Start Last Admin Trade Name Freq PRN Reason Stop Dose Admin Acetaminophen 500 mg 05/08/24 15:26 Acetaminophen Tab 500 Mg Tab PO Q6HR PRN Fever and/ or Mild Pain Albuterol/Ipratropium 3 ml 05/09/24 20:00 05/15/24 11:41 Ipratropium-Albuterol 3 Ml Neb INHALATION 3 ml RT-QID DESTINY Administration Budesonide/Formoterol Fumarate 2 puff 05/08/24 20:00 05/15/24 08:23 Symbicort 160-4.5 Mcg Inhaler INHALATION Not Given RT-BID [facility] Furosemide 40 mg 05/13/24 09:00 05/15/24 08:37 Furosemide 10 Mg/Ml 4 Ml Vial IV 40 mg Q12HR DESTINY Administration Heparin Sodium (Porcine) 0 unit 05/13/24 15:59 05/13/24 17:35 Heparin Sodium 1,000 Un/Ml (10ml Vl) IV 4,000 unit PER PROTOCOL PRN Administration Low PTT Protocol Sodium Chloride 1,000 mls @ 10 mls/hr 05/08/24 14:45 05/14/24 20:18 Saline 0.9% IV Not Given .Q24H DESTINY Ampicillin Sodium/Sulbactam 100 mls @ 200 mls/hr 05/09/24 14:00 05/15/24 08:37 Sodium 3 gm/ Sodium Chloride IVPB 200 mls/hr Q6H DESTINY Administration Protocol Diltiazem HCl 125 mg/ Sodium 125 mls @ 10 mls/hr 05/13/24 04:00 05/15/24 05:40 Chloride IV 15 mg/hr .[id number] DESTINY 15 mls/hr Administration 10 MG/HR Heparin Sodium/Sodium Chloride 250 mls @ 10 mls/hr 05/13/24 16:00 05/15/24 07:05 25,000 unit/ Sodium Chloride IV 0 units/kg/hr .Q24H DESTINY 0 mls/hr Titration Protocol 8.921 UNITS/KG/HR Methylprednisolone Sodium Succinate 60 mg 05/10/24 14:00 05/15/24 08:37 Methylprednisolone Sod Succi 125 Mg/2 Ml Vial IV 60 mg Q6H DESTINY Administration Metoprolol Tartrate 50 mg 05/13/24 21:00 05/15/24 08:37 Metoprolol Tartrate 50 Mg Tab PO 50 mg BID DESTINY Administration Morphine Sulfate 2 mg 05/08/24 15:26 05/13/24 02:52 Morphine Sulfate 2 Mg/Ml Syringe IVP 2 mg Q6HR PRN Administration Moderate to Severe Pain (4-10) Naloxone HCl 0.2 mg 05/08/24 14:39 Naloxone 0.4 Mg/Ml 1 Ml Vial IV Q2M PRN Opioid Reversal Nitroglycerin 0.4 mg 05/13/24 03:03 Nitroglycerin Sl Tabs 0.4 Mg Tab SUBLINGUAL 06/03/24 03:02 Q5M PRN Chest Pain Oxymetazoline HCl 2 spray 05/14/24 11:23 05/14/24 15:43 Oxymetazoline 0.05% Nasl [place] 1 [place] Bottle NASAL 2 spray BID PRN Administration Nasal Congestion Pantoprazole Sodium 40 mg 05/08/24 14:30 05/15/24 08:37 Pantoprazole 40 Mg/10 Ml Vial IVP 40 mg BID DESTINY Administration Sucralfate 1 gm 05/09/24 07:30 05/15/24 11:41 Sucralfate 1 Gm Tab PO 1 gm AC-TID DESTINY Administration Objective - Vital Signs Vital signs: Vital Signs Temp 97.8 F 05/16/24 07:42 Pulse 92 05/16/24 09:33 Resp 19 05/16/24 09:33 BP 133/88 05/16/24 07:42 Pulse Ox 93 L 05/16/24 08:28 FiO2 40 05/11/24 04:00 Intake & Output 05/15/24 05/16/24 05/16/24 18:59 06:59 18:59 Intake Total 232.418 540 440 Balance 232.418 540 440 Weight 122.4 kg 123.6 kg Intake: IV 100 Intake, IV Titration 132.418 Amount Heparin Sod,Pork in 0.45% 132.418 NaCl 25,000 unit In 0.45 % NaCl 1 250ml.bag @ 8. 921 UNITS/KG/HR 10 mls/hr IV .Q24H DESTINY Rx#: [id number] Oral 540 440 Other: Voiding Method Urinal Urinal # Voids 2 1 - Exam -GENERAL: The patient is alert and oriented x3, not in any acute distress. Well developed, well nourished. Obese HEENT: Pupils are round and equally reacting to light. EOMI. No scleral icterus. No conjunctival pallor. Normocephalic, atraumatic. No pharyngeal erythema. No thyromegaly. CARDIOVASCULAR: S1 and S2 present. No murmurs, rubs, or gallops. PULMONARY: Chest is clear to auscultation, no wheezing , no crackles. -ABDOMEN: Soft, n mild epigastric tenderness, no guarding or rebound tenderness, nondistended, normoactive bowel sounds. No palpable organomegaly. MUSCULOSKELETAL: No joint swelling or deformity. EXTREMITIES: No cyanosis, clubbing,. Bilateral leg edema. NEUROLOGICAL: Gross neurological examination did not reveal any focal deficits. SKIN: No rashes. no petechiae. 05/16 Patient sitting up in chair like yesterday. He is status post EGD yesterday showing large linear ulcers in the antrum and pylorus of the stomach without stigmata of bleeding. Patient currently kept on Protonix also he was on Carafate. He was placed on Maalox by surgery team. He tolerated his diet after the procedure and he was switched heparin drip to Eliquis. Eliquis prescription sent to the pharmacy to check for co-pay with consult to case monitor. Patient is still has some limited air entry and remains on IV Solu-Medrol and Unasyn and IV Lasix 40 mg twice daily Patient reports increased swelling of the legs. Patient also consult about fluid restriction and he agrees. Also discussed today the follow-up recommendation for outpatient. With his PCP in [address] Leone in [address] Vásquez in 1 to [address] Ambrosio in 2 weeks and he agrees. Female family member also at bedside and she agrees. As in the past patient denies any other new complaints. He wants to go home. - Labs CBC & Chem 7: 05/16/24 05:22 05/16/24 05:22 Labs: Abnormal Lab Results - Last 24 Hours (Table) 05/16/24 05/16/24 Range/Units 05:22 05:22 WBC 15.31 H (4.50-10.00) 10*3/uL RBC 5.66 H (4.40-5.60) 10*6/uL Hgb 17.2 H (13.0-17.0) g/dL Hct 52.8 H (39.6-50.0) % Immature Gran # 0.50 H (0.00-0.04) 10*3/uL Neutrophils # 13.56 H (1.80-7.70) 10*3/uL Lymphocytes # 0.26 L (0.90-5.00) 10*3/uL Eosinophils # 0.00 L (0.04-0.35) 10*3/uL Chloride 92 L (98-107) mmol/L Carbon Dioxide 39 H (22-30) mmol/L BUN 38 H (9-20) mg/dL Glucose 238 H (74-99) mg/dL Assessment and Plan Assessment: Melena, with epigastric pain rule out acute GI bleed A-fib and RVR present on admission Mild acute CHF exacerbation Acute on chronic hypoxic respiratory failure Right lower lobe pneumonia Acute COPD exacerbation Obstructive sleep apnea Hypertension Obesity with BMI of 37.6 Plan: Plan for EGD on 05/15: Results reviewed showed peptic ulcer General Surgery following closely On Unasyn and IV Solu-Medrol for pneumonia and COPD On IV Lasix Pulmonary thornton he is doing well and pulmonary might clear him for discharge Cardiology following and remains on Cardizem drip and heparin drip, management per team assembler Also on Protonix and Carafate. Maalox added by surgery team Keep monitoring hemoglobin. Labs and medication were reviewed.. Continue same treatment. Continue with symptomatic treatment. Resume home medication. Monitor labs and vitals. DVT and GI prophylaxis. Further recommendations as per clinical course of the patient DVT prophylaxis: heparin GI Prophylaxis: Protonix PT/OT: Pending Prognosis is guarded
[2024-05-16] MEDS: DAPAGLIFLOZIN PROPANEDIOL 10 MG TABLET PO SCH (11:25)
--- NOTE | 2024-05-16 12:58 | P.PN ---
Subjective Progress Note Date: 05/16/24 HISTORY OF PRESENTING ILLNESS: 63-year-old with past med history of hypertension, COPD presented to the [facility] because of epigastric pain. On admission he did report some concerns of black tarry stools for this GI team was consulted who were initially thinking for EGD however patient's melena and abdominal discomfort resolved with medical therapy therefore they did not plan to do endoscopy at this time. During his hospital stay he was also noticed to have acute on chronic hypoxic respiratory failure with mild right lower lobe pneumonia and mild COPD exacerbation. On 05/12/2024 he was noticed to have atrial fibrillation with RVR for which cardiology was consulted. At the time of bedside evaluation telemetry showed A-fib with RVR with heart rate around 110 bpm Labs from today shows Hb 18.6, BUN 41, creatinine 0.8, potassium 5.5 CTA chest did not show any evidence of PE, emphysema with right lower lobe infiltrate suggestive of pneumonia. Prior cardiac testing: Echo from this hospitalization shows EF 55%, septal hypertrophy, mild biatrial dilatation 05/14 Patient seen and examined. Patient denies palpitations. He is scheduled for EGD today. He remains in atrial fibrillation with controlled heart rate. He denies any nausea. He continues to have lower extremity edema. Blood pressure 116/78, heart rate 81, pulse ox 92% on 2 L nasal cannula. WBC 12.4, hemoglobin 17.8, BUN 42 creatinine 0.8, potassium 4.7. Triglycerides 267, cholesterol 161, LDL 69. TSH 1.39. A1c 6.2. proBNP 1530. 05/15 Patient seen and examined. Patient remains in atrial fibrillation with controlled ventricular rate. Lower extremity edema is about the same. He has been maintained on Lasix 40 mg IV every 12 hours. BP 124/72. Patient is also maintained on cardizem drip and IV heparin. Patient is complaining of pressure and inability to urinate. He states his breathing is better. 05/16 Patient seen and examined. Patient underwent EGD yesterday with Dr. Leone which revealed linear ulcers in the antrum and pylorus of the stomach with no recent stigmata of bleeding. No hiatal hernia. Patient states that his abdomen is feeling better and his breathing is improved today as well. He denies chest pain or chest pressure. Blood pressure 133/88, heart rate 73, pulse ox 93% on 2 L nasal cannula. Patient has been maintained on IV Lasix 40 mg twice daily. Discussed option for MED and cardioversion and patient states that being in the hospital is making him very stressed and he wants to leave today. PHYSICAL EXAMINATION: Neck: Brisk carotid upstroke, no jugular venous distention. Lungs: Clear to auscultation. Heart: Irregular rate and rhythm, S1-S2, no murmur or rub. Abdomen: Soft nontender, positive bowel sounds. Extremities: 1+ bilateral lower extremity edema, intact distal pulses. Neuro: Alert, oritented, no focal deficits. Detailed neuro exam was not performed. ASSESSMENT: Atrial fibrillation with RVR, fast diagnosed 05/2024 Mild HFrEF exacerbation Acute on chronic hypoxic respiratory failure, multifactorial Right lower lobe pneumonia Epigastric abdominal pain with melena scheduled for EGD on 05/15 Mild COPD exacerbation Polycythemia, likely secondary Chronic tobacco smoker Essential hypertension Obesity with suspected ISIAH Patient had Lexiscan Cardiolite stress test performed in the office on 03/14/2023 revealing negative stress test by EKG criteria and normal myocardial perfusion and function. PLAN: Patient has been started on Eliquis 5 mg twice daily starting last evening Continue PO cardizem 60 mg TID and metoprolol 50 mg twice daily. Transition IV Lasix to oral 40 mg twice daily Patient is cleared for discharge and will follow-up with Dr. Lombardi early next week to be scheduled for outpatient MED and cardioversion. Nurse practitioner note has been reviewed, I agree with documented findings and plan of care. Patient was seen and examined. Objective - Vital Signs Vital signs: Vital Signs Temp 97.8 F 05/16/24 07:42 Pulse 92 05/16/24 09:33 Resp 19 05/16/24 09:33 BP 133/88 05/16/24 07:42 Pulse Ox 93 L 05/16/24 08:28 FiO2 40 05/11/24 04:00 Intake & Output 05/15/24 05/16/24 05/16/24 18:59 06:59 18:59 Intake Total 232.418 540 440 Balance 232.418 540 440 Weight 122.4 kg 123.6 kg Intake: IV 100 Intake, IV Titration 132.418 Amount Heparin Sod,Pork in 0.45% 132.418 NaCl 25,000 unit In 0.45 % NaCl 1 250ml.bag @ 8. 921 UNITS/KG/HR 10 mls/hr IV .Q24H DESTINY Rx#: [id number] Oral 540 440 Other: Voiding Method Urinal Urinal # Voids 2 1 - Labs CBC & Chem 7: 05/16/24 05:22 05/16/24 05:22 Labs: Abnormal Lab Results - Last 24 Hours (Table) 05/16/24 05/16/24 Range/Units 05:22 05:22 WBC 15.31 H (4.50-10.00) 10*3/uL RBC 5.66 H (4.40-5.60) 10*6/uL Hgb 17.2 H (13.0-17.0) g/dL Hct 52.8 H (39.6-50.0) % Immature Gran # 0.50 H (0.00-0.04) 10*3/uL Neutrophils # 13.56 H (1.80-7.70) 10*3/uL Lymphocytes # 0.26 L (0.90-5.00) 10*3/uL Eosinophils # 0.00 L (0.04-0.35) 10*3/uL Chloride 92 L (98-107) mmol/L Carbon Dioxide 39 H (22-30) mmol/L BUN 38 H (9-20) mg/dL Glucose 238 H (74-99) mg/dL
--- NOTE | 2024-05-16 13:40 | P.PN ---
Subjective Progress Note Date: 05/16/24 SURGICAL PROGRESS NOTE CHIEF COMPLAINT: Epigastric pain HISTORY OF PRESENT ILLNESS: Surgical service following regards to patient's epigastric pain and black stools. Patient has had no further melanotic stools. He is status post EGD that had reported multiple linear ulcers in the antrum of the stomach. Hemoglobin stable at 17.2. Patient tolerating diet. He is anticipating discharge later today. PHYSICAL EXAM: VITAL SIGNS: Reviewed. GENERAL: Well-developed in no acute distress. ABDOMEN: Soft. Mild epigastric tenderness NEUROLOGIC: Alert and oriented. Cranial nerves II through XII grossly intact. ASSESSMENT: 1. Epigastric abdominal pain with melena resolved PLAN: -Continue Protonix 40 mg twice daily, Maalox and Carafate -Okay to resume Eliquis from surgical standpoint -Okay for discharge from surgical standpoint Physician Integration Architect note has been reviewed by physician. Signing provider agrees with the documented findings, assessment, and plan of care. Objective - Vital Signs Vital signs: Vital Signs Temp 97.9 F 05/16/24 11:46 Pulse 72 05/16/24 12:46 Resp 18 05/16/24 11:46 BP 113/74 05/16/24 11:46 Pulse Ox 93 L 05/16/24 11:46 FiO2 40 05/11/24 04:00 Intake & Output 05/15/24 05/16/24 05/16/24 18:59 06:59 18:59 Intake Total 232.418 540 776 Balance 232.418 540 776 Weight 122.4 kg 123.6 kg Intake: IV 100 Intake, IV Titration 132.418 Amount Heparin Sod,Pork in 0.45% 132.418 NaCl 25,000 unit In 0.45 % NaCl 1 250ml.bag @ 8. 921 UNITS/KG/HR 10 mls/hr IV .Q24H [facility] Rx#: [id number] Oral 540 776 Other: Voiding Method Urinal Urinal # Voids 2 1 - Labs CBC & Chem 7: 05/16/24 05:22 05/16/24 05:22 Labs: Abnormal Lab Results - Last 24 Hours (Table) 05/16/24 05/16/24 Range/Units 05:22 05:22 WBC 15.31 H (4.50-10.00) 10*3/uL RBC 5.66 H (4.40-5.60) 10*6/uL Hgb 17.2 H (13.0-17.0) g/dL Hct 52.8 H (39.6-50.0) % Immature Gran # 0.50 H (0.00-0.04) 10*3/uL Neutrophils # 13.56 H (1.80-7.70) 10*3/uL Lymphocytes # 0.26 L (0.90-5.00) 10*3/uL Eosinophils # 0.00 L (0.04-0.35) 10*3/uL Chloride 92 L (98-107) mmol/L Carbon Dioxide 39 H (22-30) mmol/L BUN 38 H (9-20) mg/dL Glucose 238 H (74-99) mg/dL
[2024-05-16] MEDS ORDERED: FUROSEMIDE 40 MG TAB PO SCH (16:00)
[2024-05-16 16:01] VITALS: BP 137/71; RESP 20; TEMP 98.5
[2024-05-16 16:11] VITALS: PULSE 95
--- NOTE | 2024-05-16 16:34 | P.PN ---
Subjective Progress Note Date: 05/16/24 Principal diagnosis: Acute on chronic hypoxic respiratory failure with acute right lower lobe pneumonia and COPD exacerbation 63-year-old male patient was hospitalized for abdominal pain has been going on for the past 6 months. I was involved in the case as the patient was found to be hypoxic and there was a concern of his ability to handle an EGD and based on that a pulmonary consultation was requested. The patient has chronic history of smoking/COPD and he has obvious features of obstructive sleep apnea. The patient used to smoke up to 2 pack of cigarettes a day and currently is down to 1 pack of cigarettes a day. Maintained on Symbicort on outpatient basis. Does not utilize home O2. No home CPAP machine. He has chronic exertional dyspnea. No chest pain. No pleurisy. No hemoptysis. No previous history of DVT or pulmonary embolism. His blood work at the time of admission showed a hemoglobin of 19.7 and the patient has chronic erythrocytosis, seen by hematology in the past. Suspect chronic hypoxemic respiratory failure. Electrolytes all within normal limits. Serum bicarb is at 29 and a sodium levels at 138 with a potassium level of 4.6. LFTs are normal. Amylase and lipase and LFTs are also within normal limits. Normal coagulation profile. Chest x-ray done today shows some limited infiltration of the lung bases more so on the right. Nevertheless, the CAT scan of the abdomen that was done on 05/08/2024 showed no significant abnormalities involving the lung bases and the lung bases are essentially clear. No acute changes within the abdomen. The patient's abdominal pain has been investigated in the past. The patient was given an EGD and colonoscopy through [facility]. The patient was also seen by cardiology and he was told to have a normal echocardiogram and a cardiac stress test. At this point, the patient is on 5 L of oxygen by nasal cannula with a pulse ox of 89 to 90%. He is afebrile. Hemodynamically stable. His EKG at the time of admission showed normal sinus rhythm with some nonspecific T wave abnormalities. He is abdominal pain is epigastric. No hematemesis. No melena. No bright blood per rectum. 05/10/2024, patient is being seen for a follow-up. The patient is free of any abdominal pain. No nausea or emesis. Seems to be less short of breath compared to yesterday. Noted the patient got transferred to telemetry unit as the patient was in severe respiratory acidosis due to COPD exacerbation. The patient was started on a combination of bronchodilators and steroids. The patient is feeling better. Earlier this morning, he was still on a BiPAP at a pressure of 14 over 5 cm of water and FiO2 40%. Generating better volumes on the BiPAP machine. Less tachypneic compared to yesterday. Awake and alert and communicating. Denies having any chest pain. The white cell count is at 10 with a hemoglobin of 17.9 and platelet count of 141. He is 90 with a creatinine of 0.5 and sodium levels at 138 and a potassium level is at 5.1. Currently on Unasyn for a right lower lobe pneumonia. He is also on DuoNeb updrafts and Symbicort as maintenance and IV Solu-Medrol 60 mg every 6 hours. IV fluids are currently at KVO. The patient was briefly taken off the BiPAP and he was able to tolerate his diet. No major edema lower extremities bilaterally. On 05/11/2024, the patient is feeling better. The patient is currently off the BiPAP the patient has been placed on oxygen at 4 L/min nasal cannula. Current pulse ox is 94%. Less bronchospastic and wheezy. No chest pain. No altered mentation. No significant nausea vomiting or abdominal pain. Remains on IV Unasyn for a right lower lobe pneumonia. The white cell count of 17.6, hemoglobin 18 and a platelet count of 145. BUN is 41 with a creatinine of 0.7. Sodium levels at 137 and a potassium level is at 5.4. Chloride is 96 with a bicarb level of 33. Her LFTs are within normal limits. He is on DuoNeb of chest. He is on Symbicort 2 puffs twice a day, IV Solu-Medrol 60 mg every 6 hours and is also on IV Unasyn. IV fluids are currently at KVO. 05/12/2024, the patient is sitting up in a chair. He states that his abdominal pain recurs whenever he lays down flat in bed. However, while in the chair, he feels better and is free of any pain. Oxygenation is improved and the patient is currently on 2 L of oxygen nasal cannula with a pulse ox of 95%. Remains on DuoNeb updrafts. Remains on Symbicort. Remains on IV Solu-Medrol. Remains on IV Unasyn. No evidence of any GI bleeding. The white cell count of 16 with a hemoglobin 17.8 and a platelet count of 161. Potassium is at 5.2. BUN is 45 creatinine 0.9 and sodium levels at 138. Denies having any other new complaints. On 05/13/2024, the patient is being seen for a follow-up. The patient's cardiac condition is decompensated and overnight, the patient went into atrial fibrillation with antibiotic response. Over the past 24 hours, the patient also developed significant edema in the lower extremities bilaterally. This morning, the patient remains in atrial fibrillation. He remains tachycardic. Already on metoprolol 25 mg p.o. twice daily and Cardizem drip at 15 mg an hour. He was also taking Norvasc and based on his increased lower extremity edema, the patient was taken off Norvasc. The patient is currently on 2 L of oxygen by nasal cannula. During the episode of A-fib, he was placed on 6 L and he was weaned down to 2 L nasal cannula. The white cell count of 12.6, hemoglobin of 18 and platelet count of 163. Sodium is at 137, BUN is 40 and the creatinine is at 0.2. Potassium level is 5.5. He has echocardiogram showed a preserved LV function with mild pulmonary hypertension. Awake alert and communicating. Denies having any significant headache. No focal neurological deficit at this point. Family is at the bedside. Sitting up in a chair. No significant nausea or emesis or abdominal pain. Not ready for EGD/colonoscopy at this point. Seen today on 05/14/2024, patient is feeling better from the pulmonary perspective breathing easier, he is normally on home O2 at 2 L, patient is now being considered for EGD as he continues to have symptoms of epigastric discomfort and possibly GERD. Needs to be cleared by cardiology for EGD. WBC count is 12.4 hemoglobin 17.8 electrolytes are normal renal profile is normal bicarb is 35. Patient remains on multiple meds for his atrial fibrillation including metoprolol, Cardizem, off Norvasc because of fluid retention and bipedal edema echocardiogram showed preserved LV function he does have evidence of mild pulmonary hypertension. Patient was seen today on 05/15/2024, pulmonary [facility] the patient is doing fairly well, continues to have symptoms of epigastric discomfort scheduled for EGD today, patient is being followed by many consultants including pulmonary, internal medicine, surgery, and cardiology. Overall patient is noticing slight improvement, but not back to baseline. WBC count is 12.19 hemoglobin 17.6 electrolytes are normal PTT is 40 BUN is 40 creatinine 0.82 chest x-ray from 2 days ago showed mostly bibasilar atelectasis otherwise unremarkable. Patient remains on Unasyn, Cardizem drip, he is also on IV Solu-Medrol for his underlying COPD. Heparin today is presently on hold. Seen today on 05/16/24, patient is doing great, actually he wanted to go home, I believe the patient was cleared by all consultants to be discharged home today. EGD findings were noted, patient had biopsy but no evidence of active bleeding at the time of EGD. Patient is on treatment for his COPD, he is also on treatment for his cardiac arrhythmia, and on treatment for his GERD. I basically cleared the patient to be discharged if cleared by other consultants. Objective - Vital Signs Vital signs: Vital Signs Temp 98.5 F 05/16/24 16:00 Pulse 95 05/16/24 16:21 Resp 20 05/16/24 16:00 BP 137/71 05/16/24 16:00 Pulse Ox 93 L 05/16/24 16:00 FiO2 40 05/11/24 04:00 Intake & Output 05/15/24 05/16/24 05/16/24 18:59 06:59 18:59 Intake Total 232.418 540 876 Balance 232.418 540 876 Weight 122.4 kg 123.6 kg Intake: IV 100 Intake, IV Titration 132.418 100 Amount Ampicillin-Sulbactam 3 gm 100 In Sodium Chloride 0.9% 100 ml @ 200 mls/hr IVPB Q6H [facility] Rx#:[id number] Heparin Sod,Pork in 0.45% 132.418 NaCl 25,000 unit In 0.45 % NaCl 1 250ml.bag @ 8. 921 UNITS/KG/HR 10 mls/hr IV .Q24H [facility] Rx#: [id number] Oral 540 776 Other: Voiding Method Urinal Urinal # Voids 2 1 - Exam PHYSICAL EXAMINATION: Revealed a 63-year-old white male pleasant in no distress on nasal cannula. Head: Atraumatic normocephalic Neck: Supple no neck masses no JVD no stridor Lungs: Symmetrical chest expansion clear throughout no crackles rhonchi or wheezes Heart: Irregular rate and rhythm, S1-S2, no murmur or rub. Abdomen: Soft nontender, positive bowel sounds. Extremities: 1+ bilateral lower extremity edema, intact distal pulses. Neuro: Alert, oritented, no focal deficits. Detailed neuro exam was not performed. Psychiatric: Normal mood affect and no mental status examination Skin: No rashes - Labs CBC & Chem 7: 05/16/24 05:22 05/16/24 05:22 Labs: Abnormal Lab Results - Last 24 Hours (Table) 05/16/24 05/16/24 Range/Units 05:22 05:22 WBC 15.31 H (4.50-10.00) 10*3/uL RBC 5.66 H (4.40-5.60) 10*6/uL Hgb 17.2 H (13.0-17.0) g/dL Hct 52.8 H (39.6-50.0) % Immature Gran # 0.50 H (0.00-0.04) 10*3/uL Neutrophils # 13.56 H (1.80-7.70) 10*3/uL Lymphocytes # 0.26 L (0.90-5.00) 10*3/uL Eosinophils # 0.00 L (0.04-0.35) 10*3/uL Chloride 92 L (98-107) mmol/L Carbon Dioxide 39 H (22-30) mmol/L BUN 38 H (9-20) mg/dL Glucose 238 H (74-99) mg/dL Assessment and Plan Assessment: Impression: Acute on chronic hypoxic respiratory failure, multifactorial, patient does have right lower lobe pneumonia and he does have COPD as well as obstructive sleep apnea syndrome Right lower lobe pneumonia, consider aspiration, currently on IV Unasyn COPD maintained on Symbicort on outpatient basis Acute on chronic dyspnea, under investigation chest x-ray showed with infiltration of the lung bases and the patient was started on IV Unasyn as an empiric antibiotic coverage New onset atrial fibrillation with rapid medical response. Increased lower extremity edema bilaterally. Chronic abdominal pain/epigastric. CAT scan of the abdomen at the time of admission showed no acute intra-abdominal abnormalities. Patient is being considered for EGD Chronic erythrocytosis, likely secondary to chronic hypoxemia Obesity with typical features of obstructive sleep apnea. BMI 34.9. The patient is a Mallampati class IV along with chronic snoring, sleep fragmentation and excessive hypersomnia and sleepiness Hypertension Diverticulosis Chronic smoker Melena with epigastric pain being addressed by surgery and the patient is supposed to undergo EGD today. Recommendation: Reviewed EGD findings Pulmonary [facility]orn[place] patient is doing well, he is back to his baseline even better than his baseline Could consider discharge planning if cleared by other consultants Continue Protonix and Carafate Time with Patient: Less than 30
--- NOTE | 2024-05-16 21:38 | P.DS ---
Providers Date of admission: 05/08/24 14:42 Attending physician: Joey Arnold Consults: 05/09/24 12:19 Consult Physician Routine Consulting Provider: Mary Cummings Consult Reason/Comments: increased oxygen needs, shortness of breath Do you want consulting provider notified?: Yes 05/13/24 03:07 Consult Physician Stat Consulting Provider: Deb Vásquez Consult Reason/Comments: New onset Afib RVR Do you want consulting provider notified?: Yes 05/14/24 10:17 Consult Physician Routine Consulting Provider: Cristian Whatley Consult Reason/Comments: Epigastric pain Do you want consulting provider notified?: Yes Primary care physician: Bailee Daniel Hospital Course: During rounding in the morning time patient was asking to be discharged today, even mentions he is going to leave today no matter what refer to the possibility of signing him out. After rounds I got the text from the bedside nurse Gini that cardiology team wanted to more test but patient refused and he wanted to go home as such cardiology team cleared him for discharge. Pulmonary team and general surgery team also cleared him for discharge. His co-pay for Eliquis is expensive and patient cannot afford it I talked to him by myself and to the staff a coupon for 1 month of free Eliquis provided for him with recommendation to follow-up with his PCP and editor managing director in 1 to 2 weeks to switch it to a cheaper choice like warfarin, patient informed of this plan and he is agreeable although the risks of blood thinners including Eliquis including but not limited to GI bleed CONTROL VALVE MECH[employer]IC bleed and or were explained to him in details and he verbalized understanding and acceptance. Patient also dropped hemoglobin to 85 with exertion he qualified for home oxygen which was provided for him upon discharge. Extensive follow-up recommendation is provided for him. Patient denies any other new complaint and he is eager to go home today. Patient was cleared for discharge by all consultants Problems and management plan were discussed with the patient and he verbalized understanding and acceptance Patient was found stable and can be discharged home in guarded prognosis however he needs follow-up as an outpatient. Patient was instructed to follow up with PCP Dr. Daniel within one week and patient agrees Patient was instructed to follow-up with manager family dr rolle in 2 weeks with editor managing director Dr. cedeño in 1 to 2 weeks [address] general surgery [address] Leone in 1 to 2 weeks and he agrees we will make appointment Please refer to progress note from today for more details Time spent more than 35 minutes Patient Condition at Discharge: Fair Plan - Discharge Summary Discharge Rx Participant: Yes New Discharge Prescriptions: New Diltiazem Oral [Cardizem*] 60 mg PO TID #90 tab Dapagliflozin Propanediol [Farxiga] 10 mg PO DAILY #30 tab predniSONE 10 mg PO DIRECTED #40 tab Pantoprazole Sodium [Protonix] 40 mg PO BID #60 tab Acetaminophen Tab [Tylenol] 500 mg PO Q6HR PRN tab PRN Reason: Fever and/ or Mild Pain Apixaban [Eliquis] 5 mg PO BID #60 tab Amoxic-Pot Clav 500-125 mg [Augmentin 500-125 mg] 1 tab PO Q12HR 5 Days #10 tab Sucralfate [Carafate] 1 gm PO AC-TID #60 tab Furosemide [Lasix] 40 mg PO BID@0900,1600 #60 tab Metoprolol Tartrate [Lopressor] 50 mg PO BID #60 tab Mag Hydrox/Al Hydrox/Simeth [Maalox] 30 ml PO DAILY #200 ml Albuterol Inhaler [Ventolin Hfa Inhaler] 1 - 2 puff INHALATION Q6H PRN 30 Days #1 each PRN Reason: Shortness Of Breath Or Wheezing Continue Budesonide/Formoterol Fumarate [Symbicort 160-4.5 Mcg Inhaler] 2 puff INHALATION RT-BID Discontinued amLODIPine BESYLATE [Norvasc] 10 mg PO BID Meloxicam [Mobic] 15 mg PO DAILY Discharge Medication List Budesonide/Formoterol Fumarate [Symbicort 160-4.5 Mcg Inhaler] 2 puff INHALATION RT-BID 05/08/24 [History] Acetaminophen Tab [Tylenol] 500 mg PO Q6HR PRN tab 05/16/24 [Rx] Albuterol Inhaler [Ventolin Hfa Inhaler] 1 - 2 puff INHALATION Q6H PRN 30 Days #1 each 05/16/24 [Rx] Amoxic-Pot Clav 500-125 mg [Augmentin 500-125 mg] 1 tab PO Q12HR 5 Days #10 tab 05/16/24 [Rx] Apixaban [Eliquis] 5 mg PO BID #60 tab 05/16/24 [Rx] Dapagliflozin Propanediol [Farxiga] 10 mg PO DAILY #30 tab 05/16/24 [Rx] Diltiazem Oral [Cardizem*] 60 mg PO TID #90 tab 05/16/24 [Rx] Furosemide [Lasix] 40 mg PO BID@0900,1600 #60 tab 05/16/24 [Rx] Mag Hydrox/Al Hydrox/Simeth [Maalox] 30 ml PO DAILY #200 ml 05/16/24 [Rx] Metoprolol Tartrate [Lopressor] 50 mg PO BID #60 tab 05/16/24 [Rx] Pantoprazole Sodium [Protonix] 40 mg PO BID #60 tab 05/16/24 [Rx] Sucralfate [Carafate] 1 gm PO AC-TID #60 tab 05/16/24 [Rx] predniSONE 10 mg PO DIRECTED #40 tab 05/16/24 [Rx] Follow up Appointment(s)/Referral(s): Davide Cedeño MD [Medical Doctor] - 1 Week (OFFICE WILL CALL WITH APPOINTMENT DATE AND TIME) [facility] [NON-STAFF] - Waldo Leone DO [Doctor of Osteopathic Medicine] - 06/05/24 8:00 am Bailee Daniel MD [Primary Care Provider] - 1-2 days Mary Cummings MD [STAFF PHYSICIAN] - 2 Weeks Patient Instructions/Handouts: Heart Healthy Diet (DC) Activity/Diet/Wound Care/Special Instructions: Heart healthy diet Activity is restricted to see your doctor Avoid unnecessary blood thinners and NSAIDs like avoiding Motrin, Mobic Naprosyn. Please be advised Eliquis but you are at risk of bleeding. It helps to protect you from stroke. Without benefits more than risk. Monitor hemoglobin with your doctor and always look for signs of bleeding like blood in the stool. Try to avoid hard's or falling on the head Discharge Disposition: HOME WITH HOME HEALTH SERVICES
== END 2024-05-16 18:15 | disposition home health service (06) | DRG 377 ==
LOC: EC 10:48 → 6NMEDSUR 14:41 → OBSVTOIN 14:42 → 6NMEDSUR 14:53 → 1SOBS 16:32 → 3SCARD 05-09 17:19
PROVIDERS: ADMIT Hospitalist; ATTEND Hospitalist
PROC: 5A09357 Assistance with Respiratory Ventilation, Less than 24 Consecutive Hours, Continuous Positive Airway Pressure (ICD-10-PCS; 2024-05-10)
PROC: 0DB78ZX Excision of Stomach, Pylorus, Via Natural or Artificial Opening Endoscopic, Diagnostic (ICD-10-PCS; principal; 2024-05-15 08:20)
DX: K25.4 Chronic or unspecified gastric ulcer with hemorrhage (principal); I50.23 Acute on chronic systolic (congestive) heart failure; J69.0 Pneumonitis due to inhalation of food and vomit; J96.21 Acute and chronic respiratory failure with hypoxia; J44.0 Chronic obstructive pulmonary disease with (acute) lower respiratory infection; I11.0 Hypertensive heart disease with heart failure; E66.01 Morbid (severe) obesity due to excess calories; J44.1 Chronic obstructive pulmonary disease with (acute) exacerbation; E87.29 Other acidosis; I48.91 Unspecified atrial fibrillation; Z68.38 Body mass index [BMI] 38.0-38.9, adult; F17.210 Nicotine dependence, cigarettes, uncomplicated; G47.33 Obstructive sleep apnea (adult) (pediatric); D75.1 Secondary polycythemia; M62.08 Separation of muscle (nontraumatic), other site; K21.9 Gastro-esophageal reflux disease without esophagitis; G89.29 Other chronic pain; K57.30 Diverticulosis of large intestine without perforation or abscess without bleeding; Z79.1 Long term (current) use of non-steroidal anti-inflammatories (NSAID); Z79.51 Long term (current) use of inhaled steroids; Z79.899 Other long term (current) drug therapy
CPT/HCPCS: 36415; 36600; 43239; 71045; 71046; 71275; 74177; 80048; 80053; 80061; 82805; 83036; 83605; 83690; 83735; 83880; 84443; 84484; 85025; 85027; 85379; 85610; 85730; 86850; 86900; 86901; 87636; 88305; 93005; 93306; 94640; 94660; 94760; 96361; 96374; 99285

== ENCOUNTER 2024-05-17 16:51 | Inpatient (IN) | payer BC ==
[2024-05-17 17:45] LABS: HGB 17.9 g/dL (13.0-17.0); MCH 30.8 pg (27.0-32.0); MCHC 33.1 g/dL (32.0-37.0); MCV 92.9 fL (80.0-97.0); Mean Platelet Volume 11.8 fL (9.5-12.2); Platelet Count 177 10*3/uL (140-440); RBC 5.81 10*6/uL (4.40-5.60); RDW 13.9 % (11.5-14.5); WBC 23.16 10*3/uL (4.50-10.00)
[2024-05-17 18:01] LABS: ALT 511 U/L (4-49); AST 205 U/L (17-59); African American GFR (CKD) >90 (>60 ml/min/1.73 sqM); Albumin 3.5 g/dL (3.5-5.0); Alkaline Phosphatase 64 U/L (38-126); Blood Urea Nitrogen 40 mg/dL (9-20); Calcium 8.5 mg/dL (8.4-10.2); Chloride 92 mmol/L (98-107); Glucose 166 mg/dL (74-99); Magnesium 2.6 mg/dL (1.6-2.3); Non-African American GFR(CKD) >90 (>60 ml/min/1.73 sqM); Potassium 4.6 mmol/L (3.5-5.1); Sodium 137 mmol/L (137-145); Total Bilirubin 1.3 mg/dL (0.2-1.3)
[2024-05-17 18:05] LABS: INR 1.2 (<1.2); Prothrombin Time 13.3 sec (10.0-12.5)
[2024-05-17] MEDS: IPRATROPIUM-ALBUTEROL 3 ML NEB INHALATION STA (18:06)
[2024-05-17 18:07] LABS: Anion Gap 6 mmol/L
[2024-05-17 18:08] LABS: Partial Thromboplastin Time 20.7 sec (22.0-30.0)
[2024-05-17 18:09] LABS: NT-Pro-B-Type Natriuretic Pept 3850 pg/mL
[2024-05-17 18:11] LABS: Carbon Dioxide 39 mmol/L (22-30)
[2024-05-17] MEDS: methylPREDNISolone SOD SUCCI 125 MG/2 ML VIAL IV STA (18:11)
--- NOTE | 2024-05-17 18:12 | XR ---
EXAMINATION TYPE: XR chest 2V DATE OF EXAM: 05/17/2024 5:52 PM COMPARISON: Chest radiographs from 05/13/2024 CLINICAL INDICATION: Male, 63 years old with history of difficulty breathing; [facility] TECHNIQUE: XR chest 2V Frontal and lateral views of the chest. FINDINGS: Lungs/Pleura: Airspace opacities over the infrahilar region on lateral view There is flattening of t he diaphragm with increased lucency of the lungs. No evidence of pneumothorax, pleural effusion or fo alma consolidation. Pulmonary vascularity: Unremarkable. Heart/mediastinum: Cardiomediastinal silhouette is unremarkable. Musculoskeletal: No acute osseous pathology. IMPRESSION: 1. Airspace opacities over the infrahilar region on lateral view correlate for pneumonia. 2. COPD changes. [facility], , 05/17/2024 6:10 PM
[2024-05-17 18:16] LABS: Large Platelets Present; Lymphocytes # (M) 0.46 k/uL (1.0-4.8); Metamyelocytes # (M) 0.23 k/uL (0); Metamyelocytes % 1 %; Monocytes # (M) 1.16 k/uL (0-1.0); Myelocytes # (M) 0.93 k/uL (0); Myelocytes % 4 %; Neutrophils # (M) 20.61 k/uL (1.3-7.7); Neutrophils % (M) 89 %; Nucleated Red Blood Cells 0 /100 WBC (0-0); Total Cells Counted 200; Toxic Vacuolation Present
[2024-05-17 18:17] LABS: Hypersegmented Neutrophils Present
[2024-05-17] MEDS: DILTIAZEM DRIP BOLUS FROM BAG 1 MG SOLN IV ONE ×2 (18:19→21:41)
[2024-05-17] MEDS: DILTIAZEM 125 MG in SODIUM CHLORIDE 0.9% 100 ML IV SCH (18:20)
--- NOTE | 2024-05-17 18:20 | ED ---
SOB HPI - General Chief Complaint: Shortness of Breath Stated Complaint: SOB Time Seen by Provider: 05/17/24 16:55 Source: patient, EMS Mode of arrival: EMS Limitations: no limitations - History of Present Illness Initial Comments: 63-year-old male with past medical history of COPD, CHF, recent diagnosis of pneumonia who presents emergency department reporting increasing shortness of breath. Patient was just discharged from the hospital yesterday. He states that he wanted to go home but the doctors thought it may have been premature. He was discharged home on antibiotics, Eliquis, Cardizem, steroids and an inhaler. States that he has not been able to breathe well since he went home. He has been using his inhaler with only slight improvement. He did take his morning medications. Patient presents in A-fib with RVR. He was given 20 mg of Cardizem by EMS. Denies having any chest pain. Did turn off his oxygen to 6 L at home due to the worsening shortness of breath. Denies fevers. No nausea or vomiting. Does have lower extremity swelling. No other alleviating, precipitating or modifying factors - Related Data Home Medications Medication Instructions Recorded Confirmed Budesonide/Formoterol Fumarate 2 puff INHALATION RT-BID 05/08/24 05/17/24 [Symbicort 160-4.5 Mcg Inhaler] Albuterol Inhaler [Ventolin Hfa 2 puff INHALATION RT-Q6H PRN 05/17/24 05/17/24 Inhaler] Previous Rx's Medication Instructions Recorded Acetaminophen Tab [Tylenol] 500 mg PO Q6HR PRN tab 05/16/24 Apixaban [Eliquis] 5 mg PO BID #60 tab 05/16/24 Dapagliflozin Propanediol [Farxiga] 10 mg PO DAILY #30 tab 05/16/24 Furosemide [Lasix] 40 mg PO BID@0900,1600 #60 tab 05/16/24 Mag Hydrox/Al Hydrox/Simeth 30 ml PO DAILY #200 ml 05/16/24 [Maalox] Pantoprazole Sodium [Protonix] 40 mg PO BID #60 tab 05/16/24 Sucralfate [Carafate] 1 gm PO AC-TID #60 tab 05/16/24 Amiodarone [Cordarone] 400 mg PO BID #120 tablet 05/25/24 Doxycycline [Vibramycin] 100 mg PO BID 7 Days #14 capsule 05/25/24 Metoprolol Tartrate [Lopressor] 200 mg PO BID #120 tab 05/25/24 methylPREDNISolone Dose Pack 4 mg PO DIRECTED #21 tab 05/25/24 [Medrol Dose Pack] Allergies Allergy/AdvReac Type Severity Reaction Status Date / Time No Known Allergies Allergy Verified 05/17/24 18:50 Review of Systems ROS Statement: Those systems with pertinent positive or pertinent negative responses have been documented in the HPI. ROS Other: All systems not noted in ROS Statement are negative. Past Medical History Past Medical History: COPD, Hypertension Additional Past Medical History / Comment(s): diverticulitis History of Any Multi-Drug Resistant Organisms: None Reported Past Surgical History: Heart Catheterization Past Anesthesia/Blood Transfusion Reactions: No Reported Reaction Additional Past Anesthesia/Blood Transfusion Reaction / Comment(s): Pt has never had a blood transfusion. Past Psychological History: No Psychological Hx Reported Smoking Status: Current every day smoker Past Alcohol Use History: Occasional Past Drug Use History: None Reported - Past Family History Mother Additional Family Medical History / Comment(s): Cardiac Father Additional Family Medical History / Comment(s): Cardiac General Exam Limitations: no limitations General appearance: alert, in no apparent distress Head exam: Present: atraumatic, normocephalic, normal inspection Eye exam: Present: normal appearance, PERRL, EOMI. Absent: scleral icterus, conjunctival injection, periorbital swelling ENT exam: Present: normal exam, mucous membranes moist Neck exam: Present: normal inspection. Absent: tenderness, meningismus, lymphadenopathy Respiratory exam: Present: decreased breath sounds. Absent: respiratory distress, wheezes, rales, rhonchi, stridor Cardiovascular Exam: Present: tachycardia, irregular rhythm, normal heart sounds. Absent: systolic murmur, diastolic murmur, rubs, gallop, clicks GI/Abdominal exam: Present: soft, normal bowel sounds. Absent: distended, tenderness, guarding, rebound, rigid Extremities exam: Present: full ROM, normal capillary refill, pedal edema. Absent: tenderness, joint swelling, calf tenderness Back exam: Present: normal inspection Neurological exam: Present: alert, oriented X3, CN II-XII intact Psychiatric exam: Present: normal affect, normal mood Skin exam: Present: warm, dry, intact, normal color. Absent: rash Course Vital Signs 05/17/24 05/17/24 05/17/24 16:52 18:06 18:07 Temperature 97.9 F Pulse Rate 93 103 H 126 H Respiratory 24 20 Rate Blood Pressure 126/93 110/72 O2 Sat by Pulse 93 L 91 L Oximetry 05/17/24 05/17/24 05/17/24 18:14 18:18 19:00 Temperature Pulse Rate 126 H 160 H 107 H Respiratory 18 24 Rate Blood Pressure 133/77 117/82 O2 Sat by Pulse 93 L 93 L Oximetry 05/17/24 05/17/24 05/17/24 20:37 20:44 21:39 Temperature Pulse Rate 98 122 H 131 H Respiratory 20 20 22 Rate Blood Pressure 114/65 O2 Sat by Pulse 93 L Oximetry 05/17/24 05/18/24 05/18/24 22:30 00:07 00:31 Temperature Pulse Rate 135 H 112 H 112 H Respiratory 20 20 18 Rate Blood Pressure 111/78 110/83 O2 Sat by Pulse 93 L 92 L Oximetry 05/18/24 05/18/24 05/18/24 00:38 02:12 04:00 Temperature 98.1 F Pulse Rate 121 H 133 H 120 H Respiratory 18 22 22 Rate Blood Pressure 119/85 126/72 O2 Sat by Pulse 92 L 94 L Oximetry 05/18/24 05/18/24 05/18/24 04:23 04:30 06:17 Temperature Pulse Rate 92 90 151 H Respiratory 20 20 22 Rate Blood Pressure 138/85 O2 Sat by Pulse 94 L Oximetry 05/18/24 05/18/24 05/18/24 06:37 07:25 09:00 Temperature 98.1 F Pulse Rate 135 H 89 122 H Respiratory 22 16 20 Rate Blood Pressure 125/82 138/79 120/89 O2 Sat by Pulse 92 L 89 L 89 L Oximetry 05/18/24 05/18/24 05/18/24 09:33 09:38 09:44 Temperature Pulse Rate 118 H 128 H Respiratory Rate Blood Pressure O2 Sat by Pulse 90 L Oximetry 05/18/24 05/18/24 05/18/24 10:26 12:01 12:30 Temperature Pulse Rate 138 H 147 H 58 L Respiratory 18 18 Rate Blood Pressure 129/89 126/75 O2 Sat by Pulse 90 L 97 Oximetry 05/18/24 05/18/2405/18/25 14:17 15:25 15:38 Temperature 98.6 F Pulse Rate 160 H 158 H Respiratory 26 H 18 Rate Blood Pressure 141/90 134/116 O2 Sat by Pulse 88 L 93 L Oximetry 05/18/24 05/18/24 05/18/24 15:40 18:25 19:27 Temperature Pulse Rate 160 H 158 H 131 H Respiratory 22 Rate Blood Pressure 130/99 O2 Sat by Pulse 95 Oximetry 05/18/24 05/18/24 05/18/24 19:41 20:00 22:11 Temperature 97.9 F Pulse Rate 132 H 154 H 149 H Respiratory 18 20 Rate Blood Pressure 121/94 109/91 O2 Sat by Pulse 91 L 90 L Oximetry Medical Decision Making - Medical Decision Making Was pt. sent in by a medical professional or institution (, PA, FLAT POLISHER, urgent care, hospital, or fci...) When possible be specific @ -No Did you speak to anyone other than the patient for history (EMS, parent, family, police, friend...)? What history was obtained from this source @ -Spoke with EMS for history Did you review nursing and triage notes (agree or disagree)? Why? @ -I reviewed and agree with nursing and triage notes Were old charts reviewed (outside hosp., previous admission, EMS record, old EKG, old radiological studies, urgent care reports/EKG's, fci records)? Report findings @ -I reviewed the discharge summary from yesterday Differential Diagnosis (chest pain, altered mental status, abdominal pain women, abdominal pain men, vaginal bleeding, weakness, fever, dyspnea, syncope, headache, dizziness, GI bleed, back pain, seizure, CVA, palpatations, mental health, musculoskeletal)? @Differential Dyspnea: Coronary syndrome, arrhythmia, tamponade, asthma, COPD, pulmonary embolism, pneumonia, pneumothorax, pulmonary effusion, anaphylaxis, diabetic ketoacidosis, flailed chest, pulmonary contusion, diaphragmatic rupture, anemia, neuromuscular, this is not meant to be an all-inclusive list. EKG interpreted by me (3pts min.). @ -Yes and demonstrates A-fib with a rate of 143. QRS 86. QTc of 368. No acute ST segment elevations or depressions X-rays interpreted by me (1pt min.). @ -Yes which continues to demonstrate pneumonia CT interpreted by me (1pt min.). @ -None done U/S interpreted by me (1pt. min.). @ -None done What testing was considered but not performed or refused? (CT, X-rays, U/S, labs)? Why? @ -None What meds were considered but not given or refused? Why? @ -None Did you discuss the management of the patient with other professionals (professionals i.e. DrKleber, PA, FLAT POLISHER, lab, RT, psych nurse, child welfare social worker, confidential secretary, teacher, family preservation officer, insurance case manager)? Give summary @ -Spoke with Dr. Spence Was smoking cessation discussed for >3mins.? @ -No Was critical care preformed (if so, how long)? @ -35 minutes for management of rapid A-fib Were there social determinants of health that impacted care today? How? (Homelessness, low income, unemployed, alcoholism, drug addiction, transportation, low edu. Level, literacy, decrease access to med. care, long-term, rehab)? @ -No Was there de-escalation of care discussed even if they declined (Discuss DNR or withdrawal of care, Hospice)? DNR status @ -No What co-morbidities impacted this encounter? (DM, HTN, Smoking, COPD, CAD, Cancer, CVA, ARF, Chemo, Hep., AIDS, mental health diagnosis, sleep apnea, morbid obesity)? @ -CHF, COPD, A-fib Was patient admitted / discharged? Hospital course, mention meds given and route, prescriptions, significant lab abnormalities, going to OR and other pertinent info. @ -Upon arrival patient seen and evaluated in room 2. Thorough history and physical exam was performed. Patient was given a breathing treatment. IV is established. Laboratory studies are conducted. Patient was given a DuoNeb's breathing treatment and 125 Solu-Medrol. He is started on Cardizem for his rapid A-fib. Patient will be admitted for pulmonology and cardiology consultation. Spoke with Dr. Spence for the admission Undiagnosed new problem with uncertain prognosis? @ -No Drug Therapy requiring intensive monitoring for toxicity (Heparin, Nitro, Insulin, Cardizem)? @ -Cardizem Were any procedures done? @ -No Diagnosis/symptom? @ -Acute respiratory insufficiency, acute CHF exacerbation, A-fib with RVR Acute, or Chronic, or Acute on Chronic? @ -Acute on chronic Uncomplicated (without systemic symptoms) or Complicated (systemic symptoms)? @ -Complicated Side effects of treatment? @ -No Exacerbation, Progression, or Severe Exacerbation? @ -No Poses a threat to life or bodily function? How? (Chest pain, [place], [place], pneumonia, PE, COPD, DKA, ARF, appy, cholecystitis, CVA, Diverticulitis, Homicidal, Suicidal, threat to staff... and all critical care pts) @ -No - Lab Data Result diagrams: 05/25/24 05:15 05/25/24 05:15 Lab Results 05/17/24 05/17/24 05/17/24 Range/Units 17:36 17:36 17:36 WBC 23.16 H (4.50-10.00) 10*3/uL RBC 5.81 H (4.40-5.60) 10*6/uL Hgb 17.9 H (13.0-17.0) g/dL Hct 54.0 H (39.6-50.0) % MCV 92.9 (80.0-97.0) fL MCH 30.8 (27.0-32.0) pg MCHC 33.1 (32.0-37.0) g/dL Plt Count 177 (140-440) 10*3/uL MPV 11.8 (9.5-12.2) fL Immature Gran % (Auto) 5.9 % Neutrophils % (Manual) 89 % Lymphocytes % (Manual) 2 % Monocytes % (Manual) 5 % Metamyelocytes % 1 % Myelocytes % 4 % Immature Gran # 1.36 H (0.00-0.04) 10*3/uL Neutrophils # (Manual) 20.61 H (1.3-7.7) k/uL Lymphocytes # (Manual) 0.46 L (1.0-4.8) k/uL Monocytes # (Manual) 1.16 H (0-1.0) k/uL Metamyelocytes # (Man) 0.23 H (0) k/uL Myelocytes # (Manual) 0.93 H (0) k/uL Nucleated RBCs 0 (0-0) /100 WBC Hypersegmented Neuts Present Toxic Vacuolation Present Large Platelets Present PT 13.3 H (10.0-12.5) sec INR 1.2 H (<1.2) APTT 20.7 L (22.0-30.0) sec Sodium 137 (137-145) mmol/L Potassium 4.6 (3.5-5.1) mmol/L Chloride 92 L (98-107) mmol/L Carbon Dioxide 39 H (22-30) mmol/L Anion Gap 6 mmol/L BUN 40 H (9-20) mg/dL Creatinine 0.80 (0.66-1.25) mg/dL Est GFR (CKD-EPI)AfAm >90 (>60 ml/min/1.73 sqM) Est GFR (CKD-EPI)NonAf >90 (>60 ml/min/1.73 sqM) Glucose 166 H (74-99) mg/dL Lactic Ac Sepsis Rflx Plasma Lactic Acid Heriberto (0.7-2.0) mmol/L Calcium 8.5 (8.4-10.2) mg/dL Magnesium 2.6 H (1.6-2.3) mg/dL Total Bilirubin 1.3 (0.2-1.3) mg/dL AST 205 H (17-59) U/L ALT 511 H (4-49) U/L Alkaline Phosphatase 64 (38-126) U/L Troponin I (0.000-0.034) ng/mL NT-Pro-B Natriuret Pep 3850 pg/mL Total Protein 6.0 L (6.3-8.2) g/dL Albumin 3.5 (3.5-5.0) g/dL 05/17/24 05/17/24 05/17/24 Range/Units 17:36 17:36 18:12 WBC (4.50-10.00) 10*3/uL RBC (4.40-5.60) 10*6/uL Hgb (13.0-17.0) g/dL Hct (39.6-50.0) % MCV (80.0-97.0) fL MCH (27.0-32.0) pg MCHC (32.0-37.0) g/dL Plt Count (140-440) 10*3/uL MPV (9.5-12.2) fL Immature Gran % (Auto) % Neutrophils % (Manual) % Lymphocytes % (Manual) % Monocytes % (Manual) % Metamyelocytes % % Myelocytes % % Immature Gran # (0.00-0.04) 10*3/uL Neutrophils # (Manual) (1.3-7.7) k/uL Lymphocytes # (Manual) (1.0-4.8) k/uL Monocytes # (Manual) (0-1.0) k/uL Metamyelocytes # (Man) (0) k/uL Myelocytes # (Manual) (0) k/uL Nucleated RBCs (0-0) /100 WBC Hypersegmented Neuts Toxic Vacuolation Large Platelets PT (10.0-12.5) sec INR (<1.2) APTT (22.0-30.0) sec Sodium (137-145) mmol/L Potassium (3.5-5.1) mmol/L Chloride (98-107) mmol/L Carbon Dioxide (22-30) mmol/L Anion Gap mmol/L BUN (9-20) mg/dL Creatinine (0.66-1.25) mg/dL Est GFR (CKD-EPI)AfAm (>60 ml/min/1.73 sqM) Est GFR (CKD-EPI)NonAf (>60 ml/min/1.73 sqM) Glucose (74-99) mg/dL Lactic Ac Sepsis Rflx Y Plasma Lactic Acid Heriberto 2.3 H* (0.7-2.0) mmol/L Calcium (8.4-10.2) mg/dL Magnesium (1.6-2.3) mg/dL Total Bilirubin (0.2-1.3) mg/dL AST (17-59) U/L ALT (4-49) U/L Alkaline Phosphatase (38-126) U/L Troponin I 0.012 (0.000-0.034) ng/mL NT-Pro-B Natriuret Pep pg/mL Total Protein (6.3-8.2) g/dL Albumin (3.5-5.0) g/dL Disposition Clinical Impression: Atrial fibrillation with RVR, Pneumonia, Heart failure Disposition: ADMITTED IP TO THIS HOSP Condition: Serious Is patient prescribed a controlled substance at d/c from ED?: No Time of Disposition: 19:50 Decision to Admit Reason: Admit from EC Decision Date: 05/17/24 Decision Time: 19:50
[2024-05-17] MEDS ORDERED: NALOXONE 0.4 MG/ML 1 ML VIAL IV PRN (19:50)
[2024-05-17] MEDS ORDERED: ACETAMINOPHEN TAB 500 MG TAB PO PRN (20:02)
[2024-05-17] MEDS: cefTRIAXone IN SWFI 1,000 MG/10 ML SYRINGE IVP STA (20:21)
[2024-05-17] MEDS: PANTOPRAZOLE 40 MG TABLET PO SCH (20:33)
[2024-05-17] MEDS: APIXABAN 5 MG TAB PO SCH (20:34)
[2024-05-17] MEDS: IPRATROPIUM-ALBUTEROL 3 ML NEB INHALATION SCH (20:37)
[2024-05-17] MEDS: AZITHROMYCIN 500 MG in SODIUM CHLORIDE 0.9% 250 ML IVPB SCH (20:50)
[2024-05-18] MEDS: SODIUM CHLORIDE 0.9% 250 ML IV SCH (02:10)
[2024-05-18 04:12] LABS: African American GFR (CKD) >90 (>60 ml/min/1.73 sqM); Anion Gap 7 mmol/L; Blood Urea Nitrogen 41 mg/dL (9-20); Calcium 8.7 mg/dL (8.4-10.2); Carbon Dioxide 36 mmol/L (22-30); Chloride 93 mmol/L (98-107); Glucose 281 mg/dL (74-99); Non-African American GFR(CKD) >90 (>60 ml/min/1.73 sqM); Potassium 4.3 mmol/L (3.5-5.1); Sodium 136 mmol/L (137-145)
[2024-05-18 04:56] LABS: HCT 51.8 % (39.6-50.0); HGB 16.4 g/dL (13.0-17.0); MCH 29.9 pg (27.0-32.0); MCHC 31.7 g/dL (32.0-37.0); MCV 94.4 fL (80.0-97.0); Mean Platelet Volume 11.8 fL (9.5-12.2); Platelet Count 150 10*3/uL (140-440); RBC 5.49 10*6/uL (4.40-5.60); RDW 14.2 % (11.5-14.5); WBC 17.89 10*3/uL (4.50-10.00)
[2024-05-18] MEDS: DILTIAZEM DRIP BOLUS FROM BAG 1 MG SOLN IV ONE ×3 (06:26→18:47)
[2024-05-18 06:41] LABS: Band Neutrophils % 6 %; Lymphocytes # (M) 1.07 k/uL (1.0-4.8); Metamyelocytes # (M) 0.36 k/uL (0); Metamyelocytes % 2 %; Monocytes # (M) 0.18 k/uL (0-1.0); Neutrophils # (M) 16.63 k/uL (1.3-7.7); Neutrophils % (M) 87 %; Nucleated Red Blood Cells 0 /100 WBC (0-0); Total Cells Counted 200
[2024-05-18] MEDS: methylPREDNISolone SOD SUCCI 40 MG/ML 1 ML VIAL IV SCH (07:45)
[2024-05-18] MEDS: FUROSEMIDE 40 MG TAB PO SCH (08:17)
[2024-05-18] MEDS: MAG HYDROX/AL HYDROX/SIMETH 30 ML CUP PO SCH (09:02)
[2024-05-18] MEDS: SUCRALFATE 1 GM TAB PO SCH (09:02)
[2024-05-18] MEDS: DAPAGLIFLOZIN PROPANEDIOL 10 MG TABLET PO SCH (09:03)
[2024-05-18] MEDS: METOPROLOL TARTRATE 50 MG TAB PO SCH (09:03)
[2024-05-18] MEDS: AMIODARONE 200 MG TAB PO SCH (09:03)
[2024-05-18] MEDS: FUROSEMIDE 10 MG/ML 4 ML VIAL IV SCH (09:03)
[2024-05-18] MEDS: SYMBICORT 160-4.5 MCG INHALER INHALATION SCH (09:33)
--- NOTE | 2024-05-18 12:24 | P.CRDCN ---
History of Present Illness Consult date: 05/18/24 Reason for Consult (text): A-fib with RVR History of present illness: This is a 63-year-old male patient of Dr. Lombardi with past medical history of paroxysmal atrial fibrillation, COPD, chronic tobacco use, hypertension, obesity with suspected obstructive sleep apnea. Patient was recently hospitalized for epigastric pain and concerns for black tarry stools. He underwent EGD with Dr. Juares which revealed linear ulcers in the antrum and pylorus of the stomach with no recent stigmata of bleeding. During that hospitalization cardiology was consulted for new onset of A-fib with RVR. Prior to his discharge, it was recommended that patient undergo MED and cardioversion for which patient declined as he wanted to go home. Patient was discharged home yesterday and return to the emergency center with complaints of increasing shortness of breath. He states that since he got home his breathing became much worse. His abdomen discomfort is much improved. He denies cough, wheeze. No chest pain. He states he has had lower extremity edema which was present on previous admission. No palpitations. No fever. No dizziness. He had no improvement of his breathing despite using his inhalers and he increased his oxygen to 6 L. EMS found that he was in A-fib with RVR and gave 1 dose of 20 mg of Cardizem. His initial EKG showed A-fib with RVR at 169 bpm. Patient was started on Cardizem bolus 20 mg followed by 10 mg and another 10 mg followed by a drip at 15 mg/h. Blood pressure 138/79, heart rate 147, pulse ox 89% on 4 L nasal c annula. -EKG: Atrial fibrillation at 169 bpm, #2 atrial fibrillation at 143 bpm -Chest x-ray: Airspace opacities over the infrahilar region on lateral view correlate for pneumonia. COPD changes -Laboratory studies: WBC initially 23.1, hemoglobin 16.4, sodium 136, potassium 4.3, creatinine 0.75. Lactic acid 5. AST 205, ALT 511, troponin negative x 1. proBNP 3850. -Home cardiac medications: Eliquis 5 mg twice daily, Farxiga 10 mg daily, Cardizem 60 mg 3 times daily, Lasix 40 mg twice daily, metoprolol tartrate 50 mg twice daily. -Echocardiogram performed on 05/10/2024 revealed LVH with preserved systolic function. Mildly enlarged right ventricle. Left atrial enlargement. No identifiable tricuspid regurgitation to assess RVSP. Review Of Systems: At the time of my exam: CONSTITUTIONAL: Denies fever or chills. HEENT: Denies blurred vision, vision changes, or eye pain. Denies hemoptysis CARDIOVASCULAR: Denies chest pain. Denies orthopnea. Denies PND. Denies palpitations RESPIRATORY: Reports shortness of breath. No cough GASTROINTESTINAL: Denies abdominal pain. Denies nausea or vomiting. HEMATOLOGIC: Denies bleeding disorders. GENITOURINARY: Denies any blood in urine. SKIN: Denies puritis. Denies rash. Physical examination: Gen: This is a 63-year-old male VS: reviewed HEENT: Head is atraumatic, normocephalic. Pupils equal, round. Sclerae is anicteric. NECK: Supple. No JVD. LUNGS: Clear to auscultation. No wheezes or rhonchi. No intercostal retractions. HEART: Irregular rate and rhythm. No murmur. Tachycardic. ABDOMEN: Soft No abdominal tenderness. EXTREMITIES: 12+ bilateral lower extremity edema. No calf tenderness. NEUROLOGICAL: Patient is awake, alert and oriented x3. Assessment: Paroxysmal atrial fibrillation with RVR, diagnosed 05/2024 Acute on chronic hypoxic respiratory failure, multifactorial Pneumonia COPD exacerbation Chronic heart failure with preserved EF Epigastric abdominal pain status post EGD on 05 15 which revealed linear ulcers in the antrum and pylorus of the stomach with no recent stigmata of bleeding Polycythemia Hypertension Tobacco use and dependence Obesity with suspected ISIAH Plan: Resume patient's home cardiac medications Add amiodarone 200 mg twice daily And IV Lasix 40 mg every 12 hours Monitor WANDA, daily weights, electrolytes and renal function No need to repeat echocardiogram Further recommendations to follow based upon clinical course Thank you kindly for this consultation. Nurse practitioner note has been reviewed, I agree with documented findings and plan of care. Patient was seen and examined. Past Medical History Past Medical History: COPD, Hypertension Additional Past Medical History / Comment(s): diverticulitis History of Any Multi-Drug Resistant Organisms: None Reported Past Surgical History: Heart Catheterization Past Anesthesia/Blood Transfusion Reactions: No Reported Reaction Additional Past Anesthesia/Blood Transfusion Reaction / Comment(s): Pt has never had a blood transfusion. Past Psychological History: No Psychological Hx Reported Smoking Status: Current every day smoker Past Alcohol Use History: Occasional Past Drug Use History: None Reported - Past Family History Mother Additional Family Medical History / Comment(s): Cardiac Father Additional Family Medical History / Comment(s): Cardiac Medications and Allergies Home Medications Medication Instructions Recorded Confirmed Type Budesonide/Formoterol Fumarate 2 puff INHALATION RT-BID 05/08/24 05/17/24 History [Symbicort 160-4.5 Mcg Inhaler] Acetaminophen Tab [Tylenol] 500 mg PO Q6HR PRN tab 05/16/24 05/17/24 Rx Amoxic-Pot Clav 500-125 mg 1 tab PO Q12HR 5 Days #10 tab 05/16/24 05/17/24 Rx [Augmentin 500-125 mg] Apixaban [Eliquis] 5 mg PO BID #60 tab 05/16/24 05/17/24 Rx Dapagliflozin Propanediol [Farxiga] 10 mg PO DAILY #30 tab 05/16/24 05/17/24 Rx Diltiazem Oral [Cardizem*] 60 mg PO TID #90 tab 05/16/24 05/17/24 Rx Furosemide [Lasix] 40 mg PO BID@0900,1600 #60 tab 05/16/24 05/17/24 Rx Mag Hydrox/Al Hydrox/Simeth 30 ml PO DAILY #200 ml 05/16/24 05/17/24 Rx [Maalox] Metoprolol Tartrate [Lopressor] 50 mg PO BID #60 tab 05/16/24 05/17/24 Rx Pantoprazole Sodium [Protonix] 40 mg PO BID #60 tab 05/16/24 05/17/24 Rx Sucralfate [Carafate] 1 gm PO AC-TID #60 tab 05/16/24 05/17/24 Rx Albuterol Inhaler [Ventolin Hfa 2 puff INHALATION RT-Q6H PRN 05/17/24 05/17/24 History Inhaler] predniSONE See Taper PO DIRECTED 05/17/24 05/17/24 History Allergies Allergy/AdvReac Type Severity Reaction Status Date / Time No Known Allergies Allergy Verified 05/17/24 18:50 Physical Exam Vitals: Vital Signs Temp Pulse Resp BP Pulse Ox 05/18/24 06:37 135 H 22 125/82 92 L 05/18/24 06:17 151 H 22 138/85 94 L 05/18/24 04:30 90 20 05/18/24 04:23 92 20 05/18/24 04:00 120 H 22 126/72 94 L 05/18/24 02:12 98.1 F 133 H 22 119/85 92 L 05/18/24 00:38 121 H 18 05/18/24 00:31 112 H 18 05/18/24 00:07 112 H 20 110/83 92 L 05/17/24 22:30 135 H 20 111/78 93 L 05/17/24 21:39 131 H 22 114/65 93 L 05/17/24 20:44 122 H 20 05/17/24 20:37 98 20 05/17/24 19:00 107 H 24 117/82 93 L 05/17/24 18:18 160 H 18 133/77 93 L 05/17/24 18:14 126 H 05/17/24 18:07 126 H 20 110/72 91 L 05/17/24 18:06 103 H 05/17/24 16:52 97.9 F 93 24 126/93 93 L Intake and Output 05/17/24 05/18/24 05/18/24 22:59 06:59 14:59 Intake Total 16.833 76.667 Output Total 350 Balance 16.833 -273.333 Intake: Intake, IV Titration 16.833 76.667 Amount Diltiazem 125 mg In 16.833 76.667 Sodium Chloride 0.9% 100 ml @ 5 MG/HR 5 mls/hr IV .Q24H [facility] Rx#:[id number] Output: Urine 350 Other: Weight 121.563 kg Results 05/18/24 03:32 05/18/24 03:32 Cardiac Enzymes 05/17/24 05/17/24 Range/Units 17:36 17:36 AST 205 H (17-59) U/L Troponin I 0.012 (0.000-0.034) ng/mL Coagulation 05/17/24 Range/Units 17:36 PT 13.3 H (10.0-12.5) sec APTT 20.7 L (22.0-30.0) sec CBC 05/17/24 05/18/24 Range/Units 17:36 03:32 WBC 23.16 H 17.89 H (4.50-10.00) 10*3/uL RBC 5.81 H 5.49 (4.40-5.60) 10*6/uL Hgb 17.9 H 16.4 (13.0-17.0) g/dL Hct 54.0 H 51.8 H (39.6-50.0) % Plt Count 177 150 (140-440) 10*3/uL Comprehensive Metabolic Panel 05/17/24 05/18/24 Range/Units 17:36 03:32 Sodium 137 136 L (137-145) mmol/L Potassium 4.6 4.3 (3.5-5.1) mmol/L Chloride 92 L 93 L (98-107) mmol/L Carbon Dioxide 39 H 36 H (22-30) mmol/L BUN 40 H 41 H (9-20) mg/dL Creatinine 0.80 0.75 (0.66-1.25) mg/dL Glucose 166 H 281 H (74-99) mg/dL Calcium 8.5 8.7 (8.4-10.2) mg/dL AST 205 H (17-59) U/L ALT 511 H (4-49) U/L Alkaline Phosphatase 64 (38-126) U/L Total Protein 6.0 L (6.3-8.2) g/dL Albumin 3.5 (3.5-5.0) g/dL Current Medications Generic Name Dose Route Start Last Admin Trade Name Freq PRN Reason Stop Dose Admin Acetaminophen 650 mg 05/17/24 19:50 Acetaminophen Tab 325 Mg Tab PO Q6HR PRN Mild Pain or Fever > 100.5 Al Hydroxide/Mg Hydroxide 30 ml 05/18/24 09:00 Mag Hydrox/Al Hydrox/Simeth 30 Ml Cup PO DAILY DESTINY Albuterol/Ipratropium 3 ml 05/17/24 20:00 05/18/24 04:23 Ipratropium-Albuterol 3 Ml Neb INHALATION 3 ml RT-Q4H DESTINY Administration Apixaban 5 mg 05/17/24 21:00 05/17/24 20:34 Apixaban 5 Mg Tab PO 5 mg BID DESTINY Administration Protocol Budesonide/Formoterol Fumarate 2 puff 05/18/24 08:00 Symbicort 160-4.5 Mcg Inhaler INHALATION RT-BID DESTINY Dapagliflozin 10 mg 05/18/24 09:00 Dapagliflozin Propanediol 10 Mg Tablet PO DAILY DESTINY Furosemide 40 mg 05/18/24 09:00 Furosemide 40 Mg Tab PO BID@0900,1600 DESTINY Diltiazem HCl 125 mg/ Sodium 125 mls @ 15 mls/hr 05/17/24 17:45 05/18/24 0 5:22 Chloride IV 10 mg/hr .Q8H20M DESTINY 10 mls/hr Administration 15 MG/HR Azithromycin 500 mg/ Sodium 250 mls @ 250 mls/hr 05/17/24 21:00 05/17/24 20:50 Chloride IVPB 05/19/24 21:59 250 mls/hr HS DESTINY Administration Protocol Methylprednisolone Sodium Succinate 40 mg 05/18/24 08:00 Methylprednisolone Sod Succi 40 Mg/Ml 1 Ml Vial IV Q8HR DESTINY Naloxone HCl 0.2 mg 05/17/24 19:50 Naloxone 0.4 Mg/Ml 1 Ml Vial IV Q2M PRN Opioid Reversal Pantoprazole Sodium 40 mg 05/17/24 21:00 05/17/24 20:33 Pantoprazole 40 Mg Tablet PO 40 mg BID DESTINY Administration Sucralfate 1 gm 05/18/24 07:30 Sucralfate 1 Gm Tab PO AC-TID [facility] Intake and Output 05/17/24 05/18/24 05/18/24 22:59 06:59 14:59 Intake Total 16.833 76.667 Output Total 350 Balance 16.833 -273.333 Intake: Intake, IV Titration 16.833 76.667 Amount Diltiazem 125 mg In 16.833 76.667 Sodium Chloride 0.9% 100 ml @ 5 MG/HR 5 mls/hr IV .Q24H [facility] Rx#:[id number] Output: Urine 350 Other: Weight 121.563 kg 05/18/24 03:32 05/18/24 03:32
[2024-05-18] MEDS ORDERED: DEXTROSE 50% SYRINGE 50 ML IVP PRN ×2 (12:37)
--- NOTE | 2024-05-18 14:19 | P.CNPUL ---
History of Present Illness Consult date: 05/18/24 Requesting physician: Karlo Javier Reason for consult: dyspnea, hypoxemia Chief complaint: Shortness of breath, palpitations History of present illness: The patient is seen today in consultation in the emergency department. Just discharged from here on 05/16/2024. He return to the emergency department yesterday 05/17/2024 with shortness of breath and palpitations. He was found to be in atrial fibrillation with a rapid ventricular response. He has a history of smoking/COPD and he has obvious features of obstructive sleep apnea. The patient used to smoke up to 2 pack of cigarettes a day and currently is down to 1 pack of cigarettes a day. Maintained on Symbicort on outpatient basis. Does not utilize home O2. No home CPAP machine. He has chronic exertional dyspnea. Chest x-ray shows similar airspace opacities in the infrahilar region. Evidence of COPD. Right count 17.8. Hemoglobin 16.4. Platelets 150. Sodium 136. Potassium 4.3. Bicarb 36. BUN 41. Creatinine 0.75. Glucose 281. Lactic 4.1. Troponin negative x 1. proBNP 3850. AST 205. ALT 511. He is currently sit ting up on a stretcher. Awake and alert in no acute distress. Maintaining O2 saturations in the 90s on 4 L/min per nasal cannula. He does remain in atrial fibrillation with a rapid ventricular response. He has been initiated on a Cardizem drip at 15 mg/h. He is continued on his Eliquis. Review of Systems REVIEW OF SYSTEMS: CONSTITUTIONAL: Denies any recent significant weight loss or weight gain. EYES: Denies change in vision. EARS, NOSE, MOUTH, THROAT: Denies headaches, denies sore throat. CARDIOVASCULAR: Denies chest pain, positive for palpitations no syncopal episodes. RESPIRATORY: Positive for shortness of breath, no cough, congestion or hemoptysis. GASTROINTESTINAL: Denies change in appetite, denies abdominal pain GENITOURINARY: Denies hematuria, denies infections. MUSKULOSKELETAL: Denies pain, denies swelling. INTEGUMENTARY: Denies rash, denies eczema. NEUROLOGICAL: Denies recent memory loss, no recent seizure activity. PSYCHIATRIC: Denies anxiety, denies depression. HEMATOLOGIC/LYMPHATIC: Denies anemia, denies enlarged lymph nodes. Past Medical History Past Medical History: COPD, Hypertension Additional Past Medical History / Comment(s): diverticulitis History of Any Multi-Drug Resistant Organisms: None Reported Past Surgical History: Heart Catheterization Past Anesthesia/Blood Transfusion Reactions: No Reported Reaction Additional Past Anesthesia/Blood Transfusion Reaction / Comment(s): Pt has never had a blood transfusion. Past Psychological History: No Psychological Hx Reported Smoking Status: Current every day smoker Past Alcohol Use History: Occasional Past Drug Use History: None Reported - Past Family History Mother Additional Family Medical History / Comment(s): Cardiac Father Additional Family Medical History / Comment(s): Cardiac Medications and Allergies Home Medications Medication Instructions Recorded Confirmed Type Budesonide/Formoterol Fumarate 2 puff INHALATION RT-BID 05/08/24 05/17/24 History [Symbicort 160-4.5 Mcg Inhaler] Acetaminophen Tab [Tylenol] 500 mg PO Q6HR PRN tab 05/16/24 05/17/24 Rx Amoxic-Pot Clav 500-125 mg 1 tab PO Q12HR 5 Days #10 tab 05/16/24 05/17/24 Rx [Augmentin 500-125 mg] Apixaban [Eliquis] 5 mg PO BID #60 tab 05/16/24 05/17/24 Rx Dapagliflozin Propanediol [Farxiga] 10 mg PO DAILY #30 tab 05/16/24 05/17/24 Rx Diltiazem Oral [Cardizem*] 60 mg PO TID #90 tab 05/16/24 05/17/24 Rx Furosemide [Lasix] 40 mg PO BID@0900,1600 #60 tab 05/16/24 05/17/24 Rx Mag Hydrox/Al Hydrox/Simeth 30 ml PO DAILY #200 ml 05/16/24 05/17/24 Rx [Maalox] Metoprolol Tartrate [Lopressor] 50 mg PO BID #60 tab 05/16/24 05/17/24 Rx Pantoprazole Sodium [Protonix] 40 mg PO BID #60 tab 05/16/24 05/17/24 Rx Sucralfate [Carafate] 1 gm PO AC-TID #60 tab 05/16/24 05/17/24 Rx Albuterol Inhaler [Ventolin Hfa 2 puff INHALATION RT-Q6H PRN 05/17/24 05/17/24 History Inhaler] predniSONE See Taper PO DIRECTED 05/17/24 05/17/24 History Allergies Allergy/AdvReac Type Severity Reaction Status Date / Time No Known Allergies Allergy Verified 05/17/24 18:50 Physical Exam Vitals: Vital Signs Temp Pulse Resp BP Pulse Ox 05/18/24 12:30 58 L 18 126/75 97 05/18/24 12:01 147 H 05/18/24 10:26 138 H 18 129/89 90 L 05/18/24 09:44 128 H 05/18/24 09:38 90 L 05/18/24 09:33 118 H 05/18/24 09:00 98.1 F 122 H 20 120/89 89 L 05/18/24 07:25 89 16 138/79 89 L 05/18/24 06:37 135 H 22 125/82 92 L 05/18/24 06:17 151 H 22 138/85 94 L 05/18/24 04:30 90 20 05/18/24 04:23 92 20 05/18/24 04:00 120 H 22 126/72 94 L 05/18/24 02:12 98.1 F 133 H 22 119/85 92 L 05/18/24 00:38 121 H 18 05/18/24 00:31 112 H 18 05/18/24 00:07 112 H 20 110/83 92 L 05/17/24 22:30 135 H 20 111/78 93 L 05/17/24 21:39 131 H 22 114/65 93 L 05/17/24 20:44 122 H 20 05/17/24 20:37 98 20 05/17/24 19:00 107 H 24 117/82 93 L 05/17/24 18:18 160 H 18 133/77 93 L 05/17/24 18:14 126 H 05/17/24 18:07 126 H 20 110/72 91 L 05/17/24 18:06 103 H 05/17/24 16:52 97.9 F 93 24 126/93 93 L Intake and Output 05/17/24 05/18/24 05/18/24 22:59 06:59 14:59 Intake Total 16.833 76.667 88.833 Output Total 350 Balance 16.833 -273.333 88.833 Intake: Intake, IV Titration 16.833 76.667 88.833 Amount Diltiazem 125 mg In 16.833 76.667 88.833 Sodium Chloride 0.9% 100 ml @ 5 MG/HR 5 mls/hr IV .Q24H [facility] Rx#:[id number] Output: Urine 350 Other: Weight 121.563 kg GENERAL EXAM: Alert, active, pleasant 63-year-old male, on 4 L nasal cannula, fairly comfortable in no apparent distress. HEAD: Normocephalic. EYES: Normal reaction of pupils, equal size. NOSE: Clear with pink turbinates. THROAT: No erythema or exudates. NECK: No masses, no JVD. CHEST: No chest wall deformity. LUNGS: Equal air entry with few crackles in the posterior bases. CVS: S1 and S2 normal with no audible murmur, irregular rhythm. Tachycardic ABDOMEN: No hepatosplenomegaly, normal bowel sounds, no guarding or rigidity. SPINE: No scoliosis or deformity SKIN: No rashes CENTRAL NERVOUS SYSTEM: No focal deficits, tone is normal in all 4 extremities. EXTREMITIES: There is 1+ peripheral edema. No clubbing, no cyanosis. Peripheral pulses are intact. Results - Laboratory Findings CBC and BMP: 05/18/24 03:32 05/18/24 03:32 PT/INR, D-dimer PT 13.3 sec (10.0-12.5) H 05/17/24 17:36 INR 1.2 (<1.2) H 05/17/24 17:36 Abnormal lab findings: Abnormal Labs 05/17/24 05/17/24 05/17/24 17:36 17:36 17:36 WBC 23.16 H RBC 5.81 H Hgb 17.9 H Hct 54.0 H MCHC Immature Gran # 1.36 H Neutrophils # (Manual) 20.61 H Lymphocytes # (Manual) 0.46 L Monocytes # (Manual) 1.16 H Metamyelocytes # (Man) 0.23 H Myelocytes # (Manual) 0.93 H PT 13.3 H INR 1.2 H APTT 20.7 L Sodium Chloride 92 L Carbon Dioxide 39 H BUN 40 H Glucose 166 H Plasma Lactic Acid Heriberto Magnesium 2.6 H AST 205 H ALT 511 H Total Protein 6.0 L 05/17/24 05/17/24 05/18/24 17:36 20:55 00:06 WBC RBC Hgb Hct MCHC Immature Gran # Neutrophils # (Manual) Lymphocytes # (Manual) Monocytes # (Manual) Metamyelocytes # (Man) Myelocytes # (Manual) PT INR APTT Sodium Chloride Carbon Dioxide BUN Glucose Plasma Lactic Acid Heriberto 2.3 H* 3.0 H* 4.0 H* Magnesium AST ALT Total Protein 05/18/24 05/18/24 05/18/24 03:32 03:32 03:32 WBC 17.89 H RBC Hgb Hct 51.8 H MCHC 31.7 L Immature Gran # 0.98 H Neutrophils # (Manual) 16.63 H Lymphocytes # (Manual) Monocytes # (Manual) Metamyelocytes # (Man) 0.36 H Myelocytes # (Manual) PT INR APTT Sodium 136 L Chloride 93 L Carbon Dioxide 36 H BUN 41 H Glucose 281 H Plasma Lactic Acid Heriberto 5.0 H* Magnesium AST ALT Total Protein 05/18/24 05/18/24 06:51 11:05 WBC RBC Hgb Hct MCHC Immature Gran # Neutrophils # (Manual) Lymphocytes # (Manual) Monocytes # (Manual) Metamyelocytes # (Man) Myelocytes # (Manual) PT INR APTT Sodium Chloride Carbon Dioxide BUN Glucose Plasma Lactic Acid Heriberto 4.3 H* 4.1 H* Magnesium AST ALT Total Protein - Diagnostic Findings Chest x-ray: image reviewed Assessment and Plan Assessment: Atrial fibrillation with a rapid ventricular response, currently on a Cardizem drip, anticoagulated with Eliquis, remains on amiodarone and metoprolol Acute hypoxemic respiratory failure secondary to an exacerbation of chronic obstructive pulmonary disease Acute exacerbation of diastolic congestive heart failure Recent admission for a right lower lobe pneumonia and new onset atrial fibrillation Obstructive sleep apnea Morbid obesity Hypertension Diverticulosis Chronic and ongoing tobacco dependence Recent EGD for melena and epigastric pain Plan: The patient was seen and evaluated Chest x-ray, labs and medications reviewed Initiated on DuoNeb inhalations Initiated on Symbicort Initiated on Solu-Medrol Initiated on IV diuretics Remains on a Cardizem drip Cordarone was added Anticoagulated with Eliquis Continue antibiotics for now Check a procalcitonin Educated regarding smoking cessation NicoDerm patch will be offered Resume home medications Titrate down the FiO2 as tolerated Plan of care discussed with the patient who verbalizes understanding and is agreement to the plan We will continue to follow and make further recommendations based on his clinical status I have personally seen and examined the patient, performed the documentation and the assessment and plan as written. Number of minutes spent on the visit: 20 Dictation was produced using [employer] dictation software. Please excuse any grammatical, word or spelling errors. Time with Patient: Greater than 30
[2024-05-18] MEDS: METOPROLOL TARTRATE 50 MG TAB PO STA (14:26)
[2024-05-18] MEDS: ACETAMINOPHEN TAB 325 MG TAB PO PRN (15:31)
--- NOTE | 2024-05-18 15:57 | P.HPIM ---
History of Present Illness H&P Date: 05/18/24 This is a 63-year-old male with medical history significant for atrial fibrillation, COPD, hypertension, chronic nicotine use. Patient was just admitted to the hospital for abdominal pain; underwent endoscopic evaluation for GI bleed. During that hospital stay patient also was diagnosed with atrial f ibrillation and discharged on cardizem and eliquis. Patient was discharged home on oxygen via nasal cannula 2 L. Patient states that upon returning home it took forever for the oxygen to get delivered he became increasingly short of breath and developed a midsternal sharp chest pain. Patient was also feeling lightheaded. He used his inhalers without improvement in symptoms. Called EMS and presented back to the hospital for further evaluation. EMS found th epatien to be in afib rvr and he was given a bolus of cardizem. Chest x-ray reveals airspace over the infrahilar region lateral view ammonia. There are COPD changes. EKG reveals atrial fibrillation with rapid ventricular rate; heart ra te up into the 160s. Labs reveal a white blood cell count 23.16, hemoglobin 7.9, INR 1.2, sodium 137, BUN of 40 creatinine of 0.80 glucose of 166, lactic acid of 2.3, AST of 205 ALT of 511. Initial troponin level was negative his proBNP was elevated at 3850. Patient also has significant lower extremity edema which is pitting in nature. He was admitted to the hospital with consults placed to cardiology and pulmonology. He is requiring oxygen via nasal cannula at 5 L. His saturations are in the 88 to 93%. He has been afebrile. Patient was started on IV Cardizem running at 15 mL/h. Additionally patient was started on IV ceftriaxone and IV azithromycin. Patient started on IV Lasix 40 mg every 12 hours as well as IV Solu-Medrol. He is currently pending a bed on the cardiac unit. REVIEW OF SYSTEMS: CONSTITUTIONAL: No fever, no malaise, no fatigue. HEENT: No recent visual problems or hearing problems. Denied any sore throat. CARDIOVASCULAR: Reports chest pain, orthopnea, PND, no palpitations, no syncope. PULMONARY: Reports shortness of breath, no cough, no hemoptysis. GASTROINTESTINAL: No diarrhea, no nausea, no vomiting, no abdominal pain. NEUROLOGICAL: No headaches, no weakness, no numbness. HEMATOLOGICAL: Denies any bleeding or petechiae. GENITOURINARY: Denies any burning micturition, frequency, or urgency. MUSCULOSKELETAL/RHEUMATOLOGICAL: Denies any joint pain, swelling, or any muscle pain. Reports leg edema ENDOCRINE: Denies any polyuria or polydipsia. The rest of the 14-point review of systems is negative. PHYSICAL EXAMINATION: GENERAL: The patient is alert and oriented x3, not in any acute distress. Well developed, well nourished. HEENT: Pupils are round and equally reacting to light. EOMI. No scleral icterus. No conjunctival pallor. Normocephalic, atraumatic. No pharyngeal erythema. No thyromegaly. CARDIOVASCULAR: S1 and S2 present. No murmurs, rubs, or gallops. PULMONARY: Chest is clear to auscultation, no wheezing or crackles. Diminished ABDOMEN: Soft, nontender, nondistended, normoactive bowel sounds. No palpable organomegaly. MUSCULOSKELETAL: No joint swelling or deformity. EXTREMITIES: No cyanosis, clubbing, or pedal edema. +2 pitting edema NEUROLOGICAL: Gross neurological examination did not reveal any focal deficits. SKIN: No rashes. Assessment Atrial fibrillation with RVR Paroxysmal atrial fibrillation with RVR diagnosed prior hospital stay COPD exacerbation Acute on chronic hypoxemic respiratory failure Acute on chronic congestive heart failure with preserved EF. Lactic acidosis rule out sepsis Leukocytosis Hypertension Hyperglycemia with hemoglobin A1c 6.2 checked 5 days ago Tobacco use recently quit 2 weeks ago Obesity with likely obesity hypoventilation syndrome GI prophylaxis DVT prophylaxis Full code Plan Cardiology consultation patient to continue on IV Cardizem and oral amiodarone has been added Continue empiric antibiotics with IV ceftriaxone and IV azithromycin Check procalcitonin level Continue IV Lasix 40 mg every 12 hours with strict intake output monitoring Continue IV Solu-Medrol 40 mg every 8 hours Pulmonary consultation Continue oxygen support Repeat CMP in the morning if LFTs are not improving abdominal ultrasound will be completed The impression and plan of care has been dictated by Indira Sneed Nurse Practitioner as directed. Dr. Jose MD I have performed a history and physical examination and medical decision making of this patient, discussed the same with the dictator, and agree with the dictators assessment and plan as written, documented as a scribe. Based on total visit time, I have performed more than 50% of this visit. Past Medical History Past Medical History: COPD, Hypertension Additional Past Medical History / Comment(s): diverticulitis History of Any Multi-Drug Resistant Organisms: None Reported Past Surgical History: Heart Catheterization Past Anesthesia/Blood Transfusion Reactions: No Reported Reaction Additional Past Anesthesia/Blood Transfusion Reaction / Comment(s): Pt has never had a blood transfusion. Past Psychological History: No Psychological Hx Reported Smoking Status: Current every day smoker Past Alcohol Use History: Occasional Past Drug Use History: None Reported - Past Family History Mother Additional Family Medical History / Comment(s): Cardiac Father Additional Family Medical History / Comment(s): Cardiac Medications and Allergies Home Medications Medication Instructions Recorded Confirmed Type Budesonide/Formoterol Fumarate 2 puff INHALATION RT-BID 05/08/24 05/17/24 History [Symbicort 160-4.5 Mcg Inhaler] Acetaminophen Tab [Tylenol] 500 mg PO Q6HR PRN tab 05/16/24 05/17/24 Rx Amoxic-Pot Clav 500-125 mg 1 tab PO Q12HR 5 Days #10 tab 05/16/24 05/17/24 Rx [Augmentin 500-125 mg] Apixaban [Eliquis] 5 mg PO BID #60 tab 05/16/24 05/17/24 Rx Dapagliflozin Propanediol [Farxiga] 10 mg PO DAILY #30 tab 05/16/24 05/17/24 Rx Diltiazem Oral [Cardizem*] 60 mg PO TID #90 tab 05/16/24 05/17/24 Rx Furosemide [Lasix] 40 mg PO BID@0900,1600 #60 tab 05/16/24 05/17/24 Rx Mag Hydrox/Al Hydrox/Simeth 30 ml PO DAILY #200 ml 05/16/24 05/17/24 Rx [Maalox] Metoprolol Tartrate [Lopressor] 50 mg PO BID #60 tab 05/16/24 05/17/24 Rx Pantoprazole Sodium [Protonix] 40 mg PO BID #60 tab 05/16/24 05/17/24 Rx Sucralfate [Carafate] 1 gm PO AC-TID #60 tab 05/16/24 05/17/24 Rx Albuterol Inhaler [Ventolin Hfa 2 puff INHALATION RT-Q6H PRN 05/17/24 05/17/24 History Inhaler] predniSONE See Taper PO DIRECTED 05/17/24 05/17/24 History Allergies Allergy/AdvReac Type Severity Reaction Status Date / Time No Known Allergies Allergy Verified 05/17/24 18:50 Physical Exam Vitals: Vital Signs Temp Pulse Resp BP Pulse Ox 05/18/24 15:25 98.6 F 05/18/24 14:17 160 H 26 H 141/90 88 L 05/18/24 12:30 58 L 18 126/75 97 05/18/24 12:01 147 H 05/18/24 10:26 138 H 18 129/89 90 L 05/18/24 09:44 128 H 05/18/24 09:38 90 L 05/18/24 09:33 118 H 05/18/24 09:00 98.1 F 122 H 20 120/89 89 L 05/18/24 07:25 89 16 138/79 89 L 05/18/24 06:37 135 H 22 125/82 92 L 05/18/24 06:17 151 H 22 138/85 94 L 05/18/24 04:30 90 20 05/18/24 04:23 92 20 05/18/24 04:00 120 H 22 126/72 94 L 05/18/24 02:12 98.1 F 133 H 22 119/85 92 L 05/18/24 00:38 121 H 18 05/18/24 00:31 112 H 18 05/18/24 00:07 112 H 20 110/83 92 L 05/17/24 22:30 135 H 20 111/78 93 L 05/17/24 21:39 131 H 22 114/65 93 L 05/17/24 20:44 122 H 20 05/17/24 20:37 98 20 05/17/24 19:00 107 H 24 117/82 93 L 05/17/24 18:18 160 H 18 133/77 93 L 05/17/24 18:14 126 H 05/17/24 18:07 126 H 20 110/72 91 L 05/17/24 18:06 103 H 05/17/24 16:52 97.9 F 93 24 126/93 93 L Intake and Output 05/18/24 05/18/24 05/18/24 06:59 14:59 22:59 Intake Total 76.667 89.333 Output Total 350 Balance -273.333 89.333 Intake: Intake, IV Titration 76.667 89.333 Amount Diltiazem 125 mg In 76.667 89.333 Sodium Chloride 0.9% 100 ml @ 5 MG/HR 5 mls/hr IV .Q24H [facility] Rx#:[id number] Output: Urine 350 Results CBC & Chem 7: 05/18/24 03:32 05/18/24 03:32 Labs: Abnormal Lab Results - Last 24 Hours (Table) 05/17/24 05/17/24 05/17/24 Range/Units 17:36 17:36 17:36 WBC 23.16 H (4.50-10.00) 10*3/uL RBC 5.81 H (4.40-5.60) 10*6/uL Hgb 17.9 H (13.0-17.0) g/dL Hct 54.0 H (39.6-50.0) % MCHC (32.0-37.0) g/dL Immature Gran # 1.36 H (0.00-0.04) 10*3/uL Neutrophils # (Manual) 20.61 H (1.3-7.7) k/uL Lymphocytes # (Manual) 0.46 L (1.0-4.8) k/uL Monocytes # (Manual) 1.16 H (0-1.0) k/uL Metamyelocytes # (Man) 0.23 H (0) k/uL Myelocytes # (Manual) 0.93 H (0) k/uL PT 13.3 H (10.0-12.5) sec INR 1.2 H (<1.2) APTT 20.7 L (22.0-30.0) sec Sodium (137-145) mmol/L Chloride 92 L (98-107) mmol/L Carbon Dioxide 39 H (22-30) mmol/L BUN 40 H (9-20) mg/dL Glucose 166 H (74-99) mg/dL Plasma Lactic Acid Heriberto (0.7-2.0) mmol/L Magnesium 2.6 H (1.6-2.3) mg/dL AST 205 H (17-59) U/L ALT 511 H (4-49) U/L Total Protein 6.0 L (6.3-8.2) g/dL 05/17/24 05/17/24 05/18/24 Range/Units 17:36 20:55 00:06 WBC (4.50-10.00) 10*3/uL RBC (4.40-5.60) 10*6/uL Hgb (13.0-17.0) g/dL Hct (39.6-50.0) % MCHC (32.0-37.0) g/dL Immature Gran # (0.00-0.04) 10*3/uL Neutrophils # (Manual) (1.3-7.7) k/uL Lymphocytes # (Manual) (1.0-4.8) k/uL Monocytes # (Manual) (0-1.0) k/uL Metamyelocytes # (Man) (0) k/uL Myelocytes # (Manual) (0) k/uL PT (10.0-12.5) sec INR (<1.2) APTT (22.0-30.0) sec Sodium (137-145) mmol/L Chloride (98-107) mmol/L Carbon Dioxide (22-30) mmol/L BUN (9-20) mg/dL Glucose (74-99) mg/dL Plasma Lactic Acid Heriberto 2.3 H* 3.0 H* 4.0 H* (0.7-2.0) mmol/L Magnesium (1.6-2.3) mg/dL AST (17-59) U/L ALT (4-49) U/L Total Protein (6.3-8.2) g/dL 05/18/24 05/18/24 05/18/24 Range/Units 03:32 03:32 03:32 WBC 17.89 H (4.50-10.00) 10*3/uL RBC (4.40-5.60) 10*6/uL Hgb (13.0-17.0) g/dL Hct 51.8 H (39.6-50.0) % MCHC 31.7 L (32.0-37.0) g/dL Immature Gran # 0.98 H (0.00-0.04) 10*3/uL Neutrophils # (Manual) 16.63 H (1.3-7.7) k/uL Lymphocytes # (Manual) (1.0-4.8) k/uL Monocytes # (Manual) (0-1.0) k/uL Metamyelocytes # (Man) 0.36 H (0) k/uL Myelocytes # (Manual) (0) k/uL PT (10.0-12.5) sec INR (<1.2) APTT (22.0-30.0) sec Sodium 136 L (137-145) mmol/L Chloride 93 L (98-107) mmol/L Carbon Dioxide 36 H (22-30) mmol/L BUN 41 H (9-20) mg/dL Glucose 281 H (74-99) mg/dL Plasma Lactic Acid Heriberto 5.0 H* (0.7-2.0) mmol/L Magnesium (1.6-2.3) mg/dL AST (17-59) U/L ALT (4-49) U/L Total Protein (6.3-8.2) g/dL 05/18/24 05/18/24 Range/Units 06:51 11:05 WBC (4.50-10.00) 10*3/uL RBC (4.40-5.60) 10*6/uL Hgb (13.0-17.0) g/dL Hct (39.6-50.0) % MCHC (32.0-37.0) g/dL Immature Gran # (0.00-0.04) 10*3/uL Neutrophils # (Manual) (1.3-7.7) k/uL Lymphocytes # (Manual) (1.0-4.8) k/uL Monocytes # (Manual) (0-1.0) k/uL Metamyelocytes # (Man) (0) k/uL Myelocytes # (Manual) (0) k/uL PT (10.0-12.5) sec INR (<1.2) APTT (22.0-30.0) sec Sodium (137-145) mmol/L Chloride (98-107) mmol/L Carbon Dioxide (22-30) mmol/L BUN (9-20) mg/dL Glucose (74-99) mg/dL Plasma Lactic Acid Heriberto 4.3 H* 4.1 H* (0.7-2.0) mmol/L Magnesium (1.6-2.3) mg/dL AST (17-59) U/L ALT (4-49) U/L Total Protein (6.3-8.2) g/dL Assessment and Plan Time with Patient: Greater than 30
[2024-05-18] MEDS: DILTIAZEM 125 MG in SODIUM CHLORIDE 0.9% 100 ML IV SCH ×2 (16:15→18:47)
[2024-05-18 16:53] LABS: Glucose,Whole Blood 181 mg/dL (70-110)
[2024-05-18] MEDS: INSULIN LISPRO (HumaLOG) 100 UNIT/ML 10 mL VL SQ SCH (17:15)
--- NOTE | 2024-05-18 17:43 | XR ---
EXAMINATION TYPE: XR KUB DATE OF EXAM: 05/18/2024 5:34 PM COMPARISON: 03/25/2016 CLINICAL INDICATION: Male, 63 years old with history of abdominal discomfort, TECHNIQUE: XR KUB view(s) obtained. FINDINGS: There is a normal bowel gas pattern. No mass effect is evident. Psoas margins are normal. No organomegaly is present. No calcifications are identified. IMPRESSION: 1. Nonspecific abdomen. [facility], , 05/18/2024 5:41 PM
[2024-05-18] MEDS ORDERED: SIMETHICONE 80 MG CHEWABLE PO PRN (18:23)
[2024-05-18] MEDS ORDERED: IPRATROPIUM-ALBUTEROL 3 ML NEB INHALATION PRN (20:56)
[2024-05-18 21:00] LABS: Glucose,Whole Blood 221 mg/dL (70-110)
[2024-05-19 05:56] LABS: Glucose,Whole Blood 173 mg/dL (70-110)
[2024-05-19 06:41] LABS: Basophils # (A) 0.09 10*3/uL (0.00-0.10); Basophils % (A) 0.5 %; HCT 51.4 % (39.6-50.0); HGB 16.6 g/dL (13.0-17.0); Lymphocytes # (A) 0.68 10*3/uL (0.90-5.00); Lymphocytes % (A) 3.4 %; MCH 30.5 pg (27.0-32.0); MCHC 32.3 g/dL (32.0-37.0); MCV 94.3 fL (80.0-97.0); Mean Platelet Volume 11.8 fL (9.5-12.2); Monocytes # (A) 1.29 10*3/uL (0.20-1.00); Monocytes % (A) 6.5 %; Neutrophils # (A) 16.59 10*3/uL (1.80-7.70); Neutrophils % (A) 83.8 %; Platelet Count 158 10*3/uL (140-440); RBC 5.45 10*6/uL (4.40-5.60); RDW 14.4 % (11.5-14.5)
[2024-05-19 07:16] LABS: ALT 434 U/L (4-49); AST 106 U/L (17-59); African American GFR (CKD) >90 (>60 ml/min/1.73 sqM); Albumin 3.3 g/dL (3.5-5.0); Alkaline Phosphatase 62 U/L (38-126); Blood Urea Nitrogen 41 mg/dL (9-20); Calcium 8.7 mg/dL (8.4-10.2); Chloride 91 mmol/L (98-107); Glucose 166 mg/dL (74-99); Non-African American GFR(CKD) >90 (>60 ml/min/1.73 sqM); Potassium 4.3 mmol/L (3.5-5.1); Sodium 137 mmol/L (137-145); Total Bilirubin 1.4 mg/dL (0.2-1.3); Total Protein 5.5 g/dL (6.3-8.2)
[2024-05-19 07:22] LABS: Anion Gap 5 mmol/L
[2024-05-19 07:36] LABS: Carbon Dioxide 41 mmol/L (22-30)
[2024-05-19] MEDS: IPRATROPIUM-ALBUTEROL 3 ML NEB INHALATION SCH (08:43)
[2024-05-19 11:28] LABS: Glucose,Whole Blood 301 mg/dL (70-110)
[2024-05-19] MEDS: metOLazone 5 MG TAB PO SCH (11:53)
--- NOTE | 2024-05-19 12:51 | P.PN ---
Subjective Progress Note Date: 05/19/24 Principal diagnosis: Atrial fibrillation with RVR and acute on chronic hypoxic respiratory failure with underlying COPD The patient is seen today in consultation in the emergency department. Just discharged from here on 05/16/2024. He return to the emergency department yesterday 05/17/2024 with shortness of breath and palpitations. He was found to be in atrial fibrillation with a rapid ventricular response. He has a history of smoking/COPD and he has obvious features of obstructive sleep apnea. The patient used to smoke up to 2 pack of cigarettes a day and currently is down to 1 pack of cigarettes a day. Maintained on Symbicort on outpatient basis. Does not utilize home O2. No home CPAP machine. He has chronic exertional dyspnea. Chest x-ray shows similar airspace opacities in the infrahilar region. Evidence of COPD. Right count 17.8. Hemoglobin 16.4. Platelets 150. Sodium 136. Potassium 4.3. Bicarb 36. BUN 41. Creatinine 0.75. Glucose 281. Lactic 4.1. Troponin negative x 1. proBNP 3850. AST 205. ALT 511. He is currently sitting up on a stretcher. Awake and alert in no acute distress. Maintaining O2 saturations in the 90s on 4 L/min per nasal cannula. He does remain in atrial fibrillation with a rapid ventricular response. He has been initiated on a Cardizem drip at 15 mg/h. He is continued on his Eliquis. Patient was seen today on 05/19/2024, presently on Cardizem drip at 15 mg/h, being followed by cardiology for his atrial fibrillation and RVR. Patient is feeling much better today compared to yesterday, remains on 4 L nasal cannula with O2 sats of 94%. WBC count is 19.8 hemoglobin is 16.6 electrolytes are normal bicarb is 41 BUN 41 creatinine 0.89 KUB abdomen done yesterday showed nonspecific abdomen. Chest x-ray on admission showed mostly prominence of the pulmonary vasculature, and small left pleural effusion. There is also some component of basilar atelectasis. Doubt pneumonia. Objective - Vital Signs Vital signs: Vital Signs Temp 97.6 F 05/19/24 09:10 Pulse 101 H 05/19/24 12:00 Resp 17 05/19/24 12:00 BP 108/67 05/19/24 12:00 Pulse Ox 94 L 05/19/24 12:00 FiO2 Intake & Output 05/18/24 05/19/24 05/19/24 18:59 06:59 18:59 Intake Total 89.333 125 236 Output Total 600 200 Balance 89.333 -475 36 Weight 123 kg Intake: Intake, IV Titration 89.333 125 Amount Diltiazem 125 mg In 89.333 Sodium Chloride 0.9% 100 ml @ 15 MG/HR 15 mls/hr IV .Q8H20M [facility] Rx#: [id number] Diltiazem 125 mg In 125 Sodium Chloride 0.9% 100 ml @ 15 MG/HR 15 mls/hr IV .Q8H20M [facility] Rx#: [id number] Oral 236 Output: Urine 600 200 Other: Voiding Method Urinal Urinal - Exam GENERAL EXAM: Reveals 63-year-old white male obese pleasant in no distress on 4 L nasal cannula HEAD: Normocephalic. EYES: Normal reaction of pupils, equal size. NOSE: Clear with pink turbinates. THROAT: No erythema or exudates. NECK: No masses, no JVD. CHEST: No chest wall deformity. LUNGS: Diminished breath sounds at the bases no crackles rhonchi or wheezes CVS: S1 and S2 normal with no audible murmur, irregular rhythm. Tachycardic ABDOMEN: No hepatosplenomegaly, normal bowel sounds, no guarding or rigidity. SKIN: No rashes CENTRAL NERVOUS SYSTEM: No focal deficits, tone is normal in all 4 extremities. EXTREMITIES: There is 2+ peripheral edema. No clubbing, no cyanosis. Peripheral pulses are intact. - Labs CBC & Chem 7: 05/19/24 05:17 05/19/24 05:17 Labs: Abnormal Lab Results - Last 24 Hours (Table) 05/18/24 05/18/24 05/18/24 Range/Units 15:03 15:03 16:51 WBC (4.50-10.00) 10*3/uL Hct (39.6-50.0) % Immature Gran # (0.00-0.04) 10*3/uL Neutrophils # (1.80-7.70) 10*3/uL Lymphocytes # (0.90-5.00) 10*3/uL Monocytes # (0.20-1.00) 10*3/uL Eosinophils # (0.04-0.35) 10*3/uL Chloride (98-107) mmol/L Carbon Dioxide (22-30) mmol/L BUN (9-20) mg/dL Glucose (74-99) mg/dL POC Glucose (mg/dL) 181 H (70-110) mg/dL Hemoglobin A1c 6.6 H (<=6.0) % Plasma Lactic Acid Heriberto 2.8 H* (0.7-2.0) mmol/L Total Bilirubin (0.2-1.3) mg/dL AST (17-59) U/L ALT (4-49) U/L Total Protein (6.3-8.2) g/dL Albumin (3.5-5.0) g/dL 05/18/24 05/18/24 05/19/24 Range/Units 19:46 20:58 05:17 WBC 19.80 H (4.50-10.00) 10*3/uL Hct 51.4 H (39.6-50.0) % Immature Gran # 1.15 H (0.00-0.04) 10*3/uL Neutrophils # 16.59 H (1.80-7.70) 10*3/uL Lymphocytes # 0.68 L (0.90-5.00) 10*3/uL Monocytes # 1.29 H (0.20-1.00) 10*3/uL Eosinophils # 0.00 L (0.04-0.35) 10*3/uL Chloride (98-107) mmol/L Carbon Dioxide (22-30) mmol/L BUN (9-20) mg/dL Glucose (74-99) mg/dL POC Glucose (mg/dL) 221 H (70-110) mg/dL Hemoglobin A1c (<=6.0) % Plasma Lactic Acid Heriberto 3.4 H* (0.7-2.0) mmol/L Total Bilirubin (0.2-1.3) mg/dL AST (17-59) U/L ALT (4-49) U/L Total Protein (6.3-8.2) g/dL Albumin (3.5-5.0) g/dL 05/19/24 05/19/24 05/19/24 Range/Units 05:17 05:54 11:26 WBC (4.50-10.00) 10*3/uL Hct (39.6-50.0) % Immature Gran # (0.00-0.04) 10*3/uL Neutrophils # (1.80-7.70) 10*3/uL Lymphocytes # (0.90-5.00) 10*3/uL Monocytes # (0.20-1.00) 10*3/uL Eosinophils # (0.04-0.35) 10*3/uL Chloride 91 L (98-107) mmol/L Carbon Dioxide 41 H* (22-30) mmol/L BUN 41 H (9-20) mg/dL Glucose 166 H (74-99) mg/dL POC Glucose (mg/dL) 173 H 301 H (70-110) mg/dL Hemoglobin A1c (<=6.0) % Plasma Lactic Acid Heriberto (0.7-2.0) mmol/L Total Bilirubin 1.4 H (0.2-1.3) mg/dL AST 106 H (17-59) U/L ALT 434 H (4-49) U/L Total Protein 5.5 L (6.3-8.2) g/dL Albumin 3.3 L (3.5-5.0) g/dL Microbiology - Last 24 Hours (Table) 05/17/24 17:36 Blood Culture - Preliminary Blood Assessment and Plan Assessment: Impression: Atrial fibrillation with a rapid ventricular response, remains on Cardizem drip, he is also on Eliquis and amiodarone as well as metoprolol Acute hypoxemic respiratory failure secondary to an exacerbation of chronic obstructive pulmonary disease Acute exacerbation of diastolic congestive heart failure Recent admission for a right lower lobe pneumonia and new onset atrial fibrillation Obstructive sleep apnea Morbid obesity Hypertension Diverticulosis Chronic and ongoing tobacco dependence Recent EGD for melena and epigastric pain Plan Continue bronchodilators including DuoNeb, Symbicort, Solu-Medrol Continue Cardizem drip and diuretics Cordarone was added Anticoagulated with Eliquis Discontinue antibiotic recommend procalcitonin level 0.07 Educated regarding smoking cessation Resume home medications Titrate FiO2 accordingly Will continue to follow Time with Patient: Less than 30
[2024-05-19 12:54] LABS: Influenza A Not Detected (Not Detectd); Influenza B Not Detected (Not Detectd); RSV Not Detected (Not Detectd)
[2024-05-19] MEDS ORDERED: fentaNYL (PF) 50 MCG/ML 5 ML AMP IVP PRN (13:23)
[2024-05-19] MEDS ORDERED: MIDAZOLAM 2 MG/2 ML VIAL IV PRN (13:23)
--- NOTE | 2024-05-19 13:26 | P.PN ---
Subjective HISTORY OF PRESENT ILLNESS: This is a 63-year-old male patient of Dr. Lombardi with past medical history of paroxysmal atrial fibrillation, COPD, chronic tobacco use, hypertension, obesity with suspected obstructive sleep apnea. Patient was recently hospitalized for epigastric pain and concerns for black tarry stools. He underwent EGD with Dr. Juares which revealed linear ulcers in the antrum and pylorus of the stomach with no recent stigmata of bleeding. During that hospitalization cardiology was consulted for new onset of A-fib with RVR. Prior to his discharge, it was recommended that patient undergo MED and cardioversion for which patient declined as he wanted to go home. Patient was discharged home yesterday and return to the emergency center with complaints of increasing shortness of breath. He states that since he got home his breathing became much worse. His abdomen discomfort is much improved. He denies cough, wheeze. No chest pain. He states he has had lower extremity edema which was present on previous admission. No palpitations. No fever. No dizziness. He had no improvement of his breathing despite using his inhalers and he increased his oxygen to 6 L. EMS found that he was in A-fib with RVR and gave 1 dose of 20 mg of Cardizem. His initial EKG showed A-fib with RVR at 169 bpm. Patient was started on Cardizem bolus 20 mg followed by 10 mg and another 10 mg followed by a drip at 15 mg/h. Blood pressure 138/79, heart rate 147, pulse ox 89% on 4 L nasal cannula. -EKG: Atrial fibrillation at 169 bpm, #2 atrial fibrillation at 143 bpm -Chest x-ray: Airspace opacities over the infrahilar region on lateral view correlate for pneumonia. COPD changes -Laboratory studies: WBC initially 23.1, hemoglobin 16.4, sodium 136, potassium 4.3, creatinine 0.75. Lactic acid 5. AST 205, ALT 511, troponin negative x 1. proBNP 3850. -Home cardiac medications: Eliquis 5 mg twice daily, Farxiga 10 mg daily, C ardizem 60 mg 3 times daily, Lasix 40 mg twice daily, metoprolol tartrate 50 mg twice daily. -Echocardiogram performed on 05/10/2024 revealed LVH with preserved systolic function. Mildly enlarged right ventricle. Left atrial enlargement. No identifiable tricuspid regurgitation to assess RVSP. 05/19/2024 Patient examined this morning at the bedside. Patient is sitting on the side of the bed. Patient currently denies chest pain or pressure. He reports improvement in his shortness of breath. He remains on IV Lasix. BUN 41. Creatinine 0.89. He remains in atrial fibrillation with a heart rate in the 90s. He remains on IV Cardizem at 15 mg an hour. PHYSICAL EXAM: VITAL SIGNS: Reviewed. GENERAL: Well-developed in no acute distress. NECK: Supple. No JVD or thyromegaly LUNGS: Respirations even and unlabored. Lungs essentially clear to auscultation bilaterally. HEART: Irregular rate and rhythm. S1 and S2 heard. EXTREMITIES: Normal range of motion. No clubbing or cyanosis. Peripheral pulses intact. 1-2+ bilateral lower extremity edema ASSESSMENT: Paroxysmal atrial fibrillation with RVR, diagnosed 05/2024 Acute on chronic hypoxic respiratory failure, multifactorial Pneumonia COPD exacerbation Acute on chronic heart failure with preserved EF Epigastric abdominal pain status post EGD on 05 15 which revealed linear ulcers in the antrum and pylorus of the stomach with no recent stigmata of bleeding Polycythemia Hypertension Tobacco use and dependence Obesity with suspected ISIAH PLAN: Continue anticoagulation with Eliquis Continue IV Lasix 40 mg every 12 hours Add Zaroxolyn 5 mg daily Daily weights, accurate intake and output, and monitoring of kidney function Continue amiodarone and metoprolol Continue IV Cardizem Patient to undergo MED/cardioversion on Tuesday with Dr. Lombardi Nurse practitioner note has been reviewed by physician. Signing provider agrees with the documented findings, assessment, and plan of care documented by [employer] as a scribe. Objective - Vital Signs Vital signs: Vital Signs Temp 97.6 F 05/19/24 09:10 Pulse 87 05/19/24 13:16 Resp 18 05/19/24 13:16 BP 108/67 05/19/24 12:00 Pulse Ox 94 L 05/19/24 12:00 FiO2 Intake & Output 05/18/24 05/19/24 05/19/24 18:59 06:59 18:59 Intake Total 89.333 125 478.5 Output Total 600 200 Balance 89.333 -475 278.5 Weight 123 kg Intake: Intake, IV Titration 89.333 125 122.5 Amount Diltiazem 125 mg In 89.333 Sodium Chloride 0.9% 100 ml @ 15 MG/HR 15 mls/hr IV .Q8H20M [facility] Rx#: [id number] Diltiazem 125 mg In 125 122.5 Sodium Chloride 0.9% 100 ml @ 15 MG/HR 15 mls/hr IV .Q8H20M [facility] Rx#: [id number] Oral 356 Output: Urine 600 200 Other: Voiding Method Urinal Urinal - Labs CBC & Chem 7: 05/19/24 05:17 05/19/24 05:17 Labs: Abnormal Lab Results - Last 24 Hours (Table) 05/18/24 05/18/24 05/18/24 Range/Units 15:03 15:03 16:51 WBC (4.50-10.00) 10*3/uL Hct (39.6-50.0) % Immature Gran # (0.00-0.04) 10*3/uL Neutrophils # (1.80-7.70) 10*3/uL Lymphocytes # (0.90-5.00) 10*3/uL Monocytes # (0.20-1.00) 10*3/uL Eosinophils # (0.04-0.35) 10*3/uL Chloride (98-107) mmol/L Carbon Dioxide (22-30) mmol/L BUN (9-20) mg/dL Glucose (74-99) mg/dL POC Glucose (mg/dL) 181 H (70-110) mg/dL Hemoglobin A1c 6.6 H (<=6.0) % Plasma Lactic Acid Heriberto 2.8 H* (0.7-2.0) mmol/L Total Bilirubin (0.2-1.3) mg/dL AST (17-59) U/L ALT (4-49) U/L Total Protein (6.3-8.2) g/dL Albumin (3.5-5.0) g/dL 05/18/24 05/18/24 05/19/24 Range/Units 19:46 20:58 05:17 WBC 19.80 H (4.50-10.00) 10*3/uL Hct 51.4 H (39.6-50.0) % Immature Gran # 1.15 H (0.00-0.04) 10*3/uL Neutrophils # 16.59 H (1.80-7.70) 10*3/uL Lymphocytes # 0.68 L (0.90-5.00) 10*3/uL Monocytes # 1.29 H (0.20-1.00) 10*3/uL Eosinophils # 0.00 L (0.04-0.35) 10*3/uL Chloride (98-107) mmol/L Carbon Dioxide (22-30) mmol/L BUN (9-20) mg/dL Glucose (74-99) mg/dL POC Glucose (mg/dL) 221 H (70-110) mg/dL Hemoglobin A1c (<=6.0) % Plasma Lactic Acid Heriberto 3.4 H* (0.7-2.0) mmol/L Total Bilirubin (0.2-1.3) mg/dL AST (17-59) U/L ALT (4-49) U/L Total Protein (6.3-8.2) g/dL Albumin (3.5-5.0) g/dL 05/19/24 05/19/24 05/19/24 Range/Units 05:17 05:54 11:26 WBC (4.50-10.00) 10*3/uL Hct (39.6-50.0) % Immature Gran # (0.00-0.04) 10*3/uL Neutrophils # (1.80-7.70) 10*3/uL Lymphocytes # (0.90-5.00) 10*3/uL Monocytes # (0.20-1.00) 10*3/uL Eosinophils # (0.04-0.35) 10*3/uL Chloride 91 L (98-107) mmol/L Carbon Dioxide 41 H* (22-30) mmol/L BUN 41 H (9-20) mg/dL Glucose 166 H (74-99) mg/dL POC Glucose (mg/dL) 173 H 301 H (70-110) mg/dL Hemoglobin A1c (<=6.0) % Plasma Lactic Acid Heriberto (0.7-2.0) mmol/L Total Bilirubin 1.4 H (0.2-1.3) mg/dL AST 106 H (17-59) U/L ALT 434 H (4-49) U/L Total Protein 5.5 L (6.3-8.2) g/dL Albumin 3.3 L (3.5-5.0) g/dL Microbiology - Last 24 Hours (Table) 05/17/24 17:36 Blood Culture - Preliminary Blood
[2024-05-19 16:27] LABS: Glucose,Whole Blood 197 mg/dL (70-110)
[2024-05-19 20:03] LABS: Glucose,Whole Blood 303 mg/dL (70-110)
--- NOTE | 2024-05-19 22:03 | P.PN ---
Subjective Progress Note Date: 05/19/24 This is a 63-year-old male with medical history significant for atrial fibrillation, COPD, hypertension, chronic nicotine use. Patient was just admitted to the hospital for abdominal pain; underwent endoscopic evaluation for GI bleed. During that hospital stay patient also was diagnosed with atrial fibrillation and discharged on cardizem and eliquis. Patient was discharged home on oxygen via nasal cannula 2 L. Patient states that upon returning home it took forever for the oxygen to get delivered he became increasingly short of breath and developed a midsternal sharp chest pain. Patient was also feeling lightheaded. He used his inhalers without improvement in symptoms. Called EMS and presented back to the hospital for further evaluation. EMS found th epatien to be in afib rvr and he was given a bolus of cardizem. Chest x-ray reveals airspace over the infrahilar region lateral view ammonia. There are COPD changes. EKG reveals atrial fibrillation with rapid ventricular rate; heart rate up into the 160s. Labs reveal a white blood cell count 23.16, hemoglobin 7.9, INR 1.2, sodium 137, BUN of 40 creatinine of 0.80 glucose of 166, lactic acid of 2.3, AST of 205 ALT of 511. Initial troponin level was negative his proBNP was elevated at 3850. Patient also has significant lower extremity edema which is pitting in nature. He was admitted to the hospital with consults placed to cardiology and pulmonology. He is requiring oxygen via nasal cannula at 5 L. His saturations are in the 88 to 93%. He has been afebrile. Patient was started on IV Cardizem running at 15 mL/h. Additionally patient was started on IV ceftriaxone and IV azithromycin. Patient started on IV Lasix 40 mg every 12 hours as well as IV Solu-Medrol. He is currently pending a bed on the cardiac unit. 05/19/2024 Patient is evaluated in follow on the cardiac unit. He is sitting up at the bedside with family. Reports feeling less short of breath. Does continue with significant lower extremity edema. He continues on oxygen via nasal cannula. Continues to go in and out of atrial fibrillation with RVR heart rate up into the 150s. Cardiology is recommending MED and cardioversion. KUB completed for complaints of abdominal bloating which reveals a nonspecific abdomen. LFTs improving. Continues on IV lasix. Procalcitonin level 0.07 and antibiotics have been discontinued. White blood cell count 19.80, sodium 137, CO2 41, BUN 41, creatinine 0.89. REVIEW OF SYSTEMS: CONSTITUTIONAL: No fever, no malaise, no fatigue. HEENT: No recent visual problems or hearing problems. Denied any sore throat. CARDIOVASCULAR: Reports chest pain, orthopnea, PND, no palpitations, no syncope. PULMONARY: Reports shortness of breath, no cough, no hemoptysis. GASTROINTESTINAL: No diarrhea, no nausea, no vomiting, no abdominal pain. NEUROLOGICAL: No headaches, no weakness, no numbness. PHYSICAL EXAMINATION: GENERAL: The patient is alert and oriented x3, not in any acute distress. Well developed, well nourished. HEENT: Pupils are round and equally reacting to light. EOMI. No scleral icterus. No conjunctival pallor. Normocephalic, atraumatic. No pharyngeal erythema. No thyromegaly. CARDIOVASCULAR: S1 and S2 present. No murmurs, rubs, or gallops. PULMONARY: Chest is clear to auscultation, no wheezing or crackles. Diminished ABDOMEN: Soft, nontender, nondistended, normoactive bowel sounds. No palpable organomegaly. MUSCULOSKELETAL: No joint swelling or deformity. EXTREMITIES: No cyanosis, clubbing, or pedal edema. +2 pitting edema NEUROLOGICAL: Gross neurological examination did not reveal any focal deficits. SKIN: No rashes. Assessment Atrial fibrillation with RVR Paroxysmal atrial fibrillation with RVR diagnosed prior hospital stay COPD exacerbation Acute on chronic hypoxemic respiratory failure Acute on chronic congestive heart failure with preserved EF. Lactic acidosis rule out sepsis Transaminitis from hepatic congestion. Leukocytosis Hypertension Hyperglycemia with hemoglobin A1c 6.6 Tobacco use recently quit 2 weeks ago Obesity with likely obesity hypoventilation syndrome GI prophylaxis DVT prophylaxis Full code Plan Cardiology consultation patient to continue on IV Cardizem and oral amiodarone has been added Patient on oral metoprolol 50 mg twice daily. Continue IV Lasix 40 mg every 12 hours with strict intake output monitoring Continue IV Solu-Medrol 40 mg every 8 hours Pulmonary consultation Continue oxygen support Repeat CMP in the morning Patient to go for MED and cardioversion Continue cardiac telemetry The impression and plan of care has been dictated by Indira Sneed, Nurse Practitioner as directed. Dr. Jose MD I have performed a history and physical examination and medical decision making of this patient, discussed the same with the dictator, and agree with the dictators assessment and plan as written, documented as a scribe. Based on total visit time, I have performed more than 50% of this visit. Objective - Vital Signs Vital signs: Vital Signs Temp 97.9 F 05/18/24 22:55 Pulse 88 05/19/24 08:56 Resp 18 05/19/24 08:56 BP 119/72 05/19/24 03:48 Pulse Ox 96 05/19/24 08:43 FiO2 Intake & Output 05/18/24 05/19/24 05/19/24 18:59 06:59 18:59 Intake Total 89.333 125 236 Output Total 600 200 Balance 89.333 -475 36 Weight 123 kg Intake: Intake, IV Titration 89.333 125 Amount Diltiazem 125 mg In 89.333 Sodium Chloride 0.9% 100 ml @ 15 MG/HR 15 mls/hr IV .Q8H20M [facility] Rx#: [id number] Diltiazem 125 mg In 125 Sodium Chloride 0.9% 100 ml @ 15 MG/HR 15 mls/hr IV .Q8H20[facility] Rx#: [id number] Oral 236 Output: Urine 600 200 Other: Voiding Method Urinal - Labs CBC & Chem 7: 05/19/24 05:17 05/19/24 05:17 Labs: Abnormal Lab Results - Last 24 Hours (Table) 05/18/24 05/18/24 05/18/24 Range/Units 11:05 15:03 15:03 WBC (4.50-10.00) 10*3/uL Hct (39.6-50.0) % Immature Gran # (0.00-0.04) 10*3/uL Neutrophils # (1.80-7.70) 10*3/uL Lymphocytes # (0.90-5.00) 10*3/uL Monocytes # (0.20-1.00) 10*3/uL Eosinophils # (0.04-0.35) 10*3/uL Chloride (98-107) mmol/L Carbon Dioxide (22-30) mmol/L BUN (9-20) mg/dL Glucose (74-99) mg/dL POC Glucose (mg/dL) (70-110) mg/dL Hemoglobin A1c 6.6 H (<=6.0) % Plasma Lactic Acid Heriberto 4.1 H* 2.8 H* (0.7-2.0) mmol/L Total Bilirubin (0.2-1.3) mg/dL AST (17-59) U/L ALT (4-49) U/L Total Protein (6.3-8.2) g/dL Albumin (3.5-5.0) g/dL 05/18/24 05/18/24 05/18/24 Range/Units 16:51 19:46 20:58 WBC (4.50-10.00) 10*3/uL Hct (39.6-50.0) % Immature Gran # (0.00-0.04) 10*3/uL Neutrophils # (1.80-7.70) 10*3/uL Lymphocytes # (0.90-5.00) 10*3/uL Monocytes # (0.20-1.00) 10*3/uL Eosinophils # (0.04-0.35) 10*3/uL Chloride (98-107) mmol/L Carbon Dioxide (22-30) mmol/L BUN (9-20) mg/dL Glucose (74-99) mg/dL POC Glucose (mg/dL) 181 H 221 H (70-110) mg/dL Hemoglobin A1c (<=6.0) % Plasma Lactic Acid Heriberto 3.4 H* (0.7-2.0) mmol/L Total Bilirubin (0.2-1.3) mg/dL AST (17-59) U/L ALT (4-49) U/L Total Protein (6.3-8.2) g/dL Albumin (3.5-5.0) g/dL 05/19/24 05/19/24 05/19/24 Range/Units 05:17 05:17 05:54 WBC 19.80 H (4.50-10.00) 10*3/uL Hct 51.4 H (39.6-50.0) % Immature Gran # 1.15 H (0.00-0.04) 10*3/uL Neutrophils # 16.59 H (1.80-7.70) 10*3/uL Lymphocytes # 0.68 L (0.90-5.00) 10*3/uL Monocytes # 1.29 H (0.20-1.00) 10*3/uL Eosinophils # 0.00 L (0.04-0.35) 10*3/uL Chloride 91 L (98-107) mmol/L Carbon Dioxide 41 H* (22-30) mmol/L BUN 41 H (9-20) mg/dL Glucose 166 H (74-99) mg/dL POC Glucose (mg/dL) 173 H (70-110) mg/dL Hemoglobin A1c (<=6.0) % Plasma Lactic Acid Heriberto (0.7-2.0) mmol/L Total Bilirubin 1.4 H (0.2-1.3) mg/dL AST 106 H (17-59) U/L ALT 434 H (4-49) U/L Total Protein 5.5 L (6.3-8.2) g/dL Albumin 3.3 L (3.5-5.0) g/dL Microbiology - Last 24 Hours (Table) 05/17/24 17:36 Blood Culture - Preliminary Blood
[2024-05-19] MEDS: INSULIN GLARGINE (LANTUS) 100 UNIT/ML SYR SQ SCH (22:36)
[2024-05-20 06:08] LABS: HCT 49.8 % (39.6-50.0); HGB 16.5 g/dL (13.0-17.0); MCH 30.8 pg (27.0-32.0); MCHC 33.1 g/dL (32.0-37.0); MCV 92.9 fL (80.0-97.0); Mean Platelet Volume 11.7 fL (9.5-12.2); Platelet Count 142 10*3/uL (140-440); RBC 5.36 10*6/uL (4.40-5.60); RDW 14.1 % (11.5-14.5); WBC 20.58 10*3/uL (4.50-10.00)
[2024-05-20 06:18] LABS: Glucose,Whole Blood 120 mg/dL (70-110)
[2024-05-20 06:23] LABS: ALT 346 U/L (4-49); AST 41 U/L (17-59); African American GFR (CKD) >90 (>60 ml/min/1.73 sqM); Albumin 3.3 g/dL (3.5-5.0); Alkaline Phosphatase 60 U/L (38-126); Blood Urea Nitrogen 39 mg/dL (9-20); Chloride 84 mmol/L (98-107); Glucose 134 mg/dL (74-99); Non-African American GFR(CKD) >90 (>60 ml/min/1.73 sqM); Potassium 3.8 mmol/L (3.5-5.1); Sodium 134 mmol/L (137-145); Total Bilirubin 1.2 mg/dL (0.2-1.3); Total Protein 5.7 g/dL (6.3-8.2)
[2024-05-20 06:29] LABS: Anion Gap 7 mmol/L
[2024-05-20 06:59] LABS: Carbon Dioxide 43 mmol/L (22-30)
[2024-05-20] MEDS: predniSONE 20 MG TAB PO SCH (08:06)
[2024-05-20 11:27] LABS: Glucose,Whole Blood 193 mg/dL (70-110)
--- NOTE | 2024-05-20 11:39 | P.PN ---
Subjective Progress Note Date: 05/20/24 Principal diagnosis: Atrial fibrillation with RVR and acute on chronic hypoxic respiratory failure with underlying COPD The patient is seen today in consultation in the emergency department. Just discharged from here on 05/16/2024. He return to the emergency department yesterday 05/17/2024 with shortness of breath and palpitations. He was found to be in atrial fibrillation with a rapid ventricular response. He has a history of smoking/COPD and he has obvious features of obstructive sleep apnea. The patient used to smoke up to 2 pack of cigarettes a day and currently is down to 1 pack of cigarettes a day. Maintained on Symbicort on outpatient basis. Does not utilize home O2. No home CPAP machine. He has chronic exertional dyspnea. Chest x-ray shows similar airspace opacities in the infrahilar region. Evidence of COPD. Right count 17.8. Hemoglobin 16.4. Platelets 150. Sodium 136. Potassium 4.3. Bicarb 36. BUN 41. Creatinine 0.75. Glucose 281. Lactic 4.1. Troponin negative x 1. proBNP 3850. AST 205. ALT 511. He is currently sitting up on a stretcher. Awake and alert in no acute distress. Maintaining O2 saturations in the 90s on 4 L/min per nasal cannula. He does remain in atrial fibrillation with a rapid ventricular response. He has been initiated on a Cardizem drip at 15 mg/h. He is continued on his Eliquis. Patient was seen today on 05/19/2024, presently on Cardizem drip at 15 mg/h, being followed by cardiology for his atrial fibrillation and RVR. Patient is feeling much better today compared to yesterday, remains on 4 L nasal cannula with O2 sats of 94%. WBC count is 19.8 hemoglobin is 16.6 electrolytes are normal bicarb is 41 BUN 41 creatinine 0.89 KUB abdomen done yesterday showed nonspecific abdomen. Chest x-ray on admission showed mostly prominence of the pulmonary vasculature, and small left pleural effusion. There is also some component of basilar atelectasis. Doubt pneumonia. Patient was seen today on 05/20/2024, remains on Cardizem drip at 15 mg/h. His rapid atrial fibrillation seems to be under control, but he remains in atrial fibrillation. Clinically the patient is feeling better, breathing a bit easier, remains on 4 L nasal cannula, patient does have underlying severe COPD. On bronchodilators. Labs today showed leukocytosis with WBC of 20.58 hemoglobin 16.5 electrolytes are normal bicarb is 43 BUN is 39 creatinine 0.79 patient is on prednisone for his COPD he is also on diuretics and bronchodilators/DuoNeb as well as Symbicort. For his atrial fibrillation remains on Eliquis, amiodarone, Cardizem, metoprolol Objective - Vital Signs Vital signs: Vital Signs Temp 98 F 05/20/24 08:00 Pulse 125 H 05/20/24 09:09 Resp 17 05/20/24 08:00 BP 121/83 05/20/24 08:00 Pulse Ox 95 05/20/24 08:00 FiO2 Intake & Output 05/19/24 05/20/24 05/20/24 18:59 06:59 18:59 Intake Total 718.5 751.75 0 Output Total 200 3160 Balance 518.5 -2408.25 0 Weight 123.2 kg Intake: Intake, IV Titration 122.5 211.75 Amount Diltiazem 125 mg In 122.5 211.75 Sodium Chloride 0.9% 100 ml @ 15 MG/HR 15 mls/hr IV .Q8H20M [facility] Rx#: [id number] Oral 596 540 0 Output: Urine 200 3160 Other: Voiding Method Urinal Urinal Urinal # Voids 2 - Exam GENERAL EXAM: Reveals 63-year-old white male obese pleasant in no distress on 4 L nasal cannula HEAD: Normocephalic. EYES: Normal reaction of pupils, equal size. NOSE: Clear with pink turbinates. THROAT: No erythema or exudates. NECK: No masses, no JVD. CHEST: No chest wall deformity. LUNGS: Diminished breath sounds at the bases no crackles rhonchi or wheezes CVS: S1 and S2 normal with no audible murmur, irregular rhythm. Tachycardic ABDOMEN: No hepatosplenomegaly, normal bowel sounds, no guarding or rigidity. SKIN: No rashes CENTRAL NERVOUS SYSTEM: No focal deficits, tone is normal in all 4 extremities. EXTREMITIES: There is 2+ peripheral edema. No clubbing, no cyanosis. Peripheral pulses are intact. - Labs CBC & Chem 7: 05/20/24 05:15 05/20/24 05:15 Labs: Abnormal Lab Results - Last 24 Hours (Table) 05/19/24 05/19/24 05/20/24 Range/Units 16:25 20:02 05:15 WBC (4.50-10.00) 10*3/uL Sodium 134 L (137-145) mmol/L Chloride 84 L (98-107) mmol/L Carbon Dioxide 43 H* (22-30) mmol/L BUN 39 H (9-20) mg/dL Glucose 134 H (74-99) mg/dL POC Glucose (mg/dL) 197 H 303 H (70-110) mg/dL ALT 346 H (4-49) U/L Total Protein 5.7 L (6.3-8.2) g/dL Albumin 3.3 L (3.5-5.0) g/dL 05/20/24 05/20/24 05/20/24 Range/Units 05:15 06:17 11:24 WBC 20.58 H (4.50-10.00) 10*3/uL Sodium (137-145) mmol/L Chloride (98-107) mmol/L Carbon Dioxide (22-30) mmol/L BUN (9-20) mg/dL Glucose (74-99) mg/dL POC Glucose (mg/dL) 120 H 193 H (70-110) mg/dL ALT (4-49) U/L Total Protein (6.3-8.2) g/dL Albumin (3.5-5.0) g/dL Microbiology - Last 24 Hours (Table) 05/17/24 17:36 Blood Culture - Preliminary Blood Assessment and Plan Assessment: Impression: Atrial fibrillation with a rapid ventricular response, remains on Cardizem drip, he is also on Eliquis and amiodarone as well as metoprolol Acute hypoxemic respiratory failure secondary to an exacerbation of chronic obstructive pulmonary disease, on DuoNeb, prednisone 40 mg daily and Symbicort. Acute exacerbation of diastolic congestive heart failure Recent admission for a right lower lobe pneumonia and new onset atrial fibrillation Obstructive sleep apnea Morbid obesity Hypertension Diverticulosis Chronic and ongoing tobacco dependence Recent EGD for melena and epigastric pain Plan Continue bronchodilators including DuoNeb, Symbicort, Solu-Medrol Continue Cardizem drip and diuretics Continue amiodarone as per cardiology Continue anticoagulation with Eliquis No need for antibiotics since procalcitonin level was 0.07 Resume home medications Titrate FiO2 accordingly Will continue to follow Time with Patient: Less than 30
--- NOTE | 2024-05-20 12:03 | P.PN ---
Subjective HISTORY OF PRESENT ILLNESS: This is a 63-year-old male patient of Dr. Lombardi with past medical history of paroxysmal atrial fibrillation, COPD, chronic tobacco use, hypertension, obesity with suspected obstructive sleep apnea. Patient was recently hospitalized for epigastric pain and concerns for black tarry stools. He underwent EGD with Dr. Juares which revealed linear ulcers in the antrum and pylorus of the stomach with no recent stigmata of bleeding. During that hospitalization cardiology was consulted for new onset of A-fib with RVR. Prior to his discharge, it was recommended that patient undergo MED and cardioversion for which patient declined as he wanted to go home. Patient was discharged home yesterday and return to the emergency center with complaints of increasing shortness of breath. He states that since he got home his breathing became much worse. His abdomen discomfort is much improved. He denies cough, wheeze. No chest pain. He states he has had lower extremity edema which was present on previous admission. No palpitations. No fever. No dizziness. He had no improvement of his breathing despite using his inhalers and he increased his oxygen to 6 L. EMS found that he was in A-fib with RVR and gave 1 dose of 20 mg of Cardizem. His initial EKG showed A-fib with RVR at 169 bpm. Patient was started on Cardizem bolus 20 mg followed by 10 mg and another 10 mg followed by a drip at 15 mg/h. Blood pressure 138/79, heart rate 147, pulse ox 89% on 4 L nasal cannula. -EKG: Atrial fibrillation at 169 bpm, #2 atrial fibrillation at 143 bpm -Chest x-ray: Airspace opacities over the infrahilar region on lateral view correlate for pneumonia. COPD changes -Laboratory studies: WBC initially 23.1, hemoglobin 16.4, sodium 136, potassium 4.3, creatinine 0.75. Lactic acid 5. AST 205, ALT 511, troponin negative x 1. proBNP 3850. -Home cardiac medications: Eliquis 5 mg twice daily, Farxiga 10 mg daily, C ardizem 60 mg 3 times daily, Lasix 40 mg twice daily, metoprolol tartrate 50 mg twice daily. -Echocardiogram performed on 05/10/2024 revealed LVH with preserved systolic function. Mildly enlarged right ventricle. Left atrial enlargement. No identifiable tricuspid regurgitation to assess RVSP. 05/19/2024 Patient examined this morning at the bedside. Patient is sitting on the side of the bed. Patient currently denies chest pain or pressure. He reports improvement in his shortness of breath. He remains on IV Lasix. BUN 41. Creatinine 0.89. He remains in atrial fibrillation with a heart rate in the 90s. He remains on IV Cardizem at 15 mg an hour. 05/20/2024 Patient examined this morning at bedside. He continues to report shortness of breath although improved today. He remains on IV Lasix. He continues to have lower extremity edema although improving. He remains in atrial fibrillation with heart rate between [id number]. He remains on IV Cardizem at 15 mg an hour. CO2 increased to 43 today. PHYSICAL EXAM: VITAL SIGNS: Reviewed. GENERAL: Well-developed in no acute distress. NECK: Supple. No JVD or thyromegaly LUNGS: Respirations even and unlabored. Lungs essentially clear to auscultation bilaterally. HEART: Irregular rate and rhythm. S1 and S2 heard. EXTREMITIES: Normal range of motion. No clubbing or cyanosis. Peripheral pulses intact. 1-2+ bilateral lower extremity edema ASSESSMENT: Paroxysmal atrial fibrillation with RVR, diagnosed 05/2024 Acute on chronic hypoxic respiratory failure, multifactorial Pneumonia COPD exacerbation Acute on chronic heart failure with preserved EF Epigastric abdominal pain status post EGD on 05 15 which revealed linear ulcers in the antrum and pylorus of the stomach with no recent stigmata of bleeding Polycythemia Hypertension Tobacco use and dependence Obesity with suspected ISIAH PLAN: Continue anticoagulation with Eliquis Continue IV Lasix 40 mg every 12 hours Discontinue Zaroxolyn Daily weights, accurate intake and output, and monitoring of kidney function Continue amiodarone and metoprolol Continue IV Cardizem Patient to undergo MED/cardioversion on Tuesday with Dr. Lombardi Nurse practitioner note has been reviewed by physician. Signing provider agrees with the documented findings, assessment, and plan of care documented by COMPRESSOR REPAIRER as a scribe. Objective - Vital Signs Vital signs: Vital Signs Temp 98 F 05/20/24 08:00 Pulse 100 05/20/24 11:55 Resp 17 05/20/24 08:00 BP 121/83 05/20/24 08:00 Pulse Ox 95 05/20/24 08:00 FiO2 Intake & Output 05/19/24 05/20/24 05/20/24 18:59 06:59 18:59 Intake Total 718.5 751.75 0 Output Total 200 3160 Balance 518.5 -2408.25 0 Weight 123.2 kg Intake: Intake, IV Titration 122.5 211.75 Amount Diltiazem 125 mg In 122.5 211.75 Sodium Chloride 0.9% 100 ml @ 15 MG/HR 15 mls/hr IV .Q8H20M [facility] Rx#: [id number] Oral 596 540 0 Output: Urine 200 3160 Other: Voiding Method Urinal Urinal Urinal # Voids 2 - Labs CBC & Chem 7: 05/20/24 05:15 05/20/24 05:15 Labs: Abnormal Lab Results - Last 24 Hours (Table) 05/19/24 05/19/24 05/20/24 Range/Units 16:25 20:02 05:15 WBC (4.50-10.00) 10*3/uL Sodium 134 L (137-145) mmol/L Chloride 84 L (98-107) mmol/L Carbon Dioxide 43 H* (22-30) mmol/L BUN 39 H (9-20) mg/dL Glucose 134 H (74-99) mg/dL POC Glucose (mg/dL) 197 H 303 H (70-110) mg/dL ALT 346 H (4-49) U/L Total Protein 5.7 L (6.3-8.2) g/dL Albumin 3.3 L (3.5-5.0) g/dL 05/20/24 05/20/24 05/20/24 Range/Units 05:15 06:17 11:24 WBC 20.58 H (4.50-10.00) 10*3/uL Sodium (137-145) mmol/L Chloride (98-107) mmol/L Carbon Dioxide (22-30) mmol/L BUN (9-20) mg/dL Glucose (74-99) mg/dL POC Glucose (mg/dL) 120 H 193 H (70-110) mg/dL ALT (4-49) U/L Total Protein (6.3-8.2) g/dL Albumin (3.5-5.0) g/dL Microbiology - Last 24 Hours (Table) 05/17/24 17:36 Blood Culture - Preliminary Blood
[2024-05-20 16:01] LABS: Glucose,Whole Blood 277 mg/dL (70-110)
[2024-05-20 19:57] LABS: Glucose,Whole Blood 194 mg/dL (70-110)
[2024-05-21 05:21] LABS: African American GFR (CKD) >90 (>60 ml/min/1.73 sqM); Blood Urea Nitrogen 41 mg/dL (9-20); Calcium 9.1 mg/dL (8.4-10.2); Chloride 75 mmol/L (98-107); Glucose 126 mg/dL (74-99); Non-African American GFR(CKD) 85 (>60 ml/min/1.73 sqM); Potassium 4.2 mmol/L (3.5-5.1); Sodium 132 mmol/L (137-145)
[2024-05-21 05:27] LABS: Anion Gap 7 mmol/L
[2024-05-21 05:29] LABS: Carbon Dioxide 50 mmol/L (22-30)
[2024-05-21 06:03] LABS: Glucose,Whole Blood 131 mg/dL (70-110)
--- NOTE | 2024-05-21 09:26 | P.PN ---
Subjective Progress Note Date: 05/20/24 This is a 63-year-old male with medical history significant for atrial fibrillation, COPD, hypertension, chronic nicotine use. Patient was just admitted to the hospital for abdominal pain; underwent endoscopic evaluation for GI bleed. During that hospital stay patient also was diagnosed with atrial fibrillation and discharged on cardizem and eliquis. Patient was discharged home on oxygen via nasal cannula 2 L. Patient states that upon returning home it took forever for the oxygen to get delivered he became increasingly short of breath and developed a midsternal sharp chest pain. Patient was also feeling lightheaded. He used his inhalers without improvement in symptoms. Called EMS and presented back to the hospital for further evaluation. EMS found th epatien to be in afib rvr and he was given a bolus of cardizem. Chest x-ray reveals airspace over the infrahilar region lateral view ammonia. There are COPD changes. EKG reveals atrial fibrillation with rapid ventricular rate; heart rate up into the 160s. Labs reveal a white blood cell count 23.16, hemoglobin 7.9, INR 1.2, sodium 137, BUN of 40 creatinine of 0.80 glucose of 166, lactic acid of 2.3, AST of 205 ALT of 511. Initial troponin level was negative his proBNP was elevated at 3850. Patient also has significant lower extremity edema which is pitting in nature. He was admitted to the hospital with consults placed to cardiology and pulmonology. He is requiring oxygen via nasal cannula at 5 L. His saturations are in the 88 to 93%. He has been afebrile. Patient was started on IV Cardizem running at 15 mL/h. Additionally patient was started on IV ceftriaxone and IV azithromycin. Patient started on IV Lasix 40 mg every 12 hours as well as IV Solu-Medrol. He is currently pending a bed on the cardiac unit. 05/19/2024 Patient is evaluated in follow on the cardiac unit. He is sitting up at the bedside with family. Reports feeling less short of breath. Does continue with significant lower extremity edema. He continues on oxygen via nasal cannula. Continues to go in and out of atrial fibrillation with RVR heart rate up into the 150s. Cardiology is recommending MED and cardioversion. KUB completed for complaints of abdominal bloating which reveals a nonspecific abdomen. LFTs improving. Continues on IV lasix. Procalcitonin level 0.07 and antibiotics have been discontinued. White blood cell count 19.80, sodium 137, CO2 41, BUN 41, creatinine 0.89. 05/20/2024 Patient is evaluated today in follow up sitting up at the edge of bed. He remains in atrial fibrillation with heart rate going up into the 120s. Continues on IV lasix 40 mg every 12 hours. REVIEW OF SYSTEMS: CONSTITUTIONAL: No fever, no malaise, no fatigue. HEENT: No recent visual problems or hearing problems. Denied any sore throat. CARDIOVASCULAR: Reports chest pain, orthopnea, PND, no palpitations, no syncope. PULMONARY: Reports shortness of breath, no cough, no hemoptysis. GASTROINTESTINAL: No diarrhea, no nausea, no vomiting, no abdominal pain. NEUROLOGICAL: No headaches, no weakness, no numbness. PHYSICAL EXAMINATION: GENERAL: The patient is alert and oriented x3, not in any acute distress. Well developed, well nourished. HEENT: Pupils are round and equally reacting to light. EOMI. No scleral icterus. No conjunctival pallor. Normocephalic, atraumatic. No pharyngeal erythema. No thyromegaly. CARDIOVASCULAR: S1 and S2 present. No murmurs, rubs, or gallops. PULMONARY: Chest is clear to auscultation, no wheezing or crackles. Diminished ABDOMEN: Soft, nontender, nondistended, normoactive bowel sounds. No palpable o rganomegaly. MUSCULOSKELETAL: No joint swelling or deformity. EXTREMITIES: No cyanosis, clubbing, or pedal edema. +2 pitting edema NEUROLOGICAL: Gross neurological examination did not reveal any focal deficits. SKIN: No rashes. Assessment Atrial fibrillation with RVR Paroxysmal atrial fibrillation with RVR diagnosed prior hospital stay COPD exacerbation Acute on chronic hypoxemic respiratory failure Acute on chronic congestive heart failure with preserved EF. Lactic acidosis rule out sepsis Transaminitis from hepatic congestion. Leukocytosis Hypertension Hyperglycemia with hemoglobin A1c 6.6 Tobacco use recently quit 2 weeks ago Obesity with likely obesity hypoventilation syndrome GI prophylaxis DVT prophylaxis Full code Plan Cardiology consultation patient to continue on IV Cardizem and oral amiodarone has been added Patient on oral metoprolol 50 mg twice daily. Continue IV Lasix 40 mg every 12 hours with strict intake output monitoring Continue IV Solu-Medrol 40 mg every 8 hours Pulmonary consultation Continue oxygen support Repeat CMP in the morning Patient to go for MED and cardioversion Continue cardiac telemetry The impression and plan of care has been dictated by Indira Sneed, Nurse Practitioner as directed. Dr. Jose MD I have performed a history and physical examination and medical decision making of this patient, discussed the same with the dictator, and agree with the dictators assessment and plan as written, documented as a scribe. Based on total visit time, I have performed more than 50% of this visit. Objective - Vital Signs Vital signs: Vital Signs Temp 98 F 05/20/24 08:00 Pulse 78 05/20/24 12:05 Resp 18 05/20/24 12:05 BP 127/84 05/20/24 12:05 Pulse Ox 95 05/20/24 12:05 FiO2 Intake & Output 05/19/24 05/20/24 05/20/24 18:59 06:59 18:59 Intake Total 718.5 751.75 125 Output Total 200 3160 480 Balance 518.5 -2408.25 -355 Weight 123.2 kg Intake: Intake, IV Titration 122.5 211.75 125 Amount Diltiazem 125 mg In 122.5 211.75 125 Sodium Chloride 0.9% 100 ml @ 15 MG/HR 15 mls/hr IV .Q8H20M [facility] Rx#: [id number] Oral 596 540 0 Output: Urine 200 3160 480 Other: Voiding Method Urinal Urinal Urinal # Voids 2 - Labs CBC & Chem 7: 05/20/24 05:15 05/21/24 04:28 Labs: Abnormal Lab Results - Last 24 Hours (Table) 05/19/24 05/19/24 05/20/24 Range/Units 16:25 20:02 05:15 WBC (4.50-10.00) 10*3/uL Sodium 134 L (137-145) mmol/L Chloride 84 L (98-107) mmol/L Carbon Dioxide 43 H* (22-30) mmol/L BUN 39 H (9-20) mg/dL Glucose 134 H (74-99) mg/dL POC Glucose (mg/dL) 197 H 303 H (70-110) mg/dL ALT 346 H (4-49) U/L Total Protein 5.7 L (6.3-8.2) g/dL Albumin 3.3 L (3.5-5.0) g/dL 05/20/24 05/20/24 05/20/24 Range/Units 05:15 06:17 11:24 WBC 20.58 H (4.50-10.00) 10*3/uL Sodium (137-145) mmol/L Chloride (98-107) mmol/L Carbon Dioxide (22-30) mmol/L BUN (9-20) mg/dL Glucose (74-99) mg/dL POC Glucose (mg/dL) 120 H 193 H (70-110) mg/dL ALT (4-49) U/L Total Protein (6.3-8.2) g/dL Albumin (3.5-5.0) g/dL Microbiology - Last 24 Hours (Table) 05/17/24 17:36 Blood Culture - Preliminary Blood Assessment and Plan Time with Patient: Less than 30
[2024-05-21] MEDS: BENZOCAINE SPRAY 1 EACH TOPICAL STA (10:27)
[2024-05-21] MEDS ORDERED: PROPOFOL 10 MG/ML 20 ML VIAL IV ONE (10:34)
[2024-05-21] MEDS ORDERED: LIDOCAINE 1% INJ 10MG/ML (20 ML MDV) ONE (10:34)
[2024-05-21] MEDS: SODIUM CHLORIDE 0.9% 500 ML 500 ML IV ONE (10:36)
--- NOTE | 2024-05-21 11:07 | P.TEE ---
Date of Procedure: 05/21/24 Description of Procedure(s): Procedure performed: 1. Transesophageal Echocardiogram, with color and spectral Doppler and bubble study 2. Synchronized Cardioversion. Indications: Persistent atrial fibrillation Consent: I have discussed the risks, benefits and alternative therapies for the above-mentioned procedure. The patient has indicated understanding and acceptance of the risks of the procedure. Signed consent was obtained and was placed in the paper chart. Moderate conscious sedation: Moderate conscious sedation was administered by anesthesia, see separate report. Procedural Steps: Timeout was performed in usual fashion. Patient's heart rate, blood pressure, oxygen saturation and ECG were monitored. After achieving appropriate moderate conscious sedation, MED MED probe was advanced without difficulty and without any immediate compli cations to the esophagus. MED study was performed with color flow doppler, pulsed wave doppler and continuous wave doppler. Agitated saline bubbles were injected to assess for any intra-atrial shunt. The probe was then removed. SYNCHRONIZED CARDIOVERSION After making sure that there is no evidence of intracardiac thrombus, pacer pads were placed and secured on patients chest and back. Synchronized cardioversion was perfromed using 200 J. First shock was successful. After first time there was early return of atrial fibrillation. We performed second synchronized cardioversion with 200 J. Second shock was successful and this time patient was sustaining sinus rhythm. Sinus rhythm was confirmed with a 12 lead EKG. Patient tolerated the procedure well. Patient was transferred to the post procedure area in stable and satisfactory condition. Complications: none Blood loss: none FINDINGS Left Atrium: Mild left atrial dilatation. No evidence of mass or thrombus seen Left Atrial Appendage: No evidence of thrombus or mass seen in STEPHEN Inter atrial septum: Intact inter-atrial septum. No evidence of atrial septal defect or patent foramen ovale on color doppler. No evidence of [id number] intracardiac shunting on bubble study. Left Ventricle: Normal global LV size and systolic function Right Atrium: Mildly increased right atrial size. Right Ventricle: Normal global RV size and systolic function Aortic Valve: Structurally normal Trileaflet, mild sclerosis. No significant stenosis or regurgitation on color doppler assessment. Mitral Valve: Mild functional mitral regurgitation noticed, centrally directed. Pulmonic Valve: Not well visualized. Tricuspid Valve: Structurally normal. Mild tricuspid regurgitation. Ascending aorta, Aortic root and Aortic arch: Mild intimal thickening. Ascending aorta 3.6 cm Descending aorta: Mild intimal thickening. No pericardial effusion CONCLUSION: Successful synchronized cardioversion No evidence of thrombus in left atrial appendage or left atrium Mild biatrial dilatation Preserved global LV systolic function Davide Lombardi MD, RPVI, FACC Thank you for allowing [facility] to participate in this patient's care. Feel free to reach out in case of any followup questions.
[2024-05-21 12:28] LABS: Glucose,Whole Blood 174 mg/dL (70-110)
--- NOTE | 2024-05-21 12:50 | P.PN ---
Subjective Progress Note Date: 05/21/24 Principal diagnosis: Respiratory insufficiency. The patient is seen today in consultation in the emergency department. Just discharged from here on 05/16/2024. He return to the emergency department yesterday 05/17/2024 with shortness of breath and palpitations. He was found to be in atrial fibrillation with a rapid ventricular response. He has a history of smoking/COPD and he has obvious features of obstructive sleep apnea. The patient used to smoke up to 2 pack of cigarettes a day and currently is down to 1 pack of cigarettes a day. Maintained on Symbicort on outpatient basis. Does not utilize home O2. No home CPAP machine. He has chronic exertional dyspnea. Chest x-ray shows similar airspace opacities in the infrahilar region. Evidence of COPD. Right count 17.8. Hemoglobin 16.4. Platelets 150. Sodium 136. Potassium 4.3. Bicarb 36. BUN 41. Creatinine 0.75. Glucose 281. Lactic 4.1. Troponin negative x 1. proBNP 3850. AST 205. ALT 511. He is currently sitting up on a stretcher. Awake and alert in no acute distress. Maintaining O2 saturations in the 90s on 4 L/min per nasal cannula. He does remain in atrial fibrillation with a rapid ventricular response. He has been initiated on a Cardizem drip at 15 mg/h. He is continued on his Eliquis. Patient was seen today on 05/19/2024, presently on Cardizem drip at 15 mg/h, being followed by cardiology for his atrial fibrillation and RVR. Patient is feeling much better today compared to yesterday, remains on 4 L nasal cannula with O2 sats of 94%. WBC count is 19.8 hemoglobin is 16.6 electrolytes are normal bicarb is 41 BUN 41 creatinine 0.89 KUB abdomen done yesterday showed nonspecific abdomen. Chest x-ray on admission showed mostly prominence of the pulmonary vasculature, and small left pleural effusion. There is also some component of basilar atelectasis. Doubt pneumonia. Patient was seen today on 05/20/2024, remains on Cardizem drip at 15 mg/h. His rapid atrial fibrillation seems to be under control, but he remains in atrial fibrillation. Clinically the patient is feeling better, breathing a bit easier, remains on 4 L nasal cannula, patient does have underlying severe COPD. On bronchodilators. Labs today showed leukocytosis with WBC of 20.58 hemoglobin 16.5 electrolytes are normal bicarb is 43 BUN is 39 creatinine 0.79 patient is on prednisone for his COPD he is also on diuretics and bronchodilators/DuoNeb as well as Symbicort. For his atrial fibrillation remains on Eliquis, amiodarone, Cardizem, metoprolol Progress note dated 05/21/2024. 63-year-old male seen in room 350. The patient is scheduled to have a transesophageal echocardiogram today. Clinically, the patient stable. He is awake and alert. No distress. He is on 4 L of oxygen. Current labs include a sodium 132, potassium 4.2, chloride 75, CO2 50, BUN 41, creatinine 0.95. Glucose is 174. Calcium 9.1. The patient's transesophageal echocardiogram showed no evidence of thrombus in the left atrial appendage or left atrium. There was preserved global LV systolic function. And there was successful synchronized cardioversion of the patient. Objective - Vital Signs Vital signs: Vital Signs Temp 98.1 F 05/21/24 07:37 Pulse 135 H 05/21/24 11:54 Resp 20 05/21/24 11:54 BP 113/82 05/21/24 11:54 Pulse Ox 94 L 05/21/24 11:54 FiO2 Intake & Output 05/20/24 05/21/24 05/21/24 18:59 06:59 18:59 Intake Total 245 210.666 120 Output Total 1230 2800 700 Balance -985 -2589.334 -580 Weight 116.9 kg Intake: IV 20 120 Invasive Line 1 10 Invasive Line 2 10 Intake, IV Titration 125 190.666 Amount Diltiazem 125 mg In 125 190.666 Sodium Chloride 0.9% 100 ml @ 15 MG/HR 15 mls/hr IV .Q8H20M [facility] Rx#: [id number] Oral 120 Output: Urine 1230 2800 700 Other: Voiding Method Urinal Urinal Urinal - Exam No acute distress, oriented 3. No respiratory distress. Currently on 4 L. HEENT examination is grossly unremarkable. Mucous membranes are moist. No oral lesions. Neck supple. Full range of motion. No adenopathy thyromegaly or neck vein distention. Cardiovascular examination reveals an irregular rhythm and rate. S1-S2 normal. No S3 or S4. No discernible murmur noted. Lungs reveal clear breath sounds. Her sounds are equal bilaterally. No adventitious lung sounds including wheezes rhonchi or crackles. Abdomen soft bowel sounds are heard. No masses or tenderness. Extremities are intact. No cyanosis or clubbing. Edema is present. Skin is without rash or lesion. Neurologic examination is brief but nonfocal. - Labs CBC & Chem 7: 05/20/24 05:15 05/21/24 04:28 Labs: Abnormal Lab Results - Last 24 Hours (Table) 05/20/24 05/20/24 05/21/24 Range/Units 15:59 19:56 04:28 Sodium 132 L (137-145) mmol/L Chloride 75 L (98-107) mmol/L Carbon Dioxide 50 H* (22-30) mmol/L BUN 41 H (9-20) mg/dL Glucose 126 H (74-99) mg/dL POC Glucose (mg/dL) 277 H 194 H (70-110) mg/dL 05/21/24 05/21/24 Range/Units 05:59 12:26 Sodium (137-145) mmol/L Chloride (98-107) mmol/L Carbon Dioxide (22-30) mmol/L BUN (9-20) mg/dL Glucose (74-99) mg/dL POC Glucose (mg/dL) 131 H 174 H (70-110) mg/dL Microbiology - Last 24 Hours (Table) 05/17/24 17:36 Blood Culture - Preliminary Blood Assessment and Plan Assessment: Atrial fibrillation with RVR, S/P MED, with successful synchronized cardioversion. Acute hypoxemic respiratory failure secondary to COPD exacerbation. Acute exacerbation of diastolic CHF. Recent admission for right lower lobe pneumonia. Obstructive sleep apnea syndrome. Morbid obesity. History of hypertension. Diverticulosis. Chronic and ongoing tobacco dependence. Recent EGD, for melena, and epigastric pain. Plan: Plan dated May 21, 2024. The patient is seen today in room 350. The patient had a transesophageal echocardiogram today. The patient had a successful synchronized cardioversion. Labs, x-rays, and all medications are reviewed. We will continue to follow the patient, make recommendations along the way. The patient continues on oxygen at 4 L. The rest of his labs, are reviewed. His medications are reviewed. We will continue to follow. Prognosis is guarded. Dictation was produced using [email or web address] software. Please excuse any grammatical, word or spelling errors. Time with Patient: Less than 30
[2024-05-21] MEDS: METOPROLOL TARTRATE 50 MG TAB PO STA (13:34)
[2024-05-21] MEDS: METOPROLOL TARTRATE 50 MG TAB PO SCH (16:20)
[2024-05-21 16:26] LABS: Glucose,Whole Blood 253 mg/dL (70-110)
[2024-05-21 19:48] LABS: Glucose,Whole Blood 213 mg/dL (70-110)
[2024-05-21] MEDS ORDERED: METOPROLOL TARTRATE 50 MG TAB PO SCH ×2 (21:00→22:00)
--- NOTE | 2024-05-21 22:07 | P.PN ---
Subjective Progress Note Date: 05/21/24 This is a 63-year-old male with medical history significant for atrial fibrillation, COPD, hypertension, chronic nicotine use. Patient was just admitted to the hospital for abdominal pain; underwent endoscopic evaluation for GI bleed. During that hospital stay patient also was diagnosed with atrial fibrillation and discharged on cardizem and eliquis. Patient was discharged home on oxygen via nasal cannula 2 L. Patient states that upon returning home it took forever for the oxygen to get delivered he became increasingly short of breath and developed a midsternal sharp chest pain. Patient was also feeling lightheaded. He used his inhalers without improvement in symptoms. Called EMS and presented back to the hospital for further evaluation. EMS found th epatien to be in afib rvr and he was given a bolus of cardizem. Chest x-ray reveals airspace over the infrahilar region lateral view ammonia. There are COPD changes. EKG reveals atrial fibrillation with rapid ventricular rate; heart rate up into the 160s. Labs reveal a white blood cell count 23.16, hemoglobin 7.9, INR 1.2, sodium 137, BUN of 40 creatinine of 0.80 glucose of 166, lactic acid of 2.3, AST of 205 ALT of 511. Initial troponin level was negative his proBNP was elevated at 3850. Patient also has significant lower extremity edema which is pitting in nature. He was admitted to the hospital with consults placed to cardiology and pulmonology. He is requiring oxygen via nasal cannula at 5 L. His saturations are in the 88 to 93%. He has been afebrile. Patient was started on IV Cardizem running at 15 mL/h. Additionally patient was started on IV ceftriaxone and IV azithromycin. Patient started on IV Lasix 40 mg every 12 hours as well as IV Solu-Medrol. He is currently pending a bed on the cardiac unit. 05/19/2024 Patient is evaluated in follow on the cardiac unit. He is sitting up at the bedside with family. Reports feeling less short of breath. Does continue with significant lower extremity edema. He continues on oxygen via nasal cannula. Continues to go in and out of atrial fibrillation with RVR heart rate up into the 150s. Cardiology is recommending MED and cardioversion. KUB completed for complaints of abdominal bloating which reveals a nonspecific abdomen. LFTs improving. Continues on IV lasix. Procalcitonin level 0.07 and antibiotics have been discontinued. White blood cell count 19.80, sodium 137, CO2 41, BUN 41, creatinine 0.89. 05/20/2024 Patient is evaluated today in follow up sitting up at the edge of bed. He remains in atrial fibrillation with heart rate going up into the 120s. Continues on IV lasix 40 mg every 12 hours. 05/21/2024 Patient underwent MED and cardioversion this morning he did require 2 shocks. He initially converted to normal sinus mechanism however after returning to the floor he is now back in atrial fibrillation with a heart rate up to 130s. He remains on IV Lasix 40 mg every 12 hours. He remains on metoprolol 100 mg 3 times daily, oral amiodarone 400 mg twice daily. REVIEW OF SYSTEMS: CONSTITUTIONAL: No fever, no malaise, no fatigue. HEENT: No recent visual problems or hearing problems. Denied any sore throat. CARDIOVASCULAR: Reports chest pain, orthopnea, PND, no palpitations, no syncope. PULMONARY: Reports shortness of breath, no cough, no hemoptysis. GASTROINTESTINAL: No diarrhea, no nausea, no vomiting, no abdominal pain. NEUROLOGICAL: No headaches, no weakness, no numbness. PHYSICAL EXAMINATION: GENERAL: The patient is alert and oriented x3, not in any acute distress. Well developed, well nourished. HEENT: Pupils are round and equally reacting to light. EOMI. No scleral icterus. No conjunctival pallor. Normocephalic, atraumatic. No pharyngeal erythema. No thyromegaly. CARDIOVASCULAR: S1 and S2 present. No murmurs, rubs, or gallops. PULMONARY: Chest is clear to auscultation, no wheezing or crackles. Diminished ABDOMEN: Soft, nontender, nondistended, normoactive bowel sounds. No palpable organomegaly. MUSCULOSKELETAL: No joint swelling or deformity. EXTREMITIES: No cyanosis, clubbing, or pedal edema. +2 pitting edema NEUROLOGICAL: Gross neurological examination did not reveal any focal deficits. SKIN: No rashes. Assessment Atrial fibrillation with RVR Paroxysmal atrial fibrillation with RVR diagnosed prior hospital stay COPD exacerbation Acute on chronic hypoxemic respiratory failure Acute on chronic congestive heart failure with preserved EF. Lactic acidosis rule out sepsis Transaminitis from hepatic congestion. Leukocytosis Hypertension Hyperglycemia with hemoglobin A1c 6.6 Tobacco use recently quit 2 weeks ago Obesity with likely obesity hypoventilation syndrome GI prophylaxis DVT prophylaxis Full code Plan Patient continues on oral metoprolol 100 mg 3 times daily, oral amiodarone 400 mg twice daily Continue IV Lasix 40 mg every 12 hours with strict intake output monitoring Patient has been transitioned to oral prednisone Pulmonary consultation, cardiology consultation Continue oxygen support Repeat CMP in the morning Status post MED cardioversion patient initially was in sinus rhythm and has now converted back into atrial fibrillation Continue cardiac telemetry The impression and plan of care has been dictated by Indira Sneed, Nurse Practitioner as directed. Dr. Jose MD I have performed a history and physical examination and medical decision making of this patient, discussed the same with the dictator, and agree with the dictators assessment and plan as written, documented as a scribe. Based on total visit time, I have performed more than 50% of this visit. Objective - Vital Signs Vital signs: Vital Signs Temp 97.6 F 05/21/24 20:00 Pulse 85 05/21/24 21:32 Resp 18 05/21/24 20:00 BP 118/84 05/21/24 20:00 Pulse Ox 94 L 05/21/24 20:00 FiO2 Intake & Output 05/21/24 05/21/24 05/22/24 06:59 18:59 06:59 Intake Total 210.666 480 10 Output Total 2800 1000 300 Balance -2589.334 -520 -290 Weight 116.9 kg Intake: IV 20 120 10 Invasive Line 1 10 Invasive Line 2 10 10 Intake, IV Titration 190.666 Amount Diltiazem 125 mg In 190.666 Sodium Chloride 0.9% 100 ml @ 15 MG/HR 15 mls/hr IV .Q8H20M [facility] Rx#: [id number] Oral 360 Output: Urine 2800 1000 300 Other: Voiding Method Urinal Urinal Urinal - Labs CBC & Chem 7: 05/20/24 05:15 05/21/24 04:28 Labs: Abnormal Lab Results - Last 24 Hours (Table) 05/21/24 05/21/24 05/21/24 Range/Units 04:28 05:59 12:26 Sodium 132 L (137-145) mmol/L Chloride 75 L (98-107) mmol/L Carbon Dioxide 50 H* (22-30) mmol/L BUN 41 H (9-20) mg/dL Glucose 126 H (74-99) mg/dL POC Glucose (mg/dL) 131 H 174 H (70-110) mg/dL 05/21/24 05/21/24 Range/Units 16:25 19:47 Sodium (137-145) mmol/L Chloride (98-107) mmol/L Carbon Dioxide (22-30) mmol/L BUN (9-20) mg/dL Glucose (74-99) mg/dL POC Glucose (mg/dL) 253 H 213 H (70-110) mg/dL Microbiology - Last 24 Hours (Table) 05/17/24 17:36 Blood Culture - Preliminary Blood Assessment and Plan Time with Patient: Less than 30
[2024-05-22 05:49] LABS: African American GFR (CKD) >90 (>60 ml/min/1.73 sqM); Blood Urea Nitrogen 40 mg/dL (9-20); Calcium 8.9 mg/dL (8.4-10.2); Chloride 79 mmol/L (98-107); Glucose 124 mg/dL (74-99); Non-African American GFR(CKD) >90 (>60 ml/min/1.73 sqM); Potassium 3.8 mmol/L (3.5-5.1); Sodium 131 mmol/L (137-145)
[2024-05-22 05:55] LABS: Anion Gap 2 mmol/L
[2024-05-22 05:59] LABS: Carbon Dioxide 50 mmol/L (22-30)
[2024-05-22 06:02] LABS: Glucose,Whole Blood 119 mg/dL (70-110)
--- NOTE | 2024-05-22 08:09 | XR ---
EXAMINATION TYPE: XR chest 2V DATE OF EXAM: 05/22/2024 8:03 AM COMPARISON: Chest radiographs from 05/17/2024, CTA chest 05/09/2024 TECHNIQUE: XR chest 2V Frontal and lateral views of the chest. CLINICAL INDICATION:Male, 63 years old with history of hypoxia; FINDINGS: Lungs/Pleura: There is flattening of the diaphragm with increased lucency of the lungs. No evidence o f pneumothorax or pleural effusion. Right basilar patchy airspace opacities. Pulmonary vascularity: Unremarkable. Heart/mediastinum: Cardiomediastinal silhouette is enlarged and stable. Musculoskeletal: No acute osseous pathology. IMPRESSION: 1. Right basilar patchy airspace opacities which may represent atelectasis versus infiltrates. 2. COPD changes. [facility], , 05/22/2024 8:07 AM
--- NOTE | 2024-05-22 11:21 | P.PN ---
Subjective HISTORY OF PRESENT ILLNESS: This is a 63-year-old male patient of Dr. Lombardi with past medical history of paroxysmal atrial fibrillation, COPD, chronic tobacco use, hypertension, obesity with suspected obstructive sleep apnea. Patient was recently hospitalized for epigastric pain and concerns for black tarry stools. He underwent EGD with Dr. Juares which revealed linear ulcers in the antrum and pylorus of the stomach with no recent stigmata of bleeding. During that hospitalization cardiology was consulted for new onset of A-fib with RVR. Prior to his discharge, it was recommended that patient undergo MED and cardioversion for which patient declined as he wanted to go home. Patient was discharged home yesterday and return to the emergency center with complaints of increasing shortness of breath. He states that since he got home his breathing became much worse. His abdomen discomfort is much improved. He denies cough, wheeze. No chest pain. He states he has had lower extremity edema which was present on previous admission. No palpitations. No fever. No dizziness. He had no improvement of his breathing despite using his inhalers and he increased his oxygen to 6 L. EMS found that he was in A-fib with RVR and gave 1 dose of 20 mg of Cardizem. His initial EKG showed A-fib with RVR at 169 bpm. Patient was started on Cardizem bolus 20 mg followed by 10 mg and another 10 mg followed by a drip at 15 mg/h. Blood pressure 138/79, heart rate 147, pulse ox 89% on 4 L nasal cannula. -EKG: Atrial fibrillation at 169 bpm, #2 atrial fibrillation at 143 bpm -Chest x-ray: Airspace opacities over the infrahilar region on lateral view correlate for pneumonia. COPD changes -Laboratory studies: WBC initially 23.1, hemoglobin 16.4, sodium 136, potassium 4.3, creatinine 0.75. Lactic acid 5. AST 205, ALT 511, troponin negative x 1. proBNP 3850. -Home cardiac medications: Eliquis 5 mg twice daily, Farxiga 10 mg daily, C ardizem 60 mg 3 times daily, Lasix 40 mg twice daily, metoprolol tartrate 50 mg twice daily. -Echocardiogram performed on 05/10/2024 revealed LVH with preserved systolic function. Mildly enlarged right ventricle. Left atrial enlargement. No identifiable tricuspid regurgitation to assess RVSP. 05/19/2024 Patient examined this morning at the bedside. Patient is sitting on the side of the bed. Patient currently denies chest pain or pressure. He reports improvement in his shortness of breath. He remains on IV Lasix. BUN 41. Creatinine 0.89. He remains in atrial fibrillation with a heart rate in the 90s. He remains on IV Cardizem at 15 mg an hour. 05/20/2024 Patient examined this morning at bedside. He continues to report shortness of breath although improved today. He remains on IV Lasix. He continues to have lower extremity edema although improving. He remains in atrial fibrillation with heart rate between [id number]. He remains on IV Cardizem at 15 mg an hour. CO2 increased to 43 today. 05/22/2024 Patient examined this morning the bedside. Patient underwent MED and cardiov ersion yesterday x 2. Patient did require cardioversion x 2. Unfortunately the patient went back into A-fib with RVR. His metoprolol was increased to 100 mg 3 times a day. The patient is going in and out of sinus mechanism and atrial flutter with RVR. At the time of examination he is in sinus mechanism. PHYSICAL EXAM: VITAL SIGNS: Reviewed. GENERAL: Well-developed in no acute distress. NECK: Supple. No JVD LUNGS: Respirations even and unlabored. Lungs essentially clear to auscultation bilaterally. HEART: Regular rate and rhythm. S1 and S2 heard. EXTREMITIES: Normal range of motion. No clubbing or cyanosis. Peripheral pulses intact. 1-2+ bilateral lower extremity edema ASSESSMENT: Paroxysmal atrial fibrillation with RVR, diagnosed 05/2024 Typical atrial flutter with RVR Acute on chronic hypoxic respiratory failure, multifactorial Pneumonia COPD exacerbation Acute on chronic heart failure with preserved EF Epigastric abdominal pain status post EGD on 05/15 which revealed linear ulcers in the antrum and pylorus of the stomach with no recent stigmata of bleeding Polycythemia Hypertension Tobacco use and dependence Obesity with suspected ISIAH PLAN: Continue anticoagulation with Eliquis Continue IV Lasix 40 mg every 12 hours Add Diamox 250 mg twice a day Daily weights, accurate intake and output, and monitoring of kidney function Continue amiodarone 400 mg twice a day Increase metoprolol to 200 mg twice a day. Given additional dose of 100 mg now Continue telemetry monitoring If patient goes back into A-fib/flutter obtain twelve-lead EKG Further recommendations pending patient course Nurse practitioner note has been reviewed by physician. Signing provider agrees with the documented findings, assessment, and plan of care documented by RN CASE MGR as a scribe. Objective - Vital Signs Vital signs: Vital Signs Temp 98.5 F 05/22/24 08:10 Pulse 139 H 05/22/24 08:39 Resp 20 05/22/24 08:10 BP 94/64 05/22/24 08:10 Pulse Ox 90 L 05/22/24 04:00 FiO2 Intake & Output 05/21/24 05/22/24 05/22/24 18:59 06:59 18:59 Intake Total 480 10 240 Output Total 1000 1700 Balance -520 -1690 240 Weight 113.8 kg Intake: IV 120 10 Invasive Line 2 10 Oral 360 240 Output: Urine 1000 1700 Other: Voiding Method Urinal Urinal - Labs CBC & Chem 7: 05/20/24 05:15 05/22/24 05:29 Labs: Abnormal Lab Results - Last 24 Hours (Table) 05/21/24 05/21/24 05/21/24 Range/Units 12:26 16:25 19:47 Sodium (137-145) mmol/L Chloride (98-107) mmol/L Carbon Dioxide (22-30) mmol/L BUN (9-20) mg/dL Glucose (74-99) mg/dL POC Glucose (mg/dL) 174 H 253 H 213 H (70-110) mg/dL 05/22/24 05/22/24 Range/Units 05:29 06:00 Sodium 131 L (137-145) mmol/L Chloride 79 L (98-107) mmol/L Carbon Dioxide 50 H* (22-30) mmol/L BUN 40 H (9-20) mg/dL Glucose 124 H (74-99) mg/dL POC Glucose (mg/dL) 119 H (70-110) mg/dL Microbiology - Last 24 Hours (Table) 05/17/24 17:36 Blood Culture - Preliminary Blood
[2024-05-22 11:27] LABS: Glucose,Whole Blood 153 mg/dL (70-110)
--- NOTE | 2024-05-22 11:57 | P.PN ---
Subjective Progress Note Date: 05/22/24 Principal diagnosis: Respiratory insufficiency. The patient is seen today in consultation in the emergency department. Just discharged from here on 05/16/2024. He return to the emergency department yesterday 05/17/2024 with shortness of breath and palpitations. He was found to be in atrial fibrillation with a rapid ventricular response. He has a history of smoking/COPD and he has obvious features of obstructive sleep apnea. The patient used to smoke up to 2 pack of cigarettes a day and currently is down to 1 pack of cigarettes a day. Maintained on Symbicort on outpatient basis. Does not utilize home O2. No home CPAP machine. He has chronic exertional dyspnea. Chest x-ray shows similar airspace opacities in the infrahilar region. Evidence of COPD. Right count 17.8. Hemoglobin 16.4. Platelets 150. Sodium 136. Potassium 4.3. Bicarb 36. BUN 41. Creatinine 0.75. Glucose 281. Lactic 4.1. Troponin negative x 1. proBNP 3850. AST 205. ALT 511. He is currently sitting up on a stretcher. Awake and alert in no acute distress. Maintaining O2 saturations in the 90s on 4 L/min per nasal cannula. He does remain in atrial fibrillation with a rapid ventricular response. He has been initiated on a Cardizem drip at 15 mg/h. He is continued on his Eliquis. Patient was seen today on 05/19/2024, presently on Cardizem drip at 15 mg/h, being followed by cardiology for his atrial fibrillation and RVR. Patient is feeling much better today compared to yesterday, remains on 4 L nasal cannula with O2 sats of 94%. WBC count is 19.8 hemoglobin is 16.6 electrolytes are normal bicarb is 41 BUN 41 creatinine 0.89 KUB abdomen done yesterday showed nonspecific abdomen. Chest x-ray on admission showed mostly prominence of the pulmonary vasculature, and small left pleural effusion. There is also some component of basilar atelectasis. Doubt pneumonia. Patient was seen today on 05/20/2024, remains on Cardizem drip at 15 mg/h. His rapid atrial fibrillation seems to be under control, but he remains in atrial fibrillation. Clinically the patient is feeling better, breathing a bit easier, remains on 4 L nasal cannula, patient does have underlying severe COPD. On bronchodilators. Labs today showed leukocytosis with WBC of 20.58 hemoglobin 16.5 electrolytes are normal bicarb is 43 BUN is 39 creatinine 0.79 patient is on prednisone for his COPD he is also on diuretics and bronchodilators/DuoNeb as well as Symbicort. For his atrial fibrillation remains on Eliquis, amiodarone, Cardizem, metoprolol Progress note dated 05/21/2024. 63-year-old male seen in room 350. The patient is scheduled to have a transesophageal echocardiogram today. Clinically, the patient stable. He is awake and alert. No distress. He is on 4 L of oxygen. Current labs include a sodium 132, potassium 4.2, chloride 75, CO2 50, BUN 41, creatinine 0.95. Glucose is 174. Calcium 9.1. The patient's transesophageal echocardiogram showed no evidence of thrombus in the left atrial appendage or left atrium. There was preserved global LV systolic function. And there was successful synchronized cardioversion of the patient. Progress note dated May 22, 2024. 63-year-old male again seen in room 350. The patient is resting comfortably. He is currently on 2 L. Normal IV fluids. He is in normal sinus rhythm. The patient had synchronized cardioversion, yesterday, after having a transesophageal echocardiogram. He is awake and alert. Labs today include a sodium 131, potassium 3.8, chloride 79, CO2 50, BUN 40, and creatinine 0.9. Glucose is 153. Calcium is 8.9. Chest x-ray shows a right basilar patchy airspace opacities, and changes of COPD. Objective - Vital Signs Vital signs: Vital Signs Temp 97.9 F 05/22/24 11:30 Pulse 67 05/22/24 11:30 Resp 18 05/22/24 11:30 BP 107/68 05/22/24 11:30 Pulse Ox 92 L 05/22/24 11:30 FiO2 Intake & Output 05/21/24 05/22/24 05/22/24 18:59 06:59 18:59 Intake Total 480 10 240 Output Total 1000 1700 Balance -520 -1690 240 Weight 113.8 kg Intake: IV 120 10 Invasive Line 2 10 Oral 360 240 Output: Urine 1000 1700 Other: Voiding Method Urinal Urinal Urinal - Exam No acute distress, oriented 3. No respiratory distress. Currently on 2 L. HEENT examination is grossly unremarkable. Mucous membranes are moist. No oral lesions. Neck supple. Full range of motion. No adenopathy thyromegaly or neck vein distention. Cardiovascular examination reveals a regular rhythm and rate. S1-S2 normal. No S3 or S4. No discernible murmur noted. Lungs reveal clear breath sounds. Her sounds are equal bilaterally. No adventitious lung sounds including wheezes rhonchi or crackles. Abdomen soft bowel sounds are heard. No masses or tenderness. Extremities are intact. No cyanosis or clubbing. 2+ lower extremity pitting edema is present. Skin is without rash or lesion. Neurologic examination is brief but nonfocal. - Labs CBC & Chem 7: 05/20/24 05:15 05/22/24 05:29 Labs: Abnormal Lab Results - Last 24 Hours (Table) 05/21/24 05/21/24 05/21/24 Range/Units 12:26 16:25 19:47 Sodium (137-145) mmol/L Chloride (98-107) mmol/L Carbon Dioxide (22-30) mmol/L BUN (9-20) mg/dL Glucose (74-99) mg/dL POC Glucose (mg/dL) 174 H 253 H 213 H (70-110) mg/dL 05/22/24 05/22/24 05/22/24 Range/Units 05:29 06:00 11:26 Sodium 131 L (137-145) mmol/L Chloride 79 L (98-107) mmol/L Carbon Dioxide 50 H* (22-30) mmol/L BUN 40 H (9-20) mg/dL Glucose 124 H (74-99) mg/dL POC Glucose (mg/dL) 119 H 153 H (70-110) mg/dL Assessment and Plan Assessment: Atrial fibrillation with RVR, S/P MED, with successful synchronized cardioversion. Acute hypoxemic respiratory failure secondary to COPD exacerbation. Acute exacerbation of diastolic CHF. Recent admission for right lower lobe pneumonia. Obstructive sleep apnea syndrome. Morbid obesity. History of hypertension. Diverticulosis. Chronic and ongoing tobacco dependence. Recent EGD, for melena, and epigastric pain. Plan: Plan dated May 21, 2024. The patient is seen today in room 350. The patient had a transesophageal echocardiogram today. The patient had a successful synchronized cardioversion. Labs, x-rays, and all medications are reviewed. We will continue to follow the patient, make recommendations along the way. The patient continues on oxygen at 4 L. The rest of his labs, are reviewed. His medications are reviewed. We will continue to follow. Prognosis is guarded. Dictation was produced using Q[employer]ME software. Please excuse any grammatical, word or spelling errors. Plan dated May 22, 2024. The patient is seen today in room 350. He is resting comfortably in bed. He is on 2 L of oxygen. He had successful cardioversion yesterday. He is not receiving any IV fluids. He is in normal sinus rhythm. His lungs are clear. He has 2+ lower extremity edema. All labs, x-rays, and medications are reviewed. We will continue to follow the patient, make recommendations along t he way. Prognosis is guarded. Dictation was produced using Q[employer]ME software. Please excuse any grammatical, word or spelling errors. Time with Patient: Less than 30
[2024-05-22] MEDS: acetaZOLAMIDE 250 MG TAB PO SCH (12:01)
[2024-05-22] MEDS: METOPROLOL TARTRATE 50 MG TAB PO STA (12:01)
--- NOTE | 2024-05-22 14:33 | P.PN ---
Subjective Progress Note Date: 05/22/24 This is a 63-year-old male with medical history significant for atrial fibrillation, COPD, hypertension, chronic nicotine use. Patient was just admitted to the hospital for abdominal pain; underwent endoscopic evaluation for GI bleed. During that hospital stay patient also was diagnosed with atrial fibrillation and discharged on cardizem and eliquis. Patient was discharged home on oxygen via nasal cannula 2 L. Patient states that upon returning home it took forever for the oxygen to get delivered he became increasingly short of breath and developed a midsternal sharp chest pain. Patient was also feeling lightheaded. He used his inhalers without improvement in symptoms. Called EMS and presented back to the hospital for further evaluation. EMS found th epatien to be in afib rvr and he was given a bolus of cardizem. Chest x-ray reveals airspace over the infrahilar region lateral view ammonia. There are COPD changes. EKG reveals atrial fibrillation with rapid ventricular rate; heart rate up into the 160s. Labs reveal a white blood cell count 23.16, hemoglobin 7.9, INR 1.2, sodium 137, BUN of 40 creatinine of 0.80 glucose of 166, lactic acid of 2.3, AST of 205 ALT of 511. Initial troponin level was negative his proBNP was elevated at 3850. Patient also has significant lower extremity edema which is pitting in nature. He was admitted to the hospital with consults placed to cardiology and pulmonology. He is requiring oxygen via nasal cannula at 5 L. His saturations are in the 88 to 93%. He has been afebrile. Patient was started on IV Cardizem running at 15 mL/h. Additionally patient was started on IV ceftriaxone and IV azithromycin. Patient started on IV Lasix 40 mg every 12 hours as well as IV Solu-Medrol. He is currently pending a bed on the cardiac unit. 05/19/2024 Patient is evaluated in follow on the cardiac unit. He is sitting up at the bedside with family. Reports feeling less short of breath. Does continue with significant lower extremity edema. He continues on oxygen via nasal cannula. Continues to go in and out of atrial fibrillation with RVR heart rate up into the 150s. Cardiology is recommending MED and cardioversion. KUB completed for complaints of abdominal bloating which reveals a nonspecific abdomen. LFTs improving. Continues on IV lasix. Procalcitonin level 0.07 and antibiotics have been discontinued. White blood cell count 19.80, sodium 137, CO2 41, BUN 41, creatinine 0.89. 05/20/2024 Patient is evaluated today in follow up sitting up at the edge of bed. He remains in atrial fibrillation with heart rate going up into the 120s. Continues on IV lasix 40 mg every 12 hours. 05/21/2024 Patient underwent MED and cardioversion this morning he did require 2 shocks. He initially converted to normal sinus mechanism however after returning to the floor he is now back in atrial fibrillation with a heart rate up to 130s. He remains on IV Lasix 40 mg every 12 hours. He remains on metoprolol 100 mg 3 times daily, oral amiodarone 400 mg twice daily. 05/22/2024 Patient evaluated in follow-up in the medical floor. He remains in atrial fibrillation with a controlled ventricular rate. Follow-up chest x-ray today reveals right basilar patchy airspace opacities which may represent atelectasis versus infiltrate. There are COPD changes. Patient continues on updrafts as well as Symbicort. He has been transition to oral prednisone continues on IV Lasix. Will Maicol wrap his lower extremities. REVIEW OF SYSTEMS: CONSTITUTIONAL: No fever, no malaise, no fatigue. HEENT: No recent visual problems or hearing problems. Denied any sore throat. CARDIOVASCULAR: Reports chest pain, orthopnea, PND, no palpitations, no syncope. PULMONARY: Reports shortness of breath, no cough, no hemoptysis. GASTROINTESTINAL: No diarrhea, no nausea, no vomiting, no abdominal pain. NEUROLOGICAL: No headaches, no weakness, no numbness. PHYSICAL EXAMINATION: GENERAL: The patient is alert and oriented x3, not in any acute distress. Well developed, well nourished. HEENT: Pupils are round and equally reacting to light. EOMI. No scleral icterus. No conjunctival pallor. Normocephalic, atraumatic. No pharyngeal erythema. No thyromegaly. CARDIOVASCULAR: S1 and S2 present. No murmurs, rubs, or gallops. PULMONARY: Chest is clear to auscultation, no wheezing or crackles. Diminished ABDOMEN: Soft, nontender, nondistended, normoactive bowel sounds. No palpable organomegaly. MUSCULOSKELETAL: No joint swelling or deformity. EXTREMITIES: No cyanosis, clubbing, or pedal edema. +2 pitting edema NEUROLOGICAL: Gross neurological examination did not reveal any focal deficits. SKIN: No rashes. Assessment Atrial fibrillation with RVR Paroxysmal atrial fibrillation with RVR diagnosed prior hospital stay COPD exacerbation Acute on chronic hypoxemic respiratory failure Acute on chronic congestive heart failure with preserved EF. Lactic acidosis rule out sepsis Transaminitis from hepatic congestion. Leukocytosis Hypertension Hyperglycemia with hemoglobin A1c 6.6 Tobacco use recently quit 2 weeks ago Obesity with likely obesity hypoventilation syndrome GI prophylaxis DVT prophylaxis Full code Plan Patient continues on oral amiodarone 400 mg twice daily oral metoprolol has been increased to 200 mg twice daily Continue IV Lasix 40 mg every 12 hours with strict intake output monitoring Patient has been transitioned to oral prednisone Pulmonary consultation, cardiology consultation Continue oxygen support Repeat CMP in the morning Status post MED cardioversion patient initially was in sinus rhythm and has now converted back into atrial fibrillation Continue cardiac telemetry Possible DC home in the next 24 The impression and plan of care has been dictated by Indira Sneed, Nurse Practitioner as directed. Dr. Jose MD I have performed a history and physical examination and medical decision making of this patient, discussed the same with the dictator, and agree with the dictators assessment and plan as written, documented as a scribe. Based on total visit time, I have performed more than 50% of this visit. Objective - Vital Signs Vital signs: Vital Signs Temp 97.9 F 05/22/24 11:30 Pulse 72 05/22/24 13:15 Resp 18 05/22/24 11:30 BP 107/68 05/22/24 11:30 Pulse Ox 92 L 05/22/24 11:30 FiO2 Intake & Output 05/21/24 05/22/24 05/22/24 18:59 06:59 18:59 Intake Total 480 10 358 Output Total 1000 1700 500 Balance -520 -1690 -142 Weight 113.8 kg Intake: IV 120 10 Invasive Line 2 10 Oral 360 358 Output: Urine 1000 1700 500 Other: Voiding Method Urinal Urinal Urinal - Labs CBC & Chem 7: 05/20/24 05:15 05/22/24 05:29 Labs: Abnormal Lab Results - Last 24 Hours (Table) 05/21/24 05/21/24 05/22/24 Range/Units 16:25 19:47 05:29 Sodium 131 L (137-145) mmol/L Chloride 79 L (98-107) mmol/L Carbon Dioxide 50 H* (22-30) mmol/L BUN 40 H (9-20) mg/dL Glucose 124 H (74-99) mg/dL POC Glucose (mg/dL) 253 H 213 H (70-110) mg/dL 05/22/24 05/22/24 Range/Units 06:00 11:26 Sodium (137-145) mmol/L Chloride (98-107) mmol/L Carbon Dioxide (22-30) mmol/L BUN (9-20) mg/dL Glucose (74-99) mg/dL POC Glucose (mg/dL) 119 H 153 H (70-110) mg/dL Assessment and Plan Time with Patient: Less than 30
[2024-05-22 16:21] LABS: Glucose,Whole Blood 137 mg/dL (70-110)
[2024-05-22 19:51] LABS: Glucose,Whole Blood 181 mg/dL (70-110)
[2024-05-22] MEDS: METOPROLOL TARTRATE 50 MG TAB PO SCH (20:17)
[2024-05-23 06:37] LABS: Glucose,Whole Blood 142 mg/dL (70-110)
[2024-05-23 06:52] LABS: Basophils # (A) 0.14 10*3/uL (0.00-0.10); Basophils % (A) 0.6 %; Eosinophils # (A) 0.08 10*3/uL (0.04-0.35); Eosinophils % (A) 0.3 %; HCT 54.8 % (39.6-50.0); HGB 18.5 g/dL (13.0-17.0); Lymphocytes # (A) 1.92 10*3/uL (0.90-5.00); Lymphocytes % (A) 7.9 %; MCH 30.7 pg (27.0-32.0); MCHC 33.8 g/dL (32.0-37.0); MCV 90.9 fL (80.0-97.0); Mean Platelet Volume 12.2 fL (9.5-12.2); Monocytes # (A) 1.58 10*3/uL (0.20-1.00); Monocytes % (A) 6.5 %; Neutrophils # (A) 19.81 10*3/uL (1.80-7.70); Neutrophils % (A) 81.5 %; Platelet Count 162 10*3/uL (140-440); RBC 6.03 10*6/uL (4.40-5.60); RDW 13.3 % (11.5-14.5); WBC 24.32 10*3/uL (4.50-10.00)
[2024-05-23 07:11] LABS: African American GFR (CKD) 82 (>60 ml/min/1.73 sqM); Blood Urea Nitrogen 32 mg/dL (9-20); Calcium 9.5 mg/dL (8.4-10.2); Chloride 84 mmol/L (98-107); Glucose 98 mg/dL (74-99); Non-African American GFR(CKD) 71 (>60 ml/min/1.73 sqM); Potassium 3.4 mmol/L (3.5-5.1); Sodium 132 mmol/L (137-145)
[2024-05-23 07:18] LABS: Anion Gap 10 mmol/L
[2024-05-23 07:19] LABS: Carbon Dioxide 38 mmol/L (22-30)
[2024-05-23 11:29] LABS: Glucose,Whole Blood 202 mg/dL (70-110)
--- NOTE | 2024-05-23 12:22 | P.PN ---
Subjective Progress Note Date: 05/23/24 Principal diagnosis: Respiratory insufficiency. The patient is seen today in consultation in the emergency department. Just discharged from here on 05/16/2024. He return to the emergency department yesterday 05/17/2024 with shortness of breath and palpitations. He was found to be in atrial fibrillation with a rapid ventricular response. He has a history of smoking/COPD and he has obvious features of obstructive sleep apnea. The patient used to smoke up to 2 pack of cigarettes a day and currently is down to 1 pack of cigarettes a day. Maintained on Symbicort on outpatient basis. Does not utilize home O2. No home CPAP machine. He has chronic exertional dyspnea. Chest x-ray shows similar airspace opacities in the infrahilar region. Evidence of COPD. Right count 17.8. Hemoglobin 16.4. Platelets 150. Sodium 136. Potassium 4.3. Bicarb 36. BUN 41. Creatinine 0.75. Glucose 281. Lactic 4.1. Troponin negative x 1. proBNP 3850. AST 205. ALT 511. He is currently sitting up on a stretcher. Awake and alert in no acute distress. Maintaining O2 saturations in the 90s on 4 L/min per nasal cannula. He does remain in atrial fibrillation with a rapid ventricular response. He has been initiated on a Cardizem drip at 15 mg/h. He is continued on his Eliquis. Patient was seen today on 05/19/2024, presently on Cardizem drip at 15 mg/h, being followed by cardiology for his atrial fibrillation and RVR. Patient is feeling much better today compared to yesterday, remains on 4 L nasal cannula with O2 sats of 94%. WBC count is 19.8 hemoglobin is 16.6 electrolytes are normal bicarb is 41 BUN 41 creatinine 0.89 KUB abdomen done yesterday showed nonspecific abdomen. Chest x-ray on admission showed mostly prominence of the pulmonary vasculature, and small left pleural effusion. There is also some component of basilar atelectasis. Doubt pneumonia. Patient was seen today on 05/20/2024, remains on Cardizem drip at 15 mg/h. His rapid atrial fibrillation seems to be under control, but he remains in atrial fibrillation. Clinically the patient is feeling better, breathing a bit easier, remains on 4 L nasal cannula, patient does have underlying severe COPD. On bronchodilators. Labs today showed leukocytosis with WBC of 20.58 hemoglobin 16.5 electrolytes are normal bicarb is 43 BUN is 39 creatinine 0.79 patient is on prednisone for his COPD he is also on diuretics and bronchodilators/DuoNeb as well as Symbicort. For his atrial fibrillation remains on Eliquis, amiodarone, Cardizem, metoprolol Progress note dated 05/21/2024. 63-year-old male seen in room 350. The patient is scheduled to have a transesophageal echocardiogram today. Clinically, the patient stable. He is awake and alert. No distress. He is on 4 L of oxygen. Current labs include a sodium 132, potassium 4.2, chloride 75, CO2 50, BUN 41, creatinine 0.95. Glucose is 174. Calcium 9.1. The patient's transesophageal echocardiogram showed no evidence of thrombus in the left atrial appendage or left atrium. There was preserved global LV systolic function. And there was successful synchronized cardioversion of the patient. Progress note dated May 22, 2024. 63-year-old male again seen in room 350. The patient is resting comfortably. He is currently on 2 L. Normal IV fluids. He is in normal sinus rhythm. The patient had synchronized cardioversion, yesterday, after having a transesophageal echocardiogram. He is awake and alert. Labs today include a sodium 131, potassium 3.8, chloride 79, CO2 50, BUN 40, and creatinine 0.9. Glucose is 153. Calcium is 8.9. Chest x-ray shows a right basilar patchy airspace opacities, and changes of COPD. Progress note dated May 23, 2024. 63-year-old male seen again in room 350. The patient is on 2 L of oxygen. Not receiving any IV fluids. The patient is awake and alert. No distress. No respiratory issues or problems. The patient is hoping to be discharged soon. White count is 24.3, hemoglobin 18.5, hematocrit 54.8, platelet count 262,000. Sodium 132, potassium 3.4, chloride 84, CO2 38, BUN 32, and creatinine 1.11. Glucose is 202. Calcium is 9.5. No chest x-ray today. Objective - Vital Signs Vital signs: Vital Signs Temp 97.8 F 05/23/24 11:17 Pulse 56 L 05/23/24 11:17 Resp 16 05/23/24 11:17 BP 111/72 05/23/24 11:17 Pulse Ox 95 05/23/24 11:17 FiO2 Intake & Output 05/22/24 05/23/24 05/23/24 18:59 06:59 18:59 Intake Total 838 240 240 Output Total 800 2775 850 Balance 38 -0419 -136 Weight 111.2 kg Intake: Oral 838 240 240 Output: Urine 800 2775 850 Other: Voiding Method Urinal Urinal # Voids 1 - Exam No acute distress, oriented 3. No respiratory distress. Currently on 2 L. HEENT examination is grossly unremarkable. Mucous membranes are moist. No oral lesions. Neck supple. Full range of motion. No adenopathy thyromegaly or neck vein distention. Cardiovascular examination reveals a regular rhythm and rate. S1-S2 normal. No S3 or S4. No discernible murmur noted. Lungs reveal clear breath sounds. Her sounds are equal bilaterally. No adventitious lung sounds including wheezes rhonchi or crackles. Abdomen soft bowel sounds are heard. No masses or tenderness. Extremities are intact. No cyanosis or clubbing. 2+ lower extremity pitting edema is present. Skin is without rash or lesion. Neurologic examination is brief but nonfocal. - Labs CBC & Chem 7: 05/23/24 05:12 05/23/24 05:12 Labs: Abnormal Lab Results - Last 24 Hours (Table) 05/22/24 05/22/24 05/23/24 Range/Units 16:19 19:49 05:12 WBC (4.50-10.00) 10*3/uL RBC (4.40-5.60) 10*6/uL Hgb (13.0-17.0) g/dL Hct (39.6-50.0) % Immature Gran # (0.00-0.04) 10*3/uL Neutrophils # (1.80-7.70) 10*3/uL Monocytes # (0.20-1.00) 10*3/uL Basophils # (0.00-0.10) 10*3/uL Sodium 132 L (137-145) mmol/L Potassium 3.4 L (3.5-5.1) mmol/L Chloride 84 L (98-107) mmol/L Carbon Dioxide 38 H (22-30) mmol/L BUN 32 H (9-20) mg/dL POC Glucose (mg/dL) 137 H 181 H (70-110) mg/dL 05/23/24 05/23/24 05/23/24 Range/Units 05:12 06:35 11:27 WBC 24.32 H (4.50-10.00) 10*3/uL RBC 6.03 H (4.40-5.60) 10*6/uL Hgb 18.5 H (13.0-17.0) g/dL Hct 54.8 H (39.6-50.0) % Immature Gran # 0.79 H (0.00-0.04) 10*3/uL Neutrophils # 19.81 H (1.80-7.70) 10*3/uL Monocytes # 1.58 H (0.20-1.00) 10*3/uL Basophils # 0.14 H (0.00-0.10) 10*3/uL Sodium (137-145) mmol/L Potassium (3.5-5.1) mmol/L Chloride (98-107) mmol/L Carbon Dioxide (22-30) mmol/L BUN (9-20) mg/dL POC Glucose (mg/dL) 142 H 202 H (70-110) mg/dL Microbiology - Last 24 Hours (Table) 05/17/24 17:36 Blood Culture - Final Blood Assessment and Plan Assessment: Atrial fibrillation with RVR, S/P MED, with successful synchronized cardioversion. Acute hypoxemic respiratory failure secondary to COPD exacerbation. Acute exacerbation of diastolic CHF. Recent admission for right lower lobe pneumonia. Obstructive sleep apnea syndrome. Morbid obesity. History of hypertension. Diverticulosis. Chronic and ongoing tobacco dependence. Recent EGD, for melena, and epigastric pain. Plan: Plan dated May 21, 2024. The patient is seen today in room 350. The patient had a transesophageal echocardiogram today. The patient had a successful synchronized cardioversion. Labs, x-rays, and all medications are reviewed. We will continue to follow the patient, make recommendations along the way. The patient continues on oxygen at 4 L. The rest of his labs, are reviewed. His medications are reviewed. We will continue to follow. Prognosis is guarded. Dictation was produced using [employer] software. Please excuse any grammatical, word or spelling errors. Plan dated May 22, 2024. The patient is seen today in room 350. He is resting comfortably in bed. He is on 2 L of oxygen. He had successful cardioversion yesterday. He is not receiving any IV fluids. He is in normal sinus rhythm. His lungs are clear. He has 2+ lower extremity edema. All labs, x-rays, and medications are reviewed. We will continue to follow the patient, make recommendations along the way. Prognosis is guarded. Dictation was produced using [employer] software. Please excuse any grammatical, word or spelling errors. Plan dated May 23, 2024. The patient appears to be doing relatively well. The patient is seen today in room 350. He is not receiving any IV fluids. He is on 2 L of oxygen. All labs, x-rays, and medications are reviewed. He is awake and alert. He is ho ping to be discharged soon. All labs, x-rays, and medications are reviewed. We will continue to follow make recommendations along the way. Prognosis is guarded. Dictation was produced using [employer] software. Please excuse any grammatical, word or spelling errors. Time with Patient: Less than 30
--- NOTE | 2024-05-23 13:11 | P.PN ---
Subjective HISTORY OF PRESENT ILLNESS: This is a 63-year-old male patient of Dr. Lombardi with past medical history of paroxysmal atrial fibrillation, COPD, chronic tobacco use, hypertension, obesity with suspected obstructive sleep apnea. Patient was recently hospitalized for epigastric pain and concerns for black tarry stools. He underwent EGD with Dr. Juares which revealed linear ulcers in the antrum and pylorus of the stomach with no recent stigmata of bleeding. During that hospitalization cardiology was consulted for new onset of A-fib with RVR. Prior to his discharge, it was recommended that patient undergo MED and cardioversion for which patient declined as he wanted to go home. Patient was discharged home yesterday and return to the emergency center with complaints of increasing shortness of breath. He states that since he got home his breathing became much worse. His abdomen discomfort is much improved. He denies cough, wheeze. No chest pain. He states he has had lower extremity edema which was present on previous admission. No palpitations. No fever. No dizziness. He had no improvement of his breathing despite using his inhalers and he increased his oxygen to 6 L. EMS found that he was in A-fib with RVR and gave 1 dose of 20 mg of Cardizem. His initial EKG showed A-fib with RVR at 169 bpm. Patient was started on Cardizem bolus 20 mg followed by 10 mg and another 10 mg followed by a drip at 15 mg/h. Blood pressure 138/79, heart rate 147, pulse ox 89% on 4 L nasal cannula. -EKG: Atrial fibrillation at 169 bpm, #2 atrial fibrillation at 143 bpm -Chest x-ray: Airspace opacities over the infrahilar region on lateral view correlate for pneumonia. COPD changes -Laboratory studies: WBC initially 23.1, hemoglobin 16.4, sodium 136, potassium 4.3, creatinine 0.75. Lactic acid 5. AST 205, ALT 511, troponin negative x 1. proBNP 3850. -Home cardiac medications: Eliquis 5 mg twice daily, Farxiga 10 mg daily, C ardizem 60 mg 3 times daily, Lasix 40 mg twice daily, metoprolol tartrate 50 mg twice daily. -Echocardiogram performed on 05/10/2024 revealed LVH with preserved systolic function. Mildly enlarged right ventricle. Left atrial enlargement. No identifiable tricuspid regurgitation to assess RVSP. 05/19/2024 Patient examined this morning at the bedside. Patient is sitting on the side of the bed. Patient currently denies chest pain or pressure. He reports improvement in his shortness of breath. He remains on IV Lasix. BUN 41. Creatinine 0.89. He remains in atrial fibrillation with a heart rate in the 90s. He remains on IV Cardizem at 15 mg an hour. 05/20/2024 Patient examined this morning at bedside. He continues to report shortness of breath although improved today. He remains on IV Lasix. He continues to have lower extremity edema although improving. He remains in atrial fibrillation with heart rate between [id number]. He remains on IV Cardizem at 15 mg an hour. CO2 increased to 43 today. 05/22/2024 Patient examined this morning the bedside. Patient underwent MED and cardiov ersion yesterday x 2. Patient did require cardioversion x 2. Unfortunately the patient went back into A-fib with RVR. His metoprolol was increased to 100 mg 3 times a day. The patient is going in and out of sinus mechanism and atrial flutter with RVR. At the time of examination he is in sinus mechanism. 05/23/2024 Patient examined this morning at bedside. Patient currently denies chest pain or pressure. He denies shortness of breath. Patient is currently in sinus mechanism at the time of examination. He has been in sinus mechanism for the past 24 hours. He remains on IV Lasix. Sodium 132. Potassium 3.4. Carbon dioxide 38. BUN 32. Creatinine 1.11. PHYSICAL EXAM: VITAL SIGNS: Reviewed. GENERAL: Well-developed in no acute distress. NECK: Supple. No JVD LUNGS: Respirations even and unlabored. Lungs essentially clear to auscultation bilaterally. HEART: Regular rate and rhythm. S1 and S2 heard. EXTREMITIES: Normal range of motion. No clubbing or cyanosis. Peripheral pul ses intact. 1-2+ bilateral lower extremity edema ASSESSMENT: Paroxysmal atrial fibrillation with RVR, diagnosed 05/2024 Typical atrial flutter with RVR Acute on chronic hypoxic respiratory failure, multifactorial Pneumonia COPD exacerbation Acute on chronic heart failure with preserved EF Epigastric abdominal pain status post EGD on 05/15 which revealed linear ulcers in the antrum and pylorus of the stomach with no recent stigmata of bleeding Polycythemia Hypertension Tobacco use and dependence Obesity with suspected ISIAH PLAN: Continue anticoagulation with Eliquis Discontinue IV Lasix. Begin oral Lasix 40 mg twice a day Discontinue Diamox Continue additional cardiac medications Continue oral amiodarone 400 mg twice a day. Decrease dosage of amiodarone to 200 mg twice a day starting on 05/25/2024. Then decrease to 200 mg daily starting on 06/01/2024 Patient may be discharged home today from a cardiac standpoint Further recommendations pending patient course Nurse practitioner note has been reviewed by physician. Signing provider agrees with the documented findings, assessment, and plan of care documented by NEEDLE[employer]KER as a scribe. Objective - Vital Signs Vital signs: Vital Signs Temp 98.3 F 05/23/24 08:20 Pulse 52 L 05/23/24 08:20 Resp 16 05/23/24 08:20 BP 123/79 05/23/24 08:20 Pulse Ox 95 05/23/24 08:20 FiO2 Intake & Output 05/22/24 05/23/24 05/23/24 18:59 06:59 18:59 Intake Total 838 240 Output Total 800 2775 Balance 38 -2535 Weight 111.2 kg Intake: Oral 838 240 Output: Urine 800 2775 Other: Voiding Method Urinal Urinal # Voids 1 - Labs CBC & Chem 7: 05/23/24 05:12 05/23/24 05:12 Labs: Abnormal Lab Results - Last 24 Hours (Table) 05/22/24 05/22/24 05/22/24 Range/Units 11:26 16:19 19:49 WBC (4.50-10.00) 10*3/uL RBC (4.40-5.60) 10*6/uL Hgb (13.0-17.0) g/dL Hct (39.6-50.0) % Immature Gran # (0.00-0.04) 10*3/uL Neutrophils # (1.80-7.70) 10*3/uL Monocytes # (0.20-1.00) 10*3/uL Basophils # (0.00-0.10) 10*3/uL Sodium (137-145) mmol/L Potassium (3.5-5.1) mmol/L Chloride (98-107) mmol/L Carbon Dioxide (22-30) mmol/L BUN (9-20) mg/dL POC Glucose (mg/dL) 153 H 137 H 181 H (70-110) mg/dL 05/23/24 05/23/24 05/23/24 Range/Units 05:12 05:12 06:35 WBC 24.32 H (4.50-10.00) 10*3/uL RBC 6.03 H (4.40-5.60) 10*6/uL Hgb 18.5 H (13.0-17.0) g/dL Hct 54.8 H (39.6-50.0) % Immature Gran # 0.79 H (0.00-0.04) 10*3/uL Neutrophils # 19.81 H (1.80-7.70) 10*3/uL Monocytes # 1.58 H (0.20-1.00) 10*3/uL Basophils # 0.14 H (0.00-0.10) 10*3/uL Sodium 132 L (137-145) mmol/L Potassium 3.4 L (3.5-5.1) mmol/L Chloride 84 L (98-107) mmol/L Carbon Dioxide 38 H (22-30) mmol/L BUN 32 H (9-20) mg/dL POC Glucose (mg/dL) 142 H (70-110) mg/dL Microbiology - Last 24 Hours (Table) 05/17/24 17:36 Blood Culture - Final Blood
[2024-05-23] MEDS: POTASSIUM CHLORIDE ER 20 MEQ TAB.ER PO STA ×2 (13:48)
--- NOTE | 2024-05-23 14:18 | P.PN ---
Subjective Progress Note Date: 05/23/24 This is a 63-year-old male with medical history significant for atrial fibrillation, COPD, hypertension, chronic nicotine use. Patient was just admitted to the hospital for abdominal pain; underwent endoscopic evaluation for GI bleed. During that hospital stay patient also was diagnosed with atrial fibrillation and discharged on cardizem and eliquis. Patient was discharged home on oxygen via nasal cannula 2 L. Patient states that upon returning home it took forever for the oxygen to get delivered he became increasingly short of breath and developed a midsternal sharp chest pain. Patient was also feeling lightheaded. He used his inhalers without improvement in symptoms. Called EMS and presented back to the hospital for further evaluation. EMS found th epatien to be in afib rvr and he was given a bolus of cardizem. Chest x-ray reveals airspace over the infrahilar region lateral view ammonia. There are COPD changes. EKG reveals atrial fibrillation with rapid ventricular rate; heart rate up into the 160s. Labs reveal a white blood cell count 23.16, hemoglobin 7.9, INR 1.2, sodium 137, BUN of 40 creatinine of 0.80 glucose of 166, lactic acid of 2.3, AST of 205 ALT of 511. Initial troponin level was negative his proBNP was elevated at 3850. Patient also has significant lower extremity edema which is pitting in nature. He was admitted to the hospital with consults placed to cardiology and pulmonology. He is requiring oxygen via nasal cannula at 5 L. His saturations are in the 88 to 93%. He has been afebrile. Patient was started on IV Cardizem running at 15 mL/h. Additionally patient was started on IV ceftriaxone and IV azithromycin. Patient started on IV Lasix 40 mg every 12 hours as well as IV Solu-Medrol. He is currently pending a bed on the cardiac unit. 05/19/2024 Patient is evaluated in follow on the cardiac unit. He is sitting up at the bedside with family. Reports feeling less short of breath. Does continue with significant lower extremity edema. He continues on oxygen via nasal cannula. Continues to go in and out of atrial fibrillation with RVR heart rate up into the 150s. Cardiology is recommending MED and cardioversion. KUB completed for complaints of abdominal bloating which reveals a nonspecific abdomen. LFTs improving. Continues on IV lasix. Procalcitonin level 0.07 and antibiotics have been discontinued. White blood cell count 19.80, sodium 137, CO2 41, BUN 41, creatinine 0.89. 05/20/2024 Patient is evaluated today in follow up sitting up at the edge of bed. He remains in atrial fibrillation with heart rate going up into the 120s. Continues on IV lasix 40 mg every 12 hours. 05/21/2024 Patient underwent MED and cardioversion this morning he did require 2 shocks. He initially converted to normal sinus mechanism however after returning to the floor he is now back in atrial fibrillation with a heart rate up to 130s. He remains on IV Lasix 40 mg every 12 hours. He remains on metoprolol 100 mg 3 times daily, oral amiodarone 400 mg twice daily. 05/22/2024 Patient evaluated in follow-up in the medical floor. He remains in atrial fibrillation with a controlled ventricular rate. Follow-up chest x-ray today reveals right basilar patchy airspace opacities which may represent atelectasis versus infiltrate. There are COPD changes. Patient continues on updrafts as well as Symbicort. He has been transition to oral prednisone continues on IV Lasix. Will Maicol wrap his lower extremities. 05/23/2024 Patient is evaluated today in follow up. Patient is currently in normal sinus rhythm. His lower extremity edema is significantly improved. He will be transitioned to oral lasix 40 mg twice daily. His white blood cell count is 24.32. He does report that he sees hematology outpatient for the leukocytosis as it has been high however not this high. Blood culture has been negative this admission. His viral panel has been negative. Procalcitonin level was checked on May 18 and was 0.07. Sodium 132, potassium 3.4. BUN 32, creatinine 1.11. REVIEW OF SYSTEMS: CONSTITUTIONAL: No fever, no malaise, no fatigue. HEENT: No recent visual problems or hearing problems. Denied any sore throat. CARDIOVASCULAR: Reports chest pain, orthopnea, PND, no palpitations, no syncope. PULMONARY: Reports shortness of breath, no cough, no hemoptysis. GASTROINTESTINAL: No diarrhea, no nausea, no vomiting, no abdominal pain. NEUROLOGICAL: No headaches, no weakness, no numbness. PHYSICAL EXAMINATION: GENERAL: The patient is alert and oriented x3, not in any acute distress. Well developed, well nourished. HEENT: Pupils are round and equally reacting to light. EOMI. No scleral icterus. No conjunctival pallor. Normocephalic, atraumatic. No pharyngeal erythema. No thyromegaly. CARDIOVASCULAR: S1 and S2 present. No murmurs, rubs, or gallops. PULMONARY: Chest is clear to auscultation, no wheezing or crackles. Diminished ABDOMEN: Soft, nontender, nondistended, normoactive bowel sounds. No palpable organomegaly. MUSCULOSKELETAL: No joint swelling or deformity. EXTREMITIES: No cyanosis, clubbing, or pedal edema. +2 pitting edema NEUROLOGICAL: Gross neurological examination did not reveal any focal deficits. SKIN: No rashes. Assessment Atrial fibrillation with RVR Paroxysmal atrial fibrillation with RVR diagnosed prior hospital stay Hypokalemia from diuresis COPD exacerbation Acute on chronic hypoxemic respiratory failure Acute on chronic congestive heart failure with preserved EF. Lactic acidosis rule out sepsis Transaminitis from hepatic congestion. Leukocytosis Hypertension Hyperglycemia with hemoglobin A1c 6.6 Tobacco use recently quit 2 weeks ago Obesity with likely obesity hypoventilation syndrome GI prophylaxis DVT prophylaxis Full code Plan Check a urinalysis ID consultation for the leukocytosis Patient continues on oral amiodarone 400 mg twice daily oral metoprolol has been increased to 200 mg twice daily Lasix has been transitioned to oral 40 mg every 12 hours with strict intake o utput monitoring Supplement potassium Patient has been transitioned to oral prednisone Pulmonary consultation, cardiology consultation Continue oxygen support Repeat CMP in the morning Status post MED cardioversion patient initially was in sinus rhythm and has now converted back into atrial fibrillation Continue cardiac telemetry Possible DC home in the next 24 The impression and plan of care has been dictated by Indira Sneed, Nurse Practitioner as directed. Dr. Jose MD I have performed a history and physical examination and medical decision making of this patient, discussed the same with the dictator, and agree with the dictators assessment and plan as written, documented as a scribe. Based on total visit time, I have performed more than 50% of this visit. Objective - Vital Signs Vital signs: Vital Signs Temp 97.8 F 05/23/24 11:17 Pulse 56 L 05/23/24 13:34 Resp 16 05/23/24 13:34 BP 111/72 05/23/24 11:17 Pulse Ox 95 05/23/24 11:17 FiO2 Intake & Output 05/22/24 05/23/24 05/23/24 18:59 06:59 18:59 Intake Total 838 240 240 Output Total 800 2775 158 Balance 38 -7082 -008 Weight 111.2 kg Intake: Oral 838 240 240 Output: Urine 800 2775 850 Other: Voiding Method Urinal Urinal Urinal # Voids 1 - Labs CBC & Chem 7: 05/23/24 05:12 05/23/24 05:12 Labs: Abnormal Lab Results - Last 24 Hours (Table) 05/22/24 05/22/24 05/23/24 Range/Units 16:19 19:49 05:12 WBC (4.50-10.00) 10*3/uL RBC (4.40-5.60) 10*6/uL Hgb (13.0-17.0) g/dL Hct (39.6-50.0) % Immature Gran # (0.00-0.04) 10*3/uL Neutrophils # (1.80-7.70) 10*3/uL Monocytes # (0.20-1.00) 10*3/uL Basophils # (0.00-0.10) 10*3/uL Sodium 132 L (137-145) mmol/L Potassium 3.4 L (3.5-5.1) mmol/L Chloride 84 L (98-107) mmol/L Carbon Dioxide 38 H (22-30) mmol/L BUN 32 H (9-20) mg/dL POC Glucose (mg/dL) 137 H 181 H (70-110) mg/dL 05/23/24 05/23/24 05/23/24 Range/Units 05:12 06:35 11:27 WBC 24.32 H (4.50-10.00) 10*3/uL RBC 6.03 H (4.40-5.60) 10*6/uL Hgb 18.5 H (13.0-17.0) g/dL Hct 54.8 H (39.6-50.0) % Immature Gran # 0.79 H (0.00-0.04) 10*3/uL Neutrophils # 19.81 H (1.80-7.70) 10*3/uL Monocytes # 1.58 H (0.20-1.00) 10*3/uL Basophils # 0.14 H (0.00-0.10) 10*3/uL Sodium (137-145) mmol/L Potassium (3.5-5.1) mmol/L Chloride (98-107) mmol/L Carbon Dioxide (22-30) mmol/L BUN (9-20) mg/dL POC Glucose (mg/dL) 142 H 202 H (70-110) mg/dL Microbiology - Last 24 Hours (Table) 05/17/24 17:36 Blood Culture - Final Blood Assessment and Plan Time with Patient: Less than 30
[2024-05-23] MEDS: FUROSEMIDE 40 MG TAB PO SCH (16:31)
[2024-05-23 16:37] LABS: Glucose,Whole Blood 167 mg/dL (70-110)
[2024-05-23 19:53] LABS: Glucose,Whole Blood 174 mg/dL (70-110)
[2024-05-23 20:13] LABS: Appearance,Urine Clear (Clear); Bilirubin,Urine Negative (Negative); Blood,Urine Negative (Negative); Color,Urine Colorless; Glucose,Urine (UA) 4+ (Negative); Ketones,Urine Negative (Negative); Leukocyte Esterase,Urine Negative (Negative); Nitrite,Urine Negative (Negative); Protein,Urine Negative (Negative); Specific Gravity,Urine 1.016 (1.001-1.035); Urobilinogen,Urine <2.0 mg/dL (<2.0)
--- NOTE | 2024-05-23 22:38 | P.CONS ---
History of Present Illness - Reason for Consult Consult date: 05/23/24 Leukocytosis Requesting physician: Indira Sneed - Chief Complaint Shortness of breath x days - History of Present Illness Patient is a 63-year-old male with a past medical history of again for COPD hypertension diverticulitis/gastritis presenting to the hospital 6 days ago for evaluation of increasing shortness of breath and this patient has been diagnosed with A-fib with RVR and the patient has been treated by pulmonary and cardiology services patient presented to the hospital was afebrile and no fever have been called subsequently patient did have white count of 23.16 on admission that it came down the next day to 17.89 however the patient white count has been trending up and is up to 24.32 today did have a left shift with some immature cells but no blast since patient did have normal creatinine liver enzymes mildly elevated though trending down he did have normal procalcitonin of 0.07 on 05/18/2024 urine has been negative influenza RSV COVID testing has been negative blood culture on admission was negative patient did have chest x-ray on a dmission airspace opacity over the infrahilar region on the lateral view correlate for pneumonia chest x-ray yesterday right basilar patchy opacity which may represent atelectasis versus infiltrate patient did receive 3 doses of Rocephin on admission those were subsequently discontinued as the patient procalcitonin was normal patient currently denies having any headache or URI symptoms no chest pain or shortness of he did have occasional cough but not bringing up any sputum. Denies having any nausea vomiting, epigastric discomfort that has improved denies any diarrhea no urinary symptoms Review of Systems Positive point and negatives has been mentioned in the HPI, complete review of systems was performed and all other systems are negative Past Medical History Past Medical History: COPD, Hypertension Additional Past Medical History / Comment(s): diverticulitis History of Any Multi-Drug Resistant Organisms: None Reported Past Surgical History: Heart Catheterization Past Anesthesia/Blood Transfusion Reactions: No Reported Reaction Additional Past Anesthesia/Blood Transfusion Reaction / Comm: Pt has never had a blood transfusion. Past Psychological History: No Psychological Hx Reported Smoking Status: Current every day smoker Past Alcohol Use History: Occasional Past Drug Use History: None Reported - Past Family History Mother Additional Family Medical History / Comment(s): Cardiac Father Additional Family Medical History / Comment(s): Cardiac Medications and Allergies Home Medications Medication Instructions Recorded Confirmed Type Budesonide/Formoterol Fumarate 2 puff INHALATION RT-BID 05/08/24 05/17/24 History [Symbicort 160-4.5 Mcg Inhaler] Acetaminophen Tab [Tylenol] 500 mg PO Q6HR PRN tab 05/16/24 05/17/24 Rx Amoxic-Pot Clav 500-125 mg 1 tab PO Q12HR 5 Days #10 tab 05/16/24 05/17/24 Rx [Augmentin 500-125 mg] Apixaban [Eliquis] 5 mg PO BID #60 tab 05/16/24 05/17/24 Rx Dapagliflozin Propanediol [Farxiga] 10 mg PO DAILY #30 tab 05/16/24 05/17/24 Rx Diltiazem Oral [Cardizem*] 60 mg PO TID #90 tab 05/16/24 05/17/24 Rx Furosemide [Lasix] 40 mg PO BID@0900,1600 #60 tab 05/16/24 05/17/24 Rx Mag Hydrox/Al Hydrox/Simeth 30 ml PO DAILY #200 ml 05/16/24 05/17/24 Rx [Maalox] Metoprolol Tartrate [Lopressor] 50 mg PO BID #60 tab 05/16/24 05/17/24 Rx Pantoprazole Sodium [Protonix] 40 mg PO BID #60 tab 05/16/24 05/17/24 Rx Sucralfate [Carafate] 1 gm PO AC-TID #60 tab 05/16/24 05/17/24 Rx Albuterol Inhaler [Ventolin Hfa 2 puff INHALATION RT-Q6H PRN 05/17/24 05/17/24 History Inhaler] predniSONE See Taper PO DIRECTED 05/17/24 05/17/24 History Allergies Allergy/AdvReac Type Severity Reaction Status Date / Time No Known Allergies Allergy Verified 05/17/24 18:50 Physical Exam Vitals: Vital Signs Temp Pulse Pulse Pulse Resp BP Pulse Ox 05/23/24 13:34 56 L 16 05/23/24 11:17 97.8 F 56 L 16 111/72 95 05/23/24 11:05 55 L 05/23/24 10:54 55 L 05/23/24 08:32 16 05/23/24 08:20 98.3 F 52 L 16 123/79 95 05/23/24 07:45 56 L 05/23/24 07:36 55 L 95 05/23/24 04:00 60 16 131/73 97 05/23/24 01:26 20 05/22/24 23:12 69 15 120/75 95 05/22/24 20:41 57 L 05/22/24 20:31 63 05/22/24 20:00 98.1 F 66 20 138/73 94 L 05/22/24 16:45 98.3 F 60 16 123/78 93 L 05/22/24 16:26 64 05/22/24 16:15 60 05/22/24 15:05 60 115/73 Intake and Output 05/22/24 05/23/24 05/23/24 22:59 06:59 14:59 Intake Total 720 240 Output Total 1350 1725 850 Balance - -1590 -610 Intake: Oral 720 240 Output: Urine 1350 1725 850 Other: Voiding Method Urinal Urinal Urinal # Voids 2 1 Weight 111.2 kg GENERAL DESCRIPTION: Middle aged male lying in bed, no distress. No tachypnea or accessory muscle of respiration use. HEENT: Shows Pallor , no scleral icterus. Oral mucous membrane is dry. No pharyngeal erythema or thrush NECK: Trachea central, no thyromegaly. LUNGS: Unlabored breathing. Decreased breath sounds at the bases HEART: S1, S2, regular rate and rhythm. No loud murmur ABDOMEN: Soft, no tenderness , guarding or rigidity, no organomegaly EXTREMITIES: No edema of feet. SKIN: No rash, no masses palpable. NEUROLOGICAL: The patient is awake, alert, oriented x3, mood and affect normal. Results CBC & Chem 7: 05/24/24 05:15 05/24/24 05:15 Labs: Abnormal Lab Results - Last 24 Hours (Table) 05/22/24 05/22/24 05/23/24 Range/Units 16:19 19:49 05:12 WBC (4.50-10.00) 10*3/uL RBC (4.40-5.60) 10*6/uL Hgb (13.0-17.0) g/dL Hct (39.6-50.0) % Immature Gran # (0.00-0.04) 10*3/uL Neutrophils # (1.80-7.70) 10*3/uL Monocytes # (0.20-1.00) 10*3/uL Basophils # (0.00-0.10) 10*3/uL Sodium 132 L (137-145) mmol/L Potassium 3.4 L (3.5-5.1) mmol/L Chloride 84 L (98-107) mmol/L Carbon Dioxide 38 H (22-30) mmol/L BUN 32 H (9-20) mg/dL POC Glucose (mg/dL) 137 H 181 H (70-110) mg/dL 05/23/24 05/23/24 05/23/24 Range/Units 05:12 06:35 11:27 WBC 24.32 H (4.50-10.00) 10*3/uL RBC 6.03 H (4.40-5.60) 10*6/uL Hgb 18.5 H (13.0-17.0) g/dL Hct 54.8 H (39.6-50.0) % Immature Gran # 0.79 H (0.00-0.04) 10*3/uL Neutrophils # 19.81 H (1.80-7.70) 10*3/uL Monocytes # 1.58 H (0.20-1.00) 10*3/uL Basophils # 0.14 H (0.00-0.10) 10*3/uL Sodium (137-145) mmol/L Potassium (3.5-5.1) mmol/L Chloride (98-107) mmol/L Carbon Dioxide (22-30) mmol/L BUN (9-20) mg/dL POC Glucose (mg/dL) 142 H 202 H (70-110) mg/dL Microbiology - Last 24 Hours (Table) 05/17/24 17:36 Blood Culture - Final Blood Assessment and Plan (1) Leukocytosis Current Visit: Yes Status: Acute Code(s): D72.829 - ELEVATED WHITE BLOOD CELL COUNT, UNSPECIFIED SNOMED Code(s): 122822888 (2) Pneumonia Current Visit: Yes Status: Acute Code(s): J18.9 - PNEUMONIA, UNSPECIFIED ORGANISM SNOMED Code(s): 278763941 Plan: 1patient with elevated white count during this admission which is up to 23,000 with a left shift in this patient presented to hospital with increasing shortness of breath about 6 days ago in this patient did not have any fever etiology of the white count possibly reactive however underlying infectious etiology such as pneumonia not entirely excluded even though patient did have a normal procalcitonin as no other obvious focus of infection recently he did have a CT of abdominal pelvis that was negative for acute abnormality he did have elevated liver enzymes and abdominal source need to be excluded as well. 2we will obtain blood culture CRP procalcitonin sputum for Gram stain culture if possible 3-will check an ultrasound of the liver the gallbladder area 4-will empirically start the patient on Zosyn and see clinical response We will follow on clinical condition and cultures to further adjust medication if needed Thank you for this consultation we will follow the patient along with you Dictation was produced using [employer] ([employer]) dictation software. please excuse any grammatical, word or spelling errors. Time with Patient: Greater than 30
[2024-05-23] MEDS: PIPERACILLIN-TAZOBACTAM 3.375 GM in SODIUM CHLORIDE 0.9% 100 ML IVPB SCH (23:19)
[2024-05-24 06:06] LABS: Glucose,Whole Blood 174 mg/dL (70-110)
[2024-05-24 06:20] LABS: African American GFR (CKD) 73 (>60 ml/min/1.73 sqM); Anion Gap 6 mmol/L; Blood Urea Nitrogen 31 mg/dL (9-20); Calcium 9.5 mg/dL (8.4-10.2); Carbon Dioxide 35 mmol/L (22-30); Chloride 92 mmol/L (98-107); Glucose 175 mg/dL (74-99); Non-African American GFR(CKD) 63 (>60 ml/min/1.73 sqM); Potassium 3.7 mmol/L (3.5-5.1); Sodium 133 mmol/L (137-145)
--- NOTE | 2024-05-24 08:08 | US ---
EXAMINATION TYPE: US abdomen limited DATE OF EXAM: 05/23/2024 COMPARISON: CT: 05/08/24 CLINICAL INDICATION: Male, 63 years old with history of Elevated liver enzyme and leukocytosis; eleva kenzie liver enzymes TECHNIQUE: Grayscale and color Doppler imaging of the right upper quadrant. FINDINGS: EXAM MEASUREMENTS: Liver Length: 19.7 cm Gallbladder Wall: 0.23 cm CBD: 0.25 cm, color Doppler imaging was utilized to isolate the common bile duct for measurement. Right Kidney: 11.5 x 5.9 [address] [employer] NOTES: Pancreas: not well visualized due to bowel gas Liver: heterogeneous and difficult to penetrate. Anechoic area seen in left lobe measuring 0.7 x 1.1 x 0.9cm Gallbladder: wnl Evidence for sonographic Mancia's sign: No CBD: wnl Right Kidney: wnl The pancreas is obscured by overlying bowel gas. The liver is diffusely heterogenous with increased e chotexture. It is difficult to penetrate. Simple appearing cyst within the left hepatic lobe measurin g up to 1.1 cm. Mildly enlarged liver. The gallbladder demonstrates no stones, wall thickening or saul rounding fluid. Negative sonographic Mancia's sign. Common bile duct is within normal limits. Right k idney demonstrates no hydronephrosis, solid mass or shadowing calculus. IMPRESSION: 1. No ultrasound evidence for acute process. 2. Mild hepatomegaly with diffuse fatty infiltration. [facility], , 05/24/2024 8:05 AM
[2024-05-24 09:50] LABS: Basophils # (A) 0.12 10*3/uL (0.00-0.10); Basophils % (A) 0.5 %; Eosinophils # (A) 0.07 10*3/uL (0.04-0.35); Eosinophils % (A) 0.3 %; HCT 53.7 % (39.6-50.0); HGB 17.8 g/dL (13.0-17.0); Lymphocytes # (A) 1.76 10*3/uL (0.90-5.00); Lymphocytes % (A) 7.8 %; MCH 30.6 pg (27.0-32.0); MCHC 33.1 g/dL (32.0-37.0); MCV 92.3 fL (80.0-97.0); Mean Platelet Volume 12.8 fL (9.5-12.2); Monocytes # (A) 1.41 10*3/uL (0.20-1.00); Monocytes % (A) 6.3 %; Neutrophils # (A) 18.35 10*3/uL (1.80-7.70); Neutrophils % (A) 81.8 %; Platelet Count 174 10*3/uL (140-440); RBC 5.82 10*6/uL (4.40-5.60); RDW 13.3 % (11.5-14.5); WBC 22.46 10*3/uL (4.50-10.00)
--- NOTE | 2024-05-24 09:58 | P.PN ---
Subjective Progress Note Date: 05/24/24 Principal diagnosis: Respiratory insufficiency. The patient is seen today in consultation in the emergency department. Just discharged from here on 05/16/2024. He return to the emergency department yesterday 05/17/2024 with shortness of breath and palpitations. He was found to be in atrial fibrillation with a rapid ventricular response. He has a history of smoking/COPD and he has obvious features of obstructive sleep apnea. The patient used to smoke up to 2 pack of cigarettes a day and currently is down to 1 pack of cigarettes a day. Maintained on Symbicort on outpatient basis. Does not utilize home O2. No home CPAP machine. He has chronic exertional dyspnea. Chest x-ray shows similar airspace opacities in the infrahilar region. Evidence of COPD. Right count 17.8. Hemoglobin 16.4. Platelets 150. Sodium 136. Potassium 4.3. Bicarb 36. BUN 41. Creatinine 0.75. Glucose 281. Lactic 4.1. Troponin negative x 1. proBNP 3850. AST 205. ALT 511. He is currently sitting up on a stretcher. Awake and alert in no acute distress. Maintaining O2 saturations in the 90s on 4 L/min per nasal cannula. He does remain in atrial fibrillation with a rapid ventricular response. He has been initiated on a Cardizem drip at 15 mg/h. He is continued on his Eliquis. Patient was seen today on 05/19/2024, presently on Cardizem drip at 15 mg/h, being followed by cardiology for his atrial fibrillation and RVR. Patient is feeling much better today compared to yesterday, remains on 4 L nasal cannula with O2 sats of 94%. WBC count is 19.8 hemoglobin is 16.6 electrolytes are normal bicarb is 41 BUN 41 creatinine 0.89 KUB abdomen done yesterday showed nonspecific abdomen. Chest x-ray on admission showed mostly prominence of the pulmonary vasculature, and small left pleural effusion. There is also some component of basilar atelectasis. Doubt pneumonia. Patient was seen today on 05/20/2024, remains on Cardizem drip at 15 mg/h. His rapid atrial fibrillation seems to be under control, but he remains in atrial fibrillation. Clinically the patient is feeling better, breathing a bit easier, remains on 4 L nasal cannula, patient does have underlying severe COPD. On bronchodilators. Labs today showed leukocytosis with WBC of 20.58 hemoglobin 16.5 electrolytes are normal bicarb is 43 BUN is 39 creatinine 0.79 patient is on prednisone for his COPD he is also on diuretics and bronchodilators/DuoNeb as well as Symbicort. For his atrial fibrillation remains on Eliquis, amiodarone, Cardizem, metoprolol Progress note dated 05/21/2024. 63-year-old male seen in room 350. The patient is scheduled to have a transesophageal echocardiogram today. Clinically, the patient stable. He is awake and alert. No distress. He is on 4 L of oxygen. Current labs include a sodium 132, potassium 4.2, chloride 75, CO2 50, BUN 41, creatinine 0.95. Glucose is 174. Calcium 9.1. The patient's transesophageal echocardiogram showed no evidence of thrombus in the left atrial appendage or left atrium. There was preserved global LV systolic function. And there was successful synchronized cardioversion of the patient. Progress note dated May 22, 2024. 63-year-old male again seen in room 350. The patient is resting comfortably. He is currently on 2 L. Normal IV fluids. He is in normal sinus rhythm. The patient had synchronized cardioversion, yesterday, after having a transesophageal echocardiogram. He is awake and alert. Labs today include a sodium 131, potassium 3.8, chloride 79, CO2 50, BUN 40, and creatinine 0.9. Glucose is 153. Calcium is 8.9. Chest x-ray shows a right basilar patchy airspace opacities, and changes of COPD. Progress note dated May 23, 2024. 63-year-old male seen again in room 350. The patient is on 2 L of oxygen. Not receiving any IV fluids. The patient is awake and alert. No distress. No respiratory issues or problems. The patient is hoping to be discharged soon. White count is 24.3, hemoglobin 18.5, hematocrit 54.8, platelet count 262,000. Sodium 132, potassium 3.4, chloride 84, CO2 38, BUN 32, and creatinine 1.11. Glucose is 202. Calcium is 9.5. No chest x-ray today. Progress note dated May 24, 2024. 63-year-old male seen today in room 350. The patient continues on 2 L of oxygen. Saturations are excellent. He is not receiving any IV fluids. Current laboratory data includes a white count of 22.5, hemoglobin 17.8, hematocrit 53.7, and a platelet count of 174,000. Sodium 133, potassium 3.7, chloride 92, CO2 35, anion gap 6, BUN 31, creatinine 1.22. Procalcitonin level is normal at 0.10. Ultrasound of the abdomen was negative. Objective - Vital Signs Vital signs: Vital Signs Temp 97.7 F 05/24/24 07:54 Pulse 52 L 05/24/24 08:58 Resp 19 05/24/24 08:58 BP 126/80 05/24/24 07:54 Pulse Ox 94 L 05/24/24 08:14 FiO2 Intake & Output 05/23/24 05/24/24 05/24/24 18:59 06:59 18:59 Intake Total 720 120 Output Total 850 1350 550 Balance -130 -1350 -430 Weight 110.2 kg Intake: Oral 720 120 Output: Urine 850 1350 550 Other: Voiding Method Urinal Urinal # Voids 1 - Exam No acute distress, oriented 3. No respiratory distress. Currently on 2 L. HEENT examination is grossly unremarkable. Mucous membranes are moist. No oral lesions. Neck supple. Full range of motion. No adenopathy thyromegaly or neck vein distention. Cardiovascular examination reveals a regular rhythm and rate. S1-S2 normal. No S3 or S4. No discernible murmur noted. Lungs reveal clear breath sounds. Her sounds are equal bilaterally. No adventitious lung sounds including wheezes rhonchi or crackles. Abdomen soft bowel sounds are heard. No masses or tenderness. Extremities are intact. No cyanosis or clubbing. 2+ lower extremity pitting edema is present. Skin is without rash or lesion. Neurologic examination is brief but nonfocal. - Labs CBC & Chem 7: 05/24/24 05:15 05/24/24 05:15 Labs: Abnormal Lab Results - Last 24 Hours (Table) 05/23/24 05/23/24 05/23/24 Range/Units 11:27 16:35 19:52 WBC (4.50-10.00) 10*3/uL RBC (4.40-5.60) 10*6/uL Hgb (13.0-17.0) g/dL Hct (39.6-50.0) % MPV (9.5-12.2) fL Immature Gran # (0.00-0.04) 10*3/uL Neutrophils # (1.80-7.70) 10*3/uL Monocytes # (0.20-1.00) 10*3/uL Basophils # (0.00-0.10) 10*3/uL Sodium (137-145) mmol/L Chloride (98-107) mmol/L Carbon Dioxide (22-30) mmol/L BUN (9-20) mg/dL Glucose (74-99) mg/dL POC Glucose (mg/dL) 202 H 167 H 174 H (70-110) mg/dL C-Reactive Protein (<1.0) mg/dL Urine Glucose (UA) (Negative) 05/23/24 05/24/24 05/24/24 Range/Units 20:01 05:15 05:15 WBC 22.46 H (4.50-10.00) 10*3/uL RBC 5.82 H (4.40-5.60) 10*6/uL Hgb 17.8 H (13.0-17.0) g/dL Hct 53.7 H (39.6-50.0) % MPV 12.8 H (9.5-12.2) fL Immature Gran # 0.75 H (0.00-0.04) 10*3/uL Neutrophils # 18.35 H (1.80-7.70) 10*3/uL Monocytes # 1.41 H (0.20-1.00) 10*3/uL Basophils # 0.12 H (0.00-0.10) 10*3/uL Sodium 133 L (137-145) mmol/L Chloride 92 L (98-107) mmol/L Carbon Dioxide 35 H (22-30) mmol/L BUN 31 H (9-20) mg/dL Glucose 175 H (74-99) mg/dL POC Glucose (mg/dL) (70-110) mg/dL C-Reactive Protein 1.0 H (<1.0) mg/dL Urine Glucose (UA) 4+ H (Negative) 05/24/24 Range/Units 06:04 WBC (4.50-10.00) 10*3/uL RBC (4.40-5.60) 10*6/uL Hgb (13.0-17.0) g/dL Hct (39.6-50.0) % MPV (9.5-12.2) fL Immature Gran # (0.00-0.04) 10*3/uL Neutrophils # (1.80-7.70) 10*3/uL Monocytes # (0.20-1.00) 10*3/uL Basophils # (0.00-0.10) 10*3/uL Sodium (137-145) mmol/L Chloride (98-107) mmol/L Carbon Dioxide (22-30) mmol/L BUN (9-20) mg/dL Glucose (74-99) mg/dL POC Glucose (mg/dL) 174 H (70-110) mg/dL C-Reactive Protein (<1.0) mg/dL Urine Glucose (UA) (Negative) Assessment and Plan Assessment: Atrial fibrillation with RVR, S/P MED, with successful synchronized cardioversion. Acute hypoxemic respiratory failure secondary to COPD exacerbation. Acute exacerbation of diastolic CHF. Recent admission for right lower lobe pneumonia. Obstructive sleep apnea syndrome. Morbid obesity. History of hypertension. Diverticulosis. Chronic and ongoing tobacco dependence. Recent EGD, for melena, and epigastric pain. Plan: Plan dated May 21, 2024. The patient is seen today in room 350. The patient had a transesophageal echocardiogram today. The patient had a successful synchronized cardioversion. Labs, x-rays, and all medications are reviewed. We will continue to follow the patient, make recommendations along the way. The patient continues on oxygen at 4 L. The rest of his labs, are reviewed. His medications are reviewed. We will continue to follow. Prognosis is guarded. Dictation was produced using [employer] software. Please excuse any grammatical, word or spelling errors. Plan dated May 22, 2024. The patient is seen today in room 350. He is resting comfortably in bed. He is on 2 L of oxygen. He had successful cardioversion yesterday. He is not receiving any IV fluids. He is in normal sinus rhythm. His lungs are clear. He has 2+ lower extremity edema. All labs, x-rays, and medications are reviewed. We will continue to follow the patient, make recommendations along the way. Prognosis is guarded. Dictation was produced using [employer] software. Please excuse any grammatical, word or spelling errors. Plan dated May 23, 2024. The patient appears to be doing relatively well. The patient is seen today in room 350. He is not receiving any IV fluids. He is on 2 L of oxygen. All labs, x-rays, and medications are reviewed. He is awake and alert. He is hoping to be discharged soon. All labs, x-rays, and medications are reviewed. We will continue to follow make recommendations along the way. Prognosis is guarded. Dictation was produced using [employer] software. Please excuse any grammatical, word or spelling errors. Plan dated May 24, 2024. The patient is seen today in room 350. He is on 2 L. From the pulmonary standpoint he is very stable. He denies any shortness of breath, cough, wheezing, chest tightness, or phlegm production. Labs, x-rays, and all medications are reviewed. Abdominal ultrasound was negative. Not sure why the patient still in the hospital. From our perspective he could be discharged. Additional recommendations and suggestions are forthcoming. We do not feel from the pulmonary standpoint, the patient needs Zosyn, or any antibiotic at this point, given his examination, his lack of pulmonary complaints, and has normal procalcitonin level. Time with Patient: Less than 30
[2024-05-24 11:16] VITALS: BMI 33.8
[2024-05-24 11:28] LABS: Glucose,Whole Blood 166 mg/dL (70-110)
--- NOTE | 2024-05-24 13:05 | P.PN ---
Subjective HISTORY OF PRESENT ILLNESS: This is a 63-year-old male patient of Dr. Lombardi with past medical history of paroxysmal atrial fibrillation, COPD, chronic tobacco use, hypertension, obesity with suspected obstructive sleep apnea. Patient was recently hospitalized for epigastric pain and concerns for black tarry stools. He underwent EGD with Dr. Juares which revealed linear ulcers in the antrum and pylorus of the stomach with no recent stigmata of bleeding. During that hospitalization cardiology was consulted for new onset of A-fib with RVR. Prior to his discharge, it was recommended that patient undergo MED and cardioversion for which patient declined as he wanted to go home. Patient was discharged home yesterday and return to the emergency center with complaints of increasing shortness of breath. He states that since he got home his breathing became much worse. His abdomen discomfort is much improved. He denies cough, wheeze. No chest pain. He states he has had lower extremity edema which was present on previous admission. No palpitations. No fever. No dizziness. He had no improvement of his breathing despite using his inhalers and he increased his oxygen to 6 L. EMS found that he was in A-fib with RVR and gave 1 dose of 20 mg of Cardizem. His initial EKG showed A-fib with RVR at 169 bpm. Patient was started on Cardizem bolus 20 mg followed by 10 mg and another 10 mg followed by a drip at 15 mg/h. Blood pressure 138/79, heart rate 147, pulse ox 89% on 4 L nasal cannula. -EKG: Atrial fibrillation at 169 bpm, #2 atrial fibrillation at 143 bpm -Chest x-ray: Airspace opacities over the infrahilar region on lateral view correlate for pneumonia. COPD changes -Laboratory studies: WBC initially 23.1, hemoglobin 16.4, sodium 136, potassium 4.3, creatinine 0.75. Lactic acid 5. AST 205, ALT 511, troponin negative x 1. proBNP 3850. -Home cardiac medications: Eliquis 5 mg twice daily, Farxiga 10 mg daily, C ardizem 60 mg 3 times daily, Lasix 40 mg twice daily, metoprolol tartrate 50 mg twice daily. -Echocardiogram performed on 05/10/2024 revealed LVH with preserved systolic function. Mildly enlarged right ventricle. Left atrial enlargement. No identifiable tricuspid regurgitation to assess RVSP. 05/19/2024 Patient examined this morning at the bedside. Patient is sitting on the side of the bed. Patient currently denies chest pain or pressure. He reports improvement in his shortness of breath. He remains on IV Lasix. BUN 41. Creatinine 0.89. He remains in atrial fibrillation with a heart rate in the 90s. He remains on IV Cardizem at 15 mg an hour. 05/20/2024 Patient examined this morning at bedside. He continues to report shortness of breath although improved today. He remains on IV Lasix. He continues to have lower extremity edema although improving. He remains in atrial fibrillation with heart rate between [id number]. He remains on IV Cardizem at 15 mg an hour. CO2 increased to 43 today. 05/22/2024 Patient examined this morning the bedside. Patient underwent MED and cardiov ersion yesterday x 2. Patient did require cardioversion x 2. Unfortunately the patient went back into A-fib with RVR. His metoprolol was increased to 100 mg 3 times a day. The patient is going in and out of sinus mechanism and atrial flutter with RVR. At the time of examination he is in sinus mechanism. 05/23/2024 Patient examined this morning at bedside. Patient currently denies chest pain or pressure. He denies shortness of breath. Patient is currently in sinus mechanism at the time of examination. He has been in sinus mechanism for the past 24 hours. He remains on IV Lasix. Sodium 132. Potassium 3.4. Carbon dioxide 38. BUN 32. Creatinine 1.11. 05/24/2024 Patient examined this morning to bedside. Patient currently denies chest pain or pressure. He denies shortness of breath. Patient is maintaining sinus mechanism. 05/26/2023 Patient examined this morning at the bedside. Patient currently denies chest pain or pressure. He denies shortness of breath. Vital signs are stable. He is maintaining sinus mechanism. PHYSICAL EXAM: VITAL SIGNS: Reviewed. GENERAL: Well-developed in no acute distress. NECK: Supple. No JVD LUNGS: Respirations even and unlabored. Lungs essentially clear to auscultation bilaterally. HEART: Regular rate and rhythm. S1 and S2 heard. EXTREMITIES: Normal range of motion. No clubbing or cyanosis. Peripheral pulses intact. 1-2+ bilateral lower extremity edema ASSESSMENT: Paroxysmal atrial fibrillation with RVR, diagnosed 05/2024 Typical atrial flutter with RVR Acute on chronic hypoxic respiratory failure, multifactorial Pneumonia COPD exacerbation Acute on chronic heart failure with preserved EF Epigastric abdominal pain status post EGD on 05/15 which revealed linear ulcers in the antrum and pylorus of the stomach with no recent stigmata of bleeding Polycythemia Hypertension Tobacco use and dependence Obesity with suspected ISIAH PLAN: Continue anticoagulation with Eliquis Continue additional cardiac medications Continue oral amiodarone 400 mg twice a day. Decrease dosage of amiodarone to 200 mg twice a day starting on 05/25/2024. Then decrease to 200 mg daily starting on 06/01/2024 Patient may be discharged home today from a cardiac standpoint Further recommendations pending patient course Nurse practitioner note has been reviewed by physician. Signing provider agrees with the documented findings, assessment, and plan of care documented by A[employer] F[employer]RIC[employer] as a scribe. Objective - Vital Signs Vital signs: Vital Signs Temp 97.7 F 05/24/24 07:54 Pulse 68 05/24/24 08:26 Resp 19 05/24/24 07:54 BP 126/80 05/24/24 07:54 Pulse Ox 94 L 05/24/24 08:14 FiO2 Intake & Output 05/23/24 05/24/24 05/24/24 18:59 06:59 18:59 Intake Total 720 120 Output Total 850 1350 350 Balance -130 -1350 -230 Weight 110.2 kg Intake: Oral 720 120 Output: Urine 850 1350 350 Other: Voiding Method Urinal Urinal # Voids 1 - Labs CBC & Chem 7: 05/24/24 05:15 05/24/24 05:15 Labs: Abnormal Lab Results - Last 24 Hours (Table) 05/23/24 05/23/24 05/23/24 Range/Units 11:27 16:35 19:52 Sodium (137-145) mmol/L Chloride (98-107) mmol/L Carbon Dioxide (22-30) mmol/L BUN (9-20) mg/dL Glucose (74-99) mg/dL POC Glucose (mg/dL) 202 H 167 H 174 H (70-110) mg/dL C-Reactive Protein (<1.0) mg/dL Urine Glucose (UA) (Negative) 05/23/24 05/24/24 05/24/24 Range/Units 20:01 05:15 06:04 Sodium 133 L (137-145) mmol/L Chloride 92 L (98-107) mmol/L Carbon Dioxide 35 H (22-30) mmol/L BUN 31 H (9-20) mg/dL Glucose 175 H (74-99) mg/dL POC Glucose (mg/dL) 174 H (70-110) mg/dL C-Reactive Protein 1.0 H (<1.0) mg/dL Urine Glucose (UA) 4+ H (Negative)
--- NOTE | 2024-05-24 16:04 | P.PN ---
Subjective Progress Note Date: 05/24/24 Principal diagnosis: Reason for follow-up is leukocytosis Patient is a 63-year-old male with a past medical history of again for COPD hypertension diverticulitis/gastritis presenting to the hospital 6 days ago for evaluation of increasing shortness of breath and this patient has been diagnosed with A-fib with RVR did have worsening of the white count probably this consultation. On today's evaluation that is 05/24/2024,the patient remains to be afebrile, patient is on 2 L nasal cannula supplemental oxygen and denies any shortness of breath no chest pain continue to have up to bring up some thick sputum.Patient denies having any nausea or vomiting, no abdominal pain and no diarrhea has been reported. Patient white count slightly down from 2.46, creatinine 1.22 CRP is 1.0 Objective - Vital Signs Vital signs: Vital Signs Temp 98.2 F 05/24/24 11:40 Pulse 57 L 05/24/24 11:40 Resp 18 05/24/24 11:40 BP 118/72 05/24/24 11:40 Pulse Ox 95 05/24/24 11:40 FiO2 Intake & Output 05/23/24 05/24/24 05/24/24 18:59 06:59 18:59 Intake Total 720 120 Output Total 850 1350 550 Balance -130 -1350 -430 Weight 110.2 kg 110.2 kg Intake: Oral 720 120 Output: Urine 850 1350 550 Other: Voiding Method Urinal Urinal # Voids 1 - Exam GENERAL DESCRIPTION: Middle-age male lying in bed in no distress RESPIRATORY SYSTEM: Unlabored breathing , decreased breath sounds at bases HEART: S1 S2 regular rate and rhythm , ABDOMEN: Soft , no tenderness EXTREMITIES: No edema feet - Labs CBC & Chem 7: 05/24/24 05:15 05/24/24 05:15 Labs: Abnormal Lab Results - Last 24 Hours (Table) 05/23/24 05/23/24 05/23/24 Range/Units 16:35 19:52 20:01 WBC (4.50-10.00) 10*3/uL RBC (4.40-5.60) 10*6/uL Hgb (13.0-17.0) g/dL Hct (39.6-50.0) % MPV (9.5-12.2) fL Immature Gran # (0.00-0.04) 10*3/uL Neutrophils # (1.80-7.70) 10*3/uL Monocytes # (0.20-1.00) 10*3/uL Basophils # (0.00-0.10) 10*3/uL Sodium (137-145) mmol/L Chloride (98-107) mmol/L Carbon Dioxide (22-30) mmol/L BUN (9-20) mg/dL Glucose (74-99) mg/dL POC Glucose (mg/dL) 167 H 174 H (70-110) mg/dL C-Reactive Protein (<1.0) mg/dL Urine Glucose (UA) 4+ H (Negative) 05/24/24 05/24/24 05/24/24 Range/Units 05:15 05:15 06:04 WBC 22.46 H (4.50-10.00) 10*3/uL RBC 5.82 H (4.40-5.60) 10*6/uL Hgb 17.8 H (13.0-17.0) g/dL Hct 53.7 H (39.6-50.0) % MPV 12.8 H (9.5-12.2) fL Immature Gran # 0.75 H (0.00-0.04) 10*3/uL Neutrophils # 18.35 H (1.80-7.70) 10*3/uL Monocytes # 1.41 H (0.20-1.00) 10*3/uL Basophils # 0.12 H (0.00-0.10) 10*3/uL Sodium 133 L (137-145) mmol/L Chloride 92 L (98-107) mmol/L Carbon Dioxide 35 H (22-30) mmol/L BUN 31 H (9-20) mg/dL Glucose 175 H (74-99) mg/dL POC Glucose (mg/dL) 174 H (70-110) mg/dL C-Reactive Protein 1.0 H (<1.0) mg/dL Urine Glucose (UA) (Negative) 05/24/24 Range/Units 11:26 WBC (4.50-10.00) 10*3/uL RBC (4.40-5.60) 10*6/uL Hgb (13.0-17.0) g/dL Hct (39.6-50.0) % MPV (9.5-12.2) fL Immature Gran # (0.00-0.04) 10*3/uL Neutrophils # (1.80-7.70) 10*3/uL Monocytes # (0.20-1.00) 10*3/uL Basophils # (0.00-0.10) 10*3/uL Sodium (137-145) mmol/L Chloride (98-107) mmol/L Carbon Dioxide (22-30) mmol/L BUN (9-20) mg/dL Glucose (74-99) mg/dL POC Glucose (mg/dL) 166 H (70-110) mg/dL C-Reactive Protein (<1.0) mg/dL Urine Glucose (UA) (Negative) Assessment and Plan (1) Leukocytosis Current Visit: Yes Status: Acute Code(s): D72.829 - ELEVATED WHITE BLOOD CELL COUNT, UNSPECIFIED SNOMED Code(s): 581912459 (2) Pneumonia Current Visit: Yes Status: Acute Code(s): J18.9 - PNEUMONIA, UNSPECIFIED ORGANISM SNOMED Code(s): 172593546 Plan: 1patient with elevated white count during this admission which is up to 23,000 with a left shift in this patient presented to hospital with increasing shortness of breath about 6 days ago in this patient did not have any fever etiology of the white count possibly reactive however underlying infectious etiology such as pneumonia not entirely excluded even though patient did have a normal procalcitonin as no other obvious focus of infection recently he did have a CT of abdominal pelvis that was negative for acute abnormality he did have elevated liver enzymes and abdominal source need to be excluded as well. 2blood and sputum cultures currently pending ultrasound of the liver gallbladder area did not show any acute abnormality 3-we will continue patient on Zosyn while waiting for culture to finalize Dictation was produced using [employer] software. please excuse any grammatical, word or spelling errors. Time with Patient: Less than 30
[2024-05-24 16:22] LABS: Glucose,Whole Blood 193 mg/dL (70-110)
[2024-05-24 19:49] LABS: Glucose,Whole Blood 195 mg/dL (70-110)
--- NOTE | 2024-05-24 21:24 | P.PN ---
Subjective Progress Note Date: 05/24/24 This is a 63-year-old male with medical history significant for atrial fibrillation, COPD, hypertension, chronic nicotine use. Patient was just admitted to the hospital for abdominal pain; underwent endoscopic evaluation for GI bleed. During that hospital stay patient also was diagnosed with atrial fibrillation and discharged on cardizem and eliquis. Patient was discharged home on oxygen via nasal cannula 2 L. Patient states that upon returning home it took forever for the oxygen to get delivered he became increasingly short of breath and developed a midsternal sharp chest pain. Patient was also feeling lightheaded. He used his inhalers without improvement in symptoms. Called EMS and presented back to the hospital for further evaluation. EMS found th epatien to be in afib rvr and he was given a bolus of cardizem. Chest x-ray reveals airspace over the infrahilar region lateral view ammonia. There are COPD changes. EKG reveals atrial fibrillation with rapid ventricular rate; heart rate up into the 160s. Labs reveal a white blood cell count 23.16, hemoglobin 7.9, INR 1.2, sodium 137, BUN of 40 creatinine of 0.80 glucose of 166, lactic acid of 2.3, AST of 205 ALT of 511. Initial troponin level was negative his proBNP was elevated at 3850. Patient also has significant lower extremity edema which is pitting in nature. He was admitted to the hospital with consults placed to cardiology and pulmonology. He is requiring oxygen via nasal cannula at 5 L. His saturations are in the 88 to 93%. He has been afebrile. Patient was started on IV Cardizem running at 15 mL/h. Additionally patient was started on IV ceftriaxone and IV azithromycin. Patient started on IV Lasix 40 mg every 12 hours as well as IV Solu-Medrol. He is currently pending a bed on the cardiac unit. 05/19/2024 Patient is evaluated in follow on the cardiac unit. He is sitting up at the bedside with family. Reports feeling less short of breath. Does continue with significant lower extremity edema. He continues on oxygen via nasal cannula. Continues to go in and out of atrial fibrillation with RVR heart rate up into the 150s. Cardiology is recommending MED and cardioversion. KUB completed for complaints of abdominal bloating which reveals a nonspecific abdomen. LFTs improving. Continues on IV lasix. Procalcitonin level 0.07 and antibiotics have been discontinued. White blood cell count 19.80, sodium 137, CO2 41, BUN 41, creatinine 0.89. 05/20/2024 Patient is evaluated today in follow up sitting up at the edge of bed. He remains in atrial fibrillation with heart rate going up into the 120s. Continues on IV lasix 40 mg every 12 hours. 05/21/2024 Patient underwent MED and cardioversion this morning he did require 2 shocks. He initially converted to normal sinus mechanism however after returning to the floor he is now back in atrial fibrillation with a heart rate up to 130s. He remains on IV Lasix 40 mg every 12 hours. He remains on metoprolol 100 mg 3 times daily, oral amiodarone 400 mg twice daily. 05/22/2024 Patient evaluated in follow-up in the medical floor. He remains in atrial fibrillation with a controlled ventricular rate. Follow-up chest x-ray today reveals right basilar patchy airspace opacities which may represent atelectasis versus infiltrate. There are COPD changes. Patient continues on updrafts as well as Symbicort. He has been transition to oral prednisone continues on IV Lasix. Will Maicol wrap his lower extremities. 05/23/2024 Patient is evaluated today in follow up. Patient is currently in normal sinus rhythm. His lower extremity edema is significantly improved. He will be transitioned to oral lasix 40 mg twice daily. His white blood cell count is 24.32. He does report that he sees hematology outpatient for the leukocytosis as it has been high however not this high. Blood culture has been negative this admission. His viral panel has been negative. Procalcitonin level was checked on May 18 and was 0.07. Sodium 132, potassium 3.4. BUN 32, creatinine 1.11. 05/24/2024 Patient is evaluated today in follow up. Remains in sinus mechanism. Continues on oral lasix 40 mg twice daily. White blood cell count down to 22.46. Procalcitonin level 1.0. Continues on IV zosyn. ID recommending one more day. Remains on oxygen via nasal cannula at 2L. REVIEW OF SYSTEMS: CONSTITUTIONAL: No fever, no malaise, no fatigue. HEENT: No recent visual problems or hearing problems. Denied any sore throat. CARDIOVASCULAR: Reports chest pain, orthopnea, PND, no palpitations, no syncope. PULMONARY: Reports shortness of breath, no cough, no hemoptysis. GASTROINTESTINAL: No diarrhea, no nausea, no vomiting, no abdominal pain. NEUROLOGICAL: No headaches, no weakness, no numbness. PHYSICAL EXAMINATION: GENERAL: The patient is alert and oriented x3, not in any acute distress. Well developed, well nourished. HEENT: Pupils are round and equally reacting to light. EOMI. No scleral icterus. No conjunctival pallor. Normocephalic, atraumatic. No pharyngeal erythema. No thyromegaly. CARDIOVASCULAR: S1 and S2 present. No murmurs, rubs, or gallops. PULMONARY: Chest is clear to auscultation, no wheezing or crackles. Diminished ABDOMEN: Soft, nontender, nondistended, normoactive bowel sounds. No palpable organomegaly. MUSCULOSKELETAL: No joint swelling or deformity. EXTREMITIES: No cyanosis, clubbing, or pedal edema. +2 pitting edema NEUROLOGICAL: Gross neurological examination did not reveal any focal deficits. SKIN: No rashes. Assessment Atrial fibrillation with RVR Paroxysmal atrial fibrillation with RVR diagnosed prior hospital stay Hypokalemia from diuresis COPD exacerbation Acute on chronic hypoxemic respiratory failure Acute on chronic congestive heart failure with preserved EF. Lactic acidosis rule out sepsis Transaminitis from hepatic congestion. Leukocytosis Hypertension Hyperglycemia with hemoglobin A1c 6.6 Tobacco use recently quit 2 weeks ago Obesity with likely obesity hypoventilation syndrome GI prophylaxis DVT prophylaxis Full code Plan Check a urinalysis ID consultation for the leukocytosis Patient continues on oral amiodarone 400 mg twice daily oral metoprolol has been increased to 200 mg twice daily Lasix has been transitioned to oral 40 mg every 12 hours with strict intake output monitoring Supplement potassium Patient has been transitioned to oral prednisone Pulmonary consultation, cardiology consultation Continue oxygen support Repeat CMP in the morning Status post MED cardioversion patient initially was in sinus rhythm and has now converted back into atrial fibrillation Continue cardiac telemetry Possible DC home in the next 24 The impression and plan of care has been dictated by Indira Sneed Nurse Practitioner as directed. Dr. Jose MD I have performed a history and physical examination and medical decision making of this patient, discussed the same with the dictator, and agree with the dictators assessment and plan as written, documented as a scribe. Based on total visit time, I have performed more than 50% of this visit. Objective - Vital Signs Vital signs: Vital Signs Temp 98.3 F 05/24/24 19:29 Pulse 61 05/24/24 21:02 Resp 18 05/24/24 21:02 BP 112/69 05/24/24 19:29 Pulse Ox 93 L 05/24/24 19:29 FiO2 Intake & Output 05/24/24 05/24/24 05/25/24 06:59 18:59 06:59 Intake Total 620 Output Total 1350 550 Balance -1350 70 Weight 110.2 kg 110.2 kg Intake: Oral 620 Output: Urine 1350 550 Other: Voiding Method Urinal # Voids 1 - Labs CBC & Chem 7: 05/24/24 05:15 05/24/24 05:15 Labs: Abnormal Lab Results - Last 24 Hours (Table) 05/24/24 05/24/24 05/24/24 Range/Units 05:15 05:15 06:04 WBC 22.46 H (4.50-10.00) 10*3/uL RBC 5.82 H (4.40-5.60) 10*6/uL Hgb 17.8 H (13.0-17.0) g/dL Hct 53.7 H (39.6-50.0) % MPV 12.8 H (9.5-12.2) fL Immature Gran # 0.75 H (0.00-0.04) 10*3/uL Neutrophils # 18.35 H (1.80-7.70) 10*3/uL Monocytes # 1.41 H (0.20-1.00) 10*3/uL Basophils # 0.12 H (0.00-0.10) 10*3/uL Sodium 133 L (137-145) mmol/L Chloride 92 L (98-107) mmol/L Carbon Dioxide 35 H (22-30) mmol/L BUN 31 H (9-20) mg/dL Glucose 175 H (74-99) mg/dL POC Glucose (mg/dL) 174 H (70-110) mg/dL C-Reactive Protein 1.0 H (<1.0) mg/dL 05/24/24 05/24/24 05/24/24 Range/Units 11:26 16:21 19:48 WBC (4.50-10.00) 10*3/uL RBC (4.40-5.60) 10*6/uL Hgb (13.0-17.0) g/dL Hct (39.6-50.0) % MPV (9.5-12.2) fL Immature Gran # (0.00-0.04) 10*3/uL Neutrophils # (1.80-7.70) 10*3/uL Monocytes # (0.20-1.00) 10*3/uL Basophils # (0.00-0.10) 10*3/uL Sodium (137-145) mmol/L Chloride (98-107) mmol/L Carbon Dioxide (22-30) mmol/L BUN (9-20) mg/dL Glucose (74-99) mg/dL POC Glucose (mg/dL) 166 H 193 H 195 H (70-110) mg/dL C-Reactive Protein (<1.0) mg/dL Assessment and Plan Time with Patient: Less than 30
[2024-05-25 06:05] LABS: Glucose,Whole Blood 122 mg/dL (70-110)
[2024-05-25 06:34] LABS: Basophils # (A) 0.08 10*3/uL (0.00-0.10); Basophils % (A) 0.3 %; Eosinophils # (A) 0.03 10*3/uL (0.04-0.35); Eosinophils % (A) 0.1 %; HCT 51.8 % (39.6-50.0); HGB 16.8 g/dL (13.0-17.0); Lymphocytes # (A) 1.32 10*3/uL (0.90-5.00); Lymphocytes % (A) 5.6 %; MCH 30.4 pg (27.0-32.0); MCHC 32.4 g/dL (32.0-37.0); MCV 93.8 fL (80.0-97.0); Mean Platelet Volume 11.4 fL (9.5-12.2); Monocytes # (A) 1.47 10*3/uL (0.20-1.00); Monocytes % (A) 6.2 %; Neutrophils # (A) 20.04 10*3/uL (1.80-7.70); Neutrophils % (A) 84.9 %; Platelet Count 165 10*3/uL (140-440); RBC 5.52 10*6/uL (4.40-5.60); RDW 13.5 % (11.5-14.5); WBC 23.63 10*3/uL (4.50-10.00)
[2024-05-25 06:49] LABS: African American GFR (CKD) 86 (>60 ml/min/1.73 sqM); Anion Gap 4 mmol/L; Blood Urea Nitrogen 26 mg/dL (9-20); Calcium 8.8 mg/dL (8.4-10.2); Carbon Dioxide 39 mmol/L (22-30); Chloride 94 mmol/L (98-107); Glucose 99 mg/dL (74-99); Non-African American GFR(CKD) 74 (>60 ml/min/1.73 sqM); Potassium 4.3 mmol/L (3.5-5.1); Sodium 137 mmol/L (137-145)
[2024-05-25 07:44] VITALS: RESP 18
[2024-05-25 08:49] VITALS: PULSE 62
[2024-05-25] MEDS: predniSONE 10 MG TAB PO SCH (08:50)
--- NOTE | 2024-05-25 10:35 | P.PN ---
Subjective Progress Note Date: 05/25/24 Principal diagnosis: Respiratory insufficiency. The patient is seen today in consultation in the emergency department. Just discharged from here on 05/16/2024. He return to the emergency department yesterday 05/17/2024 with shortness of breath and palpitations. He was found to be in atrial fibrillation with a rapid ventricular response. He has a history of smoking/COPD and he has obvious features of obstructive sleep apnea. The patient used to smoke up to 2 pack of cigarettes a day and currently is down to 1 pack of cigarettes a day. Maintained on Symbicort on outpatient basis. Does not utilize home O2. No home CPAP machine. He has chronic exertional dyspnea. Chest x-ray shows similar airspace opacities in the infrahilar region. Evidence of COPD. Right count 17.8. Hemoglobin 16.4. Platelets 150. Sodium 136. Potassium 4.3. Bicarb 36. BUN 41. Creatinine 0.75. Glucose 281. Lactic 4.1. Troponin negative x 1. proBNP 3850. AST 205. ALT 511. He is currently sitting up on a stretcher. Awake and alert in no acute distress. Maintaining O2 saturations in the 90s on 4 L/min per nasal cannula. He does remain in atrial fibrillation with a rapid ventricular response. He has been initiated on a Cardizem drip at 15 mg/h. He is continued on his Eliquis. Patient was seen today on 05/19/2024, presently on Cardizem drip at 15 mg/h, being followed by cardiology for his atrial fibrillation and RVR. Patient is feeling much better today compared to yesterday, remains on 4 L nasal cannula with O2 sats of 94%. WBC count is 19.8 hemoglobin is 16.6 electrolytes are normal bicarb is 41 BUN 41 creatinine 0.89 KUB abdomen done yesterday showed nonspecific abdomen. Chest x-ray on admission showed mostly prominence of the pulmonary vasculature, and small left pleural effusion. There is also some component of basilar atelectasis. Doubt pneumonia. Patient was seen today on 05/20/2024, remains on Cardizem drip at 15 mg/h. His rapid atrial fibrillation seems to be under control, but he remains in atrial fibrillation. Clinically the patient is feeling better, breathing a bit easier, remains on 4 L nasal cannula, patient does have underlying severe COPD. On bronchodilators. Labs today showed leukocytosis with WBC of 20.58 hemoglobin 16.5 electrolytes are normal bicarb is 43 BUN is 39 creatinine 0.79 patient is on prednisone for his COPD he is also on diuretics and bronchodilators/DuoNeb as well as Symbicort. For his atrial fibrillation remains on Eliquis, amiodarone, Cardizem, metoprolol Progress note dated 05/21/2024. 63-year-old male seen in room 350. The patient is scheduled to have a transesophageal echocardiogram today. Clinically, the patient stable. He is awake and alert. No distress. He is on 4 L of oxygen. Current labs include a sodium 132, potassium 4.2, chloride 75, CO2 50, BUN 41, creatinine 0.95. Glucose is 174. Calcium 9.1. The patient's transesophageal echocardiogram showed no evidence of thrombus in the left atrial appendage or left atrium. There was preserved global LV systolic function. And there was successful synchronized cardioversion of the patient. Progress note dated May 22, 2024. 63-year-old male again seen in room 350. The patient is resting comfortably. He is currently on 2 L. Normal IV fluids. He is in normal sinus rhythm. The patient had synchronized cardioversion, yesterday, after having a transesophageal echocardiogram. He is awake and alert. Labs today include a sodium 131, potassium 3.8, chloride 79, CO2 50, BUN 40, and creatinine 0.9. Glucose is 153. Calcium is 8.9. Chest x-ray shows a right basilar patchy airspace opacities, and changes of COPD. Progress note dated May 23, 2024. 63-year-old male seen again in room 350. The patient is on 2 L of oxygen. Not receiving any IV fluids. The patient is awake and alert. No distress. No respiratory issues or problems. The patient is hoping to be discharged soon. White count is 24.3, hemoglobin 18.5, hematocrit 54.8, platelet count 262,000. Sodium 132, potassium 3.4, chloride 84, CO2 38, BUN 32, and creatinine 1.11. Glucose is 202. Calcium is 9.5. No chest x-ray today. Progress note dated May 24, 2024. 63-year-old male seen today in room 350. The patient continues on 2 L of oxygen. Saturations are excellent. He is not receiving any IV fluids. Current laboratory data includes a white count of 22.5, hemoglobin 17.8, hematocrit 53.7, and a platelet count of 174,000. Sodium 133, potassium 3.7, chloride 92, CO2 35, anion gap 6, BUN 31, creatinine 1.22. Procalcitonin level is normal at 0.10. Ultrasound of the abdomen was negative. Progress note dated May 25, 2024. 63-year-old male seen today in room 350. He continues on nasal O2 at 2 L. The patient is not having any significant respiratory issues. He is not coughing or having any chest congestion. He has not no fever or chills. He is not coughing up any phlegm. The patient has an elevated white blood cell count, but apparently was started on antibiotics per infectious diseases. His procalcitonin level was normal at 0.10. White count was 23.63, hemoglobin 16.8, hematocrit 51.8, platelet count 165,000. Sodium 137, potassium 4.3, chloride 94, CO2 39, BUN 26, creatinine 1.07. Glucose 122. Calcium 8.8. Objective - Vital Signs Vital signs: Vital Signs Temp 97.8 F 05/25/24 07:42 Pulse 62 05/25/24 08:47 Resp 18 05/25/24 07:59 BP 106/70 05/25/24 07:42 Pulse Ox 95 05/25/24 07:42 FiO2 Intake & Output 05/24/24 05/25/24 05/25/24 18:59 06:59 18:59 Intake Total 620 20 Output Total 550 1150 275 Balance 70 -1130 -275 Weight 110.2 kg 109.5 kg Intake: IV 20 Invasive Line 3 20 Oral 620 Output: Urine 550 1150 275 Other: Voiding Method Urinal # Voids 1 - Exam No acute distress, oriented 3. No respiratory distress. Currently on 2 L. HEENT examination is grossly unremarkable. Mucous membranes are moist. No oral lesions. Neck supple. Full range of motion. No adenopathy thyromegaly or neck vein distention. Cardiovascular examination reveals a regular rhythm and rate. S1-S2 normal. No S3 or S4. No discernible murmur noted. Lungs reveal clear breath sounds. Breath sounds are equal bilaterally. No adventitious lung sounds including wheezes rhonchi or crackles. Abdomen soft bowel sounds are heard. No masses or tenderness. Extremities are intact. No cyanosis or clubbing. 2+ lower extremity pitting edema is present. Skin is without rash or lesion. Neurologic examination is brief but nonfocal. - Labs CBC & Chem 7: 05/25/24 05:15 05/25/24 05:15 Labs: Abnormal Lab Results - Last 24 Hours (Table) 05/24/24 05/24/24 05/24/24 Range/Units 11:26 16:21 19:48 WBC (4.50-10.00) 10*3/uL Hct (39.6-50.0) % Immature Gran # (0.00-0.04) 10*3/uL Neutrophils # (1.80-7.70) 10*3/uL Monocytes # (0.20-1.00) 10*3/uL Eosinophils # (0.04-0.35) 10*3/uL Chloride (98-107) mmol/L Carbon Dioxide (22-30) mmol/L BUN (9-20) mg/dL POC Glucose (mg/dL) 166 H 193 H 195 H (70-110) mg/dL 05/25/24 05/25/24 05/25/24 Range/Units 05:15 05:15 06:04 WBC 23.63 H (4.50-10.00) 10*3/uL Hct 51.8 H (39.6-50.0) % Immature Gran # 0.69 H (0.00-0.04) 10*3/uL Neutrophils # 20.04 H (1.80-7.70) 10*3/uL Monocytes # 1.47 H (0.20-1.00) 10*3/uL Eosinophils # 0.03 L (0.04-0.35) 10*3/uL Chloride 94 L (98-107) mmol/L Carbon Dioxide 39 H (22-30) mmol/L BUN 26 H (9-20) mg/dL POC Glucose (mg/dL) 122 H (70-110) mg/dL Microbiology - Last 24 Hours (Table) 05/24/24 12:37 Gram Stain - Preliminary Sputum Assessment and Plan Assessment: Atrial fibrillation with RVR, S/P MED, with successful synchronized cardioversion. Acute hypoxemic respiratory failure secondary to COPD exacerbation. Acute exacerbation of diastolic CHF. Recent admission for right lower lobe pneumonia, resolved. Obstructive sleep apnea syndrome. Morbid obesity. History of hypertension. Diverticulosis. Chronic and ongoing tobacco dependence. Recent EGD, for melena, and epigastric pain. Plan: Plan dated May 21, 2024. The patient is seen today in room 350. The patient had a transesophageal ech ocardiogram today. The patient had a successful synchronized cardioversion. Labs, x-rays, and all medications are reviewed. We will continue to follow the patient, make recommendations along the way. The patient continues on oxygen at 4 L. The rest of his labs, are reviewed. His medications are reviewed. We will continue to follow. Prognosis is guarded. Dictation was produced using [employer] software. Please excuse any grammatical, word or spelling errors. Plan dated May 22, 2024. The patient is seen today in room 350. He is resting comfortably in bed. He is on 2 L of oxygen. He had successful cardioversion yesterday. He is not receiving any IV fluids. He is in normal sinus rhythm. His lungs are clear. He has 2+ lower extremity edema. All labs, x-rays, and medications are reviewed. We will continue to follow the patient, make recommendations along the way. Prognosis is guarded. Dictation was produced using [employer] software. Please excuse any grammatical, word or spelling errors. Plan dated May 23, 2024. The patient appears to be doing relatively well. The patient is seen today in room 350. He is not receiving any IV fluids. He is on 2 L of oxygen. All labs, x-rays, and medications are reviewed. He is awake and alert. He is hopin g to be discharged soon. All labs, x-rays, and medications are reviewed. We will continue to follow make recommendations along the way. Prognosis is guarded. Dictation was produced using [employer] software. Please excuse any grammatical, word or spelling errors. Plan dated May 24, 2024. The patient is seen today in room 350. He is on 2 L. From the pulmonary standpoint he is very stable. He denies any shortness of breath, cough, wheezing, chest tightness, or phlegm production. Labs, x-rays, and all medications are reviewed. Abdominal ultrasound was negative. Not sure why the patient still in the hospital. From our perspective he could be discharged. Additional recommendations and suggestions are forthcoming. We do not feel from the pulmonary standpoint, the patient needs Zosyn, or any antibiotic at this point, given his examination, his lack of pulmonary complaints, and has normal procalcitonin level. Plan dated May 25, 2024. The patient is seen in room 350. He is on 2 L of oxygen. No IV fluids. He was recently started on Zosyn by infectious diseases. There is nothing in this patient to suggest in my opinion pneumonia. The patient does have an elevated white count, which is likely secondary to the fact that he is on prednisone. He was started on Zosyn. He continues on DuoNeb and Symbicort. His procalcitonin level was normal. He does not have any signs or symptoms of pneumonia. He is afebrile. He is not short of breath, coughing up phlegm, or having any difficulty breathing. In my opinion the patient's antibiotics could be discontinued and the patient could be discharged. At the very most, the patient could be discharged on an oral antibiotic for a few days. I personally do not think that is even necessary. Dictation was produced using [employer] software. Please excuse any grammatical, word or spelling errors. Time with Patient: Less than 30
--- NOTE | 2024-05-25 11:27 | P.PN ---
Subjective HISTORY OF PRESENT ILLNESS: This is a 63-year-old male patient of Dr. Lombardi with past medical history of paroxysmal atrial fibrillation, COPD, chronic tobacco use, hypertension, obesity with suspected obstructive sleep apnea. Patient was recently hospitalized for epigastric pain and concerns for black tarry stools. He underwent EGD with Dr. Juares which revealed linear ulcers in the antrum and pylorus of the stomach with no recent stigmata of bleeding. During that hospitalization cardiology was consulted for new onset of A-fib with RVR. Prior to his discharge, it was recommended that patient undergo MED and cardioversion for which patient declined as he wanted to go home. Patient was discharged home yesterday and return to the emergency center with complaints of increasing shortness of breath. He states that since he got home his breathing became much worse. His abdomen discomfort is much improved. He denies cough, wheeze. No chest pain. He states he has had lower extremity edema which was present on previous admission. No palpitations. No fever. No dizziness. He had no improvement of his breathing despite using his inhalers and he increased his oxygen to 6 L. EMS found that he was in A-fib with RVR and gave 1 dose of 20 mg of Cardizem. His initial EKG showed A-fib with RVR at 169 bpm. Patient was started on Cardizem bolus 20 mg followed by 10 mg and another 10 mg followed by a drip at 15 mg/h. Blood pressure 138/79, heart rate 147, pulse ox 89% on 4 L nasal cannula. -EKG: Atrial fibrillation at 169 bpm, #2 atrial fibrillation at 143 bpm -Chest x-ray: Airspace opacities over the infrahilar region on lateral view correlate for pneumonia. COPD changes -Laboratory studies: WBC initially 23.1, hemoglobin 16.4, sodium 136, potassium 4.3, creatinine 0.75. Lactic acid 5. AST 205, ALT 511, troponin negative x 1. proBNP 3850. -Home cardiac medications: Eliquis 5 mg twice daily, Farxiga 10 mg daily, C ardizem 60 mg 3 times daily, Lasix 40 mg twice daily, metoprolol tartrate 50 mg twice daily. -Echocardiogram performed on 05/10/2024 revealed LVH with preserved systolic function. Mildly enlarged right ventricle. Left atrial enlargement. No identifiable tricuspid regurgitation to assess RVSP. 05/19/2024 Patient examined this morning at the bedside. Patient is sitting on the side of the bed. Patient currently denies chest pain or pressure. He reports improvement in his shortness of breath. He remains on IV Lasix. BUN 41. Creatinine 0.89. He remains in atrial fibrillation with a heart rate in the 90s. He remains on IV Cardizem at 15 mg an hour. 05/20/2024 Patient examined this morning at bedside. He continues to report shortness of breath although improved today. He remains on IV Lasix. He continues to have lower extremity edema although improving. He remains in atrial fibrillation with heart rate between [id number]. He remains on IV Cardizem at 15 mg an hour. CO2 increased to 43 today. 05/22/2024 Patient examined this morning the bedside. Patient underwent MED and cardiov ersion yesterday x 2. Patient did require cardioversion x 2. Unfortunately the patient went back into A-fib with RVR. His metoprolol was increased to 100 mg 3 times a day. The patient is going in and out of sinus mechanism and atrial flutter with RVR. At the time of examination he is in sinus mechanism. 05/23/2024 Patient examined this morning at bedside. Patient currently denies chest pain or pressure. He denies shortness of breath. Patient is currently in sinus mechanism at the time of examination. He has been in sinus mechanism for the past 24 hours. He remains on IV Lasix. Sodium 132. Potassium 3.4. Carbon dioxide 38. BUN 32. Creatinine 1.11. 05/24/2024 Patient examined this morning to bedside. Patient currently denies chest pain or pressure. He denies shortness of breath. Patient is maintaining sinus mechanism. 05/26/2023 Patient denies any chest pain or pressure. Remains in sinus rhythm. No significant shortness of breath. No significant lower extremity edema. PHYSICAL EXAM: VITAL SIGNS: Reviewed. GENERAL: Well-developed in no acute distress. NECK: Supple. No JVD LUNGS: Respirations even and unlabored. Lungs essentially clear to auscultation bilaterally. HEART: Regular rate and rhythm. S1 and S2 heard. EXTREMITIES: Normal range of motion. No clubbing or cyanosis. Peripheral pulses intact. 1-2+ bilateral lower extremity edema ASSESSMENT: Paroxysmal atrial fibrillation with RVR, diagnosed 05/2024 Typical atrial flutter with RVR Acute on chronic hypoxic respiratory failure, multifactorial Pneumonia COPD exacerbation Acute on chronic heart failure with preserved EF Epigastric abdominal pain status post EGD on 05/15 which revealed linear ulcers in the antrum and pylorus of the stomach with no recent stigmata of bleeding Polycythemia Hypertension Tobacco use and dependence Obesity with suspected ISIAH PLAN: Continue anticoagulation with Eliquis Continue additional cardiac medications Continue oral amiodarone 400 mg twice a day. Decrease dosage of amiodarone to 200 mg twice a day starting on 05/25/2024. Then decrease to 200 mg daily starting on 06/01/2024 Patient may be discharged home today from a cardiac standpoint Stable for discharge, please call with any questions. Objective - Vital Signs Vital signs: Vital Signs Temp 97.8 F 05/25/24 07:42 Pulse 62 05/25/24 08:47 Resp 18 05/25/24 07:59 BP 106/70 05/25/24 07:42 Pulse Ox 95 05/25/24 07:42 FiO2 Intake & Output 05/24/24 05/25/24 05/25/24 18:59 06:59 18:59 Intake Total 620 20 Output Total 550 1150 275 Balance 70 -1130 -275 Weight 110.2 kg 109.5 kg Intake: IV 20 Invasive Line 3 20 Oral 620 Output: Urine 550 1150 275 Other: Voiding Method Urinal # Voids 1 - Labs CBC & Chem 7: 05/25/24 05:15 05/25/24 05:15 Labs: Abnormal Lab Results - Last 24 Hours (Table) 05/24/24 05/24/24 05/24/24 Range/Units 11:26 16:21 19:48 WBC (4.50-10.00) 10*3/uL Hct (39.6-50.0) % Immature Gran # (0.00-0.04) 10*3/uL Neutrophils # (1.80-7.70) 10*3/uL Monocytes # (0.20-1.00) 10*3/uL Eosinophils # (0.04-0.35) 10*3/uL Chloride (98-107) mmol/L Carbon Dioxide (22-30) mmol/L BUN (9-20) mg/dL POC Glucose (mg/dL) 166 H 193 H 195 H (70-110) mg/dL 05/25/24 05/25/2405/25/25 Range/Units 05:15 05:15 06:04 WBC 23.63 H (4.50-10.00) 10*3/uL Hct 51.8 H (39.6-50.0) % Immature Gran # 0.69 H (0.00-0.04) 10*3/uL Neutrophils # 20.04 H (1.80-7.70) 10*3/uL Monocytes # 1.47 H (0.20-1.00) 10*3/uL Eosinophils # 0.03 L (0.04-0.35) 10*3/uL Chloride 94 L (98-107) mmol/L Carbon Dioxide 39 H (22-30) mmol/L BUN 26 H (9-20) mg/dL POC Glucose (mg/dL) 122 H (70-110) mg/dL Microbiology - Last 24 Hours (Table) 05/24/24 12:37 Gram Stain - Preliminary Sputum Sputum Culture - Preliminary
[2024-05-25 11:34] VITALS: BP 121/73; TEMP 97.9
[2024-05-25 11:34] LABS: Glucose,Whole Blood 283 mg/dL (70-110)
--- NOTE | 2024-05-25 15:07 | P.PN ---
Subjective Progress Note Date: 05/25/24 Principal diagnosis: Reason for follow-up is leukocytosis Patient is a 63-year-old male with a past medical history of again for COPD hypertension diverticulitis/gastritis presenting to the hospital 6 days ago for evaluation of increasing shortness of breath and this patient has been diagnosed with A-fib with RVR did have worsening of the white count probably this consultation. On today's evaluation that is 05/25/2024, the patient continues to be afebrile, the patient is on 2 L nasal oxygen and breathing comfortably, the Pt denies having any chest pain or any worsening cough, the patient denies having any abdominal pain no vomiting or any diarrhea has been reported by the nursing staff. Patient white count is 23.63, creatinine 1.07 blood culture has been pending so far Objective - Vital Signs Vital signs: Vital Signs Temp 97.8 F 05/25/24 07:42 Pulse 62 05/25/24 08:47 Resp 18 05/25/24 07:59 BP 106/70 05/25/24 07:42 Pulse Ox 95 05/25/24 07:42 FiO2 Intake & Output 05/24/24 05/25/24 05/25/24 18:59 06:59 18:59 Intake Total 620 20 Output Total 550 1150 275 Balance 70 -1130 -275 Weight 110.2 kg 109.5 kg Intake: IV 20 Invasive Line 3 20 Oral 620 Output: Urine 550 1150 275 Other: Voiding Method Urinal # Voids 1 - Exam GENERAL DESCRIPTION: Middle-age male lying in bed in no distress RESPIRATORY SYSTEM: Unlabored breathing , decreased breath sounds at bases HEART: S1 S2 regular rate and rhythm , ABDOMEN: Soft , no tenderness EXTREMITIES: No edema feet - Labs CBC & Chem 7: 05/25/24 05:15 05/25/24 05:15 Labs: Abnormal Lab Results - Last 24 Hours (Table) 05/24/24 05/24/24 05/25/24 Range/Units 16:21 19:48 05:15 WBC 23.63 H (4.50-10.00) 10*3/uL Hct 51.8 H (39.6-50.0) % Immature Gran # 0.69 H (0.00-0.04) 10*3/uL Neutrophils # 20.04 H (1.80-7.70) 10*3/uL Monocytes # 1.47 H (0.20-1.00) 10*3/uL Eosinophils # 0.03 L (0.04-0.35) 10*3/uL Chloride (98-107) mmol/L Carbon Dioxide (22-30) mmol/L BUN (9-20) mg/dL POC Glucose (mg/dL) 193 H 195 H (70-110) mg/dL 05/25/24 05/25/24 Range/Units 05:15 06:04 WBC (4.50-10.00) 10*3/uL Hct (39.6-50.0) % Immature Gran # (0.00-0.04) 10*3/uL Neutrophils # (1.80-7.70) 10*3/uL Monocytes # (0.20-1.00) 10*3/uL Eosinophils # (0.04-0.35) 10*3/uL Chloride 94 L (98-107) mmol/L Carbon Dioxide 39 H (22-30) mmol/L BUN 26 H (9-20) mg/dL POC Glucose (mg/dL) 122 H (70-110) mg/dL Microbiology - Last 24 Hours (Table) 05/24/24 12:37 Gram Stain - Preliminary Sputum Sputum Culture - Preliminary Assessment and Plan (1) Leukocytosis Status: Acute Code(s): D72.829 - ELEVATED WHITE BLOOD CELL COUNT, UNSPECIFIED SNOMED Code(s): 932244299 (2) Pneumonia Status: Acute Code(s): J18.9 - PNEUMONIA, UNSPECIFIED ORGANISM SNOMED Code(s): 589020245 Plan: 1patient with elevated white count during this admission which is up to 23,000 with a left shift in this patient presented to hospital with increasing shortness of breath about 6 days ago in this patient did not have any fever etiology of the white count possibly reactive however underlying infectious etiology such as pneumonia not entirely excluded even though patient did have a normal procalcitonin as no other obvious focus of infection recently he did have a CT of abdominal pelvis that was negative for acute abnormality he did have elevated liver enzymes and abdominal source need to be excluded as well. 2blood and sputum cultures currently pending ultrasound of the liver gallbladde r area did not show any acute abnormality 3-patient did have worsening of his white count despite being on Zosyn questionably related to steroids with the patient was on versus hematological malignancy patient advised to have repeat CBC done in about a week or 10 days and if his white count is still elevated he will benefit from more marrow biopsy this was discussed with [employer] for admitting team may consider short course of oral Doxy for possible tracheobronchitis Dictation was produced using [employer] dictation software. please excuse any grammatical, word or spelling errors. Time with Patient: Less than 30
--- NOTE | 2024-05-29 09:10 | P.DS ---
Providers Date of admission: 05/17/24 19:57 Attending physician: Joey Arnold Consults: 05/17/24 19:50 Consult Physician Urgent Consulting Provider: Ruth Delcid Consult Reason/Comments: copd exacerbation Do you want consulting provider notified?: Yes 05/23/24 09:41 Consult Physician Routine Consulting Provider: Ariana Verdugo Consult Reason/Comments: Leukocytosis Do you want consulting provider notified?: Yes Primary care physician: Bailee Daniel Hospital Course: Final Diagnosis Atrial fibrillation with RVR Paroxysmal atrial fibrillation with RVR diagnosed prior hospital stay Hypokalemia from diuresis COPD exacerbation Acute on chronic hypoxemic respiratory failure Acute on chronic congestive heart failure with preserved EF. Lactic acidosis rule out sepsis Transaminitis from hepatic congestion. Leukocytosis Hypertension Hyperglycemia with hemoglobin A1c 6.6 Tobacco use recently quit 2 weeks ago Obesity with likely obesity hypoventilation syndrome Discharge Disposition Patient stable for discharge home. He will follow-up closely with cardiology and has an appointment scheduled with Dr. Lombardi in the clinic on June 05 at 1:15 PM. Patient was discharged on a combination of oral amiodarone taper. Continue oral amiodarone 400 mg twice a day. Decrease dosage of amiodarone to 200 mg twice a day starting on 05/25/2024. Then decrease to 200 mg daily starting on 06/01/2024. Patient was also discharged on oral metoprolol 200 mg twice daily. Cardizem has been discontinued. Patient will discharge on a course of oral doxycycline for the next 7 days as well as complete a Medrol Dosepak. Patient to repeat blood work in 2 to 3 days. Patient to follow-up with hematology in the office in 1 week for the elevated white blood cell count. Patient to follow-up with ID in 1 week. Patient to follow-up with his PCP Dr. Daniel on May 28. Hospital Course This is a 63-year-old male with medical history significant for atrial fibrillation, COPD, hypertension, chronic nicotine use. Patient was just admitted to the hospital for abdominal pain; underwent endoscopic evaluation for GI bleed. During that hospital stay patient also was diagnosed with atrial fibrillation and discharged on cardizem and eliquis. Patient was discharged home on oxygen via nasal cannula 2 L. Patient states that upon returning home it took forever for the oxygen to get delivered he became increasingly short of breath and developed a midsternal sharp chest pain. Patient was also feeling lightheaded. He used his inhalers without improvement in symptoms. Called EMS and presented back to the hospital for further evaluation. EMS found th epatien to be in afib rvr and he was given a bolus of cardizem. Chest x-ray reveals airspace over the infrahilar region lateral view ammonia. There are COPD change s. EKG reveals atrial fibrillation with rapid ventricular rate; heart rate up into the 160s. Labs reveal a white blood cell count 23.16, hemoglobin 7.9, INR 1.2, sodium 137, BUN of 40 creatinine of 0.80 glucose of 166, lactic acid of 2.3, AST of 205 ALT of 511. Initial troponin level was negative his proBNP was elevated at 3850. Patient also has significant lower extremity edema which is pitting in nature. He was admitted to the hospital with consults placed to cardiology and pulmonology. He is requiring oxygen via nasal cannula at 5 L. His saturations are in the 88 to 93%. He has been afebrile. Patient was started on IV Cardizem running at 15 mL/h. Additionally patient was started on IV ceftriaxone and IV azithromycin. Patient started on IV Lasix 40 mg every 12 hours as well as IV Solu-Medrol. KUB completed for complaints of abdominal bloating which reveals a nonspecific abdomen. LFTs improving. Continues on IV lasix. Procalcitonin level 0.07 and antibiotics have been discontinued. Patient remained in atrial fibrillation with a rapid ventricular rate was symptomatic and significantly short of breath and feeling the palpitations. For this reason cardio recommended a MED with cardioversion which he required 2 shocks. MED reveals normal global LV size and systolic function no evidence of mass or thrombus seen. Mild MR. Mild TR. He initially converted to normal sinus rhythm however he went back into A-fib with RVR. His metoprolol was increased to 200 mg twice daily and was started on oral amiodarone. Maicol wrap's were applied to his bilateral lower extremities with significant improvement in the peripheral edema. Patient was transition to oral Lasix. His hospital stay was complicated by the leukocytosis however there has been no source of infection and ID was consulted. Patient was recommended to discharge on a short course of oral antibiotics and follow-up with hematology on discharge for further evaluation of the elevated white blood cell count. He has been up ambulating without difficulty has been down to 2 L of oxygen via nasal cannula. Blood work at the time of discharge reveals a white blood cell count of 23.63 hemoglobin of 16.8, sodium of 137 potassium 4.3, BUN of 26 creatinine of 1.07. Is afebrile heart rate of 62 normal sinus rhythm respirations of 18 blood pressure 121/73 and he is 95% on 2 L of oxygen via nasal cannula. Please see medication reconciliation for a list of current medications. Thank you for allowing us to participate in the care of this patient. The impression and plan of care has been dictated by Indira Sneed, Nurse Practitioner as directed. Dr. Jose MD I have performed a history and physical examination and medical decision making of this patient, discussed the same with the dictator, and agree with the dictators assessment and plan as written, documented as a scribe. Based on total visit time, I have performed more than 50% of this visit. Patient Condition at Discharge: Fair Plan - Discharge Summary Discharge Rx Participant: Yes New Discharge Prescriptions: New Metoprolol Tartrate [Lopressor] 200 mg PO BID #120 tab Doxycycline [Vibramycin] 100 mg PO BID 7 Days #14 capsule methylPREDNISolone Dose Pack [Medrol Dose Pack] 4 mg PO DIRECTED #21 tab Amiodarone [Cordarone] 400 mg PO BID #120 tablet Continue Budesonide/Formoterol Fumarate [Symbicort 160-4.5 Mcg Inhaler] 2 puff INHALATION RT-BID Dapagliflozin Propanediol [Farxiga] 10 mg PO DAILY #30 tab Pantoprazole Sodium [Protonix] 40 mg PO BID #60 tab Acetaminophen Tab [Tylenol] 500 mg PO Q6HR PRN tab PRN Reason: Fever and/ or Mild Pain Albuterol Inhaler [Ventolin Hfa Inhaler] 2 puff INHALATION RT-Q6H PRN PRN Reason: Shortness Of Breath Or Wheezing Apixaban [Eliquis] 5 mg PO BID #60 tab Sucralfate [Carafate] 1 gm PO AC-TID #60 tab Furosemide [Lasix] 40 mg PO BID@0900,1600 #60 tab Mag Hydrox/Al Hydrox/Simeth [Maalox] 30 ml PO DAILY #200 ml Discontinued Diltiazem Oral [Cardizem*] 60 mg PO TID #90 tab predniSONE See Taper PO DIRECTED Amoxic-Pot Clav 500-125 mg [Augmentin 500-125 mg] 1 tab PO Q12HR 5 Days #10 tab Metoprolol Tartrate [Lopressor] 50 mg PO BID #60 tab Discharge Medication List Budesonide/Formoterol Fumarate [Symbicort 160-4.5 Mcg Inhaler] 2 puff INHALATION RT-BID 05/08/24 [History] Acetaminophen Tab [Tylenol] 500 mg PO Q6HR PRN tab 05/16/24 [Rx] Apixaban [Eliquis] 5 mg PO BID #60 tab 05/16/24 [Rx] Dapagliflozin Propanediol [Farxiga] 10 mg PO DAILY #30 tab 05/16/24 [Rx] Furosemide [Lasix] 40 mg PO BID@0900,1600 #60 tab 05/16/24 [Rx] Mag Hydrox/Al Hydrox/Simeth [Maalox] 30 ml PO DAILY #200 ml 05/16/24 [Rx] Pantoprazole Sodium [Protonix] 40 mg PO BID #60 tab 05/16/24 [Rx] Sucralfate [Carafate] 1 gm PO AC-TID #60 tab 05/16/24 [Rx] Albuterol Inhaler [Ventolin Hfa Inhaler] 2 puff INHALATION RT-Q6H PRN 05/17/24 [History] Amiodarone [Cordarone] 400 mg PO BID #120 tablet 05/25/24 [Rx] Doxycycline [Vibramycin] 100 mg PO BID 7 Days #14 capsule 05/25/24 [Rx] Metoprolol Tartrate [Lopressor] 200 mg PO BID #120 tab 05/25/24 [Rx] methylPREDNISolone Dose Pack [Medrol Dose Pack] 4 mg PO DIRECTED #21 tab 05/25/24 [Rx] Follow up Appointment(s)/Referral(s): Davide Lombardi MD [Medical Doctor] - 06/05/24 1:15 pm (Tuesday) Helen Kemp MD [STAFF PHYSICIAN] - 1 Week (Follow up regarding the white blood cell count ) Bailee Daniel MD [Primary Care Provider] - 05/28/24 12:00 pm (Tuesday) Ariana Verdugo MD [STAFF PHYSICIAN] - 1 Week (Please call to schedule appointment) Ambulatory/Diagnostic Orders: Basic Metabolic Panel [LAB.AMB] Time Frame: 3 Days, Location: None Selected Complete Blood Count w/diff [LAB.AMB] Location: None Selected Patient Instructions/Handouts: Cardioversion (DC) Activity/Diet/Wound Care/Special Instructions: Continue oral amiodarone 400 mg twice a day. Decrease dosage of amiodarone to 200 mg twice a day starting on 05/25/2024. Then decrease to 200 mg daily starting on 06/01/2024 Discharge Disposition: HOME SELF-CARE
== END 2024-05-25 13:49 | disposition home or self-care (01) | DRG 308 ==
LOC: EC 16:51 → 3SCARD 19:57
PROVIDERS: ADMIT Hospitalist; ATTEND Hospitalist
PROC: 5A2204Z Restoration of Cardiac Rhythm, Single (ICD-10-PCS; principal; 2024-05-21 07:30)
PROC: B24BZZ4 Ultrasonography of Heart with Aorta, Transesophageal (ICD-10-PCS; principal; 2024-05-21 07:30)
DX: I48.0 Paroxysmal atrial fibrillation (principal); I50.33 Acute on chronic diastolic (congestive) heart failure; J18.9 Pneumonia, unspecified organism; I48.19 Other persistent atrial fibrillation; J96.21 Acute and chronic respiratory failure with hypoxia; E87.20 Acidosis, unspecified; J44.0 Chronic obstructive pulmonary disease with (acute) lower respiratory infection; K76.1 Chronic passive congestion of liver; I11.0 Hypertensive heart disease with heart failure; E66.01 Morbid (severe) obesity due to excess calories; K25.9 Gastric ulcer, unspecified as acute or chronic, without hemorrhage or perforation; J44.1 Chronic obstructive pulmonary disease with (acute) exacerbation; J98.11 Atelectasis; I48.3 Typical atrial flutter; Z68.33 Body mass index [BMI] 33.0-33.9, adult; F17.210 Nicotine dependence, cigarettes, uncomplicated; G47.33 Obstructive sleep apnea (adult) (pediatric); K57.30 Diverticulosis of large intestine without perforation or abscess without bleeding; D75.1 Secondary polycythemia; E87.6 Hypokalemia; K29.70 Gastritis, unspecified, without bleeding; R73.9 Hyperglycemia, unspecified; Z71.3 Dietary counseling and surveillance; Z79.51 Long term (current) use of inhaled steroids; Z79.84 Long term (current) use of oral hypoglycemic drugs; Z79.899 Other long term (current) drug therapy; Z79.01 Long term (current) use of anticoagulants
CPT/HCPCS: 36415; 71046; 74018; 76705; 80048; 80053; 81003; 83036; 83605; 83735; 83880; 84145; 84484; 85025; 85027; 85610; 85730; 86140; 87040; 87070; 87077; 87186; 87205; 87636; 92960; 93005; 93312; 93320; 93325; 94640; 94760; 96365; 96366; 96367; 96368; 96375; 96376; 99285